=== PATIENT | female | born 1940 | race Caucasian/White ===

== ENCOUNTER 2016-06-03 15:54 | Inpatient (IN) ==
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
[2016-06-03 17:20] LABS: Basophils % 0.8 %; Hemoglobin 13.3 g/dL (11.5-15.4); Mean Corpuscular Hemoglobin 27.3 pg (28.0-33.3); Red Blood Count 4.87 M/mcL (3.82-4.97)
[2016-06-03 17:22] LABS: Basophils # 0.1 K/mcL (0.0-0.2); Eosinophils # 0.1 K/mcL (0.0-0.6); Eosinophils % 0.7 %; Hematocrit 41.4 % (35.3-44.9); Immature Granulocytes % 2.8 % (0-4); Immature Platelets 12.9 % (1.1-6.1); Lymphocytes # 2.8 K/mcL (0.6-4.6); Lymphocytes % 15.2 %; Mean Corpuscular HGB Conc 32.1 g/dL (31.6-35.5); Mean Platelet Volume 11.7 fL (9.4-12.4); Monocytes # 8.2 K/mcL (0.0-1.3); Monocytes % 45.3 %; Neutrophils # 6.4 K/mcL (1.6-8.9); Red Cell Distribution Width 14.6 % (11.5-14.5); Segmented Neutrophils % 35.2 %
[2016-06-03 17:24] LABS: Platelet Count 90 K/mcL (140-400)
[2016-06-03 17:25] LABS: INR 1.1
[2016-06-03 17:28] LABS: Activated Partial Thrombo Time 21.2 Seconds (26.0-36.0)
[2016-06-03 17:30] LABS: Bilirubin,Urine Negative (Negative); Blood,Urine Large (Negative); Clarity,Urine Clear (Clear); Color,Urine Yellow (Yellow); Glucose,Urine (UA) Normal (Normal); Ketones,Urine Negative (Negative); Leukocyte Esterase,Urine Large (Negative); Nitrite,Urine Negative (Negative); Protein,Urine Negative (Neg-Trace); Specific Gravity,Urine 1.009 (1.010-1.025); Urobilinogen,Urine Normal (Normal)
[2016-06-03 17:32] LABS: Bacteria,Urine None Seen per hpf (None-Few); Hyaline Casts,Urine None Seen per lpf (None-Few); RBC,Urine 15-30 per hpf (0-3); Squamous Epithelial Cell,Urine Many per lpf (None-Few)
[2016-06-03 17:34] LABS: Alanine Aminotransferase 17 Units/L (0-55); Albumin 4.5 g/dL (3.5-5.0); Albumin/Globulin Ratio 1.4 (1.1-2.2); Alkaline Phosphatase 69 Units/L (38-126); Aspartate Amino Transferase 24 Units/L (5-34); BUN/Creatinine Ratio 22 (6-26); Bilirubin,Total 0.9 mg/dL (0.2-1.2); Blood Urea Nitrogen 21 mg/dL (7-20); Calcium 9.5 mg/dL (8.6-10.8); Carbon Dioxide 26 mEq/L (19-29); Chloride 103 mEq/L (98-109); Globulin 3.3 g/dL (2.4-3.5); Glucose 98 mg/dL (70-99); Osmolality,Calculated 291 (280-300); Potassium 3.7 mEq/L (3.5-4.5); Sodium 139 mEq/L (136-145); Total Protein 7.8 g/dL (6.0-8.3); eGFR For African Americans > 60 (> 60); eGFR For Non-African Americans 57 (> 60)
[2016-06-03 18:10] LABS: Platelet Estimate Decreased (Normal)
[2016-06-03] MEDS ORDERED: Aspirin 81 MG TAB.CHEW PO STA (18:53)
[2016-06-03] MEDS ORDERED: *HR* Enoxaparin 60 MG/0.6 ML SYRINGE SQ ONE (20:16)
[2016-06-04] MEDS ORDERED: Acetaminophen 325 MG TABLET PO PRN (02:56)
[2016-06-04] MEDS ORDERED: *HR* Morphine 2 MG/ML SYRINGE IVP PRN (02:56)
[2016-06-04] MEDS ORDERED: Naloxone 0.4 MG/ML INJ IVP PRN (02:56)
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
[2016-06-04] MEDS: *HR* Heparin 5,000 UNIT/ML VIAL SQ SCH ×2 (06:15→16:20)
[2016-06-04] MEDS: 0.9 % Sodium Chloride w KCl 20 MEQ/1,000 ML MLS IVC SCH ×2 (06:15→19:38)
[2016-06-04 06:51] LABS: Hematocrit 39.3 % (35.3-44.9); Hemoglobin 12.6 g/dL (11.5-15.4); Mean Corpuscular HGB Conc 32.1 g/dL (31.6-35.5); Mean Corpuscular Hemoglobin 27.1 pg (28.0-33.3); Mean Corpuscular Volume 84.5 fL (83.0-100.0); Mean Platelet Volume 11.4 fL (9.4-12.4); Red Blood Count 4.65 M/mcL (3.82-4.97); Red Cell Distribution Width 14.7 % (11.5-14.5)
[2016-06-04 07:04] LABS: Alanine Aminotransferase 12 Units/L (0-55); Albumin 3.8 g/dL (3.5-5.0); Albumin/Globulin Ratio 1.2 (1.1-2.2); Alkaline Phosphatase 63 Units/L (38-126); Aspartate Amino Transferase 19 Units/L (5-34); BUN/Creatinine Ratio 18 (6-26); Bilirubin,Total 1.3 mg/dL (0.2-1.2); Blood Urea Nitrogen 16 mg/dL (7-20); Calcium 9.3 mg/dL (8.6-10.8); Carbon Dioxide 24 mEq/L (19-29); Chloride 106 mEq/L (98-109); Chol/HDL Ratio 4.4 (0-4.9); Cholesterol 133 mg/dL (< 200); Globulin 3.1 g/dL (2.4-3.5); Glucose 91 mg/dL (70-99); HDL Cholesterol 30 mg/dL (40-59); LDL Cholesterol,Calculated 79 mg/dL (0-99); Magnesium 1.9 mg/dL (1.6-2.6); Osmolality,Calculated 293 (280-300); Potassium 3.4 mEq/L (3.5-4.5); Sodium 141 mEq/L (136-145); Total Protein 6.9 g/dL (6.0-8.3); Triglycerides 121 mg/dL (< 150); eGFR For African Americans > 60 (> 60); eGFR For Non-African Americans > 60 (> 60)
[2016-06-04 07:33] LABS: Platelet Count 95 K/mcL (140-400)
[2016-06-04 08:04] LABS: Lymphocytes # 2.5 K/mcL (0.6-4.6); Monocytes # 6.4 K/mcL (0.0-1.3); Neutrophils # 6.4 K/mcL (1.6-8.9)
[2016-06-04 08:05] LABS: Platelet Estimate Slight Decrease (Normal)
[2016-06-04] MEDS: Aspirin 81 MG TAB.CHEW PO SCH (09:08)
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
[2016-06-04] MEDS ORDERED: Famotidine 20 MG TABLET PO PRN (14:51)
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
[2016-06-04] MEDS ORDERED: Aspirin Enteric Coated 81 MG Tablet PO ONE (17:47)
[2016-06-04] MEDS: Lactobacillus 1 EACH CAP.SPRINK PO SCH (20:17)
[2016-06-05 04:51] LABS: Basophils % 0.7 %; Eosinophils % 0.5 %; Hemoglobin 12.4 g/dL (11.5-15.4)
[2016-06-05 04:53] LABS: Eosinophils # 0.1 K/mcL (0.0-0.6); Hematocrit 38.5 % (35.3-44.9); Immature Platelets 8.7 % (1.1-6.1); Lymphocytes # 2.3 K/mcL (0.6-4.6); Lymphocytes % 10.7 %; Mean Corpuscular HGB Conc 32.2 g/dL (31.6-35.5); Mean Corpuscular Hemoglobin 27.7 pg (28.0-33.3); Mean Corpuscular Volume 86.1 fL (83.0-100.0); Mean Platelet Volume 11.6 fL (9.4-12.4); Monocytes % 51.9 %; Neutrophils # 7.2 K/mcL (1.6-8.9); Platelet Count 102 K/mcL (140-400); Red Blood Count 4.47 M/mcL (3.82-4.97); Red Cell Distribution Width 14.8 % (11.5-14.5); Segmented Neutrophils % 34.2 %
[2016-06-05 05:08] LABS: Alanine Aminotransferase 13 Units/L (0-55); Albumin 3.4 g/dL (3.5-5.0); Albumin/Globulin Ratio 1.1 (1.1-2.2); Alkaline Phosphatase 61 Units/L (38-126); Aspartate Amino Transferase 17 Units/L (5-34); BUN/Creatinine Ratio 23 (6-26); Blood Urea Nitrogen 19 mg/dL (7-20); Calcium 8.7 mg/dL (8.6-10.8); Carbon Dioxide 18 mEq/L (19-29); Chloride 111 mEq/L (98-109); Glucose 90 mg/dL (70-99); Osmolality,Calculated 290 (280-300); Sodium 139 mEq/L (136-145); Total Protein 6.4 g/dL (6.0-8.3); eGFR For African Americans > 60 (> 60); eGFR For Non-African Americans > 60 (> 60)
[2016-06-05 05:27] LABS: Basophils # 0.2 K/mcL (0.0-0.2)
[2016-06-05 05:29] LABS: Platelet Estimate Slight Decrease (Normal)
[2016-06-05] MEDS: *HR* Heparin 5,000 UNIT/ML VIAL SQ SCH ×2 (05:57→16:57)
--- NOTE | 2016-06-05 08:18 | ECHO - Doppler Report ---
Echocardiogram Name: Cecilia Christopher Date of Study: 06/04/2016 Date: 1940 Ht: 65.0 in Medical Record#: [id number] Age: 76 Wt: 107.0 lb Gender: Female BSA: 1.52 Order #: [id number] Location: [facility] Room #: 2NE27 Reading Physician: Michael Willard DO, FACAbhay, [place] Inner Layer Scrubber Tender: Nirmala Matthew RDCS Ordering Physician: Giovani Orozco MD Primary Physician: Duncan Tracy MD Indications: Syncope, Elevated Troponin Impressions: LVEF 60-65%. Normal LV chamber size, wall thickness and function. Mild left ventricular diastolic dysfunction. Normal right ventricular structure and function. No evidence of pulmonary hypertension. No significant valvular dysfunction. Left Ventricular Wall Motion: Rest Echo Findings All wall segments showed normal motion. Findings: Study Quality * Technically adequate exam. ECG Findings * Normal sinus rhythm. Left Ventricle * LVEF 60-65%. * Normal LV chamber size, wall thickness and function. * Mild left ventricular diastolic dysfunction. Right Ventricle * Normal right ventricular structure and function. Left Atrium * Normal left atrial size. Right Atrium * Normal right atrial size. Interatrial Septum * No evidence of PFO by color Doppler. Aortic Valve * Trileaflet aortic valve. * Mildly sclerotic aortic valve leaflets. * No aortic regurgitation. * No aortic stenosis. Mitral Valve * Normal mitral valve structure and function. * No mitral regurgitation. * No mitral stenosis. Tricuspid Valve * Normal tricuspid valve structure and function. * Trace tricuspid regurgitation. * No evidence of pulmonary hypertension. Pulmonic Valve * Normal pulmonic valve structure and function. * Trace pulmonic regurgitation. Aorta * Normally sized aortic root. Pericardium * The pericardium appears normal. IVC * Normal IVC dimensions and inspiratory collapse. Pulmonary Artery * Normal visualized portions of the main pulmonary artery. History Hypertension 07/12/2012 a Previous Echo was performed. Measurements: BP: 116/ 61 2D Normal Values RVIDd: 2.21 cm <2.7 cm IVSd: 1.12 cm 0.6 - 1.0 cm LVIDd: 3.47 cm 3.7 - 5.6 cm LVPWd: .95 cm 0.6 - 1.1 cm LVIDs: 2.22 cm 1.5 - 3.6 cm AO: 2.20 cm < 4.0 cm LA: 2.50 cm 2.0 - 4.0cm %FS: 36.00 cm >25 % LA volume: 34 Mitral Valve Peak E:.77 m/sec Peak A:.83 m/sec E/A Ratio:0.9 Peak E' Lat Surinder:8.05 cm/s Peak E' Med Surinder:6.2 cm/s E/E' Lat Ratio:9.6 E/E' Med Ratio:12.4 Tricuspid Valve TV Regurg Peak Grad: 9.00mmHg TV Regurg Peak Surinder: 1.48m/sec Updated by Michael Willard DO, TOVA, [place], CAROLYN on 06/05/2016 8:13:01 AM electronically signed on 06/05/2016 8:14:08 AM with status of Final Wall Motion [place]: 1=Normal, 2=Hypokinesis, 3=Akinesis, 4=Dyskinesis, 5=Aneurysmal, 6=Hyperkinetic, X=Not Visualized (Blank)=Missing
--- NOTE | 2016-06-05 09:15 | Electrocardiograph Report ---
[address] [place] [address] Test Date: 2016-06-03 Pat Name: Cecilia Christopher Department: 103 Room: 2NE27 Gender: F Social Worker Masters: : 1940 Requested By: Dedrick Song Order Number: [id number] Reading MD: Felix Short MD Measurements Intervals [place] Rate: 65 P: 69 GA: 167 QRS: 19 QRSD: 85 T: 37 QT: 434 QTc: 446 Interpretive Statements SINUS RHYTHM LEFT ATRIAL ENLARGEMENT LEFT VENTRICULAR HYPERTROPHY Electronically Signed On 06-05-2016 9:14:22 EDT by Felix Short MD
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
[2016-06-05] MEDS: 0.9 % Sodium Chloride w KCl 20 MEQ/1,000 ML MLS IVC SCH (09:35)
[2016-06-05] MEDS: Lactobacillus 1 EACH CAP.SPRINK PO SCH ×2 (09:36→23:04)
[2016-06-05] MEDS: Aspirin 81 MG TAB.CHEW PO SCH (09:36)
[2016-06-05] MEDS: hydroCHLOROthiazide 25 MG TABLET PO SCH (09:36)
[2016-06-05] MEDS: Valsartan 160 MG TABLET PO SCH (09:36)
[2016-06-05] MEDS: Cholecalciferol (D-3) 1,000 UNIT TABLET PO SCH (09:36)
[2016-06-05] MEDS: Psyllium 1 PACKET POWD.PACK PO SCH (09:37)
--- NOTE | 2016-06-05 12:43 | Carotid Imaging Report ---
Carotid Duplex Patient Name:Cecilia Christopher Order Number:[id number] Procedure Date:06/04/2016 Date:2Age:76 yrs Gender:Female Rt.BP:116 / 61 mmHgHeart Rate: Location:[facility] Room #: 2NE27 Hospice Care Consultant:Nirmala Matthew EDWIN Referring MD:Giovani Orozco MD electronic publications specialist:Duncan Tracy MD Reading MD:Maury Spann MD , [facility] Primary Indications:Syncope and collapse Risk Factors Yes/No Hypertension Yes Impressions: Findings: Bilateral carotid systems are essentially normal. Recommendations: Preliminary given to Dr Galan. Findings Carotid Duplex: Right: The right proximal common carotid artery has a PSV of 124 cm/s and a EDV of 15 cm/s. The right mid common carotid artery has a PSV of 109 cm/s and a EDV of 18 cm/s. The right distal common carotid artery has a PSV of 97 cm/s and a EDV of 18 cm/s. The right bifurcation has a PSV of 74 cm/s and a EDV of 18 cm/s. The right proximal internal carotid artery has a PSV of 81 cm/s and a EDV of 22 cm/s. The right mid internal carotid artery has a PSV of 99 cm/s and a EDV of 25 cm/s. The right distal internal carotid artery has a PSV of 109 cm/s and a EDV of 23 cm/s. The right eca has a PSV of 69 cm/s and a EDV of 2 cm/s. The right vertebral artery has a PSV of 72 cm/s and a EDV of 21 cm/s. There is antegrade spectral Doppler flow patterns. Left: The left proximal common carotid artery has a PSV of 95 cm/s and a EDV of 18 cm/s. The left mid common carotid artery has a PSV of 96 cm/s and a EDV of 18 cm/s. The left distal common carotid artery has a PSV of 85 cm/s and a EDV of 20 cm/s. The left bifurcation has a PSV of 50 cm/s and a EDV of 11 cm/s. The left proximal internal carotid artery has a PSV of 75 cm/s and a EDV of 17 cm/s. The left mid internal carotid artery has a PSV of 80 cm/s and a EDV of 19 cm/s. The left distal internal carotid artery has a PSV of 80 cm/s and a EDV of 21 cm/s. The left eca has a PSV of 81 cm/s and a EDV of 2 cm/s. The left vertebral artery has a PSV of 63 cm/s and a EDV of 10 cm/s. There is antegrade spectral Doppler flow patterns. Prior Study: No prior study available for comparison. Carotid Results Right PSV EDV Assessment Proximal CCA 124 15 Mid CCA 109 18 Distal CCA 97 18 Bifurcation 74 18 Proximal ICA 81 22 Mid ICA 99 25 Distal ICA 109 23 ECA 69 2 Vertebral Artery 72 21 Antegrade Flow Left PSV EDV Assessment Proximal CCA 95 18 Mid CCA 96 18 Distal CCA 85 20 Bifurcation 50 11 Proximal ICA 75 17 Mid ICA 80 19 Distal ICA 80 21 ECA 81 2 Vertebral Artery 63 10 Antegrade Flow Ratio's Right ICA/CCA Ratio: 1.00 ICA/CCA Values: 109/109 Left ICA/CCA Ratio: 0.83 ICA/CCA Values: 80/96 Updated by Maury Spann MD, FACS on 06/05/2016 12:37:33 PM Maury Spann MD electronically signed on 06/05/2016 12:38:02 PM with status of Final
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
--- NOTE | 2016-06-05 13:58 | EEG/EMG/Oth Biometrics Report ---
EEG Procedure Report Date of procedure: 06/05/16 EEG Procedure: Routine EEG Procedure Note: This is a report of a 21 channel bipolar and referential montage EEG. A posterior dominant rhythm of 8 Hz moderate voltage alpha frequencies identified symmetrically in the posterior head regions. This rhythm attenuates symmetrically with eye opening. Superimposed beta frequencies are identified in the anterior leads. Hyperventilation is not performed during recording. Periods of drowsiness are identified as referenced by dropout of the posterior dominant rhythm. The subject however does not approach stage II sleep. Photic stimulation is performed and does not produce a driving response. The EKG rhythm strip reveals normal sinus rhythm at 66 beats per minute. Impressions: This EEG recording is within normal limits. There is no evidence of epileptiform activity identified during the study. Comment: A normal EEG does not preclude a diagnosis of seizure or epilepsy. If the clinical suspicion for seizure activity is high, serial EEGs or perhaps a prolonged recording may increase the yield. Please correlate clinically. The documentation in the history of HPI and plan were at least partially created by [employer] voice recognition technology by Dr. Franz. Errors in grammar, wording or other phrases may exist. If errors are found after the documentation signed, they will be addressed individually in the addendum section of this document when appropriate.
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
[2016-06-05] MEDS: Piperacillin/Tazobactam 3.375 GM in D5% in Water (Mini-Bag+) 100 ML IVPB SCH ×2 (17:06→23:05)
--- NOTE | 2016-06-05 17:47 | Electrocardiograph Report ---
[place] [id number] Test Date: 2016-06-04 Pat Name: Cecilia Christopher Department: 111 Room: 2N7 Gender: F Ultrasound Supervisor: : 1940 Requested By: Michael Willard Order Number: [id number] Reading MD: Naseem Shen Measurements Intervals [place] Rate: 64 P: 69 TN: 148 QRS: 30 QRSD: 91 T: 41 QT: 423 QTc: 432 Interpretive Statements SINUS RHYTHM Electronically Signed On 06-05-2016 17:45:45 EDT by Naseem Shen
[2016-06-06] MEDS: 0.9 % Sodium Chloride w KCl 20 MEQ/1,000 ML MLS IVC SCH ×3 (05:48→05:50)
[2016-06-06] MEDS: *HR* Heparin 5,000 UNIT/ML VIAL SQ SCH (05:51)
[2016-06-06] MEDS: Valsartan 160 MG TABLET PO SCH (08:28)
[2016-06-06] MEDS: Cholecalciferol (D-3) 1,000 UNIT TABLET PO SCH (08:28)
[2016-06-06] MEDS: Aspirin 81 MG TAB.CHEW PO SCH (08:28)
[2016-06-06] MEDS: Lactobacillus 1 EACH CAP.SPRINK PO SCH (08:29)
[2016-06-06] MEDS: hydroCHLOROthiazide 25 MG TABLET PO SCH (08:29)
[2016-06-06] MEDS: Psyllium 1 PACKET POWD.PACK PO SCH (08:30)
[2016-06-06 09:44] LABS: Hematocrit 41.8 % (35.3-44.9); Hemoglobin 13.5 g/dL (11.5-15.4); Immature Platelets 9.8 % (1.1-6.1); Mean Corpuscular HGB Conc 32.3 g/dL (31.6-35.5); Mean Corpuscular Hemoglobin 27.4 pg (28.0-33.3); Mean Platelet Volume 10.6 fL (9.4-12.4); Red Blood Count 4.92 M/mcL (3.82-4.97); Red Cell Distribution Width 14.7 % (11.5-14.5)
[2016-06-06 09:53] LABS: BUN/Creatinine Ratio 18 (6-26); Blood Urea Nitrogen 15 mg/dL (7-20); Calcium 9.2 mg/dL (8.6-10.8); Carbon Dioxide 22 mEq/L (19-29); Chloride 107 mEq/L (98-109); Glucose 68 mg/dL (70-99); Osmolality,Calculated 289 (280-300); Potassium 3.6 mEq/L (3.5-4.5); Sodium 140 mEq/L (136-145); eGFR For African Americans > 60 (> 60); eGFR For Non-African Americans > 60 (> 60)
[2016-06-06 10:56] VITALS: BP 119/56
[2016-06-06] MEDS: Piperacillin/Tazobactam 3.375 GM in D5% in Water (Mini-Bag+) 100 ML IVPB SCH (12:47)
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
--- NOTE | 2016-06-06 15:13 | Neurology Progress Note ---
Date of Encounter: 06/06/16 Time of Encounter: 15:09 Assessment and Plan (1) Syncope Current Visit: Yes Status: Acute My impressions regarding this case remained the same. I am doubtful of a primary central nervous system etiology to explain her syncope. She did not have a prodrome, she did not have what appeared to be a seizure, she did not have a postictal state, she only has amnesia for the time that she was unconscious. There is no anterograde, or retrograde amnesia. EEG was normal. I agree with cardiology's plan for post discharge monitoring. He may discharge her at your discretion. I will reevaluate her at your request. I would recommend the patient abstain from driving until the commodity merchant's workup has been completed and they are comfortable releasing the patient back to normal daily activities. Qualifiers: Qualified Code(s): R55 - Syncope and collapse Subjective Principal diagnosis: syncope Interval history: I had the pleasure of following up with Ms. Christopher at the bedside today. She is awake and alert and oriented in no acute distress. The chart was reviewed, the MRI scan of the brain was also personally reviewed. And the patient was examined bedside. The MRI reveals a very small punctate abnormality in the region of the left hippocampus. I am not convinced that this is an infarct. I expect that this perhaps a dilated vein or perhaps a Virchow-Mae space. This lesion is in my opinion and too small to be of any pathologic consequence. Otherwise she is alert and oriented and totally appropriate. Objective - Constitutional Vitals: Temp Pulse Resp BP Pulse Ox 97.7 F 62 15 119/56 97 06/06/16 07:12 06/06/16 07:12 06/06/16 07:12 06/06/16 07:12 06/06/16 07:12 - Neurological Exam Motor Examination: Present: full strength in all major muscle groups Motor examination - right side: 5/5: deltoids, biceps, triceps, wrist flexion, wrist extension, biological technical officer, hip flexors, tibialis Anterior, quadriceps, toe extension (EHL), plantarflexion Motor examination - left side: 5/5: deltoids, biceps, triceps, wrist flexion, wrist extension, hip flexors, biological technical officer, quadriceps, tibialis Anterior, toe extension (EHL), plantarflexion Sensation intact: Present: intact Mental Status Examination: Present: awake, alert, oriented to person, oriented to place, oriented to time, follows commands appropriately, answers questions appropriately, no agnosia, no aphasia, no aproxia Cranial nerve examination: Present: PERRL, EOMI, visual pak intact, corneal reflexes brisk symmetrically, sensory to face intact, mastication intact, no facial asymmetry is present, no dysarthria, hearing is intact symmetrically, soft palate elevates bilaterally upon phonation, gag reflex intact, flexes SCM and trapezius muscles symmetrically with full power, tongue protrudes midline, no atrophy or facial fasiculations present Cerebellar examination: Present: no dysmetria, performs finger to nose and heel to moran symmetrically without ataxia, no gait ataxia, no truncal ataxia, no difficulty with rapid alternating movements Results - Laboratory Findings CBC and BMP: 06/06/16 09:33 06/06/16 09:33 Abnormal lab findings: Abnormal lab results WBC 24.4 K/mcL (4.3-11.1) H 06/06/16 09:33 MCH 27.4 pg (28.0-33.3) L 06/06/16 09:33 RDW 14.7 % (11.5-14.5) H 06/06/16 09:33 Plt Count 97 K/mcL (140-400) L 06/06/16 09:33 Band Neutrophils % 5.0 % (0-4) H 06/04/16 06:03 Metamyelocytes % 2.0 % (0) H 06/04/16 06:03 Monocytes # 11.0 K/mcL (0.0-1.3) H 06/05/16 04:03 Platelet Estimate Slight Decrease (Normal) L 06/05/16 04:03 Immature Plt Fraction 9.8 % (1.1-6.1) H 06/06/16 09:33 APTT 21.2 Seconds (26.0-36.0) L 06/03/16 17:10 Glucose 68 mg/dL (70-99) L 06/06/16 09:33 POC Glucose 98 (58-89) H 06/05/16 21:06 Troponin I 0.08 ng/mL (0-0.03) H* 06/04/16 19:13 Albumin 3.4 g/dL (3.5-5.0) L 06/05/16 04:03 HDL Cholesterol 30 mg/dL (40-59) L 06/04/16 06:03 Ur Specific [place] 1.009 (1.010-1.025) L 06/03/16 17:19 Urine Blood Large (Negative) H 06/03/16 17:19 Ur Leukocyte Esterase Large (Negative) H 06/03/16 17:19 Urine Microscopic RBC 15-30 per hpf (0-3) H 06/03/16 17:19 Urine Microscopic WBC 5-15 per hpf (0-3) H 06/03/16 17:19 Ur Squamous Epith Cells Many per lpf (None-Few) H 06/03/16 17:19 Consult Discharge Plan - Plan Referrals: Duncan Tracy MD [Primary Care Provider] - Naseem Shen MD [Partnered Physician] - 06/27/16 10:15 am
== END 2016-06-06 18:35 | disposition home or self-care (01) | DRG 312 ==
LOC: 2NENU 15:54 → EMEROO 15:54 → 2NENU 22:16 → SUATTDRO 06-05 17:03
PROVIDERS: ADMIT Internal Medicine; ATTEND Internal Medicine

== ENCOUNTER 2017-10-31 22:42 | Inpatient (IN) ==
[2017-10-31] MEDS ORDERED: Isovue-370 500 ML INFUS..BTL IV ONE (23:11)
[2017-10-31 23:45] LABS: Hematocrit 33.7 % (35.3-44.9); Hemoglobin 10.9 g/dL (11.5-15.4); Mean Corpuscular HGB Conc 32.3 g/dL (31.6-35.5); Mean Corpuscular Hemoglobin 27.8 pg (28.0-33.3); Mean Platelet Volume 11.8 fL (9.4-12.4); Platelet Count 131 K/mcL (140-400); Red Blood Count 3.92 M/mcL (3.82-4.97); Red Cell Distribution Width 17.2 % (11.5-14.5)
[2017-11-01 00:07] LABS: Lymphocytes # 0.8 K/mcL (0.6-4.6); Monocytes # 24.4 K/mcL (0.0-1.3); Platelet Estimate Normal (Normal)
[2017-11-01 00:09] LABS: BUN/Creatinine Ratio 28 (6-26); Blood Urea Nitrogen 18 mg/dL (8-23); Calcium 8.7 mg/dL (8.6-10.3); Carbon Dioxide 27 mEq/L (23-29); Chloride 99 mEq/L (98-107); Glucose 110 mg/dL (70-105); Osmolality,Calculated 281 (280-300); Potassium 4.1 mEq/L (3.5-5.1); Sodium 134 mEq/L (136-145); eGFR For Non-African Americans > 60 (> 60)
[2017-11-01 00:10] LABS: Troponin I < 0.03 ng/mL (< 0.04)
--- NOTE | 2017-11-01 02:31 | Emergency Department Note ---
Disposition Clinical Impression: Pleural effusion, Hypoxemia Dyspnea Qualifiers: Dyspnea type: unspecified Qualified Code(s): R06.00 - Dyspnea, unspecified Disposition: Admitted As Inpatient Condition: Fair Time of Disposition: 03:50 General Adult HPI - General Chief complaint: ED Upper Respiratory Infection Stated complaint: Abnormal chest xray Time Seen by Provider: 10/31/17 22:59 Source: EMS Limitations: no limitations Nursing Notes Reviewed: Yes Vital Signs Reviewed: Yes - History of Present Illness HPI Narrative: Patient is a 77-year-old female who presents to [facility] ED with a chief complaint of difficulty breathing. States over the last 2 days , she has been more short of breath and has had a cough. She has been residing at [facility]. States she had been doing better until this cough develop 2 days ago. Has not had any other cold symptoms. States they started her on oxygen via nasal cannula. She has never had a need for oxygen in the past. Has never been a smoker. Patient states she had a recent hospitalization back in August at [facility] in which she underwent an ablation for atrial fibrillation. States this was complicated by her cold urticaria and the hospitalization was complicated by needing multiple intubations. 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 Since then she has been recovering at the nursing facility and has been undergoing physical therapy. States she has been making good progress because she wants to get home as soon as she can. Past medical history significant for prior thrombocytopenia for which she previously followed with a public address technician. States her primary care physician Dr. Tracy handles this now. Onset (ago): day(s) (2) Pain Scale: 0 Consistency: Worsening Improves with: nothing Worsens with: nothing Associated symptoms: Reports: cough, shortness of breath. Denies: chest pain, fever/chills, nausea/vomiting, weakness Treatments Prior to Arrival: none - Related Data Home Medications Medication Instructions Recorded Confirmed Sotalol [Betapace] 40 mg PO QAM 10/01/14 06/04/16 Aspirin 81 mg PO DAILY 10/26/14 06/04/16 Diphenoxylate/Atropine [Lomotil] 1 each PO QID PRN 10/26/14 06/04/16 L. Acidophilus/Pectin, [place] 1 each PO BID 10/26/14 06/04/16 [Acidophilus Probiotic Capsule] Psyllium Husk [Psyllium Fiber] 1.56 gm PO DAILY 10/26/14 06/04/16 Cholecalciferol (D-3) [Vitamin D] 1,000 unit PO DAILY 06/04/16 06/04/16 Famotidine [Pepcid] 20 mg PO DAILY PRN 06/04/16 06/04/16 Sotalol [Betapace] 80 mg PO HS 06/04/16 06/04/16 Valsartan/Hydrochlorothiazide 1 each PO DAILY 06/04/16 06/04/16 [Diovan Hct 160-12.5 mg Tab] Allergies Allergy/AdvReac Type Severity Reaction Status Date / Time sulfamethoxazole Allergy Unknown Nausea Verified 06/03/16 16:15 [From Bactrim] levofloxacin [From Levaquin] Allergy See Verified 06/03/16 16:15 Comments nitrofurantoin Allergy See Verified 06/03/16 16:15 [From Macrobid] Comments trimethoprim [From Bactrim] Allergy Nausea Verified 06/03/16 16:15 All systems ED: reviewed and negative except as stated. Past Medical History - Past Medical History Attestation: Yes The following information was validated with the patient. Source: patient Medical history: Reports: atrial fibrillation, GERD, hypertension Surgical history: Reports: no surgical history Psychiatric history: Reports: no psych history - Social History Smoking Status: Never smoker Smokeless Tobacco Status: No Alcohol use: Reports: none Drug use: Reports: none Physical Exam - General Limitations: no limitations General appearance: alert, in no apparent distress - Head Head exam: atraumatic, normocephalic, normal inspection - Eye Eye exam: Present: EOMI - ENT ENT exam: normal exam, normal oropharynx, mucous membranes moist - Neck Neck exam: Present: normal inspection, full ROM, trachea midline - Chest Chest inspection: Present: normal inspection, symmetric chest wall rise - Respiratory Respiratory exam: Present: other (decreased breath sounds b/l) - Cardiovascular Cardiovascular exam: Present: regular rate, normal rhythm, normal heart sounds - Abdominal Exam Abdominal exam: Present: soft, Non-Tender. Absent: tenderness, distention, guarding, rebound, rigidity - Extremities Exam Extremities exam: Present: normal inspection, full ROM. Absent: tenderness, pedal edema - Neurological Exam Neurological exam: Present: alert, oriented X3 - Psychiatric Psychiatric exam: Present: normal affect, normal mood - Skin Skin exam: Present: warm, dry, intact, normal color Course Course Narrative: Patient seen and examined. New onset of a pleural effusion that was found by chest x-ray at the nursing facility. Due to the acuity of her symptoms and since she has been bedbound for the last several weeks, we will do a CTA of the chest to evaluate for pulmonary embolus. Dyspnea workup ordered. Patient currently saturating 93% with 2 L. - Reevaluation(s) Reevaluation #1: CTA showed signs of a large right-sided pleural effusion as well as moderate- sized pleural effusion on the left. Since these are new and since patient has new oxygen requirements, we will bring her in for further workup. Patient also has a leukocytosis which is over 40,000. Patient is unsure if she has had issues with her white blood cells in the past. Upon reviewing her history, she has had elevated white blood cell count every time she has been here though this is the highest it has ever been at our facility. I discussed with the hospitalist who accepted patient for admission. He would like blood cultures to be drawn as well as think and Zosyn to be given. Time: 03:11 Vital Signs Temperature 97.9 F 10/31/17 22:48 Pulse Rate 86 10/31/17 22:48 Respiratory Rate 18 10/31/17 22:48 Blood Pressure 101/58 10/31/17 22:48 O2 Sat by Pulse Oximetry 93 10/31/17 22:48 Temperature 98.2 F 11/01/17 03:36 Pulse Rate 86 11/01/17 03:36 Respiratory Rate 18 11/01/17 03:36 Blood Pressure 105/51 11/01/17 03:36 O2 Sat by Pulse Oximetry 92 11/01/17 05:40 Oxygen Delivery Oxygen Delivery Nasal Cannula Medical Decision Making - Medical Records Medical records reviewed: Yes I reviewed the patient's medical records. - Lab Data Lab results reviewed: Yes I reviewed the patient's lab results. Result diagrams: 11/01/17 04:23 11/01/17 04:23 Lab Results 10/31/17 10/31/17 10/31/17 Range/Units 23:11 23:11 23:11 WBC 42.1 H* (4.3-11.1) K/mcL RBC 3.92 (3.82-4.97) M/mcL Hgb 10.9 L (11.5-15.4) g/dL Hct 33.7 L (35.3-44.9) % MCV 86.0 (83.0-100.0) fL MCH 27.8 L (28.0-33.3) pg MCHC 32.3 (31.6-35.5) g/dL RDW 17.2 H (11.5-14.5) % Plt Count 131 L (140-400) K/mcL MPV 11.8 (9.4-12.4) fL Seg Neutrophils % 38.0 % Lymphocytes % 2.0 % Monocytes % 58.0 % Metamyelocytes % 2.0 H (0) % Neutrophils # 16.0 H (1.6-8.9) K/mcL Lymphocytes # 0.8 (0.6-4.6) K/mcL Monocytes # 24.4 H (0.0-1.3) K/mcL Platelet Estimate Normal (Normal) Sodium 134 L (136-145) mEq/L Potassium 4.1 (3.5-5.1) mEq/L Chloride 99 (98-107) mEq/L Carbon Dioxide 27 (23-29) mEq/L BUN 18 (8-23) mg/dL Creatinine 0.64 (0.60-1.20) mg/dL Est GFR ( Amer) > 60 (> 60) Est GFR (Non-Af Amer) > 60 (> 60) BUN/Creatinine Ratio 28 H (6-26) Glucose 110 H (70-105) mg/dL Calculated Osmolality 281 (280-300) Lactic Acid (0.5-2.2) mmol/L Calcium 8.7 (8.6-10.3) mg/dL Troponin I < 0.03 (< 0.04) ng/mL B-Natriuretic Peptide 73 (Less than 100) pg/mL 10/31/17 Range/Units 23:31 WBC (4.3-11.1) K/mcL RBC (3.82-4.97) M/mcL Hgb (11.5-15.4) g/dL Hct (35.3-44.9) % MCV (83.0-100.0) fL MCH (28.0-33.3) pg MCHC (31.6-35.5) g/dL RDW (11.5-14.5) % Plt Count (140-400) K/mcL MPV (9.4-12.4) fL Seg Neutrophils % % Lymphocytes % % Monocytes % % Metamyelocytes % (0) % Neutrophils # (1.6-8.9) K/mcL Lymphocytes # (0.6-4.6) K/mcL Monocytes # (0.0-1.3) K/mcL Platelet Estimate (Normal) Sodium (136-145) mEq/L Potassium (3.5-5.1) mEq/L Chloride (98-107) mEq/L Carbon Dioxide (23-29) mEq/L BUN (8-23) mg/dL Creatinine (0.60-1.20) mg/dL Est GFR ( Amer) (> 60) Est GFR (Non-Af Amer) (> 60) BUN/Creatinine Ratio (6-26) Glucose (70-105) mg/dL Calculated Osmolality (280-300) Lactic Acid 0.8 (0.5-2.2) mmol/L Calcium (8.6-10.3) mg/dL Troponin I (< 0.04) ng/mL B-Natriuretic Peptide (Less than 100) pg/mL - Radiology Data Radiology results reviewed: Yes I reviewed the patient's radiology results. Chest CTA 11/01/17 23:13 IMPRESSION: 1. No scan evidence for pulmonary embolus. 2. Bilateral pleural effusions and extensive bilateral atelectasis. Septal thickening and ground-glass opacities probably represent pulmonary edema. D/ / Augusto Acosta MD / Augusto Acosta MD Interpreting Provider: Augusto Acosta MD - EKG Data EKG #1 EKG attestation: Yes I reviewed and interpreted this EKG. EKG results narrative: EKG done at 2254 shows normal sinus rhythm with a rate of [address] elevation or depression. Normal axis. Attestation Statement - Attestation Attestation: Dr Sterling note: Patient has been seen in conjunction with resident Dr. Zina So; please see her charting for complete documentation. Assessment [id number] time with the patient and agree with the patient's treatment and disposition. No pain. No hypoxia but increased work of breathing for which she was placed on oxygen at the residential. Effusions noted on imaging.No pulmonaryembolism
[2017-11-01] MEDS ORDERED: Piperacillin/Tazobactam 3.375 GM in 0.9 % Sodium Chloride Mini Bag 100 ML IVPB ONE (02:41)
[2017-11-01] MEDS ORDERED: Naloxone 0.4 MG/ML INJ IVP PRN (04:14)
[2017-11-01] MEDS ORDERED: 0.9 % Sodium Chloride 1,000 ML IVC SCH (04:15)
[2017-11-01] MEDS ORDERED: Furosemide 20 MG/2 ML VIAL IVP ONE (04:19)
[2017-11-01 04:38] LABS: Mean Platelet Volume 11.9 fL (9.4-12.4)
[2017-11-01 04:40] LABS: Hematocrit 33.4 % (35.3-44.9); Hemoglobin 10.4 g/dL (11.5-15.4); Mean Corpuscular HGB Conc 31.1 g/dL (31.6-35.5); Mean Corpuscular Hemoglobin 26.5 pg (28.0-33.3); Mean Corpuscular Volume 85.2 fL (83.0-100.0); Platelet Count 114 K/mcL (140-400); Red Blood Count 3.92 M/mcL (3.82-4.97); Red Cell Distribution Width 17.3 % (11.5-14.5)
[2017-11-01 04:43] LABS: INR 1.5; Prothrombin Time 17.4 Seconds (9.4-12.1)
[2017-11-01 04:46] LABS: Activated Partial Thrombo Time 38.2 Seconds (26.0-36.0)
[2017-11-01 04:57] LABS: Alanine Aminotransferase 9 Units/L (7-52); Albumin 3.1 g/dL (3.5-5.7); Albumin/Globulin Ratio 1.1 (1.1-2.2); Alkaline Phosphatase 65 Units/L (34-104); Aspartate Amino Transferase 12 Units/L (13-39); BUN/Creatinine Ratio 31 (6-26); Bilirubin,Total 1.5 mg/dL (0.3-1.0); Blood Urea Nitrogen 17 mg/dL (8-23); Calcium 8.4 mg/dL (8.6-10.3); Carbon Dioxide 26 mEq/L (23-29); Chloride 101 mEq/L (98-107); Globulin 2.8 g/dL (2.4-3.5); Glucose 109 mg/dL (70-105); Magnesium 1.1 mg/dL (1.6-2.6); Osmolality,Calculated 280 (280-300); Potassium 4.1 mEq/L (3.5-5.1); Sodium 134 mEq/L (136-145); Total Protein 5.9 g/dL (6.4-8.9); eGFR For Non-African Americans > 60 (> 60)
[2017-11-01] MEDS: *HR* Heparin 5,000 UNIT/ML VIAL SQ SCH ×3 (05:16→21:35)
[2017-11-01 06:02] LABS: Lymphocytes # 8.3 K/mcL (0.6-4.6); Monocytes # 11.6 K/mcL (0.0-1.3); Neutrophils # 17.4 K/mcL (1.6-8.9)
[2017-11-01 06:03] LABS: Platelet Estimate Normal (Normal)
--- NOTE | 2017-11-01 08:51 | Pulmonology Consult Note ---
<Elian Kohler - Last Filed: 11/01/17 13:54> Date of Encounter: 11/01/17 Time of Encounter: 10:48 Assessment and Plan (1) Pleural effusion Current Visit: Yes Status: Acute Right sided pleural effusion with loculations Approximately 300mL removed with Thoracentesis Pleural fluid sent for lab analysis - await results F/U CXR showed continued bilateral pleural effusions Pt ventilating and oxygenating well at this time on 2lpm O2 via NC Obtain records from [place] in regards to chest drain Thank you for the consult. Will continue to monitor. (2) COPD (chronic obstructive pulmonary disease) Current Visit: Yes Status: Chronic Pt states she has been previously seen and diagnosed with COPD, but does not take any medications or inhalers at home Stable at this time Dyspnea related to pleural effusions as above Qualifiers: COPD type: unspecified COPD Qualified Code(s): J44.9 - Chronic obstructive pulmonary disease, unspecified History of Present Illness Consult date: 11/01/17 Requesting physician: Sydnee Wynn Reason for consult: dyspnea, pleural effusion Chief complaint: Shortness of breath History of present illness: Ms. Christopher is a 77F with PMH of CML, Thrombocytopenia, Afib s/p ablation 2 weeks ago, and COPD who presented to the ER complaining of increased cough and shortness of breath. Symptoms have been progressing since her discharge from 1-1/2 weeks ago. She was hospitalized there for ablation for atrial fibrillation, but developed some form of anaphylaxis was intubated and was in the ICU for a prolonged period of time. She was discharged to rehab. CT chest in ED revealed large right pleural effusion with septation likely representing loculation, and a small left pleural effusion. Of note, pt said she had a drain from her chest during , but was unaware what was being drained. During the encounter with this provider she reports continued increased cough and shortness of breath. Denies any change in sputum production or character from baseling. Denies fever, chills, chest pain, abdominal pain, nausea, vomiting, numbness, tinging, or headache, but denies fever or chills. Follow up post thoracentisis, with removal of 300mL fluid, pt reported no change in dyspnea or cough. No new complaints at that time. Past Med Surg Social Fam HX - Past Medical History Medical history: atrial fibrillation, GERD, hypertension Additional medical history: blood disease, stomach issues, Psychiatric history: no psych history - Past Surgical History Surgical History: no surgical history Additional surgical history: Ablation - Social History Smoking Status: Never smoker Smokeless Tobacco Status: No Alcohol use: none Drug use: none - Family History Father Living Status: Hx Family Cardiac Disorders: No Hx Family Respiratory Disorders: Yes (lung cancer) Hx Family Cancer: Yes (lung cancer) Hx Family GI Disorders: No Hx Family Endocrine Disorder: No Hx Family Neuromuscular Disorders: No Hx Family Neurologic Disorders: No Hx Family HEENT Disorders: No Hx Family Autoimmune Disorders: No Mother Living Status: Hx Family Cardiac Disorders: No Hx Family Respiratory Disorders: No Hx Family Cancer: No Hx Family GI Disorders: No Hx Family Endocrine Disorder: No Hx Family Neuromuscular Disorders: No Hx Family Neurologic Disorders: No Hx Family HEENT Disorders: No Hx Family Autoimmune Disorders: No Sister Living Status: Still Living Hx Family Cardiac Disorders: Yes (heart murmur) Hx Family Respiratory Disorders: No Hx Family Cancer: No Hx Family GI Disorders: No Hx Family Endocrine Disorder: No Hx Family Neuromuscular Disorders: No Hx Family Neurologic Disorders: No Hx Family HEENT Disorders: No Hx Family Autoimmune Disorders: No Son Living Status: Still Living Hx Family Cardiac Disorders: Yes (heart defect) Hx Family Respiratory Disorders: No Hx Family Cancer: No Hx Family GI Disorders: No Hx Family Endocrine Disorder: No Hx Family Neuromuscular Disorders: No Hx Family Neurologic Disorders: Yes Hx Family HEENT Disorders: No Hx Family Autoimmune Disorders: No Medications and Allergies Sotalol [Betapace] 40 mg PO QAM 10/01/14 [History] Aspirin 81 mg PO DAILY 10/26/14 [History] L. Acidophilus/Pectin, [place] [Acidophilus Probiotic Capsule] 1 each PO BID [History] Psyllium Husk [Psyllium Fiber] 1.56 gm PO DAILY 10/26/14 [History] Cholecalciferol (D-3) [Vitamin D] 1,000 unit PO DAILY 06/04/16 [History] Famotidine [Pepcid] 20 mg PO DAILY PRN 06/04/16 [History] Sotalol [Betapace] 80 mg PO HS 06/04/16 [History] Valsartan/Hydrochlorothiazide [Diovan Hct 160-12.5 mg Tab] 1 each PO DAILY 06/04 [History] Diphenoxylate/Atropine [Lomotil 2.5 mg/0.025 mg] 1 each PO QID PRN 11/01/17 [ History] 3 Allergy/AdvReac Type Severity Reaction Status Date / Time sulfamethoxazole AdvReac Unknown Nausea Verified 11/01/17 09:36 [From Bactrim] levofloxacin [From Levaquin] AdvReac See Verified 11/01/17 09:36 Comments nitrofurantoin AdvReac See Verified 11/01/17 09:36 [From Macrobid] Comments trimethoprim [From Bactrim] AdvReac Nausea Verified 11/01/17 09:36 All Systems: The remainder of the systems were reviewed and are negative - Constitutional Constitutional: no chills, no fever(s), no weakness - Cardiovascular Cardiovascular: dyspnea, no chest pain, no edema, no lightheadedness, no palpitations - Respiratory Respiratory: cough, dyspnea, no hemoptysis, no wheezing, no chest congestion, no excessive phlegm production, no change in phlegm color - Gastrointestinal Gastrointestinal: no abdominal pain, no nausea, no vomiting - Musculoskeletal Musculoskeletal: no weakness, no numbness, no tingling - Neurological Neurological: no confusion, no focal weakness, no headache(s) Physical Examination Vital Signs: Vital Signs, Last 4 Hours Temp Pulse Resp BP Pulse Ox 11/01/17 06:46 97.8 F 88 18 97/45 92 11/01/17 05:40 92 General appearance: no acute distress Eyes: nonicteric ENT: oropharynx moist Neck: supple, no lymphadenopathy, no JVD Effort: mildly labored Inspection: normal Auscultation: bilateral: rhonchi Percussion: bilateral: not dull Tactile fremitus: bilateral: normal Cardiovascular: regular rate and rhythm Gastrointestinal: soft, non-tender, non-distended Integumentary: normal Extremities: no cyanosis, no edema, no clubbing, pink and warm Musculoskeletal: no deformities Gait: normal posture normal mental status, non-focal exam mood appropriate, affect normal Results - Laboratory Findings CBC and BMP: 11/01/17 04:23 11/01/17 04:23 PT/INR, D-dimer PT 17.4 Seconds (9.4-12.1) H 11/01/17 04:26 Abnormal lab findings: Abnormal lab results WBC 41.4 K/mcL (4.3-11.1) H* 11/01/17 04:23 Hgb 10.4 g/dL (11.5-15.4) L 11/01/17 04:23 Hct 33.4 % (35.3-44.9) L 11/01/17 04:23 MCH 26.5 pg (28.0-33.3) L 11/01/17 04:23 MCHC 31.1 g/dL (31.6-35.5) L 11/01/17 04:23 RDW 17.3 % (11.5-14.5) H 11/01/17 04:23 Plt Count 114 K/mcL (140-400) L 11/01/17 04:23 Band Neutrophils % 6.0 % (0-4) H 11/01/17 04:23 Metamyelocytes % 10.0 % (0) H 11/01/17 04:23 Neutrophils # 17.4 K/mcL (1.6-8.9) H 11/01/17 04:23 Lymphocytes # 8.3 K/mcL (0.6-4.6) H 11/01/17 04:23 Monocytes # 11.6 K/mcL (0.0-1.3) H 11/01/17 04:23 PT 17.4 Seconds (9.4-12.1) H 11/01/17 04:26 APTT 38.2 Seconds (26.0-36.0) H 11/01/17 04:26 Sodium 134 mEq/L (136-145) L 11/01/17 04:23 Creatinine 0.55 mg/dL (0.60-1.20) L 11/01/17 04:23 BUN/Creatinine Ratio 31 (6-26) H 11/01/17 04:23 Glucose 109 mg/dL (70-105) H 11/01/17 04:23 Calcium 8.4 mg/dL (8.6-10.3) L 11/01/17 04:23 Magnesium 1.1 mg/dL (1.6-2.6) L 11/01/17 04:23 Total Bilirubin 1.5 mg/dL (0.3-1.0) H 11/01/17 04:23 AST 12 Units/L (13-39) L 11/01/17 04:23 Serum Total Protein 5.9 g/dL (6.4-8.9) L 11/01/17 04:23 Albumin 3.1 g/dL (3.5-5.7) L 11/01/17 04:23 - Microbiology Findings Microbiology Findings: Microbiology, Last 48 Hours 11/01/17 04:21 Blood Culture - Preliminary Peripheral Venipuncture Culture is incubating and being continuously monitored for growth. Final report to follow. - Diagnostic Findings Chest x-ray: report reviewed, image reviewed CT scan - chest: report reviewed, image reviewed - Clinical Findings Intake & Output: Intake & Output 10/31/17 11/01/17 11/01/17 23:59 07:59 15:59 Intake Total 100 / 100 Output Total 200 / 200 Balance -100 / -100 Weight 50.3 kg Consult Discharge Plan - Plan Referrals: Duncan Tracy MD [Primary Care Provider] - (patient is going to signature) <Godfrey Quach - Last Filed: 11/01/17 14:59> Date of Encounter: 11/01/17 All Systems: The remainder of the systems were reviewed and are negative Physical Examination Vital Signs: Vital Signs, Last 4 Hours Temp Pulse Resp BP Pulse Ox 11/01/17 11:35 97.7 F 99 17 113/60 92 Results - Laboratory Findings CBC and BMP: 11/01/17 04:23 11/01/17 04:23 PT/INR, D-dimer PT 17.4 Seconds (9.4-12.1) H 11/01/17 04:26 Abnormal lab findings: Abnormal lab results WBC 41.4 K/mcL (4.3-11.1) H* 11/01/17 04:23 Hgb 10.4 g/dL (11.5-15.4) L 11/01/17 04:23 Hct 33.4 % (35.3-44.9) L 11/01/17 04:23 MCH 26.5 pg (28.0-33.3) L 11/01/17 04:23 MCHC 31.1 g/dL (31.6-35.5) L 11/01/17 04:23 RDW 17.3 % (11.5-14.5) H 11/01/17 04:23 Plt Count 114 K/mcL (140-400) L 11/01/17 04:23 Band Neutrophils % 6.0 % (0-4) H 11/01/17 04:23 Metamyelocytes % 10.0 % (0) H 11/01/17 04:23 Neutrophils # 17.4 K/mcL (1.6-8.9) H 11/01/17 04:23 Lymphocytes # 8.3 K/mcL (0.6-4.6) H 11/01/17 04:23 Monocytes # 11.6 K/mcL (0.0-1.3) H 11/01/17 04:23 PT 17.4 Seconds (9.4-12.1) H 11/01/17 04:26 APTT 38.2 Seconds (26.0-36.0) H 11/01/17 04:26 Sodium 134 mEq/L (136-145) L 11/01/17 04:23 Creatinine 0.55 mg/dL (0.60-1.20) L 11/01/17 04:23 BUN/Creatinine Ratio 31 (6-26) H 11/01/17 04:23 Glucose 109 mg/dL (70-105) H 11/01/17 04:23 Calcium 8.4 mg/dL (8.6-10.3) L 11/01/17 04:23 Magnesium 1.1 mg/dL (1.6-2.6) L 11/01/17 04:23 Total Bilirubin 1.5 mg/dL (0.3-1.0) H 11/01/17 04:23 AST 12 Units/L (13-39) L 11/01/17 04:23 Serum Total Protein 5.9 g/dL (6.4-8.9) L 11/01/17 04:23 Albumin 3.1 g/dL (3.5-5.7) L 11/01/17 04:23 Pleural Appearance Hazy (Clear) A 11/01/17 10:35 - Microbiology Findings Microbiology Findings: Microbiology, Last 48 Hours 11/01/17 10:35 Body Fluid Culture - Preliminary Pleural Fluid - Clinical Findings Intake & Output: Intake & Output 09/05/18 09/06/18 09/06/18 23:59 07:59 15:59 Intake Total 540 / 540 Output Total 526 / 526 Balance - Attending Attestation I examined this patient and my medical decision-making was reviewed with the Resident Physician. I agree with the documented findings, disposition and treatment plan as described except to the extent set forth below. Patient seen and examined. Labs, radiology, chart personally reviewed. 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 On thoracentesis was done, only about 200 mL of fluid came out and they suspect she might need a chest tube which will reevaluate in next 24 hours. Keep SPO2 around 90%. Encourage incentive spirometry. Overall patient is very weak and there is a possibility this could be compressive atelectasis from bilateral pleural effusion is contributing causing her symptoms of cough and hypoxia. Thank you for the consultation.
--- NOTE | 2017-11-01 09:13 | Internal Med History&Physical ---
Date of Encounter: 11/01/17 Time of Encounter: 08:40 Internal Medicine - H&P: HPI Chief complaint: Cough Admitted From: Long-term Nursing Facility Plans for Post Hospital Care: Transfer Inp Rehab Fac History of present illness: Ms. Christopher is a 77 year old female Seen and evaluated at the bedside on the floor Patient is a 77-year-old female with PMH of CML, Thrombocytopenia, Afib s/p ablation, COPD who presented to the ER with complains fo cough and shortness of breath. She reports her symptoms have been ongoing since her discharge from [facility] 1-02/27 weeks ago. She was hospitalized there for ablation of her atrial fibrillation, however, after the ablation she developed some form of anaphylaxis was intubated and was in the ICU for a prolonged period of time. She was discharged to rehabilitation she reports however that she continues to have cough and associated shortness of breath. She reports phlegm production but denies fever or chills. She denies chest pain. She denies palpitation she also states that she was intubated twice during her stay at [place].. She denies any abdominal, urologic or genitourinary symptoms. She reports she has been following up with her primary care physician for her multiple hematologic disorders which include CML with chronic leukocytosis as well as chronic thrombocytopenia. On arrival to the emergency room, she was hypoxic and tachypneic, imaging showed likely pulmonary edema with bilateral pleural effusion right more than left as well as a suspicious for pneumonia. Her leukocytosis is worse than her baseline and her thrombocytopenia is stable. Her anemia is stable. Chem is unremarkable except for magnessium of 1.1. She will be admitted and is expected to stay more than 2 midnights for management of healthcare associated pneumonia, bilateral pleural effusion right more than left, and suspected pulmonary edema. At this time, she has no chest pain she still requiring 2 L of oxygen to maintain her saturation at greater than 92%, and she is currently hemodynamically stable. She is full code. Past Med Surg Social Fam HX - Past Medical History Medical history: atrial fibrillation, GERD, hypertension, other (CMML\) Additional medical history: blood disease, stomach issues, Psychiatric history: no psych history - Past Surgical History Surgical History: no surgical history Additional surgical history: Ablation - Social History Smoking Status: Never smoker Smokeless Tobacco Status: No Alcohol use: none Drug use: none - Family History Father Living Status: Hx Family Cardiac Disorders: No Hx Family Respiratory Disorders: Yes (lung cancer) Hx Family Cancer: Yes (lung cancer) Hx Family GI Disorders: No Hx Family Endocrine Disorder: No Hx Family Neuromuscular Disorders: No Hx Family Neurologic Disorders: No Hx Family HEENT Disorders: No Hx Family Autoimmune Disorders: No Mother Living Status: Hx Family Cardiac Disorders: No Hx Family Respiratory Disorders: No Hx Family Cancer: No Hx Family GI Disorders: No Hx Family Endocrine Disorder: No Hx Family Neuromuscular Disorders: No Hx Family Neurologic Disorders: No Hx Family HEENT Disorders: No Hx Family Autoimmune Disorders: No Sister Living Status: Still Living Hx Family Cardiac Disorders: Yes (heart murmur) Hx Family Respiratory Disorders: No Hx Family Cancer: No Hx Family GI Disorders: No Hx Family Endocrine Disorder: No Hx Family Neuromuscular Disorders: No Hx Family Neurologic Disorders: No Hx Family HEENT Disorders: No Hx Family Autoimmune Disorders: No Son Living Status: Still Living Hx Family Cardiac Disorders: Yes (heart defect) Hx Family Respiratory Disorders: No Hx Family Cancer: No Hx Family GI Disorders: No Hx Family Endocrine Disorder: No Hx Family Neuromuscular Disorders: No Hx Family Neurologic Disorders: Yes Hx Family HEENT Disorders: No Hx Family Autoimmune Disorders: No Internal Medicine - H&P: Meds Sotalol [Betapace] 40 mg PO QAM 10/01/14 [History] Aspirin 81 mg PO DAILY 10/26/14 [History] L. Acidophilus/Pectin, Lyman [Acidophilus Probiotic Capsule] 1 each PO BID [History] Psyllium Husk [Psyllium Fiber] 1.56 gm PO DAILY 10/26/14 [History] Cholecalciferol (D-3) [Vitamin D] 1,000 unit PO DAILY 06/04/16 [History] Famotidine [Pepcid] 20 mg PO DAILY PRN 06/04/16 [History] Sotalol [Betapace] 80 mg PO HS 06/04/16 [History] Valsartan/Hydrochlorothiazide [Diovan Hct 160-12.5 mg Tab] 1 each PO DAILY 06/04 [History] Diphenoxylate/Atropine [Lomotil 2.5 mg/0.025 mg] 1 each PO QID PRN 11/01/17 [ History] 3 Allergy/AdvReac Type Severity Reaction Status Date / Time sulfamethoxazole AdvReac Unknown Nausea Verified 11/01/17 09:36 [From Bactrim] levofloxacin [From Levaquin] AdvReac See Verified 11/01/17 09:36 Comments nitrofurantoin AdvReac See Verified 11/01/17 09:36 [From Macrobid] Comments trimethoprim [From Bactrim] AdvReac Nausea Verified 11/01/17 09:36 All Systems PM: A 10-system review of systems was performed and is negative for pertinent findings except as documented above in the HPI. - Constitutional Constitutional: as per HPI - EENT Eyes: as per HPI Ears: as per HPI Nose, mouth and throat: as per HPI - Cardiovascular Cardiovascular ROS IM: as per HPI - Respiratory Respiratory: as per HPI - Gastrointestinal Gastrointestinal: as per HPI - Genitourinary Genitourinary: as per HPI - Musculoskeletal Musculoskeletal ROS IM: as per HPI - Integumentary Integumentary IM: as per HPI - Neurological Neurological ROS: as per HPI - Hematologic/Lymphatic Hematologic/Lymphatic: as per HPI - Constitutional Vitals: Temp Pulse Resp BP Pulse Ox 97.8 F 88 18 97/45 92 11/01/17 06:46 11/01/17 06:46 11/01/17 06:46 11/01/17 06:46 11/01/17 06:46 General appearance: Present: A&O X 3, pleasant, no acute distress Exam: See below for detailed exam - Head Head exam: Present: atraumatic - Eye Eye exam: Present: PERRL, conjuntiva pink, sclera anicteric - ENT ENT exam: Present: mucous membranes moist - Neck Neck exam general surgery: Present: normal inspection - Respiratory Additional comments: Diminshed air entry RLL and RML zones Rhonchi LLL bases No wheezing - Cardiovascular Cardiovascular exam: Present: RRR, +S1, +S2 - GI/Abdominal GI/Abdominal exam: Present: normal bowel sounds, soft, no peritoneal signs. Absent: tenderness - Extremities Exam Extremities exam: Present: normal inspection. Absent: pedal edema - Neurological Exam Neurological exam: Present: alert, CN II-XII intact, oriented X3, no focal deficits. Absent: pronater drift, facial droop, speech deficit - Skin Skin exam: Present: intact, normal color. Absent: rash Internal Med - H&P Results - Labs CBC & Chem 7: 11/01/17 04:23 11/01/17 04:23 Labs: Short CBC 11/01/17 Range/Units 04:23 WBC 41.4 H* (4.3-11.1) K/mcL Hgb 10.4 L (11.5-15.4) g/dL Hct 33.4 L (35.3-44.9) % Plt Count 114 L (140-400) K/mcL Neutrophils # 17.4 H (1.6-8.9) K/mcL BMP 11/01/17 04:23 Sodium 134 L Potassium 4.1 Chloride 101 Carbon Dioxide 26 BUN 17 Creatinine 0.55 L Glucose 109 H Calcium 8.4 L Liver Function 11/01/17 Range/Units 04:23 Total Bilirubin 1.5 H (0.3-1.0) mg/dL AST 12 L (13-39) Units/L ALT 9 (7-52) Units/L Alkaline Phosphatase 65 (34-104) Units/L Albumin 3.1 L (3.5-5.7) g/dL - Impressions ITS Impressions Chest CTA 11/01/17 23:13 IMPRESSION: 1. No scan evidence for pulmonary embolus. 2. Bilateral pleural effusions and extensive bilateral atelectasis. Septal thickening and ground-glass opacities probably represent pulmonary edema. D/ / Augusto Acosta MD / Augusto Acosta MD Interpreting Provider: Augusto Acosta MD - Assessment and plan (1) Pneumonia Current Visit: Yes Status: Acute Assessment and plan: Patient with symptoms of cough, worse in the past 3 days, no fever, She also has sputum production, and leukocytosis worse than her baseline CT with large R pleural effusion and bronchial thickening,as well as suspicion for pulmonary edema BNP is normal and no hx of CHF Will treat for health care related PNA due to hx of multiple intubations 2 weeks ago while at a facility in [place] Patient also resides in a [facility], continue Send sputum culture Follow blood culture Obtain ECHO IR for R pleural fluid drainage -send fluid for culture and cytology Qualifiers: Qualified Code(s): J18.9 - Pneumonia, unspecified organism (2) COPD (chronic obstructive pulmonary disease) Current Visit: Yes Status: Chronic Assessment and plan: PFT from 11/2016 shows severe obstructive pattern No wheezing at this time, however, air entry diminished bilaterally in the setting of PNA and effusion Duonebs prn No indication for steroids at this time Qualifiers: Qualified Code(s): J44.9 - Chronic obstructive pulmonary disease, unspecified (3) Afib Current Visit: Yes Status: Chronic Assessment and plan: s/p ablation with complications including CVA/Anaphylaxis and REsp failure [facility] less than a month ago Resume sotalol Not on anticoagulation per chart Qualifiers: Qualified Code(s): I48.2 - Chronic atrial fibrillation (4) Hypoxemia Current Visit: Yes Status: Acute Assessment and plan: Due to Suspected PNA Continue O2 supplement (5) Pleural effusion Current Visit: Yes Status: Acute Assessment and plan: Likely due to PNA Unlikely due to CHF, BNP is WNL No leg edema, no JVD IR to drain and send for work up-call made Follow ECHO report (6) DVT prophylaxis Current Visit: Yes Status: Acute Assessment and plan: ICDs for now Heparin after procedure (7) 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 Assessment and plan: Known hx of CMML with leukocytosis, not following up with Oncology Leukocytosis baseline is 15-17k This presentation with WBC >40K, likley due to PNA Continue to monitor NO indication for Onc eval at this time Qualifiers: Qualified Code(s): C93.11 - Chronic myelomonocytic leukemia, in remission (8) Leukocytosis Current Visit: Yes Status: Chronic Assessment and plan: as above Qualifiers: Qualified Code(s): D72.829 - Elevated white blood cell count, unspecified (9) Thrombocytopenia Current Visit: Yes Status: Chronic Assessment and plan: Chronic thrombocytopenia, due to CMML PLT count is at baseline, continue to monitor (10) Hypomagnesemia Current Visit: Yes Status: Acute Assessment and plan: Mag 1.1 replace with 4g of Mag Repeat Mag a.m - Time Spent With Patient Total time spent is greater than 50% in coordination of care (as documented) at patient's floor/unit and/or counseling patient:
[2017-11-01 11:16] LABS: RBC,Pleural Fluid < 0.002 M/mcL
[2017-11-01 11:18] LABS: Appearance of Pleural Fl Hazy (Clear)
[2017-11-01] MEDS: Cholecalciferol (D-3) 1,000 UNIT TABLET PO SCH (11:25)
[2017-11-01] MEDS: Aspirin 81 MG TAB.CHEW PO SCH (11:25)
[2017-11-01] MEDS: Furosemide 40 MG/4 ML VIAL IVP SCH (11:26)
[2017-11-01] MEDS: Piperacillin/Tazobactam 3.375 GM in 0.9 % Sodium Chloride Mini Bag 100 ML IVPB SCH ×2 (11:26→18:29)
[2017-11-01 12:14] LABS: Total Protein,Pleural Fluid 4.7 g/dL (No Ref Range)
--- NOTE | 2017-11-01 15:04 | Procedure Note ---
Date of procedure: 11/01/17 Pre-op diagnosis: Bilateral pleural effusion Post-op diagnosis: same Procedure: Diagnostic and therapeutic thoracentesis Medications: Local lidocaine 1% 10 mL No immediate complications After obtaining informed consent, the patient was not able to be in be in a sitting position and it was done patient on her left side. Using ultrasound, the right hemithorax was examined revealing a moderately sized pleural effusion. The best entry site was marked. The area was prepped in the usual sterile fashion. Fluid was aspirated using a catheter 8 range over 18-gauge needle which was placed in the mid-scapular line. 200 mL of serosanguineous fluid was removed. Fluid was sent for routine pleural analysis. Patient's condition improved after the procedure. Chest x-ray was ordered for any evidence of pneumothorax or complications. Anesthesia: local Surgeon: Godfrey Quach Was there an railway yard assistant present: No Estimated blood loss (cc): 0 Specimen: yes Condition: stable Disposition: floor
[2017-11-01] MEDS: Benzonatate 100 MG CAPSULE PO PRN (21:35)
[2017-11-02] MEDS: Piperacillin/Tazobactam 3.375 GM in 0.9 % Sodium Chloride Mini Bag 100 ML IVPB SCH ×2 (03:01→12:06)
[2017-11-02 05:21] LABS: Mean Corpuscular HGB Conc 31.7 g/dL (31.6-35.5); Red Cell Distribution Width 17.2 % (11.5-14.5)
[2017-11-02 05:23] LABS: Hematocrit 31.2 % (35.3-44.9); Hemoglobin 9.9 g/dL (11.5-15.4); Mean Corpuscular Hemoglobin 27.2 pg (28.0-33.3); Mean Corpuscular Volume 85.7 fL (83.0-100.0); Mean Platelet Volume 12.1 fL (9.4-12.4); Platelet Count 110 K/mcL (140-400); Red Blood Count 3.64 M/mcL (3.82-4.97)
[2017-11-02 05:41] LABS: BUN/Creatinine Ratio 29 (6-26); Blood Urea Nitrogen 19 mg/dL (8-23); Calcium 8.4 mg/dL (8.6-10.3); Carbon Dioxide 23 mEq/L (23-29); Chloride 102 mEq/L (98-107); Glucose 95 mg/dL (70-105); Osmolality,Calculated 284 (280-300); Potassium 3.7 mEq/L (3.5-5.1); Sodium 136 mEq/L (136-145); eGFR For Non-African Americans > 60 (> 60)
[2017-11-02 05:42] LABS: Anisocytosis 1+ (Not Present); Lymphocytes # 5.3 K/mcL (0.6-4.6); Monocytes # 10.6 K/mcL (0.0-1.3); Neutrophils # 20.5 K/mcL (1.6-8.9); Platelet Estimate Decreased (Normal)
[2017-11-02] MEDS: *HR* Heparin 5,000 UNIT/ML VIAL SQ SCH ×3 (06:30→21:48)
[2017-11-02] MEDS: Aspirin 81 MG TAB.CHEW PO SCH (07:54)
[2017-11-02] MEDS: Cholecalciferol (D-3) 1,000 UNIT TABLET PO SCH (07:54)
[2017-11-02] MEDS: Furosemide 40 MG/4 ML VIAL IVP SCH (07:54)
--- NOTE | 2017-11-02 08:45 | Pulmonology Progress Note ---
<PhilomenaGodfrey M - Last Filed: 11/02/17 11:50> Date of Encounter: 11/02/17 Objective PUL Vital signs: Last Vital Signs Temp 98.0 F 11/02/17 11:28 Pulse 81 11/02/17 11:28 Resp 17 11/02/17 11:28 BP 106/54 11/02/17 11:28 Pulse Ox 96 11/02/17 11:28 Results - Laboratory Findings CBC and BMP: 11/02/17 04:34 11/02/17 04:34 PT/INR, D-dimer PT 17.4 Seconds (9.4-12.1) H 11/01/17 04:26 Abnormal lab findings: Abnormal lab results WBC 37.9 K/mcL (4.3-11.1) H* 11/02/17 04:34 RBC 3.64 M/mcL (3.82-4.97) L 11/02/17 04:34 Hgb 9.9 g/dL (11.5-15.4) L 11/02/17 04:34 Hct 31.2 % (35.3-44.9) L 11/02/17 04:34 MCH 27.2 pg (28.0-33.3) L 11/02/17 04:34 RDW 17.2 % (11.5-14.5) H 11/02/17 04:34 Plt Count 110 K/mcL (140-400) L 11/02/17 04:34 Band Neutrophils % 6.0 % (0-4) H 11/01/17 04:23 Metamyelocytes % 4.0 % (0) H 11/02/17 04:34 Neutrophils # 20.5 K/mcL (1.6-8.9) H 11/02/17 04:34 Lymphocytes # 5.3 K/mcL (0.6-4.6) H 11/02/17 04:34 Monocytes # 10.6 K/mcL (0.0-1.3) H 11/02/17 04:34 Platelet Estimate Decreased (Normal) L 11/02/17 04:34 Anisocytosis 1+ (Not Present) A 11/02/17 04:34 PT 17.4 Seconds (9.4-12.1) H 11/01/17 04:26 APTT 38.2 Seconds (26.0-36.0) H 11/01/17 04:26 BUN/Creatinine Ratio 29 (6-26) H 11/02/17 04:34 Calcium 8.4 mg/dL (8.6-10.3) L 11/02/17 04:34 Magnesium 1.1 mg/dL (1.6-2.6) L 11/01/17 04:23 Total Bilirubin 1.5 mg/dL (0.3-1.0) H 11/01/17 04:23 AST 12 Units/L (13-39) L 11/01/17 04:23 Serum Total Protein 5.9 g/dL (6.4-8.9) L 11/01/17 04:23 Albumin 3.1 g/dL (3.5-5.7) L 11/01/17 04:23 Pleural Appearance Hazy (Clear) A 11/01/17 10:35 - Microbiology Findings Microbiology Findings: Microbiology, Last 48 Hours 11/01/17 10:35 Body Fluid Culture - Preliminary Pleural Fluid - Clinical Findings Intake & Output: Intake & Output 11/01/17 11/02/17 11/02/17 23:59 07:59 15:59 Intake Total 500 / 500 220 / 220 Output Total 725 / 725 250 / 250 Balance -225 / -225 -30 / -30 Weight 51.3 kg Consult Discharge Plan - Plan Referrals: Duncan Tracy MD [Primary Care Provider] - (patient is going to signature) - Attending Attestation I examined this patient and my medical decision-making was reviewed with the Resident Physician. I agree with the documented findings, disposition and treatment plan as described except to the extent set forth below. Patient seen and examined. Labs, radiology, chart personally reviewed. Agree with resident's history and physical, assessment, plan with following comments: FLOW SPECIALIST: Patient follows commands, Pulmonary: Patient status post thoracentesis and it is exudative in nature with differential diagnosis of infectious versus malignancies and cytology is pending. Ultrasound was done again with evidence of septation and has loculation. Discussed with patient option of chest tube placement and possible TPA and she agreed to have the procedure done which was subsequently done without medications. Follow-up on the cytology. <Elian Kohler - Last Filed: 11/02/17 14:00> Date of Encounter: 11/02/17 Time of Encounter: 08:10 Assessment and Plan (1) Pleural effusion Current Visit: Yes Status: Acute Thoracentesis on 11/01 with pleural fluid analysis showing exudative nature, infectious vs malignancy Ultrasound at bedside revealed persistent fluid with septation and loculation. Discussed chest tube placement with pt, with possible TPA flush. Pt agreed to procedure. Continue to monitor (2) COPD (chronic obstructive pulmonary disease) Current Visit: Yes Status: Chronic Pt states she has been previously seen and diagnosed with COPD, but does not take any medications or inhalers at home Stable at this time Dyspnea related to pleural effusions as above Qualifiers: COPD type: unspecified COPD Qualified Code(s): J44.9 - Chronic obstructive pulmonary disease, unspecified Subjective Principal diagnosis: Right Pleural Effusion Interval history: No acute events overnight. Pt states her dyspnea is "about the same", and states she has some chest discomfort rather than pain. Denies any fever, chills , abdominal pain, nausea, vomiting, headache, numbness, or tingling. Objective PUL Vital signs: Last Vital Signs Temp 97.4 F L 11/02/17 08:05 Pulse 84 11/02/17 08:05 Resp 28 11/02/17 08:05 BP 112/61 11/02/17 08:05 Pulse Ox 94 11/02/17 05:25 General appearance: no acute distress Eyes: nonicteric ENT: oropharynx moist Neck: supple, no lymphadenopathy, no JVD Effort: normal Auscultation: right: diminished breath sounds, rhonchi Percussion: bilateral: not dull Tactile fremitus: bilateral: normal Cardiovascular: regular rate and rhythm Gastrointestinal: soft, non-tender, non-distended Integumentary: normal Extremities: no cyanosis, no edema, no clubbing, pink and warm Musculoskeletal: no deformities Gait: normal posture normal mental status, non-focal exam mood appropriate, affect normal Results - Laboratory Findings CBC and BMP: 11/02/17 04:34 11/02/17 04:34 PT/INR, D-dimer PT 17.4 Seconds (9.4-12.1) H 11/01/17 04:26 Abnormal lab findings: Abnormal lab results WBC 37.9 K/mcL (4.3-11.1) H* 11/02/17 04:34 RBC 3.64 M/mcL (3.82-4.97) L 11/02/17 04:34 Hgb 9.9 g/dL (11.5-15.4) L 11/02/17 04:34 Hct 31.2 % (35.3-44.9) L 11/02/17 04:34 MCH 27.2 pg (28.0-33.3) L 11/02/17 04:34 RDW 17.2 % (11.5-14.5) H 11/02/17 04:34 Plt Count 110 K/mcL (140-400) L 11/02/17 04:34 Band Neutrophils % 6.0 % (0-4) H 11/01/17 04:23 Metamyelocytes % 4.0 % (0) H 11/02/17 04:34 Neutrophils # 20.5 K/mcL (1.6-8.9) H 11/02/17 04:34 Lymphocytes # 5.3 K/mcL (0.6-4.6) H 11/02/17 04:34 Monocytes # 10.6 K/mcL (0.0-1.3) H 11/02/17 04:34 Platelet Estimate Decreased (Normal) L 11/02/17 04:34 Anisocytosis 1+ (Not Present) A 11/02/17 04:34 PT 17.4 Seconds (9.4-12.1) H 11/01/17 04:26 APTT 38.2 Seconds (26.0-36.0) H 11/01/17 04:26 BUN/Creatinine Ratio 29 (6-26) H 11/02/17 04:34 Calcium 8.4 mg/dL (8.6-10.3) L 11/02/17 04:34 Magnesium 1.1 mg/dL (1.6-2.6) L 11/01/17 04:23 Total Bilirubin 1.5 mg/dL (0.3-1.0) H 11/01/17 04:23 AST 12 Units/L (13-39) L 11/01/17 04:23 Serum Total Protein 5.9 g/dL (6.4-8.9) L 11/01/17 04:23 Albumin 3.1 g/dL (3.5-5.7) L 11/01/17 04:23 Pleural Appearance Hazy (Clear) A 11/01/17 10:35 - Microbiology Findings Microbiology Findings: Microbiology, Last 48 Hours 11/01/17 10:35 Body Fluid Culture - Preliminary Pleural Fluid - Diagnostic Findings Chest x-ray: report reviewed, image reviewed - Clinical Findings Intake & Output: Intake & Output 11/01/17 11/02/17 11/02/17 23:59 07:59 15:59 Intake Total 500 / 500 100 / 100 Output Total 725 / 725 Balance -225 / -225 100 / 100 Weight 51.3 kg
--- NOTE | 2017-11-02 09:28 | Internal Med Progress Note ---
Hospitalist Progress Note - Encounter Date of Encounter: 11/02/17 Time of Encounter: 09:12 - Subjective Interval History: Patient seen and examined this morning. Admitted for Shortness of breath and cough. s/p thorocentesis on Rt. Breathing slightly better. No fevers. Being prepped for chest tube. - Exam Vitals: Temp Pulse Resp BP Pulse Ox 97.4 F L 84 28 112/61 94 11/02/17 08:05 11/02/17 08:05 11/02/17 08:05 11/02/17 08:05 11/02/17 05:25 Exam: Const: Vital signs listed above. mild respiratory distress. Alert and oriented x 3. No mood disorders noted, calm affect. Eyes: Sclera white, conjunctiva clear, lids are without lag. PERRLA. Pupils and irises are equal and round without defect. ENT: TMs intact and clear, normal canals, grossly normal hearing. Oropharanx clear and moist without erythema. Gums pink, good dentition. Lymph/Neck: No masses, thyromegaly, or abnormal cervical notes. No bruit. Tracheal midline. Cardio: RRR, Normal S1, S2 w/o murmurs, rubs or gallops. Skin warm and dry. No peripheral edema. Respiratory: Diminshed air entry RLL and RML zones, some rhonchi LLL bases, non- tender to palpitation. Musculo: No deformity or scoliosis noted. No jatinder gait disturbance noted. No cyanosis or edema. Pulses normal in all 4 extremities. No atrophy or abnormal movements. Appropriate muscle strength bilaterally. Neurologic: No focal deficits, cranial nerves II-XII grossly intact with normal sensation, reflexes, coordination, muscle strength and tone. GI/Abdomen: Soft, non tender, non distended, no hepatosplemomegaly, normal bowel sounds, no masses noted. Skin: intact, normal color. 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 (2) Thrombocytopenia Current Visit: Yes Status: Chronic (3) Leukocytosis Current Visit: Yes Status: Chronic (4) DVT prophylaxis Current Visit: Yes Status: Acute (5) Pleural effusion Current Visit: Yes Status: Acute (6) Hypoxemia Current Visit: Yes Status: Acute (7) COPD (chronic obstructive pulmonary disease) Current Visit: Yes Status: Chronic (8) Pneumonia Current Visit: Yes Status: Acute (9) Afib Current Visit: Yes Status: Chronic (10) Hypomagnesemia Current Visit: Yes Status: Acute - Summary of Assessment and Plan Summary of Assessment and Plan: Hospital acquired Pneumonia - CT with large Rt pleural effusion and bronchial thickening,as well as suspicion for pulmonary edema. - BNP is normal and no hx of CHF - c/w Vancomycin and zosyn for HAP given recent hospitalization with intubation 2wks ago SNF placement. f/u Blood and sputum culture. - f/u ECHO given finding of pulmonary edema. - s/p thorocentesis with ~200 cc. appears exudative. - Pulmonary recommendation appreciated. Plan for chest tube. f/u plueral fluid studies and cytology. Pleural effusion - Likely due to PNA - Less likely to be from CHF given BNP of 80s, no leg swelling - Pleural fluid consistent with exudative - f/u ECHO COPD - PFT from 11/2016 shows severe obstructive pattern - air entry diminished bilaterally in the setting of PNA and effusion - Duonebs prn - stable. No indication of steroids for now Afib - s/p ablation with complications including CVA/Anaphylaxis and Resp failure requiring intubations - Resume sotalol at home dose of 40 in am and 80 HS. - Not on anticoagulation per chart CMML - Known hx of CMML with leukocytosis, not following up with Oncology - Leukocytosis baseline is 15-17k. Currenlty in 40K. Some bandemia. likley due to PNA. Trending down. - c/w Antibiotics. - Will consider Onc eval if no improvement Thrombocytopenia - Chronic thrombocytopenia most likely fromo CMML - PLT count at baseline - continue to monitor Hypomagnesemia - Mag 1.1 - repleted. f/u Morning level DVT prophylaxis - ICDs for now - Heparin after procedure - Time Spent with Patient Total time spent is greater than 50% in coordination of care (as documented) at patient's floor/unit and/or counseling patient: Internal Medicine: Result - Labs CBC & Chem 7: 11/02/17 04:34 11/02/17 04:34 Labs: Short CBC 11/02/17 Range/Units 04:34 WBC 37.9 H* (4.3-11.1) K/mcL Hgb 9.9 L (11.5-15.4) g/dL Hct 31.2 L (35.3-44.9) % Plt Count 110 L (140-400) K/mcL Neutrophils # 20.5 H (1.6-8.9) K/mcL BMP 11/02/17 04:34 Sodium 136 Potassium 3.7 Chloride 102 Carbon Dioxide 23 BUN 19 Creatinine 0.66 Glucose 95 Calcium 8.4 L - ABG Interpretation ABG results: PT/INR, D-dimer PT 17.4 Seconds (9.4-12.1) H 11/01/17 04:26 - Impressions Impressions Chest X-Ray 11/01/17 10:38 IMPRESSION: Bilateral pleural effusions, partially loculated on the right. No evidence of a pneumothorax. D/ / Farhat Boudreaux MD / Farhat Boudreaux MD Interpreting Provider: Farhat Boudreaux MD Consult Discharge Plan - Plan Referrals: Duncan Tracy MD [Primary Care Provider] - (patient is going to signature) (1) CMML (chronic myelomonocytic leukemia) Qualifiers: Leukemia Active/Remission status: in remission Qualified Code(s): C93.11 - Chronic myelomonocytic leukemia, in remission (3) Leukocytosis Qualifiers: Leukocytosis type: unspecified Qualified Code(s): D72.829 - Elevated white blood cell count, unspecified (7) COPD (chronic obstructive pulmonary disease) Qualifiers: COPD type: unspecified COPD Qualified Code(s): J44.9 - Chronic obstructive pulmonary disease, unspecified (8) Pneumonia Qualifiers: Pneumonia type: due to unspecified organism Laterality: bilateral Lung location: unspecified part of lung Qualified Code(s): J18.9 - Pneumonia, unspecified organism (9) Afib Qualifiers: Atrial fibrillation type: chronic Qualified Code(s): I48.2 - Chronic atrial fibrillation
[2017-11-02] MEDS ORDERED: Aminoglycoside Consult 1 EACH MC ONE (10:24)
[2017-11-02] MEDS ORDERED: Lidocaine -MPF 2% 5 ML VIAL ONE (10:50)
--- NOTE | 2017-11-02 12:02 | Procedure Note ---
Date of procedure: 11/02/17 Pre-op diagnosis: Loculated pleural effusion Post-op diagnosis: same Procedure: Right side chest tube placement Medications: Local lidocaine 1% 10 mL No immediate complications After obtaining informed consent, the patient was placed in a supine position. Using ultrasound, the right hemithorax was examined revealing a moderately sized pleural effusion with septation or loculation. The best entry site was marked. The area was prepped in the usual sterile fashion. Fluid was aspirated using a 18-gauge needle which was placed in the mid-axillary line in 6 intercostal space then guidewire was passed and need available then subsequently incision was dilated toward the guidewire and eventually 12 Fr. chest tube was placed with draining serosanguineous fluid about 50 mL. Chest tube was sutured in place and connected to suction. Patient tolerated procedure without immediate complications. Chest x-ray was ordered for any evidence of pneumothorax or complications. Anesthesia: local Surgeon: Godfrey Quach Was there an medical clerical assistant present: No Estimated blood loss (cc): 0.5 Specimen: 0 Pathology: none sent Condition: stable Disposition: floor
[2017-11-02 15:17] LABS: Fluid Source for Albumin PLEURAL FLUID
[2017-11-02] MEDS: Benzonatate 100 MG CAPSULE PO PRN (21:52)
[2017-11-02 22:06] LABS: Magnesium 1.7 mg/dL (1.6-2.6)
[2017-11-03] MEDS: *HR* Heparin 5,000 UNIT/ML VIAL SQ SCH ×3 (06:14→23:38)
--- NOTE | 2017-11-03 07:20 | Pulmonology Progress Note ---
Date of Encounter: 11/03/17 Time of Encounter: 07:20 Assessment and Plan (1) Pleural effusion Current Visit: Yes Status: Acute Patient has a small bore thoracostomy tube in place. Ultrasonography demonstrated to significant septations in consistent with a complicated process which I suspect is related to a complicated parapneumonic effusion but malignancy is not excluded. Minimal output overnight and I suspect patient will need installation of tPA. Would repeat CT scan now to reevaluate anatomy and if persistent sizable effusion would give tPA. Plan to follow up cytology once path review early part of this upcoming week (2) Pneumonia Current Visit: Yes Status: Acute Patient is on broad-spectrum antimicrobials at present including vancomycin and Zosyn. I suspect that could be de-escalated from MRSA coverage at this time is a do not see any culture positive result to suggest this and MRSA complicated parapneumonic effusions are less frequently seen in hospitalized patients Qualifiers: Pneumonia type: due to unspecified organism Laterality: bilateral Lung location: unspecified part of lung Qualified Code(s): J18.9 - Pneumonia, unspecified organism (3) COPD (chronic obstructive pulmonary disease) Current Visit: Yes Status: Chronic Bronchodilators on an as-needed basis Qualifiers: COPD type: unspecified COPD Qualified Code(s): J44.9 - Chronic obstructive pulmonary disease, unspecified Subjective Principal diagnosis: Right Pleural Effusion Interval history: Ms Christopher is sitting up eating breakfast when I entered the room. She states that she is trying to consume more food because she has felt weak and she is trying to generally improve her strength. She denies any fevers or chills. She remains dyspneic but that is at baseline. Minimal output in the chest tube over the evening nursing shift initially around 150 mL of exudative fluid was removed. Objective PUL Vital signs: Last Vital Signs Temp 97.8 F 11/03/17 06:55 Pulse 94 11/03/17 06:55 Resp 18 11/03/17 06:55 BP 102/53 11/03/17 06:55 Pulse Ox 94 11/03/17 06:55 General appearance: no acute distress Eyes: nonicteric ENT: oropharynx moist Neck: supple Auscultation: bilateral: diminished breath sounds (No wheezing) Cardiovascular: regular rate and rhythm Gastrointestinal: soft, non-tender Extremities: no edema normal mental status, non-focal exam mood appropriate Results - Laboratory Findings CBC and BMP: 11/02/17 04:34 11/02/17 04:34 PT/INR, D-dimer PT 17.4 Seconds (9.4-12.1) H 11/01/17 04:26 Abnormal lab findings: Abnormal lab results WBC 37.9 K/mcL (4.3-11.1) H* 11/02/17 04:34 RBC 3.64 M/mcL (3.82-4.97) L 11/02/17 04:34 Hgb 9.9 g/dL (11.5-15.4) L 11/02/17 04:34 Hct 31.2 % (35.3-44.9) L 11/02/17 04:34 MCH 27.2 pg (28.0-33.3) L 11/02/17 04:34 RDW 17.2 % (11.5-14.5) H 11/02/17 04:34 Plt Count 110 K/mcL (140-400) L 11/02/17 04:34 Band Neutrophils % 6.0 % (0-4) H 11/01/17 04:23 Metamyelocytes % 4.0 % (0) H 11/02/17 04:34 Neutrophils # 20.5 K/mcL (1.6-8.9) H 11/02/17 04:34 Lymphocytes # 5.3 K/mcL (0.6-4.6) H 11/02/17 04:34 Monocytes # 10.6 K/mcL (0.0-1.3) H 11/02/17 04:34 Platelet Estimate Decreased (Normal) L 11/02/17 04:34 Anisocytosis 1+ (Not Present) A 11/02/17 04:34 PT 17.4 Seconds (9.4-12.1) H 11/01/17 04:26 APTT 38.2 Seconds (26.0-36.0) H 11/01/17 04:26 BUN/Creatinine Ratio 29 (6-26) H 11/02/17 04:34 Calcium 8.4 mg/dL (8.6-10.3) L 11/02/17 04:34 Total Bilirubin 1.5 mg/dL (0.3-1.0) H 11/01/17 04:23 AST 12 Units/L (13-39) L 11/01/17 04:23 Serum Total Protein 5.9 g/dL (6.4-8.9) L 11/01/17 04:23 Albumin 3.1 g/dL (3.5-5.7) L 11/01/17 04:23 Pleural Appearance Hazy (Clear) A 11/01/17 10:35 - Microbiology Findings Microbiology Findings: Microbiology, Last 48 Hours 11/01/17 10:35 Body Fluid Culture - Preliminary Pleural Fluid - Diagnostic Findings Chest x-ray: report reviewed, image reviewed CT scan - chest: report reviewed, image reviewed - Clinical Findings Intake & Output: Intake & Output 11/02/17 11/02/17 11/03/17 15:59 23:59 07:59 Intake Total 460 / 460 340 / 340 Output Total 360 / 360 562 / 562 0 / 0 Balance 100 / 100 -222 / -222 0 / 0 Weight 49.4 kg - VTE Documentation of Mechanical Device: Intermittent pneumatic compression device Consult Discharge Plan - Plan Referrals: Duncan Tracy MD [Primary Care Provider] - (patient is going to signature)
[2017-11-03] MEDS: Furosemide 40 MG/4 ML VIAL IVP SCH (08:13)
[2017-11-03] MEDS: Aspirin 81 MG TAB.CHEW PO SCH (08:13)
[2017-11-03] MEDS: Cholecalciferol (D-3) 1,000 UNIT TABLET PO SCH (08:13)
[2017-11-03] MEDS: Piperacillin/Tazobactam 3.375 GM in 0.9 % Sodium Chloride Mini Bag 100 ML IVPB SCH ×3 (08:14→14:27)
--- NOTE | 2017-11-03 09:24 | Internal Med Progress Note ---
Hospitalist Progress Note - Encounter Date of Encounter: 11/03/17 Time of Encounter: 09:20 - Subjective Interval History: Patient seen and examined this morning. s/p chest tube. Breathing slightly better. No fevers. - Exam Vitals: Temp Pulse Resp BP Pulse Ox 97.8 F 94 18 102/53 94 11/03/17 06:55 11/03/17 06:55 11/03/17 06:55 11/03/17 06:55 11/03/17 06:55 Exam: Const: Vital signs listed above. mild respiratory distress. Alert and oriented x 3. No mood disorders noted, calm affect. Eyes: Sclera white, conjunctiva clear, lids are without lag. PERRLA. Pupils and irises are equal and round without defect. ENT: TMs intact and clear, normal canals, grossly normal hearing. Oropharanx clear and moist without erythema. Gums pink, good dentition. Lymph/Neck: No masses, thyromegaly, or abnormal cervical notes. No bruit. Tracheal midline. Cardio: RRR, Normal S1, S2 w/o murmurs, rubs or gallops. Skin warm and dry. No peripheral edema. Respiratory: Diminshed air entry RLL and RML zones, some rhonchi LLL bases, non- tender to palpitation. Musculo: No deformity or scoliosis noted. No jatinder gait disturbance noted. No cyanosis or edema. Pulses normal in all 4 extremities. No atrophy or abnormal movements. Appropriate muscle strength bilaterally. Neurologic: No focal deficits, cranial nerves II-XII grossly intact with normal sensation, reflexes, coordination, muscle strength and tone. GI/Abdomen: Soft, non tender, non distended, no hepatosplemomegaly, normal bowel sounds, no masses noted. Skin: intact, normal color. 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 (2) Thrombocytopenia Current Visit: Yes Status: Chronic (3) Leukocytosis Current Visit: Yes Status: Chronic (4) DVT prophylaxis Current Visit: Yes Status: Acute (5) Pleural effusion Current Visit: Yes Status: Acute (6) Hypoxemia Current Visit: Yes Status: Acute (7) COPD (chronic obstructive pulmonary disease) Current Visit: Yes Status: Chronic (8) Pneumonia Current Visit: Yes Status: Acute (9) Afib Current Visit: Yes Status: Chronic (10) Hypomagnesemia Current Visit: Yes Status: Acute - Summary of Assessment and Plan Summary of Assessment and Plan: Hospital acquired Pneumonia - CT with large Rt pleural effusion and bronchial thickening,as well as suspicion for pulmonary edema. - Vancomycin stopped given less likelihood of MRSA parapneumonic effusion. c/w zosyn for HAP with complicated parapneumonic effusion. f/u Blood and sputum culture. - s/p thorocentesis with ~200 cc. appears exudative. s/p Chest tube. plueral fluid appears exudative. - US this morning by pulm with signifiant septation likely from Complicated parapneumonic effusion. Malignancy still in differential. Plan for repeat CT and tPA if still significant collection. f/u cytology and path - Pulmonary recommendation appreciated. Pleural effusion - Likely due to PNA - Less likely to be from CHF given BNP of 80s, no leg swelling - Pleural fluid consistent with exudative - ECHO with EF of 65, Mild PHTN, mild pericardial effusion - Discontinue lasix. COPD - PFT from 11/2016 shows severe obstructive pattern - air entry diminished bilaterally in the setting of PNA and effusion - Duonebs prn - stable. No indication of steroids for now Afib - s/p ablation with complications including CVA/Anaphylaxis and Resp failure requiring intubations - Resume sotalol at home dose of 40 in am and 80 HS. - Not on anticoagulation per chart CMML - Known hx of CMML with leukocytosis, not following up with Oncology - Leukocytosis baseline is 15-17k. improving. likley due to PNA. - c/w Zosyn. - Will consider Onc eval if no improvement Thrombocytopenia - Chronic thrombocytopenia most likely fromo CMML - PLT count at baseline - continue to monitor Hypomagnesemia - resolved DVT prophylaxis - ICDs for now - Heparin after procedure - Time Spent with Patient Total time spent is greater than 50% in coordination of care (as documented) at patient's floor/unit and/or counseling patient: Internal Medicine: Result - Labs CBC & Chem 7: 11/02/17 04:34 11/02/17 04:34 Labs: BMP 11/02/17 04:34 Sodium 136 Potassium 3.7 Chloride 102 Carbon Dioxide 23 BUN 19 Creatinine 0.66 Glucose 95 Calcium 8.4 L - ABG Interpretation ABG results: PT/INR, D-dimer PT 17.4 Seconds (9.4-12.1) H 11/01/17 04:26 - Impressions Impressions Chest X-Ray 11/02/17 13:15 IMPRESSION: Stable examination with bilateral pleural effusions. No change since recent prior. D/ / Nikolai Woo MD / Nikolai Woo MD Interpreting Provider: Nikolai Woo MD - VTE Documentation of Mechanical Device: Intermittent pneumatic compression device Consult Discharge Plan - Plan Referrals: Duncan Tracy MD [Primary Care Provider] - (patient is going to signature) (1) CMML (chronic myelomonocytic leukemia) Qualifiers: Leukemia Active/Remission status: in remission Qualified Code(s): C93.11 - Chronic myelomonocytic leukemia, in remission (3) Leukocytosis Qualifiers: Leukocytosis type: unspecified Qualified Code(s): D72.829 - Elevated white blood cell count, unspecified (7) COPD (chronic obstructive pulmonary disease) Qualifiers: COPD type: unspecified COPD Qualified Code(s): J44.9 - Chronic obstructive pulmonary disease, unspecified (8) Pneumonia Qualifiers: Pneumonia type: due to unspecified organism Laterality: bilateral Lung location: unspecified part of lung Qualified Code(s): J18.9 - Pneumonia, unspecified organism (9) Afib Qualifiers: Atrial fibrillation type: chronic Qualified Code(s): I48.2 - Chronic atrial fibrillation
[2017-11-03] MEDS ORDERED: Alteplase (Cathflo) 10 MG in 0.9 % Sodium Chloride 30 ML IX ONE (11:24)
[2017-11-03] MEDS: *HR* Promethazine 25 MG/ML VIAL IVP PRN ×2 (11:35→19:21)
--- NOTE | 2017-11-03 11:35 | Electrocardiograph Report ---
[address] [place] [address] Test Date: 2017-10-31 Pat Name: Cecilia Christopher Department: EXAM3 Room: 2N14 Gender: F Marketing Specialist: : [id number] Requested By: Zina So Order Number: [id number] Reading MD: Edison Shrestha Measurements Intervals [place] Rate: 84 P: 71 TN: 131 QRS: 30 QRSD: 74 T: 69 QT: 362 QTc: 428 Interpretive Statements Sinus rhythm Probable left atrial enlargement Electronically Signed On 11-03-2017 11:33:31 EDT by Edison Shrestha
--- NOTE | 2017-11-03 12:42 | Event Note ---
Date of Encounter: 11/03/17 Time of Encounter: 12:40 Intrapleural tPA instilled at bedside per protocol. 2 hour instillation then resume thoracostomy tube to suction.
[2017-11-04] MEDS: Piperacillin/Tazobactam 3.375 GM in 0.9 % Sodium Chloride Mini Bag 100 ML IVPB SCH ×3 (01:00→14:49)
[2017-11-04] MEDS: *HR* Heparin 5,000 UNIT/ML VIAL SQ SCH ×3 (03:44→20:02)
[2017-11-04 06:17] LABS: Basophils # 0.3 K/mcL (0.0-0.2); Basophils % 0.6 %; Eosinophils # 0.3 K/mcL (0.0-0.6); Eosinophils % 0.7 %; Hematocrit 30.5 % (35.3-44.9); Hemoglobin 9.7 g/dL (11.5-15.4); Immature Granulocytes % 6.1 % (0-4); Lymphocytes # 2.1 K/mcL (0.6-4.6); Lymphocytes % 4.5 %; Mean Corpuscular HGB Conc 31.8 g/dL (31.6-35.5); Mean Corpuscular Hemoglobin 26.8 pg (28.0-33.3); Mean Corpuscular Volume 84.3 fL (83.0-100.0); Mean Platelet Volume 11.9 fL (9.4-12.4); Monocytes % 50.1 %; Neutrophils # 17.3 K/mcL (1.6-8.9); Platelet Count 110 K/mcL (140-400); Red Blood Count 3.62 M/mcL (3.82-4.97)
[2017-11-04 06:35] LABS: Monocytes # 22.9 K/mcL (0.0-1.3)
[2017-11-04 06:37] LABS: BUN/Creatinine Ratio 22 (6-26); Blood Urea Nitrogen 17 mg/dL (8-23); Calcium 8.2 mg/dL (8.6-10.3); Carbon Dioxide 26 mEq/L (23-29); Chloride 99 mEq/L (98-107); Glucose 100 mg/dL (70-105); Osmolality,Calculated 282 (280-300); Potassium 3.4 mEq/L (3.5-5.1); Sodium 135 mEq/L (136-145); eGFR For Non-African Americans > 60 (> 60)
[2017-11-04 06:39] LABS: Platelet Estimate Normal (Normal); Reactive Lymphocytes Present (Not Present)
[2017-11-04] MEDS: Aspirin 81 MG TAB.CHEW PO SCH (07:53)
[2017-11-04] MEDS: Cholecalciferol (D-3) 1,000 UNIT TABLET PO SCH (07:54)
--- NOTE | 2017-11-04 08:20 | Pulmonology Progress Note ---
Date of Encounter: 11/04/17 Time of Encounter: 08:20 Assessment and Plan (1) Pleural effusion Current Visit: Yes Status: Acute Patient has a small bore thoracostomy tube in place recommend keeping the chest tube to suction today and repeat chest x-ray in the morning. I anticipate removal in the next 24-48 hours (2) Pneumonia Current Visit: Yes Status: Acute Culture this far negative she is on Zosyn at present likely need at least a 8 days and possibly longer based upon clinical course. She has persistent leukocytosis which in part is related to her underlying malignancy Qualifiers: Pneumonia type: due to unspecified organism Laterality: bilateral Lung location: unspecified part of lung Qualified Code(s): J18.9 - Pneumonia, unspecified organism (3) COPD (chronic obstructive pulmonary disease) Current Visit: Yes Status: Chronic Bronchodilators on an as-needed basis Qualifiers: COPD type: unspecified COPD Qualified Code(s): J44.9 - Chronic obstructive pulmonary disease, unspecified Subjective Principal diagnosis: Right Pleural Effusion Interval history: Ms Christopher is sitting up up in bed and states that she remained nauseated for most of the day yesterday and into this morning although she thinks it is getting a little bit better now. After instillation of TPA she had about 650 mL of output from the right chest tube. She says that her breathing is better today Objective PUL Vital signs: Last Vital Signs Temp 97.7 F 11/04/17 07:57 Pulse 85 11/04/17 07:57 Resp 18 11/04/17 07:57 BP 106/52 11/04/17 07:57 Pulse Ox 94 11/04/17 07:57 General appearance: no acute distress Eyes: nonicteric Auscultation: bilateral: diminished breath sounds Cardiovascular: regular rate and rhythm Gastrointestinal: normoactive bowel sounds, soft Extremities: edema Musculoskeletal: no deformities normal mental status, non-focal exam mood appropriate Results - Laboratory Findings CBC and BMP: 11/04/17 05:54 11/04/17 05:54 PT/INR, D-dimer PT 17.4 Seconds (9.4-12.1) H 11/01/17 04:26 Abnormal lab findings: Abnormal lab results WBC 45.6 K/mcL (4.3-11.1) H* 11/04/17 05:54 RBC 3.62 M/mcL (3.82-4.97) L 11/04/17 05:54 Hgb 9.7 g/dL (11.5-15.4) L 11/04/17 05:54 Hct 30.5 % (35.3-44.9) L 11/04/17 05:54 MCH 26.8 pg (28.0-33.3) L 11/04/17 05:54 RDW 17.0 % (11.5-14.5) H 11/04/17 05:54 Plt Count 110 K/mcL (140-400) L 11/04/17 05:54 Immature Gran % 6.1 % (0-4) H 11/04/17 05:54 Band Neutrophils % 6.0 % (0-4) H 11/01/17 04:23 Metamyelocytes % 4.0 % (0) H 11/02/17 04:34 Neutrophils # 17.3 K/mcL (1.6-8.9) H 11/04/17 05:54 Monocytes # 22.9 K/mcL (0.0-1.3) H 11/04/17 05:54 Basophils # 0.3 K/mcL (0.0-0.2) H 11/04/17 05:54 Reactive Lymphocytes Present (Not Present) A 11/04/17 05:54 Anisocytosis 1+ (Not Present) A 11/02/17 04:34 PT 17.4 Seconds (9.4-12.1) H 11/01/17 04:26 APTT 38.2 Seconds (26.0-36.0) H 11/01/17 04:26 Sodium 135 mEq/L (136-145) L 11/04/17 05:54 Potassium 3.4 mEq/L (3.5-5.1) L 11/04/17 05:54 Calcium 8.2 mg/dL (8.6-10.3) L 11/04/17 05:54 Total Bilirubin 1.5 mg/dL (0.3-1.0) H 11/01/17 04:23 AST 12 Units/L (13-39) L 11/01/17 04:23 Serum Total Protein 5.9 g/dL (6.4-8.9) L 11/01/17 04:23 Albumin 3.1 g/dL (3.5-5.7) L 11/01/17 04:23 Pleural Appearance Hazy (Clear) A 11/01/17 10:35 - Microbiology Findings Microbiology Findings: Microbiology, Last 48 Hours 11/01/17 10:35 Body Fluid Culture - Final Pleural Fluid - Diagnostic Findings Chest x-ray: report reviewed, image reviewed - Clinical Findings Intake & Output: Intake & Output 11/03/17 11/04/17 11/04/17 23:59 07:59 15:59 Intake Total 100 / 100 100 / 100 120 / 120 Output Total 890 / 890 5 / 5 Balance -790 / -790 95 / 95 120 / 120 Weight 48.3 kg - VTE Documentation of Mechanical Device: Intermittent pneumatic compression device Consult Discharge Plan - Plan Referrals: Duncan Tracy MD [Primary Care Provider] - (patient is going to signature)
--- NOTE | 2017-11-04 11:09 | Internal Med Progress Note ---
Hospitalist Progress Note - Encounter Date of Encounter: 11/04/17 Time of Encounter: 11:02 - Subjective Interval History: Patient seen and examined this morning. Breathing slight better than yesterday. Nausea slightly better. No fevers. - Exam Vitals: Temp Pulse Resp BP Pulse Ox 97.7 F 85 18 106/52 94 11/04/17 07:57 11/04/17 07:57 11/04/17 07:57 11/04/17 07:57 11/04/17 07:57 Exam: Const: Vital signs listed above. mild respiratory distress. Alert and oriented x 3. No mood disorders noted, calm affect. Eyes: Sclera white, conjunctiva clear, lids are without lag. PERRLA. Pupils and irises are equal and round without defect. ENT: TMs intact and clear, normal canals, grossly normal hearing. Oropharanx clear and moist without erythema. Gums pink, good dentition. Lymph/Neck: No masses, thyromegaly, or abnormal cervical notes. No bruit. Tracheal midline. Cardio: RRR, Normal S1, S2 w/o murmurs, rubs or gallops. Skin warm and dry. No peripheral edema. Respiratory: Diminshed air entry RLL and RML zones, some rhonchi LLL bases, non- tender to palpitation. Musculo: No deformity or scoliosis noted. No jatinder gait disturbance noted. No cyanosis or edema. Pulses normal in all 4 extremities. No atrophy or abnormal movements. Appropriate muscle strength bilaterally. Neurologic: No focal deficits, cranial nerves II-XII grossly intact with normal sensation, reflexes, coordination, muscle strength and tone. GI/Abdomen: Soft, non tender, non distended, no hepatosplemomegaly, normal bowel sounds, no masses noted. 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 (2) Thrombocytopenia Current Visit: Yes Status: Chronic (3) Leukocytosis Current Visit: Yes Status: Chronic (4) DVT prophylaxis Current Visit: Yes Status: Acute (5) Pleural effusion Current Visit: Yes Status: Acute (6) Hypoxemia Current Visit: Yes Status: Acute (7) COPD (chronic obstructive pulmonary disease) Current Visit: Yes Status: Chronic (8) Pneumonia Current Visit: Yes Status: Acute (9) Afib Current Visit: Yes Status: Chronic (10) Hypomagnesemia Current Visit: Yes Status: Acute - Summary of Assessment and Plan Summary of Assessment and Plan: Hospital acquired Pneumonia - CT with large Rt pleural effusion and bronchial thickening, as well as suspicion for pulmonary edema. - Vancomycin stopped given less likelihood of MRSA parapneumonic effusion. c/w zosyn for HAP with complicated parapneumonic effusion. f/u Blood and sputum culture. - s/p thorocentesis with ~200 cc. appears exudative. s/p Chest tube. plueral fluid appears exudative. - s/p tPA ~700 cc. f/u cytology and path. pleural fluid culture no growth. Blood culture no growth. - Pulmonary recommendation appreciated. Hypokalemia - 40 meq q2hr 2 dose repleted Pleural effusion - Likely due to PNA - Less likely to be from CHF given BNP of 80s, no leg swelling - Pleural fluid consistent with exudative - ECHO with EF of 65, Mild PHTN, mild pericardial effusion - Discontinue lasix. COPD - PFT from 11/2016 shows severe obstructive pattern - air entry diminished bilaterally in the setting of PNA and effusion - Duonebs prn - stable. No indication of steroids for now Afib - s/p ablation with complications including CVA/Anaphylaxis and Resp failure requiring intubations - Resumed sotalol at home dose of 40 in am and 80 HS. - Not on anticoagulation per chart. CMML - Known hx of CMML with leukocytosis, not following up with Oncology - Leukocytosis baseline is 15-17k. likley due to PNA. - c/w Zosyn. - Will consider Onc eval if no improvement Thrombocytopenia - Chronic thrombocytopenia most likely fromo CMML - PLT count at baseline - continue to monitor Hypomagnesemia - resolved DVT prophylaxis - ICDs for now - Heparin after procedure - Time Spent with Patient Total time spent is greater than 50% in coordination of care (as documented) at patient's floor/unit and/or counseling patient: Internal Medicine: Result - Labs CBC & Chem 7: 11/04/17 05:54 11/04/17 05:54 Labs: Short CBC 11/04/17 Range/Units 05:54 WBC 45.6 H* (4.3-11.1) K/mcL Hgb 9.7 L (11.5-15.4) g/dL Hct 30.5 L (35.3-44.9) % Plt Count 110 L (140-400) K/mcL Neutrophils # 17.3 H (1.6-8.9) K/mcL BMP 11/04/17 05:54 Sodium 135 L Potassium 3.4 L Chloride 99 Carbon Dioxide 26 BUN 17 Creatinine 0.78 Glucose 100 Calcium 8.2 L - ABG Interpretation ABG results: PT/INR, D-dimer PT 17.4 Seconds (9.4-12.1) H 11/01/17 04:26 - Impressions Impressions Chest CT 11/03/17 09:47 IMPRESSION: Chest tube in place with moderate residual right-sided pneumothorax. Small focus of hyperdensity adjacent to the chest tube entrance site within the chest likely represents a clot. Small left-sided effusion. Bibasilar airspace disease may represent atelectasis, though superimposed pneumonia remains a possibility. D/ / Brendan Marshall MD / Brendan Marshall MD Interpreting Provider: Brendan Marshall MD Chest X-Ray 11/04/17 05:30 IMPRESSION: Stable chest. D/ / 11/04/2017 07:11:42 Spencer Mendez MD / Coco Valdez Interpreting Provider: Spencer Mendez MD - VTE Documentation of Mechanical Device: Intermittent pneumatic compression device Consult Discharge Plan - Plan Referrals: Duncan Tracy MD [Primary Care Provider] - (patient is going to signature) (1) CMML (chronic myelomonocytic leukemia) Qualifiers: Leukemia Active/Remission status: in remission Qualified Code(s): C93.11 - Chronic myelomonocytic leukemia, in remission (3) Leukocytosis Qualifiers: Leukocytosis type: unspecified Qualified Code(s): D72.829 - Elevated white blood cell count, unspecified (7) COPD (chronic obstructive pulmonary disease) Qualifiers: COPD type: unspecified COPD Qualified Code(s): J44.9 - Chronic obstructive pulmonary disease, unspecified (8) Pneumonia Qualifiers: Pneumonia type: due to unspecified organism Laterality: bilateral Lung location: unspecified part of lung Qualified Code(s): J18.9 - Pneumonia, unspecified organism (9) Afib Qualifiers: Atrial fibrillation type: chronic Qualified Code(s): I48.2 - Chronic atrial fibrillation
[2017-11-04] MEDS ORDERED: 0.9 % Sodium Chloride 500 ML IVC ONE (12:56)
[2017-11-04] MEDS: *HR* Promethazine 25 MG/ML VIAL IVP PRN (20:01)
[2017-11-05] MEDS: Piperacillin/Tazobactam 3.375 GM in 0.9 % Sodium Chloride Mini Bag 100 ML IVPB SCH ×3 (01:00→16:05)
[2017-11-05 05:09] LABS: Hematocrit 28.8 % (35.3-44.9); Hemoglobin 9.2 g/dL (11.5-15.4); Mean Corpuscular HGB Conc 31.9 g/dL (31.6-35.5); Mean Corpuscular Hemoglobin 26.9 pg (28.0-33.3); Mean Corpuscular Volume 84.2 fL (83.0-100.0); Mean Platelet Volume 11.3 fL (9.4-12.4); Red Blood Count 3.42 M/mcL (3.82-4.97); Red Cell Distribution Width 16.9 % (11.5-14.5)
[2017-11-05 05:23] LABS: BUN/Creatinine Ratio 23 (6-26); Blood Urea Nitrogen 16 mg/dL (8-23); Carbon Dioxide 22 mEq/L (23-29); Chloride 105 mEq/L (98-107); Glucose 79 mg/dL (70-105); Osmolality,Calculated 280 (280-300); Potassium 4.2 mEq/L (3.5-5.1); Sodium 135 mEq/L (136-145); eGFR For Non-African Americans > 60 (> 60)
[2017-11-05 05:46] LABS: Platelet Count 98 K/mcL (140-400)
[2017-11-05 05:50] LABS: Monocytes # 17.3 K/mcL (0.0-1.3); Neutrophils # 16.6 K/mcL (1.6-8.9)
[2017-11-05 05:51] LABS: Platelet Estimate Decreased (Normal)
[2017-11-05] MEDS: *HR* Heparin 5,000 UNIT/ML VIAL SQ SCH ×3 (06:01→20:59)
--- NOTE | 2017-11-05 07:06 | Pulmonology Progress Note ---
Date of Encounter: 11/05/17 Time of Encounter: 07:06 Assessment and Plan (1) Pleural effusion Current Visit: Yes Status: Acute I reviewed the pleural fusion today which is still small to moderate on the right side with complex features including intrapleural septations. I instilled another 10 mg of alteplase to the chest tube will evaluate Cytology pending (2) Pneumonia Current Visit: Yes Status: Acute Culture this far negative she is on Zosyn at present likely need at least a 8 days and possibly longer based upon clinical course. She has persistent leukocytosis which in part is related to her underlying malignancy Qualifiers: Pneumonia type: due to unspecified organism Laterality: bilateral Lung location: unspecified part of lung Qualified Code(s): J18.9 - Pneumonia, unspecified organism (3) COPD (chronic obstructive pulmonary disease) Current Visit: Yes Status: Chronic Bronchodilators on an as-needed basis Qualifiers: COPD type: unspecified COPD Qualified Code(s): J44.9 - Chronic obstructive pulmonary disease, unspecified Subjective Principal diagnosis: Right Pleural Effusion Interval history: Ms Christopher is sitting up up in bed and states that she remained nauseated for most of the day yesterday and into this morning although she thinks it is getting a little bit better now. After instillation of TPA she had about 650 mL of output from the right chest tube. She says that her breathing is better today Objective PUL Vital signs: Last Vital Signs Temp 97.9 F 11/05/17 04:00 Pulse 83 11/05/17 04:00 Resp 18 11/05/17 04:00 BP 149/91 11/05/17 04:00 Pulse Ox 96 11/05/17 04:00 General appearance: no acute distress Eyes: nonicteric Neck: no lymphadenopathy Auscultation: bilateral: diminished breath sounds Cardiovascular: regular rate and rhythm Gastrointestinal: normoactive bowel sounds Extremities: no cyanosis, no edema, no clubbing Musculoskeletal: no deformities, other normal mental status mood appropriate Results - Laboratory Findings CBC and BMP: 11/05/17 04:12 11/05/17 04:12 PT/INR, D-dimer PT 17.4 Seconds (9.4-12.1) H 11/01/17 04:26 Abnormal lab findings: Abnormal lab results WBC 37.7 K/mcL (4.3-11.1) H* 11/05/17 04:12 RBC 3.42 M/mcL (3.82-4.97) L 11/05/17 04:12 Hgb 9.2 g/dL (11.5-15.4) L 11/05/17 04:12 Hct 28.8 % (35.3-44.9) L 11/05/17 04:12 MCH 26.9 pg (28.0-33.3) L 11/05/17 04:12 RDW 16.9 % (11.5-14.5) H 11/05/17 04:12 Plt Count 98 K/mcL (140-400) L 11/05/17 04:12 Immature Gran % 6.1 % (0-4) H 11/04/17 05:54 Metamyelocytes % 4.0 % (0) H 11/02/17 04:34 Myelocytes % 2.0 % (0) H 11/05/17 04:12 Neutrophils # 16.6 K/mcL (1.6-8.9) H 11/05/17 04:12 Monocytes # 17.3 K/mcL (0.0-1.3) H 11/05/17 04:12 Basophils # 0.3 K/mcL (0.0-0.2) H 11/04/17 05:54 Reactive Lymphocytes Present (Not Present) A 11/04/17 05:54 Platelet Estimate Decreased (Normal) L 11/05/17 04:12 Anisocytosis 1+ (Not Present) A 11/02/17 04:34 PT 17.4 Seconds (9.4-12.1) H 11/01/17 04:26 APTT 38.2 Seconds (26.0-36.0) H 11/01/17 04:26 Sodium 135 mEq/L (136-145) L 11/05/17 04:12 Carbon Dioxide 22 mEq/L (23-29) L 11/05/17 04:12 Calcium 8.0 mg/dL (8.6-10.3) L 11/05/17 04:12 Total Bilirubin 1.5 mg/dL (0.3-1.0) H 11/01/17 04:23 AST 12 Units/L (13-39) L 11/01/17 04:23 Serum Total Protein 5.9 g/dL (6.4-8.9) L 11/01/17 04:23 Albumin 3.1 g/dL (3.5-5.7) L 11/01/17 04:23 Pleural Appearance Hazy (Clear) A 11/01/17 10:35 - Microbiology Findings Microbiology Findings: Microbiology, Last 48 Hours 11/01/17 10:35 Body Fluid Culture - Final Pleural Fluid - Clinical Findings Intake & Output: Intake & Output 11/04/17 11/04/17 11/05/17 15:59 23:59 07:59 Intake Total 440 / 440 220 / 220 Output Total 205 / 205 335 / 335 Balance 420 / 420 -335 / -335 - VTE Documentation of Mechanical Device: Intermittent pneumatic compression device Consult Discharge Plan - Plan Referrals: Duncan Tracy MD [Primary Care Provider] - (patient is going to signature)
[2017-11-05] MEDS: Aspirin 81 MG TAB.CHEW PO SCH (07:51)
[2017-11-05] MEDS: Cholecalciferol (D-3) 1,000 UNIT TABLET PO SCH (07:51)
[2017-11-05] MEDS ORDERED: Alteplase (Cathflo) 10 MG in 0.9 % Sodium Chloride 30 ML IX ONE (08:33)
[2017-11-05] MEDS: *HR* Promethazine 25 MG/ML VIAL IVP PRN ×2 (12:51→21:00)
--- NOTE | 2017-11-05 15:39 | Internal Med Progress Note ---
Hospitalist Progress Note - Encounter Date of Encounter: 11/05/17 Time of Encounter: 11:40 - Subjective Interval History: Patient seen and examined this morning. Breathing slight better than yesterday. No fevers, chills or diarrhea - Exam Vitals: Temp Pulse Resp BP Pulse Ox 98.4 F 85 16 106/53 98 11/05/17 11:46 11/05/17 11:46 11/05/17 11:46 11/05/17 11:46 11/05/17 11:46 Exam: Const: Vital signs listed above. mild respiratory distress. Alert and oriented x 3. No mood disorders noted, calm affect. Lymph/Neck: No masses, thyromegaly, or abnormal cervical notes. No bruit. Tracheal midline. Cardio: RRR, Normal S1, S2 w/o murmurs, rubs or gallops. Skin warm and dry. No peripheral edema. Respiratory: improved air entry RLL and RML zones, some rhonchi LLL bases, non- tender to palpitation. Musculo: No deformity or scoliosis noted. No jatinder gait disturbance noted. No cyanosis or edema. Pulses normal in all 4 extremities. Neurologic: No focal deficits, cranial nerves II-XII grossly intact with normal sensation, reflexes, coordination, muscle strength and tone. GI/Abdomen: Soft, non tender, non distended, no hepatosplemomegaly, normal bowel sounds, no masses noted. 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 (2) Thrombocytopenia Current Visit: Yes Status: Chronic (3) Leukocytosis Current Visit: Yes Status: Chronic (4) DVT prophylaxis Current Visit: Yes Status: Acute (5) Pleural effusion Current Visit: Yes Status: Acute (6) Hypoxemia Current Visit: Yes Status: Acute (7) COPD (chronic obstructive pulmonary disease) Current Visit: Yes Status: Chronic (8) Pneumonia Current Visit: Yes Status: Acute (9) Afib Current Visit: Yes Status: Chronic (10) Hypomagnesemia Current Visit: Yes Status: Acute - Summary of Assessment and Plan Summary of Assessment and Plan: Hospital acquired Pneumonia - CT with large Rt pleural effusion and bronchial thickening, as well as suspicion for pulmonary edema. - Vancomycin stopped given less likelihood of MRSA parapneumonic effusion. c/w zosyn for HAP with complicated parapneumonic effusion(day 5 today) for total 8 days. She has powerglide access placed. - s/p thorocentesis with ~200 cc. appears exudative. s/p Chest tube. plueral fluid appears exudative. - s/p tPA ~700 cc. f/u cytology. pleural fluid culture no growth. Blood culture and sputum culture no growth. s/p another tPA today. - Pulmonary recommendation appreciated. Pleural effusion - Likely due to PNA - Less likely to be from CHF given BNP of 80s, no leg swelling - Pleural fluid consistent with exudative - ECHO with EF of 65, Mild PHTN, mild pericardial effusion - Discontinue lasix. COPD - PFT from 11/2016 shows severe obstructive pattern - air entry diminished bilaterally in the setting of PNA and effusion - Duonebs prn - stable. No indication of steroids for now Afib - s/p ablation with complications including CVA/Anaphylaxis and Resp failure requiring intubations - Resumed sotalol at home dose of 40 in am and 80 HS. - Not on anticoagulation per chart. CMML - Known hx of CMML with leukocytosis, not following up with Oncology - Leukocytosis baseline is 15-17k. Possibly related to her malignancy. 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 Will go to SNF on discharge. - Time Spent with Patient Total time spent is greater than 50% in coordination of care (as documented) at patient's floor/unit and/or counseling patient: Internal Medicine: Result - Labs CBC & Chem 7: 11/05/17 04:12 11/05/17 04:12 Labs: Short CBC 11/05/17 Range/Units 04:12 WBC 37.7 H* (4.3-11.1) K/mcL Hgb 9.2 L (11.5-15.4) g/dL Hct 28.8 L (35.3-44.9) % Plt Count 98 L (140-400) K/mcL Neutrophils # 16.6 H (1.6-8.9) K/mcL BMP 11/05/17 04:12 Sodium 135 L Potassium 4.2 Chloride 105 Carbon Dioxide 22 L BUN 16 Creatinine 0.71 Glucose 79 Calcium 8.0 L - ABG Interpretation ABG results: PT/INR, D-dimer PT 17.4 Seconds (9.4-12.1) H 11/01/17 04:26 - VTE Documentation of Mechanical Device: Intermittent pneumatic compression device Consult Discharge Plan - Plan Referrals: Duncan Tracy MD [Primary Care Provider] - (patient is going to signature) (1) CMML (chronic myelomonocytic leukemia) Qualifiers: Leukemia Active/Remission status: in remission Qualified Code(s): C93.11 - Chronic myelomonocytic leukemia, in remission (3) Leukocytosis Qualifiers: Leukocytosis type: unspecified Qualified Code(s): D72.829 - Elevated white blood cell count, unspecified (7) COPD (chronic obstructive pulmonary disease) Qualifiers: COPD type: unspecified COPD Qualified Code(s): J44.9 - Chronic obstructive pulmonary disease, unspecified (8) Pneumonia Qualifiers: Pneumonia type: due to unspecified organism Laterality: bilateral Lung location: unspecified part of lung Qualified Code(s): J18.9 - Pneumonia, unspecified organism (9) Afib Qualifiers: Atrial fibrillation type: chronic Qualified Code(s): I48.2 - Chronic atrial fibrillation
[2017-11-06] MEDS: Piperacillin/Tazobactam 3.375 GM in 0.9 % Sodium Chloride Mini Bag 100 ML IVPB SCH ×4 (00:30→23:35)
[2017-11-06] MEDS ORDERED: Melatonin 3 MG TABLET PO ONE (03:59)
[2017-11-06] MEDS: *HR* Heparin 5,000 UNIT/ML VIAL SQ SCH ×3 (05:40→21:28)
[2017-11-06] MEDS: *HR* Promethazine 25 MG/ML VIAL IVP PRN ×2 (05:40→13:51)
[2017-11-06 06:24] LABS: Hematocrit 21.9 % (35.3-44.9); Mean Corpuscular Volume 84.6 fL (83.0-100.0); Mean Platelet Volume 11.5 fL (9.4-12.4); Platelet Count 103 K/mcL (140-400); Red Blood Count 2.59 M/mcL (3.82-4.97)
[2017-11-06 06:44] LABS: Basophils # 0.9 K/mcL (0.0-0.2); Lymphocytes # 3.5 K/mcL (0.6-4.6); Monocytes # 13.2 K/mcL (0.0-1.3); Neutrophils # 26.4 K/mcL (1.6-8.9); Platelet Estimate Decreased (Normal)
[2017-11-06 06:47] LABS: BUN/Creatinine Ratio 18 (6-26); Blood Urea Nitrogen 13 mg/dL (8-23); Calcium 7.7 mg/dL (8.6-10.3); Carbon Dioxide 19 mEq/L (23-29); Chloride 105 mEq/L (98-107); Glucose 98 mg/dL (70-105); Osmolality,Calculated 282 (280-300); Potassium 3.8 mEq/L (3.5-5.1); Sodium 136 mEq/L (136-145); eGFR For Non-African Americans > 60 (> 60)
[2017-11-06 07:31] LABS: Bilirubin,Urine Negative (Negative); Blood,Urine Moderate (Negative); Clarity,Urine Turbid (Clear); Color,Urine Yellow (Yellow); Glucose,Urine (UA) Normal (Normal); Ketones,Urine Negative (Negative); Leukocyte Esterase,Urine Large (Negative); Nitrite,Urine Negative (Negative); PH,Urine 6.5 pH Units (5.0-8.0); Protein,Urine 100 mg/dL (Neg-Trace); Specific Gravity,Urine 1.008 (1.010-1.025); Urobilinogen,Urine Normal (Normal)
[2017-11-06 07:32] LABS: Bacteria,Urine None Seen per hpf (None-Few); Squamous Epithelial Cell,Urine Many per lpf (None-Few); WBC,Urine TNTC per hpf (0-3)
[2017-11-06 08:14] LABS: Yeast,Urine Few per hpf (None Seen)
[2017-11-06] MEDS: Cholecalciferol (D-3) 1,000 UNIT TABLET PO SCH (09:37)
[2017-11-06] MEDS: Aspirin 81 MG TAB.CHEW PO SCH (09:37)
[2017-11-06] MEDS ORDERED: Ketorolac 30 MG/ML VIAL IVP ONE (10:12)
[2017-11-06 10:26] LABS: Bilirubin,Urine Negative (Negative); Blood,Urine Large (Negative); Clarity,Urine Turbid (Clear); Color,Urine Yellow (Yellow); Glucose,Urine (UA) Normal (Normal); Ketones,Urine Negative (Negative); Leukocyte Esterase,Urine Large (Negative); Nitrite,Urine Negative (Negative); Protein,Urine 100 mg/dL (Neg-Trace); Specific Gravity,Urine 1.014 (1.010-1.025); Urobilinogen,Urine Normal (Normal)
[2017-11-06 10:28] LABS: Bacteria,Urine None Seen per hpf (None-Few); Squamous Epithelial Cell,Urine Many per lpf (None-Few); WBC,Urine TNTC per hpf (0-3)
--- NOTE | 2017-11-06 13:17 | Pulmonology Progress Note ---
Date of Encounter: 11/06/17 Time of Encounter: 13:14 Assessment and Plan (1) Pleural effusion Current Visit: Yes Status: Acute This is a complex likely parapneumonic effusion cytology negative for malignancy chest tube was removed earlier today because of low output and normal poor positioning. It is possible there may be some amount of hemorrhage into this area after instillation of TPA I doubt this accounts for the patient' s strict drop in H&H but it is possible this should be repeated this afternoon to demonstrate stability in the H&H I would not recommend further placement of chest tube at this time she is not a very good surgical candidate and otherwise which is monitor clinically with the continuation of antimicrobial therapy and radiographic follow-up in 4-6 weeks in outpatient pulmonary clinic Chest tube removed at bedside. Prior to procedure there is no air leak present. The patient was monitored on telemetry for the entire time. Chlorhexidine was applied over the suture area prior to removal of the sutures. Pigtail catheter was cut after clamping proximal to cut area releasing the internal catheter thread then chest tube was removed while patient was performing Valsalva maneuver and a dressing which consisted of petroleum gauze covered by regular drain sponge and Tegaderm was placed over the area patient tolerated the procedure well with some mild pain at the chest tube removal site there is no significant drainage or subcutaneous crepitus post procedure. (2) Pneumonia Current Visit: Yes Status: Acute Culture this far negative she is on Zosyn at present likely need at least a 8 days and possibly longer based upon clinical course. She has persistent leukocytosis which in part is related to her underlying malignancy Qualifiers: Pneumonia type: due to unspecified organism Laterality: bilateral Lung location: unspecified part of lung Qualified Code(s): J18.9 - Pneumonia, unspecified organism (3) COPD (chronic obstructive pulmonary disease) Current Visit: Yes Status: Chronic Bronchodilators on an as-needed basis Qualifiers: COPD type: unspecified COPD Qualified Code(s): J44.9 - Chronic obstructive pulmonary disease, unspecified Subjective Principal diagnosis: Right Pleural Effusion Interval history: She is complaining of feeling more nauseous today with upset stomach. She thinks is related to antibiotics although she denies diarrhea no fevers or chills overnight poor appetite blood pressure is a little bit on the lower side compared to yesterday she did have a drop in her H&H overnight from 9 down to 7. The TPA was instilled yesterday and that was associated with approximately 300 mL of bloody output. CT scan today was notable that is persistent complex pleural effusion. Objective PUL Vital signs: Last Vital Signs Temp 97.4 F L 11/06/17 11:18 Pulse 91 11/06/17 11:18 Resp 18 11/06/17 11:18 BP 94/64 11/06/17 11:18 Pulse Ox 97 11/06/17 11:18 General appearance: appears uncomfortable Effort: normal Auscultation: left: rales, right: diminished breath sounds Cardiovascular: regular rate and rhythm Gastrointestinal: normoactive bowel sounds, soft Extremities: no edema Musculoskeletal: no deformities normal mental status, non-focal exam Results - Laboratory Findings CBC and BMP: 11/06/17 06:09 11/06/17 06:08 PT/INR, D-dimer PT 17.4 Seconds (9.4-12.1) H 11/01/17 04:26 Abnormal lab findings: Abnormal lab results WBC 44.0 K/mcL (4.3-11.1) H* 11/06/17 06:09 RBC 2.59 M/mcL (3.82-4.97) L 11/06/17 06:09 Hgb 7.0 g/dL (11.5-15.4) L D 11/06/17 06:09 Hct 21.9 % (35.3-44.9) L 11/06/17 06:09 MCH 27.0 pg (28.0-33.3) L 11/06/17 06:09 RDW 17.0 % (11.5-14.5) H 11/06/17 06:09 Plt Count 103 K/mcL (140-400) L 11/06/17 06:09 Immature Gran % 6.1 % (0-4) H 11/04/17 05:54 Metamyelocytes % 4.0 % (0) H 11/02/17 04:34 Myelocytes % 2.0 % (0) H 11/05/17 04:12 Neutrophils # 26.4 K/mcL (1.6-8.9) H 11/06/17 06:09 Monocytes # 13.2 K/mcL (0.0-1.3) H 11/06/17 06:09 Basophils # 0.9 K/mcL (0.0-0.2) H 11/06/17 06:09 Reactive Lymphocytes Present (Not Present) A 11/04/17 05:54 Platelet Estimate Decreased (Normal) L 11/06/17 06:09 Anisocytosis 1+ (Not Present) A 11/02/17 04:34 PT 17.4 Seconds (9.4-12.1) H 11/01/17 04:26 APTT 38.2 Seconds (26.0-36.0) H 11/01/17 04:26 Carbon Dioxide 19 mEq/L (23-29) L 11/06/17 06:08 Calcium 7.7 mg/dL (8.6-10.3) L 11/06/17 06:08 Total Bilirubin 1.5 mg/dL (0.3-1.0) H 11/01/17 04:23 AST 12 Units/L (13-39) L 11/01/17 04:23 Serum Total Protein 5.9 g/dL (6.4-8.9) L 11/01/17 04:23 Albumin 3.1 g/dL (3.5-5.7) L 11/01/17 04:23 Urine Clarity Turbid (Clear) A 11/06/17 10:10 Urine Protein 100 mg/dL (Neg-Trace) H 11/06/17 10:10 Urine Blood Large (Negative) H 11/06/17 10:10 Ur Leukocyte Esterase Large (Negative) H 11/06/17 10:10 Urine Microscopic RBC 3-5 per hpf (0-3) H 11/06/17 10:10 Urine Microscopic WBC TNTC per hpf (0-3) H 11/06/17 10:10 Ur Squamous Epith Cells Many per lpf (None-Few) H 11/06/17 10:10 Ur Culture Indicated? NO. (NO) A 11/06/17 10:10 Pleural Appearance Hazy (Clear) A 11/01/17 10:35 - Microbiology Findings Microbiology Findings: Microbiology, Last 48 Hours 11/05/17 04:40 Sputum Culture - Final Sputum - Diagnostic Findings CT scan - chest: report reviewed, image reviewed - Clinical Findings Intake & Output: Intake & Output 11/05/17 11/06/17 11/06/17 23:59 07:59 15:59 Intake Total 470 / 470 300 / 300 120 / 120 Output Total 440 / 440 2044 / 2044 20 / 20 Balance 30 / 30 -1745 / -1745 100 / 100 Weight 48.3 kg - VTE Documentation of Mechanical Device: Intermittent pneumatic compression device Consult Discharge Plan - Plan Referrals: Duncan Tracy MD [Primary Care Provider] - (patient is going to signature)
[2017-11-06] MEDS ORDERED: 0.9 % Sodium Chloride 500 ML IVC ONE (15:44)
--- NOTE | 2017-11-06 19:09 | Internal Med Progress Note ---
Hospitalist Progress Note - Encounter Date of Encounter: 11/06/17 Time of Encounter: 11:00 - Subjective Interval History: Patient reports of feeling somewhat better this morning and states that shortness of breath has improved. Chest tube was removed per pulmonology recommendations. 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 Assessment and Plan: Known hx of CMML with leukocytosis, not following up with Oncology Leukocytosis baseline is 15-17k This presentation with WBC >40K, likley due to PNA Continue to monitor Will consult hematology oncology due to worsening leukocytosis (2) Thrombocytopenia Current Visit: Yes Status: Chronic Assessment and Plan: Chronic thrombocytopenia, due to CMML PLT count is at baseline, continue to monitor (3) Leukocytosis Current Visit: Yes Status: Chronic Assessment and Plan: as above (4) Pleural effusion Current Visit: Yes Status: Acute Assessment and Plan: Pulmonology consulted with recommendations to remove chest tube today and to monitor. (5) Hypoxemia Current Visit: Yes Status: Acute Assessment and Plan: Due to Suspected PNA Continue O2 supplement (6) COPD (chronic obstructive pulmonary disease) Current Visit: Yes Status: Chronic Assessment and Plan: PFT from 11/2016 shows severe obstructive pattern No wheezing at this time, however, air entry diminished bilaterally in the setting of PNA and effusion Duonebs prn No indication for steroids at this time (7) Pneumonia Current Visit: Yes Status: Acute Assessment and Plan: Will continue IV Zosyn (8) Afib Current Visit: Yes Status: Chronic Assessment and Plan: s/p ablation with complications including CVA/Anaphylaxis and REsp failure requiring intubations at an [facility] facility less than a month ago Resume sotalol Not on anticoagulation per chart (9) DVT prophylaxis Current Visit: Yes Status: Acute Assessment and Plan: Heparin subcutaneous - Time Spent with Patient Total time spent is greater than 50% in coordination of care (as documented) at patient's floor/unit and/or counseling patient: Internal Medicine: Result - Labs CBC & Chem 7: 11/06/17 06:09 11/06/17 06:08 Labs: Short CBC 11/06/17 Range/Units 06:09 WBC 44.0 H* (4.3-11.1) K/mcL Hgb 7.0 L D (11.5-15.4) g/dL Hct 21.9 L (35.3-44.9) % Plt Count 103 L (140-400) K/mcL Neutrophils # 26.4 H (1.6-8.9) K/mcL BMP 11/06/17 06:08 Sodium 136 Potassium 3.8 Chloride 105 Carbon Dioxide 19 L BUN 13 Creatinine 0.73 Glucose 98 Calcium 7.7 L Urine 11/06/17 11/06/17 Range/Units 07:10 10:10 Urine Color Yellow Yellow (Yellow) Urine Clarity Turbid A Turbid A (Clear) Urine pH 6.5 6.0 (5.0-8.0) pH Units Ur Specific Brick 1.008 L 1.014 (1.010-1.025) Urine Protein 100 H 100 H (Neg-Trace) mg/dL Urine Glucose (UA) Normal Normal (Normal) mg/dL - ABG Interpretation ABG results: PT/INR, D-dimer PT 17.4 Seconds (9.4-12.1) H 11/01/17 04:26 - Impressions Impressions Chest CT 11/06/17 07:23 IMPRESSION: 1. The right-sided chest tube tip is within the chest wall at the pleural surface, not well positioned within the pleural space. 2. Heterogeneous, loculated right pleural effusion, likely with a mixture of hemorrhage/blood clot. 3. Small left pleural effusion has improved compared to the prior exam. D/ / Kurtis Whitehead MD / Kurtis Whitehead MD Interpreting Provider: Kurtis Whitehead MD Chest X-Ray 11/06/17 10:16 IMPRESSION: Interval worsening in the right mid lung pulmonary opacity. Unchanged bilateral pleural effusions. No convincing evidence of pneumothorax. D/ / 11/06/2017 11:23:12 Lázaro Mcgregor MD / margarita Interpreting Provider: Lázaro Mcgregor MD - VTE Documentation of Mechanical Device: Intermittent pneumatic compression device Consult Discharge Plan - Plan Referrals: Duncan Tracy MD [Primary Care Provider] - (patient is going to signature) (1) CMML (chronic myelomonocytic leukemia) Qualifiers: Leukemia Active/Remission status: in remission Qualified Code(s): C93.11 - Chronic myelomonocytic leukemia, in remission (3) Leukocytosis Qualifiers: Leukocytosis type: unspecified Qualified Code(s): D72.829 - Elevated white blood cell count, unspecified (6) COPD (chronic obstructive pulmonary disease) Qualifiers: COPD type: unspecified COPD Qualified Code(s): J44.9 - Chronic obstructive pulmonary disease, unspecified (7) Pneumonia Qualifiers: Pneumonia type: due to unspecified organism Laterality: bilateral Lung location: unspecified part of lung Qualified Code(s): J18.9 - Pneumonia, unspecified organism (8) Afib Qualifiers: Atrial fibrillation type: chronic Qualified Code(s): I48.2 - Chronic atrial fibrillation
[2017-11-06] MEDS ORDERED: Ondansetron 4 MG/2 ML VIAL ONE (21:20)
[2017-11-06] MEDS: Ondansetron 4 MG/2 ML VIAL IVP PRN (21:25)
[2017-11-07] MEDS: Ondansetron 4 MG/2 ML VIAL IVP PRN ×2 (04:03→21:06)
[2017-11-07] MEDS: *HR* Heparin 5,000 UNIT/ML VIAL SQ SCH ×3 (05:36→21:00)
[2017-11-07] MEDS: Aspirin 81 MG TAB.CHEW PO SCH (08:42)
[2017-11-07] MEDS: Cholecalciferol (D-3) 1,000 UNIT TABLET PO SCH (08:42)
[2017-11-07] MEDS: Piperacillin/Tazobactam 3.375 GM in 0.9 % Sodium Chloride Mini Bag 100 ML IVPB SCH ×2 (08:43→17:31)
[2017-11-07] MEDS: *HR* Promethazine 25 MG/ML VIAL IVP PRN ×2 (08:43→16:24)
[2017-11-07 11:13] LABS: Hematocrit 20.9 % (35.3-44.9); Hemoglobin 6.8 g/dL (11.5-15.4); Mean Corpuscular HGB Conc 32.5 g/dL (31.6-35.5); Mean Platelet Volume 11.6 fL (9.4-12.4); Platelet Count 117 K/mcL (140-400); Red Blood Count 2.43 M/mcL (3.82-4.97); Red Cell Distribution Width 16.9 % (11.5-14.5)
[2017-11-07 11:23] LABS: BUN/Creatinine Ratio 14 (6-26); Blood Urea Nitrogen 10 mg/dL (8-23); Calcium 7.6 mg/dL (8.6-10.3); Carbon Dioxide 24 mEq/L (23-29); Chloride 105 mEq/L (98-107); Glucose 95 mg/dL (70-105); Osmolality,Calculated 283 (280-300); Potassium 3.8 mEq/L (3.5-5.1); Sodium 137 mEq/L (136-145); eGFR For Non-African Americans > 60 (> 60)
[2017-11-07 11:49] LABS: Monocytes # 11.9 K/mcL (0.0-1.3); Neutrophils # 33.6 K/mcL (1.6-8.9)
[2017-11-07 11:50] LABS: Platelet Estimate Decreased (Normal)
[2017-11-07] MEDS ORDERED: 0.9 % Sodium Chloride 250 ML ONE (14:13)
[2017-11-07] MEDS ORDERED: Furosemide 20 MG/2 ML VIAL IVP ONE (16:00)
--- NOTE | 2017-11-07 19:28 | Internal Med Progress Note ---
Hospitalist Progress Note - Encounter Date of Encounter: 11/07/17 Time of Encounter: 11:00 - Subjective Interval History: Patient this morning with acute anemia with a hemoglobin of 6.8 She will be transfused 2 units of packed red blood cells - Exam Vitals: Temp Pulse Resp BP Pulse Ox 98.8 F 104 16 119/52 95 11/07/17 17:00 11/07/17 17:00 11/07/17 17:00 11/07/17 17:00 11/07/17 15:59 Exam: Gen.: Nonacute distress, alert and oriented 3 ENT: Mucosal membranes moist Respiratory: Lungs are clear to auscultation bilaterally without any wheezing rhonchi or rales Cardiovascular: Normal S1 and S2 regular rate rhythm no murmurs rubs or gallops Abdomen: Soft, nontender and nondistended with positive bowel sounds Extremities: No lower extremity edema Skin: Normal color - Assessment and Plan (1) Acute blood loss anemia Current Visit: Yes Status: Acute Assessment and Plan: Patient with a hemoglobin of 6.8 this morning and was 10.9 on admission Patient was will receive 2 units of packed red blood cells and monitor H&H (2) 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 (3) Thrombocytopenia Current Visit: Yes Status: Chronic Assessment and Plan: Chronic thrombocytopenia, due to CMML PLT count is at baseline, continue to monitor (4) Leukocytosis Current Visit: Yes Status: Chronic Assessment and Plan: as above (5) Pleural effusion Current Visit: Yes Status: Acute Assessment and Plan: Pulmonology consulted with recommendations to remove chest tube today and to monitor. (6) Hypoxemia Current Visit: Yes Status: Acute Assessment and Plan: Due to Suspected PNA Continue O2 supplement (7) COPD (chronic obstructive pulmonary disease) Current Visit: Yes Status: Chronic Assessment and Plan: PFT from 11/2016 shows severe obstructive pattern No wheezing at this time, however, air entry diminished bilaterally in the setting of PNA and effusion Duonebs prn No indication for steroids at this time (8) Pneumonia Current Visit: Yes Status: Acute Assessment and Plan: Will continue day 7 of IV Zosyn (9) Afib Current Visit: Yes Status: Chronic Assessment and Plan: s/p ablation with complications including CVA/Anaphylaxis and REsp failure requiring [facility] less than a month ago Resume sotalol Not on anticoagulation per chart (10) DVT prophylaxis Current Visit: Yes Status: Acute Assessment and Plan: Heparin subcutaneous - Time Spent with Patient Total time spent is greater than 50% in coordination of care (as documented) at patient's floor/unit and/or counseling patient: Internal Medicine: Result - Labs CBC & Chem 7: 11/07/17 10:44 11/07/17 10:44 Labs: Short CBC 11/07/17 Range/Units 10:44 WBC 49.4 H* (4.3-11.1) K/mcL Hgb 6.8 L (11.5-15.4) g/dL Hct 20.9 L (35.3-44.9) % Plt Count 117 L (140-400) K/mcL Neutrophils # 33.6 H (1.6-8.9) K/mcL BMP 11/07/17 10:44 Sodium 137 Potassium 3.8 Chloride 105 Carbon Dioxide 24 BUN 10 Creatinine 0.70 Glucose 95 Calcium 7.6 L - ABG Interpretation ABG results: PT/INR, D-dimer PT 17.4 Seconds (9.4-12.1) H 11/01/17 04:26 - VTE Documentation of Mechanical Device: Intermittent pneumatic compression device Consult Discharge Plan - Plan Referrals: Duncan Tracy MD [Primary Care Provider] - ([facility] is [facility]) (2) CMML (chronic myelomonocytic leukemia) Qualifiers: Leukemia Active/Remission status: in remission Qualified Code(s): C93.11 - Chronic myelomonocytic leukemia, in remission (4) Leukocytosis Qualifiers: Leukocytosis type: unspecified Qualified Code(s): D72.829 - Elevated white blood cell count, unspecified (7) COPD (chronic obstructive pulmonary disease) Qualifiers: COPD type: unspecified COPD Qualified Code(s): J44.9 - Chronic obstructive pulmonary disease, unspecified (8) Pneumonia Qualifiers: Pneumonia type: due to unspecified organism Laterality: bilateral Lung location: unspecified part of lung Qualified Code(s): J18.9 - Pneumonia, unspecified organism (9) Afib Qualifiers: Atrial fibrillation type: chronic Qualified Code(s): I48.2 - Chronic atrial fibrillation
[2017-11-08] MEDS: Piperacillin/Tazobactam 3.375 GM in 0.9 % Sodium Chloride Mini Bag 100 ML IVPB SCH ×3 (00:04→17:28)
[2017-11-08] MEDS ORDERED: 0.9 % Sodium Chloride 250 ML ONE (03:04)
[2017-11-08] MEDS: *HR* Heparin 5,000 UNIT/ML VIAL SQ SCH ×3 (06:18→21:25)
[2017-11-08] MEDS: Cholecalciferol (D-3) 1,000 UNIT TABLET PO SCH (08:13)
[2017-11-08] MEDS: Aspirin 81 MG TAB.CHEW PO SCH (08:13)
[2017-11-08 09:34] LABS: Red Cell Distribution Width 15.9 % (11.5-14.5)
[2017-11-08 09:35] LABS: Hematocrit 27.1 % (35.3-44.9); Hemoglobin 8.9 g/dL (11.5-15.4); Mean Corpuscular HGB Conc 32.8 g/dL (31.6-35.5); Mean Corpuscular Hemoglobin 27.7 pg (28.0-33.3); Mean Corpuscular Volume 84.4 fL (83.0-100.0); Mean Platelet Volume 11.5 fL (9.4-12.4); Platelet Count 106 K/mcL (140-400); Red Blood Count 3.21 M/mcL (3.82-4.97)
[2017-11-08 09:50] LABS: BUN/Creatinine Ratio 11 (6-26); Blood Urea Nitrogen 7 mg/dL (8-23); Calcium 7.1 mg/dL (8.6-10.3); Carbon Dioxide 25 mEq/L (23-29); Chloride 104 mEq/L (98-107); Glucose 155 mg/dL (70-105); Osmolality,Calculated 283 (280-300); Potassium 3.2 mEq/L (3.5-5.1); Sodium 136 mEq/L (136-145); eGFR For Non-African Americans > 60 (> 60)
[2017-11-08 10:36] LABS: Lymphocytes # 4.3 K/mcL (0.6-4.6); Monocytes # 13.9 K/mcL (0.0-1.3); Neutrophils # 35.4 K/mcL (1.6-8.9); Platelet Estimate Slight Decrease (Normal)
[2017-11-08] MEDS: *HR* Promethazine 25 MG/ML VIAL IVP PRN (17:38)
[2017-11-08 18:31] LABS: Hematocrit 27.5 % (35.3-44.9); Hemoglobin 9.2 g/dL (11.5-15.4)
--- NOTE | 2017-11-08 18:40 | Internal Med Progress Note ---
Hospitalist Progress Note - Encounter Date of Encounter: 11/08/17 Time of Encounter: 11:00 - Subjective Interval History: Patient's hemoglobin this morning stable at 9.2 status post 2 units of packed red blood cells Patient reports of feeling better this morning but still with generalized weakness - Exam Vitals: Temp Pulse Resp BP Pulse Ox 98.7 F 92 18 101/47 96 11/08/17 16:03 11/08/17 16:03 11/08/17 16:03 11/08/17 16:03 11/08/17 16:03 Exam: Gen.: Nonacute distress, alert and oriented 3 ENT: Mucosal membranes moist Respiratory: Lungs are clear to auscultation bilaterally without any wheezing rhonchi or rales Cardiovascular: Normal S1 and S2 regular rate rhythm no murmurs rubs or gallops Abdomen: Soft, nontender and nondistended with positive bowel sounds Extremities: No lower extremity edema Skin: pale - Assessment and Plan (1) Acute blood loss anemia Current Visit: Yes Status: Acute Assessment and Plan: Patient's hemoglobin this morning 9.2 from 6.8 status post 2 units of packed red blood cells Continue to monitor (2) 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 (3) Leukocytosis Current Visit: Yes Status: Chronic Assessment and Plan: as above (4) Thrombocytopenia Current Visit: Yes Status: Chronic Assessment and Plan: Chronic thrombocytopenia, due to CMML PLT count is at baseline, continue to monitor (5) Pleural effusion Current Visit: Yes Status: Acute Assessment and Plan: Pulmonology consulted with recommendations to remove chest tube today and to monitor. (6) COPD (chronic obstructive pulmonary disease) Current Visit: Yes Status: Chronic Assessment and Plan: PFT from 11/2016 shows severe obstructive pattern No wheezing at this time, however, air entry diminished bilaterally in the setting of PNA and effusion Duonebs prn No indication for steroids at this time (7) Hypoxemia Current Visit: Yes Status: Acute Assessment and Plan: Due to Suspected PNA Continue O2 supplement (8) Pneumonia Current Visit: Yes Status: Acute Assessment and Plan: Will continue day 8 of IV Zosyn (9) Afib Current Visit: Yes Status: Chronic Assessment and Plan: s/p ablation with complications including CVA/Anaphylaxis and REsp failure requiring intubations at an [facility] facility less than a month ago Resume sotalol Not on anticoagulation per chart DVT Prophylaxis: Heparin subcutaneous - Time Spent with Patient Total time spent is greater than 50% in coordination of care (as documented) at patient's floor/unit and/or counseling patient: Internal Medicine: Result - Labs CBC & Chem 7: 11/08/17 18:21 11/08/17 09:20 Labs: Short CBC 11/08/17 11/08/17 Range/Units 09:20 18:21 WBC 53.6 H* (4.3-11.1) K/mcL Hgb 8.9 L D 9.2 L (11.5-15.4) g/dL Hct 27.1 L 27.5 L (35.3-44.9) % Plt Count 106 L (140-400) K/mcL Neutrophils # 35.4 H (1.6-8.9) K/mcL BMP 11/08/17 09:20 Sodium 136 Potassium 3.2 L Chloride 104 Carbon Dioxide 25 BUN 7 L Creatinine 0.63 Glucose 155 H Calcium 7.1 L - ABG Interpretation ABG results: PT/INR, D-dimer PT 17.4 Seconds (9.4-12.1) H 11/01/17 04:26 - VTE Documentation of Mechanical Device: Intermittent pneumatic compression device Consult Discharge Plan - Plan Referrals: Duncan Tracy MD [Primary Care Provider] - ([facility] is [facility]) (2) CMML (chronic myelomonocytic leukemia) Qualifiers: Leukemia Active/Remission status: in remission Qualified Code(s): C93.11 - Chronic myelomonocytic leukemia, in remission (3) Leukocytosis Qualifiers: Leukocytosis type: unspecified Qualified Code(s): D72.829 - Elevated white blood cell count, unspecified (6) COPD (chronic obstructive pulmonary disease) Qualifiers: COPD type: unspecified COPD Qualified Code(s): J44.9 - Chronic obstructive pulmonary disease, unspecified (8) Pneumonia Qualifiers: Pneumonia type: due to unspecified organism Laterality: bilateral Lung location: unspecified part of lung Qualified Code(s): J18.9 - Pneumonia, unspecified organism (9) Afib Qualifiers: Atrial fibrillation type: chronic Qualified Code(s): I48.2 - Chronic atrial fibrillation
[2017-11-08 19:33] LABS: Basophils % 0.6 %
[2017-11-08 19:35] LABS: Basophils # 0.3 K/mcL (0.0-0.2); Hematocrit 27.8 % (35.3-44.9); Hemoglobin 9.2 g/dL (11.5-15.4); Immature Granulocytes % 6.4 % (0-4); Lymphocytes # 2.1 K/mcL (0.6-4.6); Lymphocytes % 3.7 %; Mean Corpuscular HGB Conc 33.1 g/dL (31.6-35.5); Mean Corpuscular Hemoglobin 28.2 pg (28.0-33.3); Mean Corpuscular Volume 85.3 fL (83.0-100.0); Mean Platelet Volume 11.3 fL (9.4-12.4); Monocytes # 25.1 K/mcL (0.0-1.3); Monocytes % 45.1 %; Neutrophils # 24.1 K/mcL (1.6-8.9); Platelet Count 111 K/mcL (140-400); Red Blood Count 3.26 M/mcL (3.82-4.97); Red Cell Distribution Width 16.1 % (11.5-14.5); Segmented Neutrophils % 43.2 %
[2017-11-08 19:43] LABS: Eosinophils # 0.6 K/mcL (0.0-0.6)
[2017-11-08 19:49] LABS: BUN/Creatinine Ratio 12 (6-26); Blood Urea Nitrogen 7 mg/dL (8-23); Calcium 7.3 mg/dL (8.6-10.3); Carbon Dioxide 24 mEq/L (23-29); Chloride 104 mEq/L (98-107); Glucose 142 mg/dL (70-105); Osmolality,Calculated 282 (280-300); Potassium 3.1 mEq/L (3.5-5.1); Sodium 136 mEq/L (136-145); eGFR For Non-African Americans > 60 (> 60)
[2017-11-08] MEDS ORDERED: Potassium Chloride Elixir 20 MEQ/15 ML UDC PO ONE (20:00)
[2017-11-08 20:05] LABS: Reactive Lymphocytes Present (Not Present)
[2017-11-08] MEDS: Ondansetron 4 MG/2 ML VIAL IVP PRN (20:33)
[2017-11-08 22:02] LABS: INR 1.6; Prothrombin Time 17.7 Seconds (9.4-12.1)
[2017-11-09] MEDS: Piperacillin/Tazobactam 3.375 GM in 0.9 % Sodium Chloride Mini Bag 100 ML IVPB SCH ×2 (00:54→07:50)
[2017-11-09 04:43] LABS: Hematocrit 25.8 % (35.3-44.9); Hemoglobin 8.5 g/dL (11.5-15.4); Mean Corpuscular HGB Conc 32.9 g/dL (31.6-35.5); Mean Corpuscular Hemoglobin 28.4 pg (28.0-33.3); Mean Corpuscular Volume 86.3 fL (83.0-100.0); Mean Platelet Volume 11.6 fL (9.4-12.4); Platelet Count 109 K/mcL (140-400); Red Blood Count 2.99 M/mcL (3.82-4.97); Red Cell Distribution Width 16.4 % (11.5-14.5)
[2017-11-09 05:02] LABS: BUN/Creatinine Ratio 10 (6-26); Blood Urea Nitrogen 5 mg/dL (8-23); Calcium 7.1 mg/dL (8.6-10.3); Carbon Dioxide 24 mEq/L (23-29); Chloride 105 mEq/L (98-107); Glucose 104 mg/dL (70-105); Osmolality,Calculated 284 (280-300); Potassium 3.5 mEq/L (3.5-5.1); Sodium 138 mEq/L (136-145); eGFR For Non-African Americans > 60 (> 60)
[2017-11-09 05:40] LABS: Lymphocytes # 3.2 K/mcL (0.6-4.6); Neutrophils # 28.6 K/mcL (1.6-8.9); Platelet Estimate Slight Decrease (Normal)
[2017-11-09 05:41] LABS: Hypochromasia Present (Not Present)
[2017-11-09] MEDS: *HR* Heparin 5,000 UNIT/ML VIAL SQ SCH (06:29)
[2017-11-09] MEDS: Aspirin 81 MG TAB.CHEW PO SCH (07:52)
[2017-11-09] MEDS: Cholecalciferol (D-3) 1,000 UNIT TABLET PO SCH (07:52)
--- NOTE | 2017-11-09 12:16 | Discharge Summary ---
- NOTES TO OUTPATIENT PROVIDER Notes to Outpatient Provider: Patient to follow-up with storage garage attendant oncologist for CMML in addition to urology for urinary retention. Patient also to have hemoglobin monitored for history of acute blood loss anemia Orders not resulted at time of discharge: Pending orders 11/08/17 21:42 Culture,Blood [BC] Routine Date of Encounter: 11/09/17 Time of Encounter: 11:00 - Discharge Diagnosis (1) Acute blood loss anemia Priority: Secondary Status: Acute (2) CMML (chronic myelomonocytic leukemia) Priority: Secondary Status: Chronic Qualifiers: Leukemia Active/Remission status: in remission Qualified Code(s): C93.11 - Chronic myelomonocytic leukemia, in remission (3) Leukocytosis Priority: Secondary Status: Chronic Qualifiers: Leukocytosis type: unspecified Qualified Code(s): D72.829 - Elevated white blood cell count, unspecified (4) Thrombocytopenia Priority: Secondary Status: Chronic (5) Pleural effusion Priority: Primary Status: Acute (6) COPD (chronic obstructive pulmonary disease) Priority: Secondary Status: Chronic Qualifiers: COPD type: unspecified COPD Qualified Code(s): J44.9 - Chronic obstructive pulmonary disease, unspecified (7) Hypoxemia Priority: Primary Status: Acute (8) Pneumonia Priority: Primary Status: Acute Qualifiers: Pneumonia type: due to unspecified organism Laterality: bilateral Lung location: unspecified part of lung Qualified Code(s): J18.9 - Pneumonia, unspecified organism (9) Afib Priority: Secondary Status: Chronic Qualifiers: Atrial fibrillation type: chronic Qualified Code(s): I48.2 - Chronic atrial fibrillation Hospital course: Patient is a 77-year-old female with past medical history significant for chronic myelomonocytic leukemia, Thrombocytopenia, Afib s/p ablation, COPD who presented to the ER due to shortness of breath. She reported her symptoms had been present since her discharge from on [place] 1- 2 weeks ago. She was hospitalized there for ablation of her atrial fibrillation, however, after the ablation she developed some form of anaphylaxis and was intubated and was in the ICU for a prolonged period of time. She was discharged to rehabilitation she reports that her cough continued and was associated shortness of breath. Of note, patient reports of following up with her primary care physician for her multiple hematologic disorders which include CML with chronic leukocytosis as well as chronic thrombocytopenia. On arrival to the emergency room, she was hypoxic and tachypneic, imaging showed likely pulmonary edema with bilateral pleural effusion right more than left as well as a suspicious for pneumonia. During patients hospital stay, pulmonology was consulted and chest tube was placed for pleural effusion. Chest tube was eventually removed and patient was continued on IV antibiotics for pneumonia; she received a 9 day course of IV Zosyn. Patient was also given 2 units of packed red blood cells for acute blood loss anemia. Patient is medically stable to be discharged back to senior living facility for continued monitoring of anemia and she is to follow-up with storage garage attendant oncologist for management of CMML. Patient was also discharged with [place] catheter to follow-up with urology for management of urinary retention. - Time Spent with Patient Total time spent providing and/or coordinating discharge services: Less than 30 minutes - Discharge Medications Home Medications: Sotalol [Betapace] 40 mg PO QAM 10/01/14 [History] Aspirin 81 mg PO DAILY 10/26/14 [History] L. Acidophilus/Pectin, [place] [Acidophilus Probiotic Capsule] 1 each PO BID [History] Psyllium Husk [Psyllium Fiber] 1.56 gm PO DAILY 10/26/14 [History] Cholecalciferol (D-3) [Vitamin D] 1,000 unit PO DAILY 06/04/16 [History] Famotidine [Pepcid] 20 mg PO DAILY PRN 06/04/16 [History] Sotalol [Betapace] 80 mg PO HS 06/04/16 [History] Valsartan/Hydrochlorothiazide [Diovan Hct 160-12.5 mg Tab] 1 each PO DAILY 06/04 [History] Diphenoxylate/Atropine [Lomotil 2.5 mg/0.025 mg] 1 each PO QID PRN 11/01/17 [ History] Allergies/Adverse Reactions: 3 Allergy/AdvReac Type Severity Reaction Status Date / Time sulfamethoxazole AdvReac Unknown Nausea Verified 11/01/17 09:36 [From Bactrim] levofloxacin [From Levaquin] AdvReac See Verified 11/01/17 09:36 Comments nitrofurantoin AdvReac See Verified 11/01/17 09:36 [From Macrobid] Comments trimethoprim [From Bactrim] AdvReac Nausea Verified 11/01/17 09:36 Date of admission: 11/01/17 09:56 Primary care physician: Duncan Tracy MD Consults: 11/01/17 15:45 Consult to Occupational Therapy [CONS] Routine Comment: Evaluate, develop and implement POC Reason for Consult: Increased weakness Patient from [facility], states she hasn't been out of bed since she has been there. Does patient have active BEDREST order?: No Is patient medically & hemodynamically stable?: Yes Consult to Physical Therapy [CONS] Routine Comment: Evaluate, develop and implement POC Reason for Consult: Increased weakness Patient from [facility], states she hasn't been out of bed since she has been there. Does patient have active BEDREST order?: No Is patient medically & hemodynamically stable?: Yes 11/05/17 11:59 Consult to PICC team [Consult to Invasive Line Access Team] [CONS] Routine Reason for Consult: Limited access Line Type: EPIV Time Notified: 12:00 - Constitutional Vitals: Temp Pulse Resp BP Pulse Ox 97.7 F 89 20 100/47 97 11/09/17 10:55 11/09/17 11:40 11/09/17 11:40 11/09/17 10:55 11/09/17 11:40 General appearance: Present: A&O X 3, pleasant, no acute distress Exam: Gen.: Nonacute distress, alert and oriented 3 ENT: Mucosal membranes moist Respiratory: Lungs are clear to auscultation bilaterally without any wheezing rhonchi or rales Cardiovascular: Normal S1 and S2 regular rate rhythm no murmurs rubs or gallops Abdomen: Soft, nontender and nondistended with positive bowel sounds Extremities: No lower extremity edema Skin: pale - Patient Status Disposition: Transfer SNF Condition: Fair - Discharge Instructions Follow Up With: Duncan Tracy MD [Primary Care Provider] - (patient is going to [facility]) Joshua Bach [Non-Partnered Physician] - 11/20/17 9:40 am () Maury Jones MD [Partnered Physician] - 11/19/17 5:15 pm ([address] of the [facility]) - VTE Documentation of Mechanical Device: Intermittent pneumatic compression device
--- NOTE | 2017-11-09 12:18 | Physician Discharge Referral ---
ExtendedCare Referral Info Institutional Level of Care: Skilled - Diagnosis (1) Acute blood loss anemia Priority: Primary Status: Acute (2) CMML (chronic myelomonocytic leukemia) Priority: Secondary Status: Chronic (3) Leukocytosis Priority: Secondary Status: Chronic (4) Thrombocytopenia Priority: Secondary Status: Chronic (5) Pleural effusion Priority: Primary Status: Acute (6) COPD (chronic obstructive pulmonary disease) Priority: Secondary Status: Chronic (7) Hypoxemia Priority: Primary Status: Acute (8) Pneumonia Priority: Primary Status: Acute (9) Afib Priority: Secondary Status: Chronic - Transfer Medications Home Medications: Sotalol [Betapace] 40 mg PO QAM 10/01/14 [History] Aspirin 81 mg PO DAILY 10/26/14 [History] L. Acidophilus/Pectin, [place] [Acidophilus Probiotic Capsule] 1 each PO BID [History] Psyllium Husk [Psyllium Fiber] 1.56 gm PO DAILY 10/26/14 [History] Cholecalciferol (D-3) [Vitamin D] 1,000 unit PO DAILY 06/04/16 [History] Famotidine [Pepcid] 20 mg PO DAILY PRN 06/04/16 [History] Sotalol [Betapace] 80 mg PO HS 06/04/16 [History] Valsartan/Hydrochlorothiazide [Diovan Hct 160-12.5 mg Tab] 1 each PO DAILY 06/04 [History] Diphenoxylate/Atropine [Lomotil 2.5 mg/0.025 mg] 1 each PO QID PRN 11/01/17 [ History] Allergies/Adverse Reactions: 3 Allergy/AdvReac Type Severity Reaction Status Date / Time sulfamethoxazole AdvReac Unknown Nausea Verified 11/01/17 09:36 [From Bactrim] levofloxacin [From Levaquin] AdvReac See Verified 11/01/17 09:36 Comments nitrofurantoin AdvReac See Verified 11/01/17 09:36 [From Macrobid] Comments trimethoprim [From Bactrim] AdvReac Nausea Verified 11/01/17 09:36 - Respiratory Orders Smoking Cessation: Smoking cessation has been advised. For more information, call the [place] Tobacco Quit Line at 4-181-WDVV-NOW. CERTIFICATION: I certify that the transfer of the above named patient to an Extended Care Facility is necessary for the continuing treatment of the diagnosis listed. The above information is true and accurate reflection of patient's current condition. Confidential - Redisclosure prohibited without a patient's written consent.
[2017-11-09 15:14] VITALS: BP 109/49
== END 2017-11-09 16:12 | DRG 193 ==
LOC: 2NNU 22:42 → EMEROOARM 22:42 → 2NNU 11-01 03:22 → SUATTDRO 11-01 09:56
PROVIDERS: ADMIT Internal Medicine; ATTEND Hospitalist

== ENCOUNTER 2018-03-26 09:31 | Inpatient (IN) ==
[~2018-03-26 09:31] MED LIST: Aminoglycoside Consult 1 EACH MC ONE
[2018-03-26] MEDS ORDERED: Ipratropium/Albuterol Neb 3 ML IH ONE ×2 (09:42→21:46)
[2018-03-26] MEDS ORDERED: methylPREDNISolone 125 MG/2 ML VIAL IVP ONE ×2 (09:42→11:29)
--- NOTE | 2018-03-26 09:51 | Emergency Department Note ---
Disposition Clinical Impression: Hypoxia Leukocytosis Qualifiers: Leukocytosis type: unspecified Qualified Code(s): D72.829 - Elevated white blood cell count, unspecified Dyspnea Qualifiers: Dyspnea type: unspecified Qualified Code(s): R06.00 - Dyspnea, unspecified COPD (chronic obstructive pulmonary disease) Qualifiers: COPD type: unspecified COPD Qualified Code(s): J44.9 - Chronic obstructive pulmonary disease, unspecified Disposition: Admitted As Inpatient Condition: Fair SOB HPI - General Chief Complaint: ED Shortness of Breath/Dyspnea Stated Complaint: General weakness Time Seen by Provider: 03/26/18 09:32 Source: patient Limitations: no limitations Nursing Notes Reviewed: Yes Vital Signs Reviewed: Yes - History of Present Illness 78-year-old female presents emergency Department with concerns of shortness of breath and weakness. Patient was brought to emergency department from the assisted living facility. Patient is unable to give a full account of her case and presentation, she was hypoxic to 68% on the initial evaluation with a good waveform on the monitor. Patient states she has a history of difficulty in breathing in the past. She states that she was started on steroids yesterday but did not take them today. She denies fever, chills, vomiting, diarrhea, chest pain. Patient O2 sats improved significantly with minimal O2 via facemask. Patient has a history of leukemia. Denies recent trauma. - Related Data Home Medications Medication Instructions Recorded Confirmed Sotalol [Betapace] 40 mg PO QAM 10/01/14 02/28/18 Sotalol [Betapace] 80 mg PO HS 06/04/16 02/28/18 Diphenoxylate/Atropine [Lomotil 1 each PO QID PRN 11/01/17 02/28/18 2.5 mg/0.025 mg] Acetaminophen [Tylenol] 650 mg PO Q4H PRN 02/28/18 02/28/18 Apixaban [Eliquis] 5 mg PO BID 02/28/18 02/28/18 Ascorbic Acid [Vitamin C] 250 mg PO DAILY 02/28/18 02/28/18 Atorvastatin [Lipitor] 20 mg PO HS 02/28/18 02/28/18 Calcium Carbonate/Vitamin D3 1 each PO BID 02/28/18 02/28/18 [Calcium 500-Vit D3 200 Tablet] Cholecalciferol (D-3) [Vitamin D] 1,000 unit PO DAILY 02/28/18 02/28/18 Ferrous Sulfate [Iron] 325 mg PO DAILY 02/28/18 02/28/18 GuaiFENesin/Pseudophedrine 1 each PO BID 02/28/18 02/28/18 [Mucinex D] Ipratropium/Albuterol Neb [Duoneb] 3 ml IH Q6HR PRN 02/28/18 02/28/18 Loperamide HCl [Imodium A-D] 2 mg PO AD PRN 02/28/18 02/28/18 Losartan Potassium 25 mg PO DAILY 02/28/18 02/28/18 Mag Hydrox/Aluminum Hyd/Simeth 30 ml PO QID PRN 02/28/18 02/28/18 [Cvs Antacid Plus Anti-Gas Liq] Magnesium Oxide [Mag-Ox] 400 mg PO DAILY 02/28/18 02/28/18 Mirtazapine 7.5 mg PO HS 02/28/18 02/28/18 Mv-Mn/FA/Coq10/Lycopene/Lutein 1 each PO DAILY 02/28/18 02/28/18 [Theragran-M Premier 50+ Caplet] Ondansetron HCl [Zofran] 4 mg PO DAILY PRN 02/28/18 02/28/18 Pantoprazole Sodium [Protonix] 40 mg PO DAILY 02/28/18 02/28/18 Sennosides/Docusate Sodium 1 each PO BID 02/28/18 02/28/18 [Senna-S Tablet] Allergies Allergy/AdvReac Type Severity Reaction Status Date / Time sulfamethoxazole AdvReac Unknown Nausea Verified 02/28/18 14:49 [From Bactrim] levofloxacin [From Levaquin] AdvReac See Verified 02/28/18 14:49 Comments nitrofurantoin AdvReac See Verified 02/28/18 14:49 [From Macrobid] Comments trimethoprim [From Bactrim] AdvReac Nausea Verified 02/28/18 14:49 All systems ED: reviewed and negative except as stated. Review of Systems: As Per HPI Past Medical History - Past Medical History Attestation: Yes The following information was validated with the patient. Source: patient Medical history: Reports: atrial fibrillation, GERD, hypertension Surgical history: Reports: no surgical history Psychiatric history: Reports: anxiety ELECTRIC SWITCH TESTER history: Reports: no ELECTRIC SWITCH TESTER history - Social History Smoking Status: Never smoker Smokeless Tobacco Status: No Alcohol use: Reports: none Drug use: Reports: none Physical Exam General: Alert and in no acute distress Skin: Warm, dry, intact. Pale Head: Normocephalic and atraumatic Neck: Supple, trachea midline and no tenderness Cardiovascular: RRR, no murmur, normal perfusion Respiratory: Poor air movement in the bilateral posterior lung pak. Wheezing is present bilaterally. Musculoskeletal: Normal strength, no tenderness, swelling or deformity GI: Soft, nontender, nondistended. Bowel sounds present Neuro: A&O to person, place, time and situation. No focal deficits noted on exam Psychiatric: cooperative and appropriate mood and affect. - General Limitations: no limitations General appearance: alert, in no apparent distress Course Vital Signs Temperature 94.5 F L 03/26/18 09:33 Pulse Rate 110 03/26/18 09:33 Respiratory Rate 28 03/26/18 09:33 Blood Pressure 143/69 03/26/18 09:33 O2 Sat by Pulse Oximetry 77 03/26/18 09:33 Temperature 94.5 F L 03/26/18 09:33 Pulse Rate 110 03/26/18 09:33 Respiratory Rate 28 03/26/18 09:33 Blood Pressure 143/69 03/26/18 09:33 O2 Sat by Pulse Oximetry 98 03/26/18 09:39 Oxygen Delivery Oxygen Delivery Room Air Shortness of Breath/Dyspnea - MDM Narrative Medical decision making narrative: Patient O2 sats improved with O2 via facemask. ABG showed patient was acidotic. Chest x-ray showed possible loculated effusion versus an ovoid mass. Patient had a significant leukocytosis however she has had similar elevated white blood cells in the past which is likely secondary to her leukemia. She will be started on antibiotics emergency department for possible infected effusion versus pneumonia. Patient given steroids and breathing treatments in the emergency department with improvement of breathing. Patient comfortable with plan for admission to the hospital for further care and evaluation. - Medical Records Medical records reviewed: Yes I reviewed the patient's medical records. - Lab Data Lab results reviewed: Yes I reviewed the patient's lab results. - Radiology Data Radiology results reviewed: Yes I reviewed the patient's radiology results. - EKG Data EKG attestation: Yes I reviewed and interpreted this EKG. EKG results narrative: Sinus tachycardia with a rate of 103 with no evidence of STEMI. QTC 392, QRS 93.
[2018-03-26 10:16] LABS: ABG Base Excess 2 mEq/L (-2 to 3); ABG HCO3 30 mEq/L (21-27); ABG Oxygen Saturation 100 % (95-98); ABG PCO2 66 mmHg (35-45); ABG PH 7.27 pH Units (7.32-7.45); ABG PO2 211 mmHg (85-104); ABG TCO2 32 mEq/L (20-26)
[2018-03-26 10:58] LABS: Hematocrit 46.6 % (35.3-44.9); Hemoglobin 14.2 g/dL (11.5-15.4); Mean Corpuscular HGB Conc 30.5 g/dL (31.6-35.5); Mean Corpuscular Hemoglobin 25.3 pg (28.0-33.3); Mean Corpuscular Volume 83.1 fL (83.0-100.0); Mean Platelet Volume 12.3 fL (9.4-12.4); Platelet Count 104 K/mcL (140-400); Red Blood Count 5.61 M/mcL (3.82-4.97); Red Cell Distribution Width 17.8 % (11.5-14.5)
[2018-03-26 11:05] LABS: INR 1.5; Prothrombin Time 16.7 Seconds (9.4-12.1)
[2018-03-26 11:14] LABS: Troponin I < 0.03 ng/mL (< 0.04)
[2018-03-26 11:19] LABS: BUN/Creatinine Ratio 25 (6-26); Blood Urea Nitrogen 19 mg/dL (8-23); Calcium 9.9 mg/dL (8.6-10.3); Carbon Dioxide 26 mEq/L (23-29); Chloride 103 mEq/L (98-107); Glucose 116 mg/dL (70-105); Osmolality,Calculated 297 (280-300); Sodium 142 mEq/L (136-145); eGFR For Non-African Americans > 60 (> 60)
[2018-03-26] MEDS ORDERED: Vancomycin 1,000 MG in D5% in Water 250 ML IVPB ONE (11:28)
[2018-03-26] MEDS ORDERED: Piperacillin/Tazobactam 3.375 GM in 0.9 % Sodium Chloride Mini Bag 100 ML IVPB ONE (11:28)
[2018-03-26] MEDS ORDERED: Azithromycin 500 MG in D5% in Water 250 ML IVPB ONE (11:29)
[2018-03-26 11:31] LABS: Basophils # 0.8 K/mcL (0.0-0.2); Lymphocytes # 1.7 K/mcL (0.6-4.6); Monocytes # 13.3 K/mcL (0.0-1.3); Neutrophils # 25.7 K/mcL (1.6-8.9)
[2018-03-26 11:32] LABS: Platelet Estimate Decreased (Normal)
[2018-03-26] MEDS ORDERED: Naloxone 0.4 MG/ML INJ IVP PRN (11:56)
[2018-03-26] MEDS ORDERED: traMADol 50 MG TABLET PO PRN (11:56)
--- NOTE | 2018-03-26 12:41 | Internal Med History&Physical ---
Date of Encounter: 03/26/18 Time of Encounter: 12:39 Internal Medicine - H&P: HPI Chief complaint: Shortness of breath History of present illness: Ms. Christopher is a 78 year old female PMH of CML, Thrombocytopenia, Afib s/p ablation, COPD who presented to the ER with complains for non productive cough and shortness of breath. Patient reports feeling short of breath for the past 3- 4 days, the shortness of breath is associated with a non-productive cough. Denies fever, chills. denies urologic or genitourinary symptoms. In the ED patient O2Sat dropped to 77% on room air. Patient was admitted on 11/01/17 for copd exacerbation, found to have a pleural effusion. Pulm consulted and performed throracentesis. Today chest x-ray has findings subjective of possible loculated pleural effusion. Patient denies chest pain, nausea or vomiting. Past Med Surg Social Fam HX - Past Medical History Medical history: atrial fibrillation, GERD, hypertension Additional medical history: chronic myeloid leukemia, anemia, cerebral infarction Psychiatric history: anxiety - Past Surgical History Surgical History: no surgical history Additional surgical history: cardiac surgery - Social History Smoking Status: Never smoker Smokeless Tobacco Status: No Alcohol use: none Drug use: none - Family History Father Living Status: Hx Family Cardiac Disorders: No Hx Family Respiratory Disorders: Yes (lung cancer) Hx Family Cancer: Yes (lung cancer) Hx Family GI Disorders: No Hx Family Endocrine Disorder: No Hx Family Neuromuscular Disorders: No Hx Family Neurologic Disorders: No Hx Family HEENT Disorders: No Hx Family Autoimmune Disorders: No Mother Living Status: Hx Family Cardiac Disorders: No Hx Family Respiratory Disorders: No Hx Family Cancer: No Hx Family GI Disorders: No Hx Family Endocrine Disorder: No Hx Family Neuromuscular Disorders: No Hx Family Neurologic Disorders: No Hx Family HEENT Disorders: No Hx Family Autoimmune Disorders: No Sister Living Status: Still Living Hx Family Cardiac Disorders: Yes (heart murmur) Hx Family Respiratory Disorders: No Hx Family Cancer: No Hx Family GI Disorders: No Hx Family Endocrine Disorder: No Hx Family Neuromuscular Disorders: No Hx Family Neurologic Disorders: No Hx Family HEENT Disorders: No Hx Family Autoimmune Disorders: No Son Living Status: Still Living Hx Family Cardiac Disorders: Yes (heart defect) Hx Family Respiratory Disorders: No Hx Family Cancer: No Hx Family GI Disorders: No Hx Family Endocrine Disorder: No Hx Family Neuromuscular Disorders: No Hx Family Neurologic Disorders: Yes Hx Family HEENT Disorders: No Hx Family Autoimmune Disorders: No Internal Medicine - H&P: Meds Sotalol [Betapace] 40 mg PO QAM 10/01/14 [History] Sotalol [Betapace] 80 mg PO HS 06/04/16 [History] Diphenoxylate/Atropine [Lomotil 2.5 mg/0.025 mg] 1 each PO QID PRN 11/01/17 [History] Acetaminophen [Tylenol] 650 mg PO Q4H PRN 02/28/18 [History] Apixaban [Eliquis] 5 mg PO BID 02/28/18 [History] Ascorbic Acid [Vitamin C] 250 mg PO DAILY 02/28/18 [History] Atorvastatin [Lipitor] 20 mg PO HS 02/28/18 [History] Calcium Carbonate/Vitamin D3 [Calcium 500-Vit D3 200 Tablet] 1 each PO BID 02/28/18 [History] Cholecalciferol (D-3) [Vitamin D] 1,000 unit PO DAILY 02/28/18 [History] Ferrous Sulfate [Iron] 325 mg PO DAILY 02/28/18 [History] GuaiFENesin/Pseudophedrine [Mucinex D] 1 each PO BID 02/28/18 [History] Ipratropium/Albuterol Neb [Duoneb] 3 ml IH Q6HR PRN 02/28/18 [History] Loperamide HCl [Imodium A-D] 2 mg PO AD PRN 02/28/18 [History] Losartan Potassium 25 mg PO DAILY 02/28/18 [History] Mag Hydrox/Aluminum Hyd/Simeth [Cvs Antacid Plus Anti-Gas Liq] 30 ml PO QID PRN 02/28/18 [History] Magnesium Oxide [Mag-Ox] 400 mg PO DAILY 02/28/18 [History] Mirtazapine 7.5 mg PO HS 02/28/18 [History] Mv-Mn/FA/Coq10/Lycopene/Lutein [Theragran-M Premier 50+ Caplet] 1 each PO DAILY 02/28/18 [History] Ondansetron HCl [Zofran] 4 mg PO DAILY PRN 02/28/18 [History] Pantoprazole Sodium [Protonix] 40 mg PO DAILY 02/28/18 [History] Sennosides/Docusate Sodium [Senna-S Tablet] 1 each PO BID 02/28/18 [History] Allergy/AdvReac Type Severity Reaction Status Date / Time sulfamethoxazole AdvReac Unknown Nausea Verified 02/28/18 14:49 [From Bactrim] levofloxacin [From Levaquin] AdvReac See Verified 02/28/18 14:49 Comments nitrofurantoin AdvReac See Verified 02/28/18 14:49 [From Macrobid] Comments trimethoprim [From Bactrim] AdvReac Nausea Verified 02/28/18 14:49 All Systems PM: A 10-system review of systems was performed and is negative for pertinent findings except as documented above in the HPI. - Constitutional Constitutional: no chills, no fever(s), no weakness - EENT Eyes: no change in vision Nose, mouth and throat: no dry mouth - Cardiovascular Cardiovascular ROS IM: dyspnea, no chest pain, no lightheadedness, no orthopnea, no palpitations, no paroxysmal nocturnal dyspnea - Respiratory Respiratory: cough, dyspnea, chest congestion, no pain with cough - Gastrointestinal Gastrointestinal: no abdominal pain - Genitourinary Genitourinary: no dysuria, no urinary frequency, no urinary hesitancy, no urinary incontinence, no urinary urgency - Musculoskeletal Musculoskeletal ROS IM: no atrophy, no back pain - Integumentary Integumentary IM: no sores - Neurological Neurological ROS: no headache(s) - Psychiatric Psychiatric: no anxiety, no irritability - Endocrine Endocrine IM: no polydipsia, no polyphagia, no polyuria - Hematologic/Lymphatic Hematologic/Lymphatic: no lymphadenopathy - Allergic/Immunologic Allergic/Immunologic: no GI upset with certain foods Additional comments: Rest of 10 review of system negative. - Constitutional Vitals: Temp Pulse Resp BP Pulse Ox 94.5 F L 95 20 123/62 100 03/26/18 09:33 03/26/18 11:54 03/26/18 11:54 03/26/18 11:54 03/26/18 11:54 Exam: Vitals: Reviewed. General: Alert and oriented x4. Mild distress due to shortness of breath. Skin: Normal color, no rash, no lesions. HEENT: EOM, pupils equal, round and reactive. Cardiovascular: Irregularly, irregular, normal S1 & S2, no rubs, murmurs or gallops. Lungs: b/l scattered expiratory wheezing, no rales or crackles. Abdomen: Soft, non-tender, no rigidity. Extremities: No deformity, no edema or tenderness, no joint swelling or clubbing. Neurological: CN II-XII intact. Rest of the physical exam is non contributory Internal Med - H&P Results - Labs CBC & Chem 7: 03/26/18 10:32 03/26/18 10:32 Labs: Short CBC 03/26/18 Range/Units 10:32 WBC 41.4 H* (4.3-11.1) K/mcL Hgb 14.2 (11.5-15.4) g/dL Hct 46.6 H (35.3-44.9) % Plt Count 104 L (140-400) K/mcL Neutrophils # 25.7 H (1.6-8.9) K/mcL BMP 03/26/18 10:32 Sodium 142 Potassium 4.0 Chloride 103 Carbon Dioxide 26 BUN 19 Creatinine 0.77 Glucose 116 H Calcium 9.9 Cardiac Enzymes 03/26/18 Range/Units 10:32 Troponin I < 0.03 (< 0.04) ng/mL - ABG Interpretation ABG results: 03/26/18 10:11 ABG pH 7.27 L ABG pCO2 66 H ABG pO2 211 H ABG HCO3 30 H ABG Total CO2 32 H ABG O2 Saturation 100 H ABG Base Excess 2 - Impressions ITS Impressions Chest X-Ray 03/26/18 09:42 IMPRESSION: Ovoid soft tissue density mid to lateral lower right lung probably reflects loculated pleural effusion (pseudotumor appearance); no interval change compared with prior study. Calcific atherosclerotic disease aorta. D/ / Armaan Holley / Armaan Holley Interpreting Provider: Armaan Holley - Diagnostic Studies Chest x-ray Status: image reviewed by me (Possible loculated effusion on right lower lobe.) - Assessment and plan (1) COPD (chronic obstructive pulmonary disease) Current Visit: No Status: Acute Assessment and plan: acute exacerbation. broncospasm. B/L expiratory wheezing on auscultation. Plan Started on bronchodilators Q4RT scheduled solu-medrol 125mg/IV x1 Solu-Medrol 40mg/IV Q12hr started on empiric antibiotics coverage for possible Hcap. Respiratory panel O2 by nasal cannula, titrate for O2Sat >92% stand by Bipap Qualifiers: COPD type: unspecified COPD Qualified Code(s): J44.9 - Chronic obstructive pulmonary disease, unspecified (2) Pneumonia Current Visit: No Status: Acute Assessment and plan: Possible loculated effusion on the right lung. Plan will start patient on HCAP treatment, patient residential resident, had a hospitalization in less 90 days. started on Piperacillin/tazobactam 3.375mg/IV Q8HRs Vancomycin per pharmacy protocol Patient had a Chest CT on 11/14/17, which showed loculated pleural effusion will repeat chest ct w/o to evaluate progression of the effusion, consider Pulm or IR consult for drainage following ct chest report. Qualifiers: Pneumonia type: due to unspecified organism Laterality: bilateral Lung location: unspecified part of lung Qualified Code(s): J18.9 - Pneumonia, unspecified organism (3) Afib Current Visit: No Status: Chronic Assessment and plan: rate controlled on soltalol. will continue home medication. On apixaban 5mg/PO BID for secondary stroke prevention due to high chadsvasc score. Qualifiers: Atrial fibrillation type: chronic Qualified Code(s): I48.2 - Chronic atrial fibrillation (4) CMML (chronic myelomonocytic leukemia) Current Visit: No Status: Chronic Assessment and plan: Outpatient follow up. Qualifiers: Leukemia Active/Remission status: in remission Qualified Code(s): C93.11 - Chronic myelomonocytic leukemia, in remission (5) Thrombocytopenia Current Visit: No Status: Chronic (6) DVT prophylaxis Current Visit: No Status: Acute Assessment and plan: patient on Apixaban 5mg/PO BID, for A.fib - Time Spent With Patient Total time spent is greater than 50% in coordination of care (as documented) at patient's floor/unit and/or counseling patient: Greater than 35 minutes (45)
[2018-03-26] MEDS: Apixaban 5 MG TABLET PO SCH ×2 (13:01→21:33)
[2018-03-26 15:33] LABS: Adenovirus Not Detected (Not Detect); Bordetella Pertussis Not Detected (Not Detect); Chlamydophila pneumoniae Not Detected (Not Detect); Coronavirus 229E Not Detected (Not Detect); Coronavirus HKU1 Not Detected (Not Detect); Coronavirus NL63 Not Detected (Not Detect); Coronavirus OC43 Not Detected (Not Detect); Human Metapneumovirus Not Detected (Not Detect); Human Rhinovirus/Enterovirus Not Detected (Not Detect); Influenza A Subtype 2009 H1 Not Detected (Not Detect); Influenza A Untypeable Not Detected (Not Detect); Influenza B Not Detected (Not Detect); Mycoplasma pneumoniae Not Detected (Not Detect); Parainfluenza Virus 1 Not Detected (Not Detect); Parainfluenza Virus 2 Not Detected (Not Detect); Parainfluenza Virus 3 Not Detected (Not Detect); Parainfluenza Virus 4 Not Detected (Not Detect); Respiratory Syncytial Virus Not Detected (Not Detect)
[2018-03-26] MEDS: Ipratropium/Albuterol Neb 3 ML IH SCH ×3 (15:42→20:01)
[2018-03-26] MEDS: MethylPREDNISolone 40 MG/ML VIAL IVP SCH (19:01)
[2018-03-26] MEDS ORDERED: Mirtazapine 15 MG TABLET PO SCH (21:00)
[2018-03-26] MEDS ORDERED: Ipratropium/Albuterol Neb 3 ML IH STA (21:26)
[2018-03-26] MEDS: Piperacillin/Tazobactam 3.375 GM in 0.9 % Sodium Chloride Mini Bag 100 ML IVPB SCH (21:34)
[2018-03-26] MEDS ORDERED: Ipratropium/Albuterol Neb 3 ML ONE (21:49)
[2018-03-27] MEDS: Ipratropium/Albuterol Neb 3 ML IH SCH ×7 (00:29→23:14)
[2018-03-27] MEDS: MethylPREDNISolone 40 MG/ML VIAL IVP SCH ×2 (05:02→19:16)
[2018-03-27] MEDS: Piperacillin/Tazobactam 3.375 GM in 0.9 % Sodium Chloride Mini Bag 100 ML IVPB SCH (05:03)
[2018-03-27 09:02] LABS: Hematocrit 41.8 % (35.3-44.9); Hemoglobin 12.9 g/dL (11.5-15.4); Immature Platelets 13.5 % (1.1-6.1); Mean Corpuscular HGB Conc 30.9 g/dL (31.6-35.5); Mean Corpuscular Hemoglobin 25.4 pg (28.0-33.3); Mean Corpuscular Volume 82.4 fL (83.0-100.0); Red Blood Count 5.07 M/mcL (3.82-4.97); Red Cell Distribution Width 17.3 % (11.5-14.5)
[2018-03-27 09:03] LABS: Calcium 8.9 mg/dL (8.6-10.3); Magnesium 1.9 mg/dL (1.6-2.6); Phosphorous 6.2 mg/dL (2.7-4.5); Potassium 4.1 mEq/L (3.5-5.1)
[2018-03-27] MEDS: Apixaban 5 MG TABLET PO SCH (10:22)
--- NOTE | 2018-03-27 12:24 | Internal Med Progress Note ---
Hospitalist Progress Note - Encounter Date of Encounter: 03/27/18 Time of Encounter: 10:45 - Subjective Interval History: H&P reviewed. Patient with history of CML, A. fib status post ablation with prolonged ICU stay, ?COPD, is admitted for presumed COPD exacerbation. Continues to have some dyspnea with accessory muscle usage. She states that she was seen by pulmonary as outpatient and was told that she does not have COPD. Previous admission in 10/2017 noted when she had R pleural effusion that was thought to be parapneumonic. No fever/chills. - Exam Vitals: Temp Pulse Resp BP Pulse Ox 97.8 F 87 16 114/50 98 03/27/18 11:00 03/27/18 11:00 03/27/18 11:05 03/27/18 11:00 03/27/18 11:05 Exam: Vitals: Reviewed. General: Alert and oriented x4. Mild distress with accessory muscle usage Cardiovascular: normal S1 & S2. Normal rate and rhythm. no rubs, murmurs or gallops. Lungs: b/l scattered wheezing but more prominent on inspiration. Distant breath sound Abdomen: Soft, non-tender, no rigidity. Neurological: No focal deficits - Assessment and Plan (1) Hypercapnic respiratory failure Current Visit: Yes Status: Acute Assessment and Plan: likely secondary to COPD Exacerbation, mx as below (2) COPD (chronic obstructive pulmonary disease) Current Visit: Yes Status: Acute Assessment and Plan: PFT 2017 shows severe obstructive pattern RIP -ve CT chest showed R LL mass that was not present in prior CT scans. ?rounded atelectasis continue solumedrol, bronchodilators Q4 scheduled will switch abx to macrolide as it is not clear whether the rounded mass on CT scan represent PNA. unsure about the significance of the mass, will consult pulm (3) OLAF (acute kidney injury) Current Visit: Yes Status: Acute Assessment and Plan: Cr increased from 0.77 to 1.59 today, associated with borderline BP IVF, monitor Cr hold losartan avoid nephrotoxins (4) Afib Current Visit: No Status: Chronic Assessment and Plan: s/p ablation, now on sotalol. AC with Eliquis (5) CMML (chronic myelomonocytic leukemia) Current Visit: No Status: Chronic Assessment and Plan: WBC 41.4 -> 58.7, partly attributed to ongoing steroid use continue to monitor Follow up with oncology as outpatient (6) Severe protein-calorie malnutrition Current Visit: Yes Status: Chronic Assessment and Plan: follows with nutrition (7) DVT prophylaxis Current Visit: No Status: Acute Assessment and Plan: On Eliquis - Time Spent with Patient Total time spent is greater than 50% in coordination of care (as documented) at patient's floor/unit and/or counseling patient: Plan of Care Discussed with: patient Internal Medicine: Result - Labs CBC & Chem 7: 03/27/18 08:08 03/27/18 08:08 Labs: Short CBC 03/27/18 Range/Units 08:08 WBC 58.7 H* (4.3-11.1) K/mcL Hgb 12.9 (11.5-15.4) g/dL Hct 41.8 (35.3-44.9) % Plt Count 98 L (140-400) K/mcL BMP 03/27/18 08:08 Sodium 139 Potassium 4.1 Chloride 102 Carbon Dioxide 27 BUN 36 H Creatinine 1.59 H Glucose 104 Calcium 8.9 - ABG Interpretation ABG results: ABG ABG pH 7.27 pH Units (7.32-7.45) L 03/26/18 10:11 ABG pCO2 66 mmHg (35-45) H 03/26/18 10:11 ABG pO2 211 mmHg (85-104) H 03/26/18 10:11 ABG O2 Saturation 100 % (95-98) H 03/26/18 10:11 PT/INR, D-dimer PT 16.7 Seconds (9.4-12.1) H 03/26/18 10:32 D-Dimer 229 ng/mLFEU (0-500) 03/26/18 10:32 - Impressions Impressions Chest CT 03/26/18 13:30 IMPRESSION: 1. 3.5 cm x 2.6 cm mass in the right lower lobe with no correlate on prior studies. Rounded atelectasis is suggested given previously seen but now resolved loculated right pleural effusion. However, pneumonia and malignancy could appear similar. Recommend follow-up as below. 2. Minimal to mild interstitial edema potentially due to congestive heart failure given mild cardiomegaly and trace left pleural effusion. 3. Additional incidental findings as above for which no follow-up is recommended. RECOMMENDATIONS: Fleischner Society guidelines for follow-up and management of incidentally detected pulmonary nodules: Single Solid Nodule: Nodule size greater than 8 mm In a low-risk patient, consider CT at 3 months, PET/CT, or tissue sampling. In a high-risk patient, consider CT at 3 months, PET/CT, or tissue sampling. - Low risk patients include individuals with minimal or absent history of smoking and other known risk factors. - High risk patients include individuals with a history or smoking or known risk factors. Radiology 2017 http://pubs.rsna.org/doi/full/10.1148/radiol.2038937814 1.2 cm incidental thyroid nodule No follow-up imaging is recommended. Reference: J Am Sebastián Radiol. 2015 Mar;12(2): 143-50 D/ / Dav Scott MD / Dav Scott MD Interpreting Provider: Dav Scott MD Consult Discharge Plan - Plan Referrals: Duncan Tracy MD [Primary Care Provider] - (1) Hypercapnic respiratory failure Qualifiers: Chronicity: unspecified Qualified Code(s): J96.92 - Respiratory failure, unspecified with hypercapnia (2) COPD (chronic obstructive pulmonary disease) Qualifiers: COPD type: COPD with acute exacerbation Qualified Code(s): J44.1 - Chronic obstructive pulmonary disease with (acute) exacerbation (4) Afib Qualifiers: Atrial fibrillation type: chronic Qualified Code(s): I48.2 - Chronic atrial fibrillation (5) CMML (chronic myelomonocytic leukemia) Qualifiers: Leukemia Active/Remission status: in remission Qualified Code(s): C93.11 - Chronic myelomonocytic leukemia, in remission
[2018-03-27] MEDS ORDERED: Azithromycin 500 MG in D5% in Water 250 ML IVPB SCH (12:30)
[2018-03-27] MEDS: Ringers Solution, Lactated 1,000 ML IVC SCH (14:31)
[2018-03-27] MEDS: GuaiFENesin/Pseudophedrine TABLET PO SCH (20:18)
[2018-03-27] MEDS: Mirtazapine 15 MG TABLET PO SCH (20:18)
[2018-03-27] MEDS ORDERED: NON-FORMULARY MEDICATION 1 EACH EACH (Calcium Carbonate/Vitamin D3 [Calcium 500-Vit D3 200 PO SCH (21:00)
[2018-03-27] MEDS ORDERED: *HR* Promethazine 25 MG/ML VIAL IVP PRN (23:34)
[2018-03-28] MEDS: Ringers Solution, Lactated 1,000 ML IVC SCH (03:29)
[2018-03-28] MEDS: Ipratropium/Albuterol Neb 3 ML IH SCH ×6 (04:33→23:15)
[2018-03-28] MEDS: MethylPREDNISolone 40 MG/ML VIAL IVP SCH ×2 (05:38→18:04)
[2018-03-28 06:55] LABS: Hematocrit 37.6 % (35.3-44.9); Hemoglobin 11.4 g/dL (11.5-15.4); Mean Corpuscular HGB Conc 30.3 g/dL (31.6-35.5); Mean Corpuscular Hemoglobin 25.2 pg (28.0-33.3); Mean Platelet Volume 12.6 fL (9.4-12.4); Red Blood Count 4.53 M/mcL (3.82-4.97); Red Cell Distribution Width 16.9 % (11.5-14.5)
[2018-03-28 06:56] LABS: VBG HCO3 32 mEq/L (21-27); VBG PCO2 67 mmHg (41-51); VBG PH 7.29 pH Units (7.32-7.42); VBG PO2 78 mmHg (25-50)
[2018-03-28 07:15] LABS: BUN/Creatinine Ratio 39 (6-26); Blood Urea Nitrogen 29 mg/dL (8-23); Calcium 8.8 mg/dL (8.6-10.3); Carbon Dioxide 32 mEq/L (23-29); Chloride 104 mEq/L (98-107); Glucose 92 mg/dL (70-105); Osmolality,Calculated 295 (280-300); Phosphorous 2.3 mg/dL (2.7-4.5); Sodium 140 mEq/L (136-145); eGFR For Non-African Americans > 60 (> 60)
[2018-03-28 07:17] LABS: Platelet Count 99 K/mcL (140-400)
[2018-03-28 07:24] LABS: Lymphocytes # 2.5 K/mcL (0.6-4.6); Monocytes # 15.2 K/mcL (0.0-1.3); Neutrophils # 24.5 K/mcL (1.6-8.9); Platelet Estimate Slight Decrease (Normal)
[2018-03-28 07:25] LABS: Ovalocytes 1+ (Not Present)
--- NOTE | 2018-03-28 08:48 | Event Note ---
<Spencer Page - Last Filed: 03/28/18 08:51> Date of Encounter: 03/28/18 Time of Encounter: 08:23 Rosalinda Albrecht was called overhead due to cardiopulmonary arrest. Upon immediately arriving to the room, patient was receiving chest compressions. First dose of Epinephrine was administered at 8:25 and patient was bagged by RT. Patient did not have a pulse on first pulse check after 2 minutes and chest compressions were resumed. Patient was successfully intubated during chest compressions by RT with positive color change on CO2 colorimeter and equal breath sounds bilaterally. Second dose of Epinephrine was given at 8:28 and achieved ROSC at 8:28. Patient was transferred to ICU. Attending Dr. Plummer was present for the entire code. Family was contacted by RN. <Silvio Plummer - Last Filed: 03/28/18 11:06> Date of Encounter: 03/28/18 I have seen and examined the patient with Dr. Page and agree with his/her assessment and plan. Patient was admitted on 03/26 for hypoxic respiratory failure secondary to COPD exacerbation. Was clinically improving on steroid, bronchodilators, and abx until yesterday. Patient was served a breakfast tray a few mins prior to my exam. When I entered the room, patient was having R facial and UE twitching and was unresponsive. She gradually became hypoxic and bradycardic despite immediate increase in O2 delivery through NC and rosalinda albrecht was called right away. Required 2 cycles of CPR and 2 doses of EP before ROSC. Unresponsive following ROSC and O2 sat improved with intubation. Updated both pt's emergency contact as well as [id number] (Pt's son, Spencer, was not available on his cellphone) regarding pt's clinical status. Suspect seizure leading to aspiration and hypoxia which could have resulted in bradycardic/PEA arrest. Transferred to ICU with critical care consult. Silvio Plummer MD
[2018-03-28] MEDS ORDERED: *HR* Midazolam HCl 2 MG/2 ML VIAL IVP ONE ×4 (09:06→17:10)
[2018-03-28] MEDS ORDERED: *HR* Midazolam HCl 2 MG/2 ML VIAL ONE (09:06)
--- NOTE | 2018-03-28 09:11 | Pulmonology Consult Note ---
<Pete Blair - Last Filed: 03/28/18 15:56> Date of Encounter: 03/28/18 Time of Encounter: 09:09 Assessment and Plan (1) Acute respiratory failure with hypoxia Current Visit: Yes Status: Acute Patient was admitted on 03/26 for hypoxic respiratory failure secondary to COPD exacerbation which was improving with steroids, bronchodilators and antibiotics. Etiology of acute respiratory failure is likely multifactorial; may be secondary to aspiration, cardiac etiology such as acute heart failure, COPD exacerbation leading to worsened pulmonary edema demonstrated on chest CT. Sav Albrecht called on floor for patient after she developed possible seizure like activities (R fascial and UE twitching), hypoxia, bradycardia, leading to PEA arrest. Patient underwent 2 rounds of CPR with epinephrine x2 before ROSC. Patient remained unresponsive as she was transferred to ICU. Physical exam positive for diffuse crackles in all lung pak with diminished breath sounds on right lower lobe CXR from 03/28 @0915 revealed new patchy/hazy airspace opacities diffusely to the lungs bilaterally with mid to upper lung zone predominance, concerning for pulmonary edema and multifocal infiltrates; mass like opacity in right lower lobe, demonstrated on CT chest 03/26 EKG @0924- sinus tachycardia, nonspecific ST and T wave abnormality, biatrial enlargement. CT chest, abdomen/pelvis, 03/28 @ 1204-interval development of multifocal ground glass and consolidative opacities within the lungs with interlobular septal thickening and small bilateral pleural effusions, near complete left lower lobe atelectasis; acuity supports pulmonary edema in setting of heart failure or ARDS vs multifocal pneumonia. CT head 03/28 @1047 with no acute intracranial abnormalities. ABG @ 0945 03/28- pH 7.40, pCO2 49, pO2 96, HCO3 30, O2 saturation 97. 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 Troponin 0.12; elevated likely due to multiple rounds of CPR. PLAN: Continue patient's sedation with precedex and fentanyl and mechanical ventilation Echocardiogram pending to rule out cardiac causes Bronchoscopy today pending consent from son Continue methylprednisolone 40 mg Q12H, Duonebs Antibiotic coverage with zosyn (day 3) Stop zithromax Daily ABG and CXR (2) Pneumonia Current Visit: No Status: Suspected History positive for COPD stage III; currently admitted for acute COPD exacerbation and pneumonia with possible loculated effusion on right lung. CXR 03/28- new patchy/hazy airspace opacities diffusely bilaterally with mid to upper lung zone predominance, concerning for pulmonary edema or multifocal infiltrates since prior CXR on 03/26. CXR on 03/26 with ovoid soft tissue density mid to lateral lower right lung probably reflecting loculated pleural effusion ABG 03/28- pH 7.40, pCO2 49, pO2 96, HCO3 30, O2 saturation 97. CT chest, 03/28-interval development of multifocal ground glass and consolidative opacities within the lungs with interlobular septal thickening and small bilate ral pleural effusions, near complete left lower lobe atelectasis; acuity supports pulmonary edema in setting of heart failure or ARDS vs multifocal pneumonia. PLAN: Continue zosyn, day 3 Stop zithromax Continue methylprednisolone, Duonebs Continue mechanical ventilation Qualifiers: Pneumonia type: aspiration pneumonia Aspiration pneumonia type: unspecified Laterality: unspecified laterality Lung location: unspecified part of lung Qualified Code(s): J69.0 - Pneumonitis due to inhalation of food and vomit (3) Pulmonary edema Current Visit: Yes Status: Acute New diffuse pulmonary edema demonstrated by imaging. Etiology unclear however, considering cardiac cause vs. pulmonary, such as acute respiratory failure, pneumonia CXR 03/28- new patchy/hazy airspace opacities diffusely to the lungs bilaterally with mid to upper lung zone predominance, concerning for pulmonary edema or multifocal infiltrates vs pulmonary hemorrhage given CPR CT chest, abdomen/pelvis, 03/28-interval development of multifocal ground glass and consolidative opacities within the luncs with interlobular septal thickening and small bilateral pleural effusions, near complete left lower lobe atelectasis; acuity supports pulmonary edema in setting of heart failure or ARDS vs multifocal pneumonia. Physical exam positive for crackles diffusely in all lung pak bilaterally PLAN: Strict I & O Lasix 40 mg x1 Echocardiogram pending. Will be cautious with fluids and diuresis as able depending on BP. Qualifiers: Chronicity: acute Qualified Code(s): J81.0 - Acute pulmonary edema (4) Elevated troponin Current Visit: No Status: Acute Troponin elevated at 0.12 Likely secondary to trauma from CPR. Other potential etiologies are cardiac in origin, such as new CHF and demand ischemia. Unlikely ACS. EKG 03/28- sinus tachycardia, nonspecific ST and T wave abnormality, biatrial enlargement. PLAN: Echocardiogram pending (5) Sepsis Current Visit: Yes Status: Acute 3 of 4 SIRS Criteria met-parameters that meet criteria are heart rate 143 bpm, respiratory rate 22, WBC 86. -Patient is afebrile with temperature of 97.5 -Concern for possible sepsis likely secondary to pneumonia. However, cardiac etiology for hypotension cannot be excluded. -Potentially severe sepsis given most recent systolic blood pressure of 67 mmHg with prior 114 mmHg (two criteria met are systolic BP<90 or decrease in systolic BP >40). Likely potential cause of hypotension is cardiogenic etiology -CXR from 03/28 revealed new patchy/hazy airspace opacities diffusely to the lungs bilaterally with mid to upper lung zone predominance, concerning for pulmonary edema and multifocal infiltrates; mass like opacity in right lower lobe, demonstrated on CT chest 03/26 -CT chest, abdomen/pelvis, 03/28-interval development of multifocal ground glass and consolidative opacities within the lungs with interlobular septal thickening and small bilateral pleural effusions, near complete left lower lobe atelectasis; acuity supports pulmonary edema in setting of heart failure or ARDS vs multifocal pneumonia. -Right femoral line in place PLAN: -Antibiotic coverage with zosyn (day 3) -Blood cultures ordered, results pending -Continue levophed to maintain blood pressure -Echocardiogram to rule our cardiogenic cause Qualifiers: Sepsis type: sepsis due to unspecified organism Qualified Code(s): A41.9 - Sepsis, unspecified organism (6) COPD (chronic obstructive pulmonary disease) Current Visit: Yes Status: Acute Patient's history positive for severe COPD, GOLD stage III according to 2017 PFT Patient presented to ER on 03/26 for productive cough and shortness of breath x3- 4 days; admitted for COPD exacerbation Patient was admitted on 11/21/17 for COPD exacerbation and found to have pleural effusion ABG @ 0945 03/28- pH 7.40, pCO2 49, pO2 96, HCO3 30, O2 saturation 97. CXR from 03/28 @0915 revealed new patchy/hazy airspace opacities diffusely to the lungs bilaterally with mid to upper lung zone predominance, concerning for pulmonary edema and multifocal infiltrates; mass like opacity in right lower lobe, demonstrated on CT chest 03/26 CT chest, abdomen/pelvis, 03/28 @ 1204-interval development of multifocal ground glass and consolidative opacities within the luncs with interlobular septal thickening and small bilateral pleural effusions, near complete left lower lobe atelectasis; acuity supports pulmonary edema in setting of heart failure or ARDS vs multifocal pneumonia. PLAN: Continue methylprednisolone Q12H, Duoneb Antibiotic coverage with Zosyn, day 3 Mechanical ventilation Qualifiers: COPD type: COPD with acute exacerbation Qualified Code(s): J44.1 - Chronic obstructive pulmonary disease with (acute) exacerbation (7) Afib Current Visit: No Status: Chronic History positive for atrial fibrillation s/p ablation Heart rate controlled. 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 PLAN: Continue to monitor Follow up with oncology outpatient Qualifiers: Leukemia Active/Remission status: in remission Qualified Code(s): C93.11 - Chronic myelomonocytic leukemia, in remission (9) Thrombocytopenia Current Visit: No Status: Chronic History positive for chronic thrombocytopenia Platelets on admission 104, most recent 115 (03/28) Likely related to CML PLAN: Continue to monitor (10) OLAF (acute kidney injury) Current Visit: Yes Status: Acute Resolved Creatinine increased to 0.95 (03/28) from 0.77 on admission (03/26); decreased from 03/27, 1.59 No urine output documented PLAN: Strict I & O Continue to monitor serum creatinine Renally dose medications Hold losartan Avoid nephrotoxins (11) DVT prophylaxis Current Visit: No Status: Acute SCDs Hold Eliquis due to suspected pulmonary hemorrhage secondary to CPR History of Present Illness Consult date: 03/27/18 Requesting physician: Silvio Plummer Reason for consult: other (Acute respiratory failure with hypoxia) Chief complaint: dyspnea History of present illness: 78 year old female with past medical history of CML, thrombocytopenia, atrial fibrillation s/p ablation, COPD, GERD, hypertension presented to ED on 03/26 for productive cough and shortness of breath x3-4 weeks and admitted for hypoxic respiratory failure secondary to COPD exacerbation. This is patient's hospital day 3. Patient was treated with steroids, duonebs and antibiotics and showed clinical signs of improvement. Pulmonology/ critical care consulted due to hype rcarbic respiratory failure and possible R lung mass Patient was served breakfast tray and within a few minutes rapid response followed by sav albrecht was called around 0822 due to cardiopulmonary arrest, patient did not have pulse. Patient was found to be unresponsiveness, hypoxic and bradycardic following possible seizure like activity in the form of right facial and UE twitching. Patient required 2 cycles of CPR and 2 doses of epinephrine prior to ROSC. Patient was intubated during chest compressions. Patient remained unresponsive. Upon my examination patient was without family so history was obtained from medical records. Past Med Surg Social Fam HX - Past Medical History Source: old records reviewed Medical history: atrial fibrillation, COPD, CVA, GERD, hypertension Additional medical history: chronic myeloid leukemia, anemia, cerebral infarction Psychiatric history: anxiety - Past Surgical History Surgical History: other Additional surgical history: cardiac surgery, ablation - Social History Smoking Status: Never smoker Smokeless Tobacco Status: No Alcohol use: none Drug use: none - Family History Father Living Status: Hx Family Cardiac Disorders: No Hx Family Respiratory Disorders: Yes (lung cancer) Hx Family Cancer: Yes (lung cancer) Hx Family GI Disorders: No Hx Family Endocrine Disorder: No Hx Family Neuromuscular Disorders: No Hx Family Neurologic Disorders: No Hx Family HEENT Disorders: No Hx Family Autoimmune Disorders: No Mother Living Status: Hx Family Cardiac Disorders: No Hx Family Respiratory Disorders: No Hx Family Cancer: No Hx Family GI Disorders: No Hx Family Endocrine Disorder: No Hx Family Neuromuscular Disorders: No Hx Family Neurologic Disorders: No Hx Family HEENT Disorders: No Hx Family Autoimmune Disorders: No Sister Living Status: Still Living Hx Family Cardiac Disorders: Yes (heart murmur) Hx Family Respiratory Disorders: No Hx Family Cancer: No Hx Family GI Disorders: No Hx Family Endocrine Disorder: No Hx Family Neuromuscular Disorders: No Hx Family Neurologic Disorders: No Hx Family HEENT Disorders: No Hx Family Autoimmune Disorders: No Son Living Status: Still Living Hx Family Cardiac Disorders: Yes (heart defect) Hx Family Respiratory Disorders: No Hx Family Cancer: No Hx Family GI Disorders: No Hx Family Endocrine Disorder: No Hx Family Neuromuscular Disorders: No Hx Family Neurologic Disorders: Yes Hx Family HEENT Disorders: No Hx Family Autoimmune Disorders: No Medications and Allergies RX: Sotalol [Betapace] 40 mg PO QAM 10/01/14 [History] RX: Sotalol [Betapace] 80 mg PO HS 06/04/16 [History] Acetaminophen [Tylenol] 650 mg PO Q4H PRN 02/28/18 [History] Apixaban [Eliquis] 5 mg PO 0800,1900 02/28/18 [History] Ascorbic Acid [Vitamin C] 250 mg PO DAILY 02/28/18 [History] Atorvastatin [Lipitor] 20 mg PO HS 02/28/18 [History] Calcium Carbonate/Vitamin D3 [Calcium 500-Vit D3 200 Tablet] 1 each PO BID 02/28/18 [History] Ferrous Sulfate [Iron] 325 mg PO DAILY 02/28/18 [History] GuaiFENesin/Pseudophedrine [Mucinex D] 1 each PO BID 02/28/18 [History] Ipratropium/Albuterol Neb [Duoneb] 3 ml IH 0800,1200,1600,199902/28/18 [History] Loperamide HCl [Imodium A-D] 2 mg PO AD PRN 02/28/18 [History] Mag Hydrox/Aluminum Hyd/Simeth [Cvs Antacid Plus Anti-Gas Liq] 30 ml PO QID PRN 02/28/18 [History] Ondansetron HCl [Zofran] 4 mg PO DAILY PRN 02/28/18 [History] Pantoprazole Sodium [Protonix] 40 mg PO DAILY 02/28/18 [History] RX: Magnesium Oxide [Mag-Ox] 400 mg PO DAILY 02/28/18 [History] RX: Mirtazapine 7.5 mg PO HS 02/28/18 [History] Sennosides/Docusate Sodium [Senna-S Tablet] 1 each PO BID PRN 02/28/18 [History] RX: Doxycycline Hyclate 100 mg PO 0800,199903/26/18 [History] RX: Losartan Potassium 25 mg PO DAILY 03/26/18 [History] predniSONE [PredniSONE] 40 mg PO DAILY 03/26/18 [History] Allergy/AdvReac Type Severity Reaction Status Date / Time sulfamethoxazole AdvReac Unknown Nausea Verified 02/28/18 14:49 [From Bactrim] levofloxacin [From Levaquin] AdvReac See Verified 02/28/18 14:49 Comments nitrofurantoin AdvReac See Verified 02/28/18 14:49 [From Macrobid] Comments trimethoprim [From Bactrim] AdvReac Nausea Verified 02/28/18 14:49 ROS unobtainable: due to endotracheal tube All Systems: The remainder of the systems were reviewed and are negative Physical Examination Vital Signs: Vital Signs, Last 4 Hours Temp Pulse Resp BP Pulse Ox 03/28/18 07:40 18 98 03/28/18 06:54 97.6 F 78 16 114/52 97 General appearance: appears uncomfortable Eyes: nonicteric ENT: oropharynx moist Neck: supple Effort: mildly labored Inspection: normal Auscultation: bilateral: rales (diffuse), other (coarse breath sounds) Cardiovascular: other (tachycardic) Gastrointestinal: normoactive bowel sounds, soft Integumentary: normal, other (right UE ecchymosis ) Extremities: no cyanosis, no edema, pulses normal Musculoskeletal: no deformities unable to assess due to mental status Results - Laboratory Findings CBC and BMP: 03/28/18 11:00 03/28/18 09:24 ABG ABG pH 7.27 pH Units (7.32-7.45) L 03/26/18 10:11 ABG pCO2 66 mmHg (35-45) H 03/26/18 10:11 ABG pO2 211 mmHg (85-104) H 03/26/18 10:11 ABG O2 Saturation 100 % (95-98) H 03/26/18 10:11 PT/INR, D-dimer PT 16.7 Seconds (9.4-12.1) H 03/26/18 10:32 D-Dimer 229 ng/mLFEU (0-500) 03/26/18 10:32 Abnormal lab findings: Abnormal lab results WBC 42.2 K/mcL (4.3-11.1) H* 03/28/18 06:42 Hgb 11.4 g/dL (11.5-15.4) L D 03/28/18 06:42 MCH 25.2 pg (28.0-33.3) L 03/28/18 06:42 MCHC 30.3 g/dL (31.6-35.5) L 03/28/18 06:42 RDW 16.9 % (11.5-14.5) H 03/28/18 06:42 Plt Count 99 K/mcL (140-400) L 03/28/18 06:42 MPV 12.6 fL (9.4-12.4) H 03/28/18 06:42 Band Neutrophils % 20.0 % (0-4) H 03/28/18 06:42 Neutrophils # 24.5 K/mcL (1.6-8.9) H 03/28/18 06:42 Monocytes # 15.2 K/mcL (0.0-1.3) H 03/28/18 06:42 Basophils # 0.8 K/mcL (0.0-0.2) H 03/26/18 10:32 Platelet Estimate Slight Decrease (Normal) L 03/28/18 06:42 Immature Plt Fraction 13.5 % (1.1-6.1) H 03/27/18 08:08 Ovalocytes 1+ (Not Present) A 03/28/18 06:42 PT 16.7 Seconds (9.4-12.1) H 03/26/18 10:32 APTT 41.0 Seconds (26.0-36.0) H 03/26/18 10:32 ABG pH 7.27 pH Units (7.32-7.45) L 03/26/18 10:11 ABG pCO2 66 mmHg (35-45) H 03/26/18 10:11 ABG pO2 211 mmHg (85-104) H 03/26/18 10:11 ABG HCO3 30 mEq/L (21-27) H 03/26/18 10:11 ABG Total CO2 32 mEq/L (20-26) H 03/26/18 10:11 ABG O2 Saturation 100 % (95-98) H 03/26/18 10:11 VBG pH 7.29 pH Units (7.32-7.42) L 03/28/18 06:54 VBG pCO2 67 mmHg (41-51) H 03/28/18 06:54 VBG pO2 78 mmHg (25-50) H 03/28/18 06:54 VBG HCO3 32 mEq/L (21-27) H 03/28/18 06:54 Carbon Dioxide 32 mEq/L (23-29) H 03/28/18 06:42 BUN 29 mg/dL (8-23) H 03/28/18 06:42 BUN/Creatinine Ratio 39 (6-26) H 03/28/18 06:42 POC Glucose 142 mg/dL (70-99) H 03/26/18 21:14 Phosphorus 2.3 mg/dL (2.7-4.5) L 03/28/18 06:42 B-Natriuretic Peptide 312 pg/mL (Less than 100) H 03/26/18 10:32 - Clinical Findings Intake & Output: Intake & Output 03/27/18 03/28/18 03/28/18 23:59 07:59 15:59 Intake Total 480 / 480 1250 / 1250 Balance 480 / 480 1250 / 1250 Weight 68.4 kg Consult Discharge Plan - Plan Referrals: Duncan Tracy MD [Primary Care Provider] - <Godfrey Quach - Last Filed: 03/29/18 13:07> Date of Encounter: 03/29/18 All Systems: The remainder of the systems were reviewed and are negative Physical Examination Vital Signs: Vital Signs, Last 4 Hours Temp Pulse Resp BP Pulse Ox 03/28/18 09:00 26 141/67 99 03/28/18 07:40 18 98 03/28/18 06:54 97.6 F 78 16 114/52 97 Ventilator Settings Ventilator Settings: Ventilator Settings, Last 8 Hours Ventilator Tidal Volume 450 Setting Ventilator Tidal Volume 450 Setting Ventilator Respiratory Rate 12 Setting Ventilator Respiratory Rate 12 Setting Actual Respiratory Rate 18 Positive End Expiratory 5 Pressure Positive End Expiratory 5 Pressure Peak Inspiratory Airway 37 Pressure Results - Laboratory Findings CBC and BMP: 03/29/18 05:10 03/29/18 05:10 ABG ABG pH 7.40 pH Units (7.32-7.45) 03/28/18 09:45 ABG pCO2 49 mmHg (35-45) H 03/28/18 09:45 ABG pO2 96 mmHg (85-104) 03/28/18 09:45 ABG O2 Saturation 97 % (95-98) 03/28/18 09:45 PT/INR, D-dimer PT 16.7 Seconds (9.4-12.1) H 03/26/18 10:32 D-Dimer 229 ng/mLFEU (0-500) 03/26/18 10:32 Abnormal lab findings: Abnormal lab results WBC 42.2 K/mcL (4.3-11.1) H* 03/28/18 06:42 Hgb 11.4 g/dL (11.5-15.4) L D 03/28/18 06:42 MCH 25.2 pg (28.0-33.3) L 03/28/18 06:42 MCHC 30.3 g/dL (31.6-35.5) L 03/28/18 06:42 RDW 16.9 % (11.5-14.5) H 03/28/18 06:42 Plt Count 99 K/mcL (140-400) L 03/28/18 06:42 MPV 12.6 fL (9.4-12.4) H 03/28/18 06:42 Band Neutrophils % 20.0 % (0-4) H 03/28/18 06:42 Neutrophils # 24.5 K/mcL (1.6-8.9) H 03/28/18 06:42 Monocytes # 15.2 K/mcL (0.0-1.3) H 03/28/18 06:42 Basophils # 0.8 K/mcL (0.0-0.2) H 03/26/18 10:32 Platelet Estimate Slight Decrease (Normal) L 03/28/18 06:42 Immature Plt Fraction 13.5 % (1.1-6.1) H 03/27/18 08:08 Ovalocytes 1+ (Not Present) A 03/28/18 06:42 PT 16.7 Seconds (9.4-12.1) H 03/26/18 10:32 APTT 41.0 Seconds (26.0-36.0) H 03/26/18 10:32 ABG pCO2 49 mmHg (35-45) H 03/28/18 09:45 ABG HCO3 30 mEq/L (21-27) H 03/28/18 09:45 ABG Total CO2 31 mEq/L (20-26) H 03/28/18 09:45 ABG Base Excess 4 mEq/L (-2 to 3) H 03/28/18 09:45 VBG pH 7.29 pH Units (7.32-7.42) L 03/28/18 06:54 VBG pCO2 67 mmHg (41-51) H 03/28/18 06:54 VBG pO2 78 mmHg (25-50) H 03/28/18 06:54 VBG HCO3 32 mEq/L (21-27) H 03/28/18 06:54 Carbon Dioxide 32 mEq/L (23-29) H 03/28/18 06:42 BUN 29 mg/dL (8-23) H 03/28/18 06:42 BUN/Creatinine Ratio 39 (6-26) H 03/28/18 06:42 POC Glucose 142 mg/dL (70-99) H 03/26/18 21:14 Phosphorus 2.3 mg/dL (2.7-4.5) L 03/28/18 06:42 B-Natriuretic Peptide 312 pg/mL (Less than 100) H 03/26/18 10:32 - Clinical Findings Intake & Output: Intake & Output 03/27/18 03/28/18 03/28/18 23:59 07:59 15:59 Intake Total 480 / 480 1250 / 1250 Balance 480 / 480 1250 / 1250 Weight 68.4 kg - Attending Attestation I examined this patient and my medical decision-making was reviewed with the medical student/Resident Physician. I agree with the documented findings, disposition and treatment plan as described except to the extent set forth below. Patient seen and examined when she was transferred from the floor and she is s/p code blue. Labs, radiology, chart personally reviewed. Agree with resident's history and physical, assessment, plan with following comments: [employer]IVER: Patient follows commands, Patient s/p cardiac arrest and concern first was hypoxic brain injury, CT head was done and didn't find any significant abnormality. Fortunately she woke up after that and start to follow commands. Pulmonary: Patient was reported to be a difficult intubation and ET tube was adjusted few times, eventually it was best adjusted during bronchoscopy. Patient had CT chest and it appears to me pulmonary hemmorhage, since patient was on anticoagulation and chest compression. Adjusted vent setting because of significant PEEPi and patient with severe COPD based on last PFT that she had. Lung lesion is possible round atelectasis. Possible aspiration pneumonia and bronchoscopy was done with evidence of pulmonary hemorrhage. Continue systemic steroid and bronchodilators. I called the family and explained to them about the procedure and all risks, benefits and alternatives and consent was obtained. Cardiovascular: s/p code blue and need ECG and echocardiogram. Patient is in shock. It is not clear the cause, it could be vasodilatory post cardiac arrest. Less likely septic, and with her CT findings, have to be careful with aggressive fluid resuscitation. Pt was started on Levophed after placement of central lines. GI: Nutrition per dietary and GI prophylaxis per routine Heme: DVT prophylaxis per routine. Patient leukocytosis from her underlying disease and hematology consult. ID: Continue antibiotics and plan to de-escalation Renal; urine out put and renal funtion reviewed Endorcine: blood glucose is monitored Lines: all lines checked and no evidence of infections Skin: skin care to prevent pressure ulcers per nursing routine care Patient remain critical and continue ICU care. I spent 80 min of Critical Care time with this patient. It involved decision making of high complexity to assess, manipulate, and support vital organ system failure and/or to prevent further life threatening deterioration of the patient's condition. The time involved in the performance of separately reportable procedures was not counted toward critical care time
[2018-03-28] MEDS: Magnesium Oxide 400 MG TABLET PO SCH (09:42)
[2018-03-28] MEDS: GuaiFENesin/Pseudophedrine TABLET PO SCH ×2 (09:42→21:28)
[2018-03-28] MEDS: Cholecalciferol (D-3) 1,000 UNIT TABLET PO SCH (09:42)
[2018-03-28] MEDS ORDERED: Furosemide 40 MG/4 ML VIAL IVP ONE (09:43)
[2018-03-28 09:48] LABS: ABG Base Excess 4 mEq/L (-2 to 3); ABG HCO3 30 mEq/L (21-27); ABG Oxygen Saturation 97 % (95-98); ABG PCO2 49 mmHg (35-45); ABG PO2 96 mmHg (85-104); ABG TCO2 31 mEq/L (20-26); Blood Gas Modality VC; Blood Gas PEEP 5 cm H2O; Blood Gas Respiration Rate 14; Blood Gas VT 450 cc
[2018-03-28 10:32] LABS: BUN/Creatinine Ratio 31 (6-26); Blood Urea Nitrogen 29 mg/dL (8-23); Calcium 8.2 mg/dL (8.6-10.3); Carbon Dioxide 27 mEq/L (23-29); Chloride 104 mEq/L (98-107); Glucose 227 mg/dL (70-105); Magnesium 1.8 mg/dL (1.6-2.6); Osmolality,Calculated 305 (280-300); Potassium 4.3 mEq/L (3.5-5.1); Sodium 141 mEq/L (136-145); eGFR For Non-African Americans 57 (> 60)
[2018-03-28 10:35] LABS: Troponin I 0.12 ng/mL (< 0.04)
[2018-03-28] MEDS ORDERED: Isovue-370 500 ML BOTTLE IVP ONE (10:41)
--- NOTE | 2018-03-28 10:48 | Electrocardiograph Report ---
[facility] Test Date: 2018-03-26 Pat Name: Cecilia Christopher Department: EXAM6 Room: 11 Gender: F Spray Pilot: : 1940 Requested By: Naseem Lo Order Number: [id number] Reading MD: Lucy Gaines Measurements Intervals [place] Rate: 103 P: 70 ND: 181 QRS: 39 QRSD: 93 T: 43 QT: 299 QTc: 392 Interpretive Statements Sinus tachycardia Biatrial enlargement Electronically Signed On 03-28-2018 10:46:24 EST by uLcy Gaines
--- NOTE | 2018-03-28 11:09 | Internal Med Progress Note ---
Hospitalist Progress Note - Encounter Date of Encounter: 03/28/18 Time of Encounter: 08:20 - Subjective Interval History: Please refer to the event note for interim events. Patient developed seizure like activities, hypoxia, bradycardia, leading to PEA arrest. Required 2 rounds of CPR and EP x 2 before ROSC. Remains unresponsive post resuscitation and t ransferred to ICU. - Exam Vitals: Temp Pulse Resp BP Pulse Ox 97.6 F 78 22 67/34 100 03/28/18 06:54 03/28/18 06:54 03/28/18 11:01 03/28/18 11:01 03/28/18 11:01 Exam: Vitals: Reviewed. General: Unresponsive, R facial and UE twitching noted Cardiovascular: bradycardic Lungs: Distant breath sounds, poor air entry Abdomen: Soft, non-tender Neurological: unable to examine due to mental status - Assessment and Plan (1) Hypercapnic respiratory failure Current Visit: Yes Status: Acute (2) COPD (chronic obstructive pulmonary disease) Current Visit: Yes Status: Acute (3) OLAF (acute kidney injury) Current Visit: Yes Status: Acute (4) Afib Current Visit: No Status: Chronic (5) CMML (chronic myelomonocytic leukemia) Current Visit: No Status: Chronic (6) Severe protein-calorie malnutrition Current Visit: Yes Status: Chronic (7) DVT prophylaxis Current Visit: No Status: Acute - Summary of Assessment and Plan Summary of Assessment and Plan: Patient was admitted on 03/26 for hypoxic respiratory failure secondary to COPD exacerbation. No evidence of jatinder parenchymal consolidation on CT but did have rounded mass in R LL that was not seen on 10/2017. Was clinically improving on steroid, bronchodilators, and abx until yesterday. Patient was served a breakfast tray a few mins prior to my exam. When I entered the room, patient was having R facial and UE twitching and was unresponsive. She gradually became hypoxic and bradycardic despite immediate increase in O2 delivery through NC and code blue was called right away. Required 2 cycles of CPR and 2 doses of EP before ROSC. Unresponsive following ROSC and O2 sat improved with intubation. Updated both pt's emergency contact as well as [id number] (Pt's son, Spencer, was not available on his cellphone) regarding pt's clinical status. Suspect seizure leading to aspiration and hypoxia which could have resulted in bradycardic/PEA arrest. Transferred to ICU with critical care consult. - Time Spent with Patient Total time spent is greater than 50% in coordination of care (as documented) at patient's floor/unit and/or counseling patient: 45 mins Plan of Care Discussed with: family (discussed with ICU team) Internal Medicine: Result - Labs CBC & Chem 7: 03/28/18 06:42 03/28/18 09:24 Labs: Short CBC 03/28/18 Range/Units 06:42 WBC 42.2 H* (4.3-11.1) K/mcL Hgb 11.4 L D (11.5-15.4) g/dL Hct 37.6 (35.3-44.9) % Plt Count 99 L (140-400) K/mcL Neutrophils # 24.5 H (1.6-8.9) K/mcL BMP 03/28/18 03/28/18 06:42 09:24 Sodium 140 141 Potassium 4.0 4.3 Chloride 104 104 Carbon Dioxide 32 H 27 BUN 29 H 29 H Creatinine 0.75 0.95 Glucose 92 227 H Calcium 8.8 8.2 L Cardiac Enzymes 03/28/18 Range/Units 09:24 Troponin I 0.12 H* (< 0.04) ng/mL - ABG Interpretation ABG results: ABG ABG pH 7.40 pH Units (7.32-7.45) 03/28/18 09:45 ABG pCO2 49 mmHg (35-45) H 03/28/18 09:45 ABG pO2 96 mmHg (85-104) 03/28/18 09:45 ABG O2 Saturation 97 % (95-98) 03/28/18 09:45 PT/INR, D-dimer PT 16.7 Seconds (9.4-12.1) H 03/26/18 10:32 D-Dimer 229 ng/mLFEU (0-500) 03/26/18 10:32 - Impressions Impressions Chest X-Ray 03/28/18 08:50 IMPRESSION: New patchy/hazy airspace opacities diffusely to the lungs bilaterally with mid to upper lung zone predominance, concerning for pulmonary edema or multifocal infiltrates since prior exams 03/26/2018. Placement of endotracheal tube with tip 4.2 cm from the karmen. Redemonstration of mass-like opacity to the right lower lobe, better demonstrated on recent CT chest. Reference to that study can be made for additional information. D/ / 03/28/2018 09:21:18 Ruperto Ivy MD / earnold Interpreting Provider: Ruperto Ivy MD Consult Discharge Plan - Plan Referrals: Duncan Tracy MD [Primary Care Provider] - (1) Hypercapnic respiratory failure Qualifiers: Chronicity: unspecified Qualified Code(s): J96.92 - Respiratory failure, unspecified with hypercapnia (2) COPD (chronic obstructive pulmonary disease) Qualifiers: COPD type: COPD with acute exacerbation Qualified Code(s): J44.1 - Chronic obstructive pulmonary disease with (acute) exacerbation (4) Afib Qualifiers: Atrial fibrillation type: chronic Qualified Code(s): I48.2 - Chronic atrial fibrillation (5) CMML (chronic myelomonocytic leukemia) Qualifiers: Leukemia Active/Remission status: in remission Qualified Code(s): C93.11 - Chronic myelomonocytic leukemia, in remission
[2018-03-28 11:13] LABS: Mean Corpuscular Hemoglobin 25.4 pg (28.0-33.3); Red Cell Distribution Width 16.9 % (11.5-14.5)
[2018-03-28 11:15] LABS: Hematocrit 37.9 % (35.3-44.9); Hemoglobin 11.4 g/dL (11.5-15.4); Mean Corpuscular HGB Conc 30.1 g/dL (31.6-35.5); Mean Corpuscular Volume 84.6 fL (83.0-100.0); Mean Platelet Volume 11.8 fL (9.4-12.4); Platelet Count 115 K/mcL (140-400); Red Blood Count 4.48 M/mcL (3.82-4.97)
[2018-03-28] MEDS: FentaNYL (PF) 1,000 MCG in 0.9 % Sodium Chloride 80 ML IVC SCH (11:15)
[2018-03-28] MEDS: Dexmedetomidine HCl 400 MCG/100 ML MLS IVC SCH ×2 (11:16→21:34)
[2018-03-28] MEDS ORDERED: 0.9 % Sodium Chloride 1,000 ML ONE (11:32)
[2018-03-28] MEDS: Norepinephrine 4 MG in D5% in Water 250 ML IVC SCH ×3 (11:38→18:25)
[2018-03-28 11:44] LABS: Lymphocytes # 3.4 K/mcL (0.6-4.6); Monocytes # 19.8 K/mcL (0.0-1.3); Neutrophils # 60.2 K/mcL (1.6-8.9); Platelet Estimate Slight Decrease (Normal)
--- NOTE | 2018-03-28 12:02 | Electrocardiograph Report ---
[place] [id number] Test Date: 2018-03-28 Pat Name: Cecilia Christopher Department: 109 Room: 11 Gender: F Casualty Claim Adjuster: : 1940 Requested By: Diane Domingo Order Number: [id number] Reading MD: Frank Rao Measurements Intervals Friona Rate: 110 P: 74 MS: 124 QRS: 52 QRSD: 77 T: 69 QT: 318 QTc: 383 Interpretive Statements SINUS TACHYCARDIA NONSPECIFIC ST & T-WAVE ABNORMALITY Biatrial enlargement Electronically Signed On 03-28-2018 12:00:33 EST by Frank Rao
--- NOTE | 2018-03-28 12:12 | Procedure Note ---
<Diane Domingo - Last Filed: 03/28/18 12:10> Date of procedure: 03/28/18 Pre-op diagnosis: Hemodynamic instability/ monitoring Post-op diagnosis: same Procedure: Date: 03/28/2018 Time: 11:50 Indication: Hemodynamic monitoring/Intravenous access Resident: Diane Domingo Attending: Dr. Quach A time-out was completed verifying correct patient, procedure, site, positioning, and special equipment if applicable. The patient was placed in a dependent position appropriate for central line placement based on the vein to be cannulated. The patients right groin was prepped and draped in sterile fashion. 1% Lidocaine was used to anesthetize the surrounding skin area. A triple lumen 9-Swiss Cordis catheter was introduced into the the common femoral vein using the Seldinger technique and under ultrasound guidance. The catheter was threaded smoothly over the guide wire and appropriate blood return was obtained. Each lumen of the catheter was evacuated of air and flushed with sterile saline. The catheter was then sutured in place to the skin and a sterile dressing applied. Perfusion to the extremity distal to the point of catheter insertion was checked and found to be adequate. Dr. Quach was present for the entire procedure. Estimated Blood Loss: 5cc The patient tolerated the procedure well and there were no complications. Anesthesia: local Surgeon: Diane Domingo Was there an assistant finance director present: No Estimated blood loss (cc): 5 Specimen: None Pathology: none sent Condition: critical Disposition: ICU <Godfrey Quach - Last Filed: 03/28/18 14:37> Procedure: I examined this patient and my medical decision-making was reviewed with the Resident Physician. I agree with the documented findings, disposition and treatment plan as described except to the extent set forth below. I have personally supervised resident placing central line without immediate complications.
--- NOTE | 2018-03-28 14:12 | Palliative - Consult Note ---
Date of Encounter: 03/28/18 Time of Encounter: 13:00 - Assessment and Plan (1) Dyspnea Current Visit: Yes Status: Acute Assessment and plan: Patient intubated and mechanically ventilated. Patient s/p code blue from this AM. - Duonebs - Steroids - Suction PRN - Cont. Ventilation Qualifiers: Dyspnea type: shortness of breath Qualified Code(s): R06.02 - Shortness of breath; R06.00 - Dyspnea, unspecified; R06.01 - Orthopnea (2) Goals of care, counseling/discussion Current Visit: Yes Status: Acute Assessment and plan: Patient is s/p code blue. Hx. CML. Patient suffered code blue this AM. Now in ICU receiving mechanical ventilation. Son Spencer lives in [place] and nursing reports that he desires all medical interventions and FULL CODE. Palliative care team will follow case from a distance and provide support as needed. Patient remains Full code. Receiving sedation and vasopressors for hemodynamic support. (3) Pulmonary edema Current Visit: Yes Status: Acute Qualifiers: Chronicity: acute Qualified Code(s): J81.0 - Acute pulmonary edema Palliative-CN HPI - Data of Consult Patient: new to practice Consult date: 03/28/18 Requesting Physician: Diane Domingo Primary Care Provider: Duncan Tracy MD - Consult Narrative Palliative Care/Comfort Measures: Palliative care Reason for consult: Goals of Care History of present illness: Ms. Christopher is a 78 year old female admitted on 03/26/18 for COPD excerbation. Patient was responding to treatment on the inpatient unit and developed seizure like activities, hypoxia, bradycardia, leading to PEA arrest. Required 2 rounds of CPR and EP x 2 before ROSC this morning. Patient was transferred to ICU. Patient is intubated and on mechanical intubation. Chart reviewed, labs and diagnostics reviewed. This palliative care consult is for [facility] discussion. No f amily at bedside during the consult. Nursing reports that one son Sekou and friend Kate were in [facility] and that son Sekou was notified in [place]. CC: Silvio Plummer MD - Time Spent with Patient Time: Total time spent is greater than 50% in coordination of care (as documented) at patient's floor/unit and/or counseling patient: Time with patient: 45 minutes Past Med Surg Social Fam HX - Past Medical History Source: old records reviewed, nursing notes reviewed Medical history: atrial fibrillation, COPD, CVA, GERD, hypertension Additional medical history: chronic myeloid leukemia, anemia, cerebral infarcti on Psychiatric history: anxiety - Past Surgical History Surgical History: no surgical history Additional surgical history: cardiac surgery - Social History Smoking Status: Never smoker Smokeless Tobacco Status: No Alcohol use: none Drug use: none - Family History Father Living Status: Hx Family Cardiac Disorders: No Hx Family Respiratory Disorders: Yes (lung cancer) Hx Family Cancer: Yes (lung cancer) Hx Family GI Disorders: No Hx Family Endocrine Disorder: No Hx Family Neuromuscular Disorders: No Hx Family Neurologic Disorders: No Hx Family HEENT Disorders: No Hx Family Autoimmune Disorders: No Mother Living Status: Hx Family Cardiac Disorders: No Hx Family Respiratory Disorders: No Hx Family Cancer: No Hx Family GI Disorders: No Hx Family Endocrine Disorder: No Hx Family Neuromuscular Disorders: No Hx Family Neurologic Disorders: No Hx Family HEENT Disorders: No Hx Family Autoimmune Disorders: No Sister Living Status: Still Living Hx Family Cardiac Disorders: Yes (heart murmur) Hx Family Respiratory Disorders: No Hx Family Cancer: No Hx Family GI Disorders: No Hx Family Endocrine Disorder: No Hx Family Neuromuscular Disorders: No Hx Family Neurologic Disorders: No Hx Family HEENT Disorders: No Hx Family Autoimmune Disorders: No Son Living Status: Still Living Hx Family Cardiac Disorders: Yes (heart defect) Hx Family Respiratory Disorders: No Hx Family Cancer: No Hx Family GI Disorders: No Hx Family Endocrine Disorder: No Hx Family Neuromuscular Disorders: No Hx Family Neurologic Disorders: Yes Hx Family HEENT Disorders: No Hx Family Autoimmune Disorders: No Medications and Allergies RX: Sotalol [Betapace] 40 mg PO [facility] 10/01/14 [History] RX: Sotalol [Betapace] 80 mg PO 06/04/16 [History] Acetaminophen [Tylenol] 650 mg PO Q4H PRN 02/28/18 [History] Apixaban [Eliquis] 5 mg PO 0800,1900 02/28/18 [History] Ascorbic Acid [Vitamin C] 250 mg PO DAILY 02/28/18 [History] Atorvastatin [Lipitor] 20 mg PO HS 02/28/18 [History] Calcium Carbonate/Vitamin D3 [Calcium 500-Vit D3 200 Tablet] 1 each PO BID 02/28/18 [History] Ferrous Sulfate [Iron] 325 mg PO DAILY 02/28/18 [History] GuaiFENesin/Pseudophedrine [Mucinex D] 1 each PO BID 02/28/18 [History] Ipratropium/Albuterol Neb [Duoneb] 3 ml IH 0800,1200,1600,199902/28/18 [History] Loperamide HCl [Imodium A-D] 2 mg PO AD PRN 02/28/18 [History] Mag Hydrox/Aluminum Hyd/Simeth [Cvs Antacid Plus Anti-Gas Liq] 30 ml PO QID PRN 02/28/18 [History] Ondansetron HCl [Zofran] 4 mg PO DAILY PRN 02/28/18 [History] Pantoprazole Sodium [Protonix] 40 mg PO DAILY 02/28/18 [History] RX: Magnesium Oxide [Mag-Ox] 400 mg PO DAILY 02/28/18 [History] RX: Mirtazapine 7.5 mg PO HS 02/28/18 [History] Sennosides/Docusate Sodium [Senna-S Tablet] 1 each PO BID PRN 02/28/18 [History] RX: Doxycycline Hyclate 100 mg PO 0800,199903/26/18 [History] RX: Losartan Potassium 25 mg PO DAILY 03/26/18 [History] predniSONE [PredniSONE] 40 mg PO DAILY 03/26/18 [History] Allergy/AdvReac Type Severity Reaction Status Date / Time sulfamethoxazole AdvReac Unknown Nausea Verified 02/28/18 14:49 [From Bactrim] levofloxacin [From Levaquin] AdvReac See Verified 02/28/18 14:49 Comments nitrofurantoin AdvReac See Verified 02/28/18 14:49 [From Macrobid] Comments trimethoprim [From Bactrim] AdvReac Nausea Verified 02/28/18 14:49 ROS unobtainable: due to mental status - Constitutional Constitutional ROS PAL: lethargy - EENT Eyes: requires corrective lenses - Cardiovascular Cardiovascular ROS: irregular heart rhythm - Respiratory Respiratory: dyspnea - Musculoskeletal Musculoskeletal ROS IM: muscle weakness - Neurological Neurological ROS: weakness - Psychiatric Psychiatric general PM: anxiety Palliative Care-Exam - Constitutional Vitals: Temp Pulse Resp BP Pulse Ox 97.5 F L 87 23 96/36 100 03/28/18 08:37 03/28/18 12:00 03/28/18 13:57 03/28/18 13:57 03/28/18 13:57 General appearance: Present: no acute distress - Head Head Exam: Present: atraumatic, normal inspection - Eye Eye exam: Present: normal appearance - ENT ENT exam: Present: mucous membranes moist - Expanded Respiratory Exam Location: decreased breath sounds: Left, Lower, rales: Lower, Right (scattered) - Cardiovascular Cardiovascular exam: Present: RRR, +S1, +S2 - Expanded Cardiovascular Exam Peripheral pulses: 1+: Femoral (L) PM, Femoral (R) PM, Posterior Tibialis (L), Posterior Tibialis (R), 2+: Carotid (L) PM, Carotid (R) PM, Radial (L), Radial (R), Dorsalis Pedis (L) PM, Dorsalis Pedis (R) PM - GI/Abdominal Exam GI/Abdominal exam: Present: diminished bowel sounds, soft - Catheter Type: Urethral (Downing) (trace yellow urine in the tube) - Neurological Exam Additional comments: Sedation infusing but opens eyes and moves head yes or no. - Expanded Neurological Exam Coma Scale Eye Opening: Spontaneous Coma Scale Motor Response: Obeys Commands Coma Scale Verbal Response: Inappropriate Coma Scale Total: 13 - Psychiatric Psychiatric exam: Present: flat affect - Skin Skin exam: Present: pallor, warm Internal Medicine - CN: Reslt - Labs CBC & Chem 7: 03/28/18 11:00 03/28/18 09:24 Labs: Short CBC 03/28/18 03/28/18 Range/Units 06:42 11:00 WBC 42.2 H* 86.0 H* D (4.3-11.1) K/mcL Hgb 11.4 L D 11.4 L (11.5-15.4) g/dL Hct 37.6 37.9 (35.3-44.9) % Plt Count 99 L 115 L (140-400) K/mcL Neutrophils # 24.5 H 60.2 H (1.6-8.9) K/mcL BMP 03/28/18 03/28/18 06:42 09:24 Sodium 140 141 Potassium 4.0 4.3 Chloride 104 104 Carbon Dioxide 32 H 27 BUN 29 H 29 H Creatinine 0.75 0.95 Glucose 92 227 H Calcium 8.8 8.2 L Cardiac Enzymes 03/28/18 Range/Units 09:24 Troponin I 0.12 H* (< 0.04) ng/mL - ABG Interpretation ABG results: ABG ABG pH 7.40 pH Units (7.32-7.45) 03/28/18 09:45 ABG pCO2 49 mmHg (35-45) H 03/28/18 09:45 ABG pO2 96 mmHg (85-104) 03/28/18 09:45 ABG O2 Saturation 97 % (95-98) 03/28/18 09:45 PT/INR, D-dimer PT 16.7 Seconds (9.4-12.1) H 03/26/18 10:32 D-Dimer 229 ng/mLFEU (0-500) 03/26/18 10:32 - Impressions Impressions Chest X-Ray 03/28/18 08:50 IMPRESSION: New patchy/hazy airspace opacities diffusely to the lungs bilaterally with mid to upper lung zone predominance, concerning for pulmonary edema or multifocal infiltrates since prior exams 03/26/2018. Placement of endotracheal tube with tip 4.2 cm from the karmen. Redemonstration of mass-like opacity to the right lower lobe, better demonstrated on recent CT chest. Reference to that study can be made for additional information. D/ / 03/28/2018 09:21:18 Ruperto Ivy MD / earnold Interpreting Provider: Ruperto Ivy MD Head CT 03/28/18 10:41 IMPRESSION: 1. No acute intracranial abnormality. D/ / Brendan Valle MD / Brendan Valle MD Interpreting Provider: Brendan Valle MD Abdomen/Pelvis CT 03/28/18 12:04 IMPRESSION: 1. Interval development of multifocal ground-glass and consolidative opacities bilaterally within the lungs with interlobular septal thickening and small bilateral pleural effusions. There is near complete left lower lobe atelectasis. Given acuity, findings favor pulmonary edema and may be in the setting of heart failure or ARDS. Multifocal pneumonia is also in the differential. Previously noted 3.5 cm right lower lobe mass is less conspicuous and obscured on today's study. 2. Mild mediastinal adenopathy, likely reactive. 3. Questionable trace ascites otherwise no acute findings in the abdomen or pelvis on this unenhanced study. D/ / 03/28/2018 13:34:10 Jeana Mcgergor MD / Coco Valdez Interpreting Provider: Jeana Mcgregor MD Chest CT 03/28/18 12:04 IMPRESSION: 1. Interval development of multifocal ground-glass and consolidative opacities bilaterally within the lungs with interlobular septal thickening and small bilateral pleural effusions. There is near complete left lower lobe atelectasis. Given acuity, findings favor pulmonary edema and may be in the setting of heart failure or ARDS. Multifocal pneumonia is also in the differential. Previously noted 3.5 cm right lower lobe mass is less conspicuous and obscured on today's study. 2. Mild mediastinal adenopathy, likely reactive. 3. Questionable trace ascites otherwise no acute findings in the abdomen or pelvis on this unenhanced study. D/ / 03/28/2018 13:34:10 Jeana Mcgregor MD / Coco Valdez Interpreting Provider: Jeana Mcgregor MD Consult Discharge Plan - Plan Referrals: Duncan Tracy MD [Primary Care Provider] - Palliative Quality Palliative Quality: Screen for Code Status: Yes, Screen for Goals of Care: Yes, Screen for Pain: Yes, Screen for Nausea/Vomitting: Yes Code Status: 03/26/18 11:56 Resuscitation Status: Active [RES] Routine Comment: Resuscitation Status: Full Code
[2018-03-28] MEDS: Piperacillin/Tazobactam 3.375 GM in 0.9 % Sodium Chloride Mini Bag 100 ML IVPB SCH (15:21)
[2018-03-28] MEDS ORDERED: Perflutren Lipid Microsphere 1.3 ML in 0.9 % Sodium Chloride 8.7 ML IVP ONE (16:28)
[2018-03-28] MEDS ORDERED: *HR* Midazolam HCl 5 MG/5 ML VIAL IVP ONE (16:55)
[2018-03-28] MEDS ORDERED: Artificial Tears SOLN 15 ML BOTTLE BOTH EYES PRN (17:57)
[2018-03-28] MEDS: Chlorhexidine Rinse 15 ML MOUTHWASH MM SCH (21:25)
[2018-03-28] MEDS: Mirtazapine 15 MG TABLET PO SCH (21:26)
[2018-03-28] MEDS: Artificial Tears SOLN 15 ML BOTTLE BOTH EYES SCH (21:26)
[2018-03-28 21:35] LABS: Appearance of Body Fluid Cloudy (Clear); Volume of Body Fluid 25 mL
[2018-03-29] MEDS: Piperacillin/Tazobactam 3.375 GM in 0.9 % Sodium Chloride Mini Bag 100 ML IVPB SCH ×4 (00:37→23:22)
[2018-03-29] MEDS: Artificial Tears SOLN 15 ML BOTTLE BOTH EYES SCH ×7 (00:37→23:23)
[2018-03-29] MEDS: Ipratropium/Albuterol Neb 3 ML IH SCH ×5 (03:14→19:35)
[2018-03-29 05:06] LABS: ABG Base Excess 2 mEq/L (-2 to 3); ABG HCO3 27 mEq/L (21-27); ABG Oxygen Saturation 97 % (95-98); ABG PCO2 39 mmHg (35-45); ABG PH 7.44 pH Units (7.32-7.45); ABG PO2 85 mmHg (85-104); ABG TCO2 28 mEq/L (20-26); Blood Gas Modality ASSIST CONTROL; Blood Gas PEEP 5 cm H2O; Blood Gas Respiration Rate 15; Blood Gas VT 450 cc
[2018-03-29 05:29] LABS: Hematocrit 35.5 % (35.3-44.9); Hemoglobin 11.1 g/dL (11.5-15.4); Mean Corpuscular HGB Conc 31.3 g/dL (31.6-35.5); Mean Corpuscular Hemoglobin 25.1 pg (28.0-33.3); Mean Corpuscular Volume 80.3 fL (83.0-100.0); Mean Platelet Volume 12.4 fL (9.4-12.4); Platelet Count 116 K/mcL (140-400); Red Blood Count 4.42 M/mcL (3.82-4.97); Red Cell Distribution Width 17.1 % (11.5-14.5)
[2018-03-29 05:46] LABS: BUN/Creatinine Ratio 34 (6-26); Blood Urea Nitrogen 32 mg/dL (8-23); Calcium 8.5 mg/dL (8.6-10.3); Carbon Dioxide 27 mEq/L (23-29); Chloride 104 mEq/L (98-107); Glucose 175 mg/dL (70-105); Magnesium 1.6 mg/dL (1.6-2.6); Osmolality,Calculated 299 (280-300); Potassium 3.9 mEq/L (3.5-5.1); Sodium 139 mEq/L (136-145); eGFR For Non-African Americans 58 (> 60)
[2018-03-29 06:23] LABS: Monocytes # 48.2 K/mcL (0.0-1.3); Neutrophils # 44.5 K/mcL (1.6-8.9)
[2018-03-29 06:24] LABS: Platelet Estimate Decreased (Normal)
[2018-03-29] MEDS: MethylPREDNISolone 40 MG/ML VIAL IVP SCH ×2 (06:28→17:20)
[2018-03-29] MEDS: FentaNYL (PF) 1,000 MCG in 0.9 % Sodium Chloride 80 ML IVC SCH (06:28)
--- NOTE | 2018-03-29 07:23 | Pulmonology Progress Note ---
<AguilarBeckys W - Last Filed: 03/29/18 08:56> Date of Encounter: 03/29/18 Objective PUL Vital signs: Last Vital Signs Temp 96.8 F L 03/29/18 08:00 Pulse 78 03/29/18 07:00 Resp 12 03/29/18 07:34 BP 132/62 03/29/18 07:34 Pulse Ox 100 03/29/18 07:34 Ventilator Settings Ventilator Settings: Ventilator Settings, Last 8 Hours Ventilator Tidal Volume 450 Setting Ventilator Tidal Volume 450 Setting Ventilator Tidal Volume 450 Setting Ventilator Tidal Volume 450 Setting Ventilator Tidal Volume 450 Setting Ventilator Tidal Volume 450 Setting Ventilator Tidal Volume 450 Setting Ventilator Tidal Volume 450 Setting Ventilator Tidal Volume 450 Setting Ventilator Tidal Volume 450 Setting Ventilator Tidal Volume 450 Setting Ventilator Respiratory Rate 12 Setting Ventilator Respiratory Rate 12 Setting Ventilator Respiratory Rate 12 Setting Ventilator Respiratory Rate 12 Setting Ventilator Respiratory Rate 12 Setting Ventilator Respiratory Rate 12 Setting Ventilator Respiratory Rate 12 Setting Ventilator Respiratory Rate 12 Setting Ventilator Respiratory Rate 12 Setting Ventilator Respiratory Rate 12 Setting Ventilator Respiratory Rate 12 Setting Actual Respiratory Rate 13 Actual Respiratory Rate 12 Actual Respiratory Rate 19 Actual Respiratory Rate 12 Actual Respiratory Rate 12 Actual Respiratory Rate 14 Actual Respiratory Rate 12 Actual Respiratory Rate 12 Actual Respiratory Rate 12 Actual Respiratory Rate 12 Actual Respiratory Rate 12 Positive End Expiratory 5 Pressure Positive End Expiratory 5 Pressure Positive End Expiratory 5 Pressure Positive End Expiratory 5 Pressure Positive End Expiratory 5 Pressure Positive End Expiratory 5 Pressure Positive End Expiratory 5 Pressure Positive End Expiratory 5 Pressure Positive End Expiratory 5 Pressure Positive End Expiratory 5 Pressure Positive End Expiratory 5 Pressure Positive End Expiratory 5 Pressure Peak Inspiratory Airway 18 Pressure Peak Inspiratory Airway 22 Pressure Peak Inspiratory Airway 18 Pressure Peak Inspiratory Airway 22 Pressure Peak Inspiratory Airway 19 Pressure Peak Inspiratory Airway 22 Pressure Peak Inspiratory Airway 20 Pressure Peak Inspiratory Airway 22 Pressure Peak Inspiratory Airway 22 Pressure Peak Inspiratory Airway 22 Pressure Results - Laboratory Findings CBC and BMP: 03/29/18 05:10 03/29/18 05:10 ABG ABG pH 7.44 pH Units (7.32-7.45) 03/29/18 05:03 ABG pCO2 39 mmHg (35-45) 03/29/18 05:03 ABG pO2 85 mmHg (85-104) 03/29/18 05:03 ABG O2 Saturation 97 % (95-98) 03/29/18 05:03 PT/INR, D-dimer PT 16.7 Seconds (9.4-12.1) H 03/26/18 10:32 D-Dimer 229 ng/mLFEU (0-500) 03/26/18 10:32 Abnormal lab findings: Abnormal lab results WBC 92.6 K/mcL (4.3-11.1) H* 03/29/18 05:10 Hgb 11.1 g/dL (11.5-15.4) L 03/29/18 05:10 MCV 80.3 fL (83.0-100.0) L 03/29/18 05:10 MCH 25.1 pg (28.0-33.3) L 03/29/18 05:10 MCHC 31.3 g/dL (31.6-35.5) L 03/29/18 05:10 RDW 17.1 % (11.5-14.5) H 03/29/18 05:10 Plt Count 116 K/mcL (140-400) L 03/29/18 05:10 Band Neutrophils % 6.0 % (0-4) H 03/29/18 05:10 Metamyelocytes % 2.0 % (0) H 03/28/18 11:00 Promyelocytes % 1.0 % (0) H 03/28/18 11:00 Neutrophils # 44.5 K/mcL (1.6-8.9) H 03/29/18 05:10 Monocytes # 48.2 K/mcL (0.0-1.3) H 03/29/18 05:10 Basophils # 0.8 K/mcL (0.0-0.2) H 03/26/18 10:32 Platelet Estimate Decreased (Normal) L 03/29/18 05:10 Immature Plt Fraction 13.5 % (1.1-6.1) H 03/27/18 08:08 Ovalocytes 1+ (Not Present) A 03/28/18 06:42 PT 16.7 Seconds (9.4-12.1) H 03/26/18 10:32 APTT 41.0 Seconds (26.0-36.0) H 03/26/18 10:32 ABG Total CO2 28 mEq/L (20-26) H 03/29/18 05:03 VBG pH 7.29 pH Units (7.32-7.42) L 03/28/18 06:54 VBG pCO2 67 mmHg (41-51) H 03/28/18 06:54 VBG pO2 78 mmHg (25-50) H 03/28/18 06:54 VBG HCO3 32 mEq/L (21-27) H 03/28/18 06:54 BUN 32 mg/dL (8-23) H 03/29/18 05:10 Est GFR (Non-Af Amer) 58 (> 60) L 03/29/18 05:10 BUN/Creatinine Ratio 34 (6-26) H 03/29/18 05:10 Glucose 175 mg/dL (70-105) H 03/29/18 05:10 POC Glucose 136 mg/dL (70-99) H 03/28/18 23:05 Calcium 8.5 mg/dL (8.6-10.3) L 03/29/18 05:10 Troponin I 0.12 ng/mL (< 0.04) H* 03/28/18 09:24 B-Natriuretic Peptide 312 pg/mL (Less than 100) H 03/26/18 10:32 Fluid Appearance Cloudy (Clear) A 03/28/18 17:25 - Microbiology Findings Microbiology Findings: Microbiology, Last 48 Hours 03/28/18 17:25 Respiratory Culture - Preliminary Left Lower Lobe Lung 03/28/18 15:15 Blood Culture - Preliminary Central Venous Catheter Culture is incubating and being continuously monitored for growth. Final report to follow. 03/28/18 15:15 Blood Culture - Preliminary Central Venous Catheter Culture is incubating and being continuously monitored for growth. Final report to follow. - Clinical Findings Intake & Output: Intake & Output 03/28/18 03/29/18 03/29/18 23:59 07:59 15:59 Intake Total 554 / 554 250 / 250 254 / 254 Output Total 475 / 475 250 / 250 275 / 275 Balance 79 / 79 0 / 0 -21 / -21 Weight 49.65 kg Consult Discharge Plan - Plan Referrals: Duncan Tracy MD [Primary Care Provider] - - Attending Attestation I examined this patient and my medical decision-making was reviewed with the Medical Student/Resident Physician. I agree with the documented findings, disposition and treatment plan as described except to the extent set forth below. We independently had [id number] contact with the patient I spent 32min of Critical Care time with this patient. It involved decision making of high complexity to assess, manipulate, and support vital organ system failure and/or to prevent further life threatening deterioration of the patient's condition. The time involved in the performance of separately reportable procedures was not counted toward critical care time. Patient seen and examined at bedside Labs, radiology, chart personally reviewed. Management was reviewed during multidisciplinary critical care rounds. 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 This was complicated by pulmonary hemorrhage post-CPR while on anticoagulation this appears to have resolved she is status post bronchoscopy with final results pending. Plan for CPAP trial today and we will consider extubation based upon clinical course Cards: The patient is in cardiogenic shock secondary to cardiac arrest vasopressor requirements are encouragingly being able to be titrated down but she remains on approximately 10 g of norepinephrine. Echocardiogram pending. GI: Nothing by mouth for now; GI prophylaxis given Renal: No evidence of acute kidney injury UOP Monitored, Cont to Trend sCr and monitor Electrolytes. 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 I suspect leukemoid reaction on top of CML one possibility in the differential is pulmonary leukostasis although I feel that this is unlikely I will discuss the case with the hematology oncology to get their opinion Endo: Glucose Monitored Integ/MSK: Skin Care per routine ICU Nursing Protocol to prevent ulcers. Lines: All lines examined without evidence of infection : Dispo: Remain in ICU for critical illness CODE: Patient remains full code we have contacted her next of kin her adult son who is in [place]. <Pete Blair - Last Filed: 03/29/18 14:49> Date of Encounter: 03/29/18 Time of Encounter: 09:30 Assessment and Plan (1) Acute respiratory failure with hypoxia Current Visit: Yes Status: Acute Patient was admitted on 03/26 for hypoxic respiratory failure secondary to COPD exacerbation which was improving with steroids, bronchodilators and antibiotics. -Etiology of acute respiratory failure is likely multifactorial; may be secondary to aspiration, cardiac etiology such as acute heart failure, ischemia, COPD exacerbation leading to worsened pulmonary edema demonstrated on chest CT. -According to cardiology consult note, etiology is likely not cardiac in origin; possibly secondary to aspiration. -Another potential etiology is oncological/hematological in origin with differential of pulmonary leukostasis -Physical exam positive for coarse breath sounds in all lung pak, decreased crackles with diminished breath sounds on right lower lobe -Bronchoscopy revealed bilateral infiltrate, atelectasis of left lower lobe, blood throughout tracheobronchial tree -Today's CXR shows slight improvement in aeration of lungs suggesting diminishing pulmonary edema. -ABG- pH 7.44, pCO2 39, pO2 85, HCO3 27, O2 saturation 97. -CBC- WBC 92.6, hemoglobin 11.1, hematocrit; elevated WBC likely due to patients history of CML -Troponin 0.12; elevated likely due to multiple rounds of CPR. -Echo reports mid anteroseptum, distal anterior wall and apex are hypokinetic with mildly reduced LV systolic function; wall motion abnormality new compared to prior echo on 11/01/17. PLAN: Consulted cardiology and hem/onc; both on board and appreciate recommendations. Trend troponin Repeat TTE Titrating off levophed; also titrating off precedex and fentanyl sedation CPAP trial today with potential extubation on CPAP Continue methylprednisolone 40 mg Q12H (day 4), Duonebs Antibiotic coverage with zosyn (day 4) Lasix 20 mg x1 for pulmonary edema Daily ABG and CXR. Respiratory culture and cytology pending. (2) Pneumonia Current Visit: No Status: Suspected History positive for COPD stage III; currently admitted for acute COPD ex acerbation and pneumonia with possible loculated effusion on right lung. -CXR from today shows slight improvement in aeration of the lungs suggesting diminishing pulmonary edema. -CXR 03/28- new patchy/hazy airspace opacities diffusely bilaterally with mid to upper lung zone predominance, concerning for pulmonary edema or multifocal infiltrates since prior CXR on 03/26. -CT chest, 03/28-interval development of multifocal ground glass and consolidative opacities within the lungs with interlobular septal thickening and small bilateral pleural effusions, near complete left lower lobe atelectasis; acuity supports pulmonary edema in setting of heart failure or ARDS vs multifocal pneumonia. -ABG today- pH 7.44, pCO2 39, pO2 97, HCO3 27, O2 saturation 97. PLAN: Continue zosyn, day 4 Continue methylprednisolone (day 4), Duonechula Continue mechanical ventilation; CPAP trial today and potential extubation. Qualifiers: Pneumonia type: aspiration pneumonia Aspiration pneumonia type: unspecified Laterality: unspecified laterality Lung location: unspecified part of lung Qualified Code(s): J69.0 - Pneumonitis due to inhalation of food and vomit (3) Pulmonary edema Current Visit: Yes Status: Acute New diffuse pulmonary edema demonstrated by imaging. -Etiology unclear however, considering cardiac cause vs. pulmonary, such as acute respiratory failure, pneumonia -CXR today reveals slight improvement in aeration of lungs suggesting diminishing pulmonary edema -Echo reports mid anteroseptum, distal anterior wall and apex are hypokinetic with mildly reduced LV systolic function; wall motion abnormality new compared to prior echo on 11/01/17. -CT chest, abdomen/pelvis, 03/28-interval development of multifocal ground glass and consolidative opacities within the luncs with interlobular septal thickening and small bilateral pleural effusions, near complete left lower lobe atelectasis; acuity supports pulmonary edema in setting of heart failure or ARDS vs multifocal pneumonia. -Physical exam today with coarse breath sounds throughout; crackles heard yesterday resolved. -In prior 24 hours, input 1908 mL, output 475 mL; balance 1433 mL. PLAN: Consulted cardiology and on board regarding abnormal echo and elevated troponin in setting of cardiopulmonary arrest. Strict I & O. Hold levophed pending blood pressure control, if patient tolerates give lasix 20 mg x1. Will be cautious with fluids and diuresis as able depending on BP. Qualifiers: Chronicity: acute Qualified Code(s): J81.0 - Acute pulmonary edema (4) Elevated troponin Current Visit: No Status: Acute Troponin elevated at 0.12 -Likely secondary to trauma from CPR. -Other potential etiologies are cardiac in origin, such as new CHF and demand ischemia. Unlikely ACS. -EKG 03/28- sinus tachycardia, nonspecific ST and T wave abnormality, biatrial enlargement. -Echo reports mid anteroseptum, distal anterior wall and apex are hypokinetic with mildly reduced LV systolic function; wall motion abnormality new compared to prior echo on 11/01/17. PLAN: -Cardiology consulted and on board regarding cardiopulmonary arrest and subsequent abnormal echo with elevated troponin; appreciate recommendations. -Repeat troponin today -Repeat ARIANNA tomorrow (5) Sepsis Current Visit: Yes Status: Resolved 3 of 4 SIRS Criteria met following transfer to ICU- have since resolved -Parameters that met criteria were heart rate 143 bpm, respiratory rate 22, WBC 86. -Patient is remains afebrile with temperature of 96.8 F -Concern for possible sepsis likely secondary to pneumonia. However, cardiac etiology for hypotension cannot be excluded. -CXR today with slight improvement in aeration of the lungs suggesting diminishing pulmonary edema. -CXR from 03/28 revealed new patchy/hazy airspace opacities diffusely to the lungs bilaterally with mid to upper lung zone predominance, concerning for pulmonary edema and multifocal infiltrates; mass like opacity in right lower lobe, demonstrated on CT chest 03/26 -CT chest, abdomen/pelvis, 03/28-interval development of multifocal ground glass and consolidative opacities within the lungs with interlobular septal thickening and small bilateral pleural effusions, near complete left lower lobe atelectasis; acuity supports pulmonary edema in setting of heart failure or ARDS vs multifocal pneumonia. -Right femoral line in place PLAN: -Continue antibiotic coverage with zosyn (day 3) -Blood cultures and respiratory cultures pending -Titrate levophed off to maintain blood pressure. Qualifiers: Sepsis type: sepsis due to unspecified organism Qualified Code(s): A41.9 - Sepsis, unspecified organism (6) COPD (chronic obstructive pulmonary disease) Current Visit: Yes Status: Acute Patient's history positive for severe COPD, GOLD stage III according to 2017 PFT -Patient presented to ER on 03/26 for productive cough and shortness of breath x3-4 days; admitted for COPD exacerbation -Patient was previously admitted on 11/21/17 for COPD exacerbation and found to have pleural effusion -CXR today with slight improvement in aeration of lungs suggesting diminishing pulmonary edema -CT chest, abdomen/pelvis, 03/28 interval development of multifocal ground glass and consolidative opacities within the luncs with interlobular septal thickening and small bilateral pleural effusions, near complete left lower lobe atelectasis; acuity supports pulmonary edema in setting of heart failure or ARDS vs multifocal pneumonia. -ABG today- pH 7.44, pCO2 39, pO2 85, HCO3 27, O2 saturation 97. PLAN: Continue methylprednisolone Q12H, Duoneb Antibiotic coverage with Zosyn, day 4 Mechanical ventilation Qualifiers: COPD type: COPD with acute exacerbation Qualified Code(s): J44.1 - Chronic obstructive pulmonary disease with (acute) exacerbation (7) Afib Current Visit: Yes Status: Chronic History positive for atrial fibrillation s/p ablation Heart rate controlled. Anticoagulation with Eliquis at home; was continue during admission PLAN: Hold Eliquis due to suspected pulmonary hemorrhage following CPR; may restart tomorrow. Previously on sotalol, now discontinued Qualifiers: Atrial fibrillation type: paroxysmal Qualified Code(s): I48.0 - Paroxysmal atrial fibrillation (8) 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 History positive for CML -Pulmonary leukostasis secondary to CML is considered as potential cause of acute respiratory failure PLAN: Oncology/Hematology consulted and on board; appreciate recommendations Continue to monitor Follow up with oncology outpatient Qualifiers: Leukemia Active/Remission status: in remission Qualified Code(s): C93.11 - Chronic myelomonocytic leukemia, in remission (9) Thrombocytopenia Current Visit: No Status: Chronic History positive for chronic thrombocytopenia -Platelets on admission 104, most recent 116 -Likely related to CML PLAN: Continue to monitor (10) OLAF (acute kidney injury) Current Visit: Yes Status: Acute Resolved -Creatinine today 0.94 -Decreased from max of 1.59 on 03/27. -475 mL urine output in previous 24 hours PLAN: Strict I & O Continue to monitor serum creatinine Renally dose medications Hold losartan Avoid nephrotoxins (11) DVT prophylaxis Current Visit: No Status: Acute SCDs Hold Eliquis due to suspected pulmonary hemorrhage secondary to CPR; potential restart tomorrow. Subjective Interval history: 78 year old female with past medical history of CML, thrombocytopenia, atrial fibrillation s/p ablation, COPD, GERD, hypertension presented to ED on 03/26 for productive cough and shortness of breath x3-4 weeks and admitted for hypoxic respiratory failure secondary to COPD exacerbation. This is patient's hospital day 4. Patient was treated with steroids, duonebs and antibiotics and showed clinical signs of improvement. Pulmonology/ critical care consulted due to hypercarbic respiratory failure and possible R lung mass. Patient transferred to ICU for acute respiratory failure yesterday following Code Blue for cardiopulmonary arrest. This morning, patient is stable, resting c omfortably in bed. She is awake, alert, responsive, and follows commands. She denies chest pain, abdominal pain, headache, fever chills. Objective PUL Vital signs: Last Vital Signs Temp 97.1 F L 03/29/18 04:02 Pulse 79 03/29/18 06:00 Resp 19 03/29/18 06:00 BP 136/70 03/29/18 06:00 Pulse Ox 100 03/29/18 06:00 General appearance: no acute distress, alert Eyes: nonicteric ENT: oropharynx dry Neck: supple Effort: normal Auscultation: right: diminished breath sounds (diminished in right inferior lobes), bilateral: other (coarse diffusely ) Cardiovascular: regular rate and rhythm Gastrointestinal: hypoactive bowel sounds, soft, non-tender, non-distended Integumentary: normal Extremities: no cyanosis, no edema, no clubbing, pink and warm, pulses normal Musculoskeletal: no deformities normal mental status mood appropriate, affect normal Ventilator Settings Ventilator Settings: Ventilator Settings, Last 8 Hours Ventilator Tidal Volume 450 Setting Ventilator Tidal Volume 450 Setting Ventilator Tidal Volume 450 Setting Ventilator Tidal Volume 450 Setting Ventilator Tidal Volume 450 Setting Ventilator Tidal Volume 450 Setting Ventilator Tidal Volume 450 Setting Ventilator Tidal Volume 450 Setting Ventilator Tidal Volume 450 Setting Ventilator Tidal Volume 450 Setting Ventilator Respiratory Rate 12 Setting Ventilator Respiratory Rate 12 Setting Ventilator Respiratory Rate 12 Setting Ventilator Respiratory Rate 12 Setting Ventilator Respiratory Rate 12 Setting Ventilator Respiratory Rate 12 Setting Ventilator Respiratory Rate 12 Setting Ventilator Respiratory Rate 12 Setting Ventilator Respiratory Rate 12 Setting Ventilator Respiratory Rate 12 Setting Actual Respiratory Rate 19 Actual Respiratory Rate 12 Actual Respiratory Rate 12 Actual Respiratory Rate 14 Actual Respiratory Rate 12 Actual Respiratory Rate 12 Actual Respiratory Rate 12 Actual Respiratory Rate 12 Actual Respiratory Rate 12 Actual Respiratory Rate 12 Positive End Expiratory 5 Pressure Positive End Expiratory 5 Pressure Positive End Expiratory 5 Pressure Positive End Expiratory 5 Pressure Positive End Expiratory 5 Pressure Positive End Expiratory 5 Pressure Positive End Expiratory 5 Pressure Positive End Expiratory 5 Pressure Positive End Expiratory 5 Pressure Positive End Expiratory 5 Pressure Positive End Expiratory 5 Pressure Peak Inspiratory Airway 18 Pressure Peak Inspiratory Airway 22 Pressure Peak Inspiratory Airway 19 Pressure Peak Inspiratory Airway 22 Pressure Peak Inspiratory Airway 20 Pressure Peak Inspiratory Airway 22 Pressure Peak Inspiratory Airway 22 Pressure Peak Inspiratory Airway 22 Pressure Peak Inspiratory Airway 21 Pressure Results - Laboratory Findings CBC and BMP: 03/29/18 05:10 03/29/18 05:10 ABG ABG pH 7.44 pH Units (7.32-7.45) 03/29/18 05:03 ABG pCO2 39 mmHg (35-45) 03/29/18 05:03 ABG pO2 85 mmHg (85-104) 03/29/18 05:03 ABG O2 Saturation 97 % (95-98) 03/29/18 05:03 PT/INR, D-dimer PT 16.7 Seconds (9.4-12.1) H 03/26/18 10:32 D-Dimer 229 ng/mLFEU (0-500) 03/26/18 10:32 Abnormal lab findings: Abnormal lab results WBC 92.6 K/mcL (4.3-11.1) H* 03/29/18 05:10 Hgb 11.1 g/dL (11.5-15.4) L 03/29/18 05:10 MCV 80.3 fL (83.0-100.0) L 03/29/18 05:10 MCH 25.1 pg (28.0-33.3) L 03/29/18 05:10 MCHC 31.3 g/dL (31.6-35.5) L 03/29/18 05:10 RDW 17.1 % (11.5-14.5) H 03/29/18 05:10 Plt Count 116 K/mcL (140-400) L 03/29/18 05:10 Band Neutrophils % 6.0 % (0-4) H 03/29/18 05:10 Metamyelocytes % 2.0 % (0) H 03/28/18 11:00 Promyelocytes % 1.0 % (0) H 03/28/18 11:00 Neutrophils # 44.5 K/mcL (1.6-8.9) H 03/29/18 05:10 Monocytes # 48.2 K/mcL (0.0-1.3) H 03/29/18 05:10 Basophils # 0.8 K/mcL (0.0-0.2) H 03/26/18 10:32 Platelet Estimate Decreased (Normal) L 03/29/18 05:10 Immature Plt Fraction 13.5 % (1.1-6.1) H 03/27/18 08:08 Ovalocytes 1+ (Not Present) A 03/28/18 06:42 PT 16.7 Seconds (9.4-12.1) H 03/26/18 10:32 APTT 41.0 Seconds (26.0-36.0) H 03/26/18 10:32 ABG Total CO2 28 mEq/L (20-26) H 03/29/18 05:03 VBG pH 7.29 pH Units (7.32-7.42) L 03/28/18 06:54 VBG pCO2 67 mmHg (41-51) H 03/28/18 06:54 VBG pO2 78 mmHg (25-50) H 03/28/18 06:54 VBG HCO3 32 mEq/L (21-27) H 03/28/18 06:54 BUN 32 mg/dL (8-23) H 03/29/18 05:10 Est GFR (Non-Af Amer) 58 (> 60) L 03/29/18 05:10 BUN/Creatinine Ratio 34 (6-26) H 03/29/18 05:10 Glucose 175 mg/dL (70-105) H 03/29/18 05:10 POC Glucose 136 mg/dL (70-99) H 03/28/18 23:05 Calcium 8.5 mg/dL (8.6-10.3) L 03/29/18 05:10 Troponin I 0.12 ng/mL (< 0.04) H* 03/28/18 09:24 B-Natriuretic Peptide 312 pg/mL (Less than 100) H 03/26/18 10:32 Fluid Appearance Cloudy (Clear) A 03/28/18 17:25 - Microbiology Findings Microbiology Findings: Microbiology, Last 48 Hours 03/28/18 17:25 Respiratory Culture - Preliminary Left Lower Lobe Lung 03/28/18 15:15 Blood Culture - Preliminary Central Venous Catheter Culture is incubating and being continuously monitored for growth. Final report to follow. 03/28/18 15:15 Blood Culture - Preliminary Central Venous Catheter Culture is incubating and being continuously monitored for growth. Final report to follow. - Clinical Findings Intake & Output: Intake & Output 03/28/18 03/28/18 03/29/18 15:59 23:59 07:59 Intake Total 104 / 104 554 / 554 250 / 250 Output Total 0 / 0 475 / 475 250 / 250 Balance 79 / 79 0 / 0 Weight 49.65 kg
[2018-03-29] MEDS: GuaiFENesin/Pseudophedrine TABLET PO SCH ×2 (07:56→20:06)
[2018-03-29] MEDS: Cholecalciferol (D-3) 1,000 UNIT TABLET PO SCH (07:56)
[2018-03-29] MEDS: Chlorhexidine Rinse 15 ML MOUTHWASH MM SCH ×2 (07:58→20:07)
[2018-03-29] MEDS: Pantoprazole 40 MG VIAL IVP SCH (07:58)
[2018-03-29] MEDS: Norepinephrine 4 MG in D5% in Water 250 ML IVC SCH ×3 (08:29→23:24)
[2018-03-29] MEDS: Dexmedetomidine HCl 400 MCG/100 ML MLS IVC SCH (09:20)
[2018-03-29] MEDS ORDERED: Furosemide 20 MG/2 ML VIAL IVP ONE (10:21)
[2018-03-29] MEDS: Magnesium Oxide 400 MG TABLET PO SCH (10:58)
--- NOTE | 2018-03-29 11:18 | Palliative Progress Note ---
Date of Encounter: 03/29/18 Time of Encounter: 10:30 - Assessment and plan (1) Hypoxia Current Visit: Yes Status: Acute Assessment and plan: Patient remains intubated and mechanically ventilated at this time. Plan to trial CPAP and extubate when able. Duobebs, Steroids, Suction PRN, and Ventilation per ICU team. (2) Pulmonary edema Current Visit: Yes Status: Acute Assessment and plan: Patient remains on Levophed at this time. Attempting to give Lasix today if BP can tolerate. Qualifiers: Chronicity: acute Qualified Code(s): J81.0 - Acute pulmonary edema (3) Goals of care, counseling/discussion Current Visit: Yes Status: Acute Assessment and plan: Met with patient. No family present at bedside. Patient is S/P Code Blue. Currently mechanically intubated. Patient concerned she may be dying as the tube in her throat scared her. Discussed potential of repeat CPR/intubation, patient agreeable. Patient has been to rehab 3 times ([facility], [facility], and [facility]). Patient's half-way goal is to improve enough to go to rehab and get back home (Choice 1. [facility], 2. [facility], and 3. [facility]). Patient will require PT/OT once medically stable. Palliative will continue to follow. Primary team working to extubate patient and remove pressor support. 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 Qualifiers: Leukemia Active/Remission status: in remission Qualified Code(s): C93.11 - Chronic myelomonocytic leukemia, in remission - Time Spent With Patient Total time spent is greater than 50% in coordination of care (as documented) at patient's floor/unit and/or counseling patient: - Subjective Interval history: Patient awake, alert and oriented upon arrival for assessment. Patient remains intubated at this time. Patient able to communicate via white board. Patient denies pain, dyspnea, nausea and vomiting. Patient reports anxiety, worried "I am going to ." Explained current clinical situation, regarding airway protection/maintenance with intubation, medication for control of anxiety/p ain/BP support, and client resource specialist plans. No family present at bedside. - Constitutional Vitals: Abnormal lab results WBC 92.6 K/mcL (4.3-11.1) H* 03/29/18 05:10 Hgb 11.1 g/dL (11.5-15.4) L 03/29/18 05:10 MCV 80.3 fL (83.0-100.0) L 03/29/18 05:10 MCH 25.1 pg (28.0-33.3) L 03/29/18 05:10 MCHC 31.3 g/dL (31.6-35.5) L 03/29/18 05:10 RDW 17.1 % (11.5-14.5) H 03/29/18 05:10 Plt Count 116 K/mcL (140-400) L 03/29/18 05:10 Band Neutrophils % 6.0 % (0-4) H 03/29/18 05:10 Metamyelocytes % 2.0 % (0) H 03/28/18 11:00 Promyelocytes % 1.0 % (0) H 03/28/18 11:00 Neutrophils # 44.5 K/mcL (1.6-8.9) H 03/29/18 05:10 Monocytes # 48.2 K/mcL (0.0-1.3) H 03/29/18 05:10 Basophils # 0.8 K/mcL (0.0-0.2) H 03/26/18 10:32 Platelet Estimate Decreased (Normal) L 03/29/18 05:10 Immature Plt Fraction 13.5 % (1.1-6.1) H 03/27/18 08:08 Ovalocytes 1+ (Not Present) A 03/28/18 06:42 PT 16.7 Seconds (9.4-12.1) H 03/26/18 10:32 APTT 41.0 Seconds (26.0-36.0) H 03/26/18 10:32 ABG Total CO2 28 mEq/L (20-26) H 03/29/18 05:03 VBG pH 7.29 pH Units (7.32-7.42) L 03/28/18 06:54 VBG pCO2 67 mmHg (41-51) H 03/28/18 06:54 VBG pO2 78 mmHg (25-50) H 03/28/18 06:54 VBG HCO3 32 mEq/L (21-27) H 03/28/18 06:54 BUN 32 mg/dL (8-23) H 03/29/18 05:10 Est GFR (Non-Af Amer) 58 (> 60) L 03/29/18 05:10 BUN/Creatinine Ratio 34 (6-26) H 03/29/18 05:10 Glucose 175 mg/dL (70-105) H 03/29/18 05:10 POC Glucose 136 mg/dL (70-99) H 03/28/18 23:05 Calcium 8.5 mg/dL (8.6-10.3) L 03/29/18 05:10 Troponin I 0.12 ng/mL (< 0.04) H* 03/28/18 09:24 B-Natriuretic Peptide 312 pg/mL (Less than 100) H 03/26/18 10:32 Fluid Appearance Cloudy (Clear) A 03/28/18 17:25 General appearance: Present: cooperative, mild distress - Head Head exam: Present: atraumatic, normal inspection - Eye Eye exam: Present: EOMI, PERRL. Absent: periorbital swelling, periorbital tenderness Pupils: Present: normal accommodation, PERRL - ENT ENT exam: Present: mucous membranes dry, normal external ear exam - Neck Neck exam: Present: full ROM, normal inspection - Respiratory Respiratory exam: Present: CTAB. Absent: accessory muscle use, respiratory distress - Cardiovascular Cardiovascular exam: Present: +S1, +S2 - GI/Abdominal GI/Abdominal exam: Present: hypoactive bowel sounds, soft. Absent: tenderness - Rectal Rectal exam: Present: deferred - Extremities Exam Extremities exam: Present: full ROM, normal inspection. Absent: calf tenderness, pedal edema - Back Exam Back exam: Present: normal inspection - Neurological Exam Neurological exam: Present: alert, oriented X3, strengths equal and symetr throughout. Absent: altered - Psychiatric Psychiatric exam: Present: anxious - Skin Skin exam: Present: dry, intact, pallor, warm Palliative Quality Palliative Quality: Screen for Code Status: Yes, Screen for Goals of Care: Yes, Screen for Pain: Yes, If Pain Regimen Started, Initiate Bowel Regimen: NA, Screen for Nausea/Vomitting: Yes Code Status: 03/26/18 11:56 Resuscitation Status: Active [RES] Routine Comment: Resuscitation Status: Full Code - Labs CBC & Chem 7: 02/01/19 05:10 03/29/18 05:10 Labs: Laboratory Results - last 24 hr 03/28/18 03/28/18 03/28/18 08:31 10:12 11:00 WBC 86.0 H* D RBC 4.48 Hgb 11.4 L Hct 37.9 MCV 84.6 MCH 25.4 L MCHC 30.1 L RDW 16.9 H Plt Count 115 L MPV 11.8 Seg Neutrophils % 66.0 Band Neutrophils % 4.0 Lymphocytes % 4.0 Monocytes % 23.0 Metamyelocytes % 2.0 H Promyelocytes % 1.0 H Neutrophils # 60.2 H Lymphocytes # 3.4 Monocytes # 19.8 H Platelet Estimate Slight Decrease L Smear Path Review Sample Site ABG pH ABG pCO2 ABG pO2 ABG HCO3 ABG Total CO2 ABG O2 Saturation ABG Base Excess [place]rick Test Respiration Rate O2 Delivery Device Blood Gas Modality Inspired O2 Tidal Volume PEEP Sodium Potassium Chloride Carbon Dioxide BUN Creatinine Est GFR ( Amer) Est GFR (Non-Af Amer) BUN/Creatinine Ratio Glucose POC Glucose 83 295 H Calculated Osmolality Calcium Phosphorus Magnesium Fluid Source Fluid Volume Fluid Appearance Fluid RBC Fld Tot Nucleated Cell Fluid Seg Neutrophil % Fld Band Neutrophil % Fluid Lymphocytes % Fluid Monocytes % Fluid Eosinophils % Fluid Basophils % Fluid Other Cells % 03/28/18 03/28/18 03/28/18 12:52 17:25 23:05 WBC RBC Hgb Hct MCV MCH MCHC RDW Plt Count MPV Seg Neutrophils % Band Neutrophils % Lymphocytes % Monocytes % Metamyelocytes % Promyelocytes % Neutrophils # Lymphocytes # Monocytes # Platelet Estimate Smear Path Review Sample Site ABG pH ABG pCO2 ABG pO2 ABG HCO3 ABG Total CO2 ABG O2 Saturation ABG Base Excess [place]rick Test Respiration Rate O2 Delivery Device Blood Gas Modality Inspired O2 Tidal Volume PEEP Sodium Potassium Chloride Carbon Dioxide BUN Creatinine Est GFR ( Amer) Est GFR (Non-Af Amer) BUN/Creatinine Ratio Glucose POC Glucose 141 H 136 H Calculated Osmolality Calcium Phosphorus Magnesium Fluid Source left lower lobe lung Fluid Volume 25 Fluid Appearance Cloudy A Fluid RBC TNP Fld Tot Nucleated Cell TNP Fluid Seg Neutrophil % 65.0 Fld Band Neutrophil % Test Not Performed Fluid Lymphocytes % 25.0 Fluid Monocytes % 3.0 Fluid Eosinophils % Test Not Performed Fluid Basophils % Test Not Performed Fluid Other Cells % 7.0 03/29/18 03/29/18 03/29/18 05:03 05:10 05:10 WBC 92.6 H* RBC 4.42 Hgb 11.1 L Hct 35.5 MCV 80.3 L MCH 25.1 L MCHC 31.3 L RDW 17.1 H Plt Count 116 L MPV 12.4 Seg Neutrophils % 42.0 Band Neutrophils % 6.0 H Lymphocytes % Test Not Performed Monocytes % 52.0 Metamyelocytes % Promyelocytes % Neutrophils # 44.5 H Lymphocytes # [employer] Monocytes # 48.2 H Platelet Estimate Decreased L Smear Path Review See Below Sample Site R Radial ABG pH 7.44 ABG pCO2 39 ABG pO2 85 ABG HCO3 27 ABG Total CO2 28 H ABG O2 Saturation 97 ABG Base Excess 2 Cedrick Test N/A Respiration Rate 15 O2 Delivery Device Adult Vent Blood Gas Modality ASSIST CONTROL Inspired O2 40.0 Tidal Volume 450 PEEP 5 Sodium 139 Potassium 3.9 Chloride 104 Carbon Dioxide 27 BUN 32 H Creatinine 0.94 Est GFR ( Amer) > 60 Est GFR (Non-Af Amer) 58 L BUN/Creatinine Ratio 34 H Glucose 175 H POC Glucose Calculated Osmolality 299 Calcium 8.5 L Phosphorus 3.0 Magnesium 1.6 Fluid Source Fluid Volume Fluid Appearance Fluid RBC Fld Tot Nucleated Cell Fluid Seg Neutrophil % Fld Band Neutrophil % Fluid Lymphocytes % Fluid Monocytes % Fluid Eosinophils % Fluid Basophils % Fluid Other Cells % - Impressions Impressions Head CT 03/28/18 10:41 IMPRESSION: 1. No acute intracranial abnormality. D/ / Brendan aVlle MD / Brendan Valle MD Interpreting Provider: Brendan Valle MD Echocardiogram 03/28/18 11:02 Impressions: Technically sub-optimal due to poor echocardiographic windows. LVEF challenging to quantify even with use of Definity. Most windows are not optimally visualized. However, in the apical 3-CH view, the mid anteroseptum, distal anterior wall and apex are hypokinetic with mildly reduced LV systolic function. LV thrombus is not identified. RV is not well visualized. No obvious valvular abnormality by Doppler Unable to estimate RVSP. When compared to prior echo 11/01/17, the above wall motion abnormality appears new. Recommend clinical correlation. Abnormal findings communicated to ordering provider. Left Ventricular Wall Motion: Rest Echo Findings The mid anterior septal wall was hypokinetic. The apex, apical inferior, mid inferior, basal inferior, apical anterior, mid anterior, basal anterior, mid anterior lateral and basal anterior lateral bullock were not visualized. All other wall segments showed normal motion. Findings: Study Quality * Technically sub-optimal due to poor echocardiographic windows. ECG Findings * Normal sinus rhythm. Left Ventricle * Indeterminate diastolic function. * Definity echo contrast was used. Right Ventricle * RV not well visualized. Left Atrium * Left atrium is not well visualized. Right Atrium * Right atrium is not well visualized. Aortic Valve * No aortic regurgitation. * Aortic valve not well visualized. * Doppler not optimally obtained. Mitral Valve * No mitral regurgitation. * Mitral valve not well visualized. * No mitral stenosis. Tricuspid Valve * Tricuspid valve not well visualized. * Trace tricuspid regurgitation. Pulmonic Valve * Pulmonic valve not well visualized. Pulmonary Artery * Pulmonary artery not well visualized. Aorta * Normally sized aortic root. Interatrial Septum * No evidence of PFO by color Doppler. IVC * The IVC is not dilated. * Sniff not obtained. Abdomen/Pelvis CT 03/28/18 12:04 IMPRESSION: 1. Interval development of multifocal ground-glass and consolidative opacities bilaterally within the lungs with interlobular septal thickening and small bilateral pleural effusions. There is near complete left lower lobe atelectasis. Given acuity, findings favor pulmonary edema and may be in the setting of heart failure or ARDS. Multifocal pneumonia is also in the differential. Previously noted 3.5 cm right lower lobe mass is less conspicuous and obscured on today's study. 2. Mild mediastinal adenopathy, likely reactive. 3. Questionable trace ascites otherwise no acute findings in the abdomen or pelvis on this unenhanced study. 4. The endotracheal tube tip is within the right mainstem bronchus. Recommend retraction. D/ / 03/28/2018 15:40:33 Jeana Mcgregor MD / Coco Valdez Interpreting Provider: Jeana Mcgregor MD Chest CT 03/28/18 12:04 IMPRESSION: 1. Interval development of multifocal ground-glass and consolidative opacities bilaterally within the lungs with interlobular septal thickening and small bilateral pleural effusions. There is near complete left lower lobe atelectasis. Given acuity, findings favor pulmonary edema and may be in the setting of heart failure or ARDS. Multifocal pneumonia is also in the differential. Previously noted 3.5 cm right lower lobe mass is less conspicuous and obscured on today's study. 2. Mild mediastinal adenopathy, likely reactive. 3. Questionable trace ascites otherwise no acute findings in the abdomen or pelvis on this unenhanced study. 4. The endotracheal tube tip is within the right mainstem bronchus. Recommend retraction. D/ / 03/28/2018 15:40:33 Jeana Mcgregor MD / Coco Valdez Interpreting Provider: Jeana Mcgregor MD KUB X-Ray 03/28/18 17:57 IMPRESSION: 1. Enteric tube tip and side port are within the stomach. The tip is within the gastric antrum. 2. Mildly dilated cecum measuring up to 8 cm. D/ / Jeana Mcgregor MD / Jeana Mcgregor MD Interpreting Provider: Jeana Mcgregor MD Chest X-Ray 03/29/18 06:00 IMPRESSION: Slight improvement in aeration of the lungs suggesting diminishing pulmonary edema. D/ / 03/29/2018 07:40:06 Onur Miguel MD / [email or web address] Interpreting Provider: Onur Miguel MD - ABG Interpretation ABG results: ABG ABG pH 7.44 pH Units (7.32-7.45) 03/29/18 05:03 ABG pCO2 39 mmHg (35-45) 03/29/18 05:03 ABG pO2 85 mmHg (85-104) 03/29/18 05:03 ABG O2 Saturation 97 % (95-98) 03/29/18 05:03 PT/INR, D-dimer PT 16.7 Seconds (9.4-12.1) H 03/26/18 10:32 D-Dimer 229 ng/mLFEU (0-500) 03/26/18 10:32 Palliative Scale - Palliative Performance Scale How ambulatory is this patient?: Totally bed bound What is patient's level of activity and evidence of disease?: Unable to do any work, Extensive disease How much self-care assistance does patient require?: Considerable assistance required How much oral intake does the patient have?: Mouth care only What is this patient's level of consciousness?: Full or drowsy with or without confusion Palliative Performance Score: 60 % (Only Bedbound at this time, as mechanically intubated. Will change PPS upon extubation.) Consult Discharge Plan - Plan Referrals: Duncan Tracy MD [Primary Care Provider] -
--- NOTE | 2018-03-29 12:11 | Oncology Inp Consult Note ---
<Celsa Ramon L - Last Filed: 03/29/18 16:11> Date of Encounter: 03/29/18 Time of Encounter: 11:00 Assessment and Plan (1) CMML (chronic myelomonocytic leukemia) Status: Chronic Assessment and plan: Recent workup including peripheral blood flow cytometry, bone marrow biopsy and aspiration consistent with CMML, 2% blasts noted on bone marrow biopsy, normal cytogenetics She has not previously required treatment Hematology consulted to evaluate if pulonary leukostatis could have contributed to patients PEA/cardiopulmonary arrest on 03/28/2018 Patients WBC count was around 41K on presentation, and around 42K on the day of arrest, today her WBC count has increased to around 92K, monocytosis accompanied with neutrophilia. No blasts noted on peripheral CBC, 2% metamyelocytes and 1% promyelocytes noted on 03/28/2017 Hemoglobin 11.1, platelet count 116k Patient has been afebrile since admission No electrolyte abnormality concerning for tumor lysis syndrome Laboratory review and clinical correlation does not appear consistent with pulm onary leukostasis. Elevated WBC count is likely leukemoid reaction (2/2 infectious/inflammatory process, steroids) superimposed on already high WBC count secondary to underlying CMML, I expect her WBC count to improve with time Will further evaluate with stat smear with pathology review, fibrinogen, LDH and uric acid Currently no indications for rapid cryoreduction Pending further evaluation by Dr. Ewing Qualifiers: Leukemia Active/Remission status: in remission Qualified Code(s): C93.11 - Chronic myelomonocytic leukemia, in remission (2) Abnormal CT of the chest Status: Acute Assessment and plan: CT imaging of the chest without contrast revealed a 3.5 cm x 2.6 cm mass in the right lower lobe on admission Repeat CT of the chest 03/28/18 revealed Previously noted 3.5 cm right lower lobe mass is less conspicuous and obscured on today's study Patient is a never smoker according to record Plan: Recommend repeat chest imaging as outpatient in about 6-8 weeks time - Data of Consult Requesting Physician: Silvio Plummer MD Primary Care Provider: Duncan Tracy MD - Consult Narrative Reason for consult: CMML, evaluate for pulmonary leukostasis History of present illness: Patient is a 74 year old female with oncologic history significant for CMML. She has had intermittent follow-up since 2008 and recently reestablished with Dr. Davidson earlier this month. At this visit complete workup was recommended including BMB, PBS, flow cytometry, SPEP/LALITHA/QIGs/Serum FLCs/UPEP, BCR-ABL, B12, Folate, iron studies, HIV, and hepatitis profile. Peripheral blood flow shows findings consistent with chronic myelomonocytic leukemia with rare blasts less than 1%, mild thrombocytopenia. Bone marrow biopsy and aspirate reveal chronic myelomonocytic leukemia, cellular marrow with trilineage hematopoiesis, stainable iron present, no ring sideroblasts identified, there is no increase in blast or pro-monocytes, overall 2% cellularity by manual differential. Blast 2%. Normal cytogenetics. Flow Cytometry reveals expanded population of monocytes 26.5% of total events, no increase in myeloblasts and no abnormal B cell or T cell population identified. Patient presented to ER 03/26/2017 with report of weakness and increased shortness of breath. She was noted to drop to 2 saturation of around 70% in the ER on room air. CT imaging of the chest without contrast revealed a 3.5 cm x 2.6 cm mass in the right lower lobe, rounded atelectasis is suggested given previously seen but now resolved loculated right pleural effusion. Minimal to m ild interstitial edema potentially due to CHF given mild cardiomegaly and trace left pleural effusion. She was admitted with COPD exacerbation and suspected pneumonia with loculated effusion. White blood cell count on presentation around 41K, neutrophil predominance with monocytosis. On 03/28/2017, blue was called for full cardiopulmonary arrest and she was found unresponsive with seizure like activity, hypoxic and bradycardic. Required 2 cycles of CPR and 2 doses of EP before ROSC. She was intubated and transferred to the ICU. Repeat CT of the chest/abdomen/pelvis without contrast obtained on 03/26/2017 which revealed interval development of multifocal groundglass and consolidative opacities bilaterally within the lungs with septal thickening and small bilateral pleural effusions, near complete left lower lobe atelectasis, given acuity findings favor pulmonary edema the setting of CHF or ARDS, multifocal pneumonia is also on differential, previously noted 3.5 cm right lower lobe mass is less conspicuous unobscured. Mild mediastinal adenopathy likely reactive. CT of the head contrast negative for acute abnormality. According to pulmonology, etiology of acute respiratory failure is likely multifactorial; may be secondary to aspiration, cardiac etiology such as acute heart failure, COPD exacerbation leading to worsened pulmonary edema demonstrated on chest CT. This was complicated by pulmonary hemorrhage post-CPR while on anticoagulation, status post bronchoscopy with blood present throughout each tracheobronchial tree consistent with pulmonary hemorrhage, await BAL results. Past Med Surg Social Fam HX - Past Medical History Medical history: atrial fibrillation, COPD, CVA, GERD, hypertension Additional medical history: chronic myeloid leukemia, anemia, cerebral infarction Psychiatric history: anxiety - Past Surgical History Surgical History: no surgical history Additional surgical history: cardiac surgery - Social History Smoking Status: Never smoker Smokeless Tobacco Status: No Alcohol use: none Drug use: none - Family History Father Living Status: Hx Family Cardiac Disorders: No Hx Family Respiratory Disorders: Yes (lung cancer) Hx Family Cancer: Yes (lung cancer) Hx Family GI Disorders: No Hx Family Endocrine Disorder: No Hx Family Neuromuscular Disorders: No Hx Family Neurologic Disorders: No Hx Family HEENT Disorders: No Hx Family Autoimmune Disorders: No Mother Living Status: Hx Family Cardiac Disorders: No Hx Family Respiratory Disorders: No Hx Family Cancer: No Hx Family GI Disorders: No Hx Family Endocrine Disorder: No Hx Family Neuromuscular Disorders: No Hx Family Neurologic Disorders: No Hx Family HEENT Disorders: No Hx Family Autoimmune Disorders: No Sister Living Status: Still Living Hx Family Cardiac Disorders: Yes (heart murmur) Hx Family Respiratory Disorders: No Hx Family Cancer: No Hx Family GI Disorders: No Hx Family Endocrine Disorder: No Hx Family Neuromuscular Disorders: No Hx Family Neurologic Disorders: No Hx Family HEENT Disorders: No Hx Family Autoimmune Disorders: No Son Living Status: Still Living Hx Family Cardiac Disorders: Yes (heart defect) Hx Family Respiratory Disorders: No Hx Family Cancer: No Hx Family GI Disorders: No Hx Family Endocrine Disorder: No Hx Family Neuromuscular Disorders: No Hx Family Neurologic Disorders: Yes Hx Family HEENT Disorders: No Hx Family Autoimmune Disorders: No Medications and Allergies Sotalol [Betapace] 40 mg PO QAM 10/01/14 [History] Sotalol [Betapace] 80 mg PO HS 06/04/16 [History] Acetaminophen [Tylenol] 650 mg PO Q4H PRN 02/28/18 [History] Apixaban [Eliquis] 5 mg PO 0800,1900 02/28/18 [History] Ascorbic Acid [Vitamin C] 250 mg PO DAILY 02/28/18 [History] Atorvastatin [Lipitor] 20 mg PO HS 02/28/18 [History] Calcium Carbonate/Vitamin D3 [Calcium 500-Vit D3 200 Tablet] 1 each PO BID 02/28/18 [History] Ferrous Sulfate [Iron] 325 mg PO DAILY 02/28/18 [History] GuaiFENesin/Pseudophedrine [Mucinex D] 1 each PO BID 02/28/18 [History] Ipratropium/Albuterol Neb [Duoneb] 3 ml IH 0800,1200,1600,199902/28/18 [History] Loperamide HCl [Imodium A-D] 2 mg PO AD PRN 02/28/18 [History] Mag Hydrox/Aluminum Hyd/Simeth [Cvs Antacid Plus Anti-Gas Liq] 30 ml PO QID PRN 02/28/18 [History] Magnesium Oxide [Mag-Ox] 400 mg PO DAILY 02/28/18 [History] Mirtazapine 7.5 mg PO HS 02/28/18 [History] Ondansetron HCl [Zofran] 4 mg PO DAILY PRN 02/28/18 [History] Pantoprazole Sodium [Protonix] 40 mg PO DAILY 02/28/18 [History] Sennosides/Docusate Sodium [Senna-S Tablet] 1 each PO BID PRN 02/28/18 [History] Doxycycline Hyclate 100 mg PO 0800,199903/26/18 [History] Losartan Potassium 25 mg PO DAILY 03/26/18 [History] predniSONE [PredniSONE] 40 mg PO DAILY 03/26/18 [History] Allergy/AdvReac Type Severity Reaction Status Date / Time sulfamethoxazole AdvReac Unknown Nausea Verified 02/28/18 14:49 [From Bactrim] levofloxacin [From Levaquin] AdvReac See Verified 02/28/18 14:49 Comments nitrofurantoin AdvReac See Verified 02/28/18 14:49 [From Macrobid] Comments trimethoprim [From Bactrim] AdvReac Nausea Verified 02/28/18 14:49 ROS unobtainable: due to endotracheal tube Oncology - Exam - Constitutional General appearance: cooperative, no acute distress, no febrile Exam: Intubated, minimally sedated, utilizes white board for communication - Head Head exam: Present: atraumatic - ENT Additional comments: ET tube, dark red blood noted to OG tube - Respiratory Respiratory exam: Present: rhonchi. Absent: respiratory distress - Cardiovascular Cardiovascular exam: Present: RRR, +S1, +S2 - GI/Abdominal GI/Abdominal exam: Present: hypoactive bowel sounds, soft. Absent: tenderness - Extremities Exam Extremities exam: Present: normal inspection. Absent: calf tenderness - Neurological Exam Neurological exam: Present: alert, no focal deficits - Skin Skin exam: Present: dry, intact, normal color, warm Consult Discharge Plan - Plan Referrals: Duncan Tracy MD [Primary Care Provider] - Inpatient Charges Provider: Dr. Souleymane Ewing <Cosme Ewing - Last Filed: 03/29/18 22:52> Date of Encounter: 03/29/18 - Data of Consult Requesting Physician: Silvio Plummer MD Primary Care Provider: Duncan Tracy MD - Attending Attestation I have seen and examined Ms. Christopher and agree with Ms. Ramon's assessment. Ms Christopher has CMML. Recent bone marrow biopsy and aspirate without evidence of transformation. She has been admitted with acute hypoxic respiratory failure with CT imaging showing diffuse bilateral infiltrates concerning for ARDS vs aspiration pneumonia. She is clinically improving and plan for extubation today. She is alert and communicative. On ventilation. Coarse breath sounds bilaterally. CBC with significant progressive leukocytosis with marked increase in neutrophils and monocytes. This is reactive leukocytosis related to underlying infection and steroid use. As these are mature cells, this is would not cause leukostasis. Hemoglobin and platelets adequate and near normal. We will watch her CBC but no intervention required at this juncture. Inpatient Charges Provider: Dr. Souleymane Ewing Consult - Inpatient Medicare Only: [id number]
--- NOTE | 2018-03-29 13:03 | Cardiology Consult Note ---
Addendum entered and electronically signed by Felix Short MD 03/29/18 14:13: I examined this patient and my medical decision-making was reviewed with the ENVIRONMENTAL JOURNALIST. I agree with the documented findings, disposition and treatment plan as described except to the extent set forth below. A/P: PEA arrest Possible aspiration COPD PAF on sotalol and Eliquis Acute pulmonary hemorrhage Minimally elevated troponin, recheck troponin today. TTE mildly reduced EF mayb e 2/2 postarrest, recommend repeating in 24-48 hours preferably after extubated so better echo windows can be obtained. No urgent indication of invasive evaluation. Thank you for the consult and allowing me to help care for your patient, Felix Short MD [facility] Original Note: Date of Encounter: 03/29/18 Time of Encounter: 12:30 Assessment and Plan (1) COPD (chronic obstructive pulmonary disease) Current Visit: Yes Status: Acute Initial admission for COPD exacerbation secondary to hypoxia, SPO2 68%. Now intubated s/p PEA arrest of unclear etiology. Mgmt per ICU team. Qualifiers: COPD type: COPD with acute exacerbation Qualified Code(s): J44.1 - Chronic obstructive pulmonary disease with (acute) exacerbation (2) Afib Current Visit: Yes Status: Chronic Hx of PAF, managed on sotalol and Eliquis in the outpatient setting. Follows with Dr. Naseem Shen. ECG 03/28/18: ST 110 BPM, QT,QTc 318,383 ms. Eliquis on hold in the setting of pulmonary hemorrhage, continues to have dark red output evident in OG tube upon exam. Recommend resuming if able prior to discharge given elevated CHA2Ds Vasc (6). Qualifiers: Atrial fibrillation type: paroxysmal Qualified Code(s): I48.0 - Paroxysmal atrial fibrillation (3) Sepsis Current Visit: Yes Status: Resolved Tachycardia, leukocytosis upon admission. Unclear etiology. Noted to have chronic leukocytosis; however severely elevated today and continues to uptrend -->92.6. Oncology consulted and following given hx of CMML. Qualifiers: Sepsis type: sepsis due to unspecified organism Qualified Code(s): A41.9 - Sepsis, unspecified organism Discussion w patient/family: [facility] would not allow for additional A&P: 1.) PEA Arrest: Unclear etiology; after review of event notes, possibly secondary to aspiration. WBC continues to elevate, unclear etiology. WBC 92.6. ROSC after multiple rounds of CPR; troponin 0.12 after event--nondiagnostic for ACS. TTE shows mildly reduced LVEF, very poor echo windows described. ECG after event shows non-specific ST/T wave abnormalities. Do not suspect primarily cardiac in etiology. Given acute pulmonary hemorrhage, continue medical therapy for now. Trend tropo alyx, recheck limited TTE in AM. The assessment and plan as outlined above was discussed with the patient and/or family members who expressed understanding and agreement. All questions were answered. Thank you for involving us in the care of your patient. Please call with any questions. The patient will be discussed and reviewed with Dr. Short; changes to be made accordingly. History of Present Illness Consult date: 03/29/18 Requesting physician: Diane Domingo Consult reason: Cardiac arrest Chief complaint: Shortness of breath History of present illness: Ms. Christopher is a 78 year old female with PMHx significant of PAF on Eliquis, COPD, HTN, CVA, and CML who presented to the ED on 03/26/18 from [facility] with hypoxia, initial SPO2 68% on RA. Of note, HPI and yesterdays events reviewed from notes/consults/past medical records as patient is currently intubated in the ICU. Of note, upon review of the outpatient record, multiple recent hospitalizations requiring intubation due to COPD exacerbation. Rapid response with CODE BLUE early yesterday AM, concern for possible aspiration as patient was alert and oriented prior to breakfast tray delivery. Reportedly, upon return to room patient was unresponsive, PEA arrest. Underwent multiple rounds of CPR/Epi with successful ROSC. Underwent bronchoscopy yesterday afternoon which demonstrated pulmonary hemorrhage. Prior CV testing: Exercise nuclear 09/01/14: exercise ECG negative for ischemia (10 METS); perfusion imagining negative for ischemia or infarct TTE 06/04/16: EF 60-65%, normal wall motion TTE 11/01/17: LVEF 65%, normal RV structure and function, no significant valvular dysfunction, mild PH Past Med Surg Social Fam HX - Past Medical History Attestation: Yes The following information was validated with the patient. Source: patient Medical history: atrial fibrillation, COPD, CVA, GERD, hypertension Additional medical history: chronic myeloid leukemia, anemia, cerebral infarction Psychiatric history: anxiety - Past Surgical History Surgical History: no surgical history - Social History Smoking Status: Never smoker Smokeless Tobacco Status: No Alcohol use: none Drug use: none Current living situation: ECF - Family History Father Living Status: Hx Family Cardiac Disorders: No Hx Family Respiratory Disorders: Yes (lung cancer) Hx Family Cancer: Yes (lung cancer) Hx Family GI Disorders: No Hx Family Endocrine Disorder: No Hx Family Neuromuscular Disorders: No Hx Family Neurologic Disorders: No Hx Family HEENT Disorders: No Hx Family Autoimmune Disorders: No Mother Living Status: Cause of : [place] disease Hx Family Cardiac Disorders: No (HTN) Hx Family Respiratory Disorders: No Hx Family Cancer: No Hx Family GI Disorders: No Hx Family Endocrine Disorder: No Hx Family Neuromuscular Disorders: No Hx Family Neurologic Disorders: No Hx Family HEENT Disorders: No Hx Family Autoimmune Disorders: No Sister Living Status: Still Living Hx Family Cardiac Disorders: Yes (heart murmur) Hx Family Respiratory Disorders: No Hx Family Cancer: No Hx Family GI Disorders: No Hx Family Endocrine Disorder: No Hx Family Neuromuscular Disorders: No Hx Family Neurologic Disorders: No Hx Family HEENT Disorders: No Hx Family Autoimmune Disorders: No Son Living Status: Still Living Hx Family Cardiac Disorders: Yes (Marfan syndrome) Hx Family Respiratory Disorders: No Hx Family Cancer: No Hx Family GI Disorders: No Hx Family Endocrine Disorder: No Hx Family Neuromuscular Disorders: No Hx Family Neurologic Disorders: Yes Hx Family HEENT Disorders: No Hx Family Autoimmune Disorders: No Medications and Allergies Sotalol [Betapace] 40 mg PO QAM 10/01/14 [History] Sotalol [Betapace] 80 mg PO HS 06/04/16 [History] Acetaminophen [Tylenol] 650 mg PO Q4H PRN 02/28/18 [History] Apixaban [Eliquis] 5 mg PO 0800,1900 02/28/18 [History] Ascorbic Acid [Vitamin C] 250 mg PO DAILY 02/28/18 [History] Atorvastatin [Lipitor] 20 mg PO HS 02/28/18 [History] Calcium Carbonate/Vitamin D3 [Calcium 500-Vit D3 200 Tablet] 1 each PO BID 02/28/18 [History] Ferrous Sulfate [Iron] 325 mg PO DAILY 02/28/18 [History] GuaiFENesin/Pseudophedrine [Mucinex D] 1 each PO BID 02/28/18 [History] Ipratropium/Albuterol Neb [Duoneb] 3 ml IH 0800,1200,1600,199902/28/18 [History] Loperamide HCl [Imodium A-D] 2 mg PO AD PRN 02/28/18 [History] Mag Hydrox/Aluminum Hyd/Simeth [Cvs Antacid Plus Anti-Gas Liq] 30 ml PO QID PRN 02/28/18 [History] Magnesium Oxide [Mag-Ox] 400 mg PO DAILY 02/28/18 [History] Mirtazapine 7.5 mg PO HS 02/28/18 [History] Ondansetron HCl [Zofran] 4 mg PO DAILY PRN 02/28/18 [History] Pantoprazole Sodium [Protonix] 40 mg PO DAILY 02/28/18 [History] Sennosides/Docusate Sodium [Senna-S Tablet] 1 each PO BID PRN 02/28/18 [History] Doxycycline Hyclate 100 mg PO 0800,199903/26/18 [History] Losartan Potassium 25 mg PO DAILY 03/26/18 [History] predniSONE [PredniSONE] 40 mg PO DAILY 03/26/18 [History] Allergy/AdvReac Type Severity Reaction Status Date / Time sulfamethoxazole AdvReac Unknown Nausea Verified 02/28/18 14:49 [From Bactrim] levofloxacin [From Levaquin] AdvReac See Verified 02/28/18 14:49 Comments nitrofurantoin AdvReac See Verified 02/28/18 14:49 [From Macrobid] Comments trimethoprim [From Bactrim] AdvReac Nausea Verified 02/28/18 14:49 All Systems Review: The remainder of the systems were reviewed and are negative - Cardiovascular Cardiovascular: as per HPI Physical Examination Vital Signs, Last 4 Hours Temp Pulse Resp BP Pulse Ox 03/29/18 12:00 96.8 F L 63 12 111/51 100 03/29/18 11:52 97.7 F 03/29/18 11:28 12 104/34 100 03/29/18 11:00 70 13 139/66 100 03/29/18 10:00 96.8 F L 78 12 146/68 100 General: Other (intubated/sedated; able to respond to questions with yes/no) HEENT: Atraumatic Cardiac: Reg Rate and Rhythm, Normal S1 and S2 Lungs: Other (coarse, anterior only) Neuro: Alert and responsive (to person) Abdomen: Soft Extremities: No Edema, Normal Pulses Other: OG tube--dark red output Results 03/29/18 05:10 03/29/18 05:10 Lab Results 03/29/18 03/29/18 05:10 05:10 WBC 92.6 H* Hgb 11.1 L Hct 35.5 Plt Count 116 L Sodium 139 Potassium 3.9 Chloride 104 Carbon Dioxide 27 BUN 32 H Creatinine 0.94 Glucose 175 H Calcium 8.5 L Magnesium 1.6 Active Medications Albuterol/Ipratropium (Duoneb) 3 ml IH [id number] STEPHEN Stop: 09/25/18 12:01 Last Admin: 03/29/18 11:28 Dose: 3 ml Artificial Tears (Akwa Tears) 1 drop BOTH EYES Q2HR PRN; Protocol PRN Reason: Dry Eyes Stop: 09/27/18 17:58 Artificial Tears (Akwa Tears) 1 drop BOTH EYES Q4HR STEPHEN; Protocol Stop: 09/27/18 20:01 Last Admin: 03/29/18 12:21 Dose: Not Given Atorvastatin Calcium (Lipitor) 20 mg PO HS STEPHEN Stop: 09/26/18 21:01 Last Admin: 03/28/18 21:25 Dose: 20 mg Calcium Carbonate (Tums) 500 mg PO BIDAC STEPHEN Stop: 09/26/18 16:31 Last Admin: 03/29/18 07:56 Dose: 500 mg Chlorhexidine Gluconate (Chlorhexidine Rinse) 15 ml MM BID STEPHEN Stop: 09/27/18 21:01 Last Admin: 03/29/18 07:58 Dose: 15 ml Ferrous Sulfate (Ferrous Sulfate) 325 mg PO DAILY STEPHEN Stop: 09/27/18 09:01 Last Admin: 03/29/18 07:56 Dose: 325 mg Guaifenesin (Mucinex D) 1 each PO BID STEPHEN; Protocol Stop: 09/26/18 21:01 Last Admin: 03/29/18 07:56 Dose: 1 each Dexmedetomidine HCl (Precedex Premix) 400 mcg in 100 mls @ 3.42 mls/hr IVC .Q24H STEPHEN; Protocol Stop: 09/27/18 08:46 Last Titration: 03/29/18 12:14 Dose: 0.4 mcg/kg/hr, 6.84 mls/hr Piperacillin Sod/Tazobactam (Sod 3.375 gm/ Sodium Chloride) 100 mls @ 25 mls/hr IVPB Q8HR [facility] Stop: 09/27/18 16:01 Last Infusion: 03/29/18 12:00 Dose: Infused Fentanyl Citrate 1,000 mcg/ (Sodium Chloride) 100 mls @ 5 mls/hr IVC CONT [facility]; Protocol Stop: 09/27/18 10:46 Last Admin: 03/29/18 06:28 Dose: 50 mcg/hr, 5 mls/hr Norepinephrine Bitartrate 4 mg (/ Dextrose) 254 mls @ 38.1 mls/hr IVC CONT [facility]; Protocol Stop: 09/27/18 11:46 Last Titration: 03/29/18 12:15 Dose: 6 mcg/min, 22.86 mls/hr Loperamide HCl (Imodium) 2 mg PO AD PRN PRN Reason: Diarrhea Stop: 09/26/18 10:15 Magnesium Oxide (Mag-Ox) 400 mg PO DAILY [facility]; Protocol Stop: 09/27/18 09:01 Last Admin: 03/29/18 10:58 Dose: 400 mg Methylprednisolone (Solu-Medrol) 40 mg IVP Q12HR [facility] Stop: 09/25/18 18:01 Last Admin: 03/29/18 06:28 Dose: 40 mg Mirtazapine (Remeron) 7.5 mg PO [facility] Stop: 09/26/18 21:01 Last Admin: 03/28/18 21:26 Dose: 7.5 mg Naloxone HCl (Narcan) 0.4 mg IVP Q2MIN PRN PRN Reason: SEE COMMENTS Stop: 09/25/18 11:57 Pantoprazole Sodium (Protonix) 40 mg IVP DAILY [facility] Stop: 09/28/18 09:01 Last Admin: 03/29/18 07:58 Dose: 40 mg Promethazine HCl (Phenergan) 12.5 mg IVP Q6H PRN PRN Reason: Nausea And Vomiting Stop: 09/26/18 23:35 Last Admin: 03/27/18 23:49 Dose: 12.5 mg Sotalol HCl (Betapace) 40 mg PO QAM [facility] Stop: 09/27/18 09:01 Last Admin: 03/29/18 07:58 Dose: 40 mg Sotalol HCl (Betapace) 80 mg PO HS [facility] Stop: 09/26/18 21:01 Last Admin: 03/28/18 21:26 Dose: 80 mg Tramadol HCl (Ultram) 50 mg PO Q6HR PRN PRN Reason: Moderate Pain Stop: 09/25/18 11:57 Vitamin D (Vitamin D) 1,000 unit PO DAILY [facility]PHEN Stop: 09/27/18 09:01 Last Admin: 03/29/18 07:56 Dose: 1,000 unit - Imaging and Cardiology Echo: report reviewed Other Results: 12 hour: avg HR=64 SR. - EKG Interpretation EKG results cardiology: personally reviewed Consult Discharge Plan - Plan Referrals: Duncan Tracy MD [Primary Care Provider] -
[2018-03-29 17:43] LABS: Lactate Dehydrogenase 210 Units/L (140-271); Uric Acid 4.9 mg/dL (2.3-7.6)
[2018-03-29] MEDS ORDERED: 0.9 % Sodium Chloride 1,000 ML ONE (18:18)
[2018-03-29] MEDS: Mirtazapine 15 MG TABLET PO SCH (20:07)
[2018-03-30] MEDS: Ipratropium/Albuterol Neb 3 ML IH SCH ×7 (00:01→20:02)
[2018-03-30] MEDS: Artificial Tears SOLN 15 ML BOTTLE BOTH EYES SCH ×6 (03:50→23:33)
[2018-03-30 04:19] LABS: BUN/Creatinine Ratio 35 (6-26); Blood Urea Nitrogen 26 mg/dL (8-23); Calcium 8.5 mg/dL (8.6-10.3); Carbon Dioxide 30 mEq/L (23-29); Chloride 103 mEq/L (98-107); Glucose 132 mg/dL (70-105); Osmolality,Calculated 295 (280-300); Potassium 3.6 mEq/L (3.5-5.1); Sodium 139 mEq/L (136-145); eGFR For Non-African Americans > 60 (> 60)
[2018-03-30 04:23] LABS: Segmented Neutrophils % 49.7 %
[2018-03-30 04:24] LABS: Basophils # 0.2 K/mcL (0.0-0.2); Basophils % 0.4 %; Hematocrit 29.1 % (35.3-44.9); Hemoglobin 9.2 g/dL (11.5-15.4); Immature Granulocytes % 5.9 % (0-4); Lymphocytes # 1.6 K/mcL (0.6-4.6); Lymphocytes % 3.6 %; Mean Corpuscular HGB Conc 31.6 g/dL (31.6-35.5); Mean Corpuscular Hemoglobin 25.6 pg (28.0-33.3); Mean Corpuscular Volume 80.8 fL (83.0-100.0); Mean Platelet Volume 12.6 fL (9.4-12.4); Monocytes % 40.4 %
[2018-03-30 04:33] LABS: Monocytes # 17.9 K/mcL (0.0-1.3); Platelet Count 82 K/mcL (140-400)
[2018-03-30 04:36] LABS: ABG Base Excess 6 mEq/L (-2 to 3); ABG HCO3 30 mEq/L (21-27); ABG Oxygen Saturation 97 % (95-98); ABG PCO2 39 mmHg (35-45); ABG PH 7.49 pH Units (7.32-7.45); ABG PO2 86 mmHg (85-104); ABG TCO2 31 mEq/L (20-26); Blood Gas Modality ASSIST CONTROL; Blood Gas PEEP 5 cm H2O; Blood Gas Respiration Rate 12; Blood Gas VT 450 cc
[2018-03-30 05:07] LABS: Anisocytosis 1+ (Not Present); Platelet Estimate Decreased (Normal)
[2018-03-30] MEDS: MethylPREDNISolone 40 MG/ML VIAL IVP SCH (05:22)
--- NOTE | 2018-03-30 07:27 | Pulmonology Progress Note ---
<AguilarLance W - Last Filed: 03/30/18 08:04> Date of Encounter: 03/30/18 Objective PUL Vital signs: Last Vital Signs Temp 97.5 F L 03/30/18 07:55 Pulse 63 03/30/18 06:00 Resp 12 03/30/18 06:20 BP 96/52 03/30/18 06:00 Pulse Ox 100 03/30/18 06:20 Ventilator Settings Ventilator Settings: Ventilator Settings, Last 8 Hours Ventilator Tidal Volume 450 Setting Ventilator Tidal Volume 450 Setting Ventilator Tidal Volume 450 Setting Ventilator Tidal Volume 450 Setting Ventilator Tidal Volume 450 Setting Ventilator Tidal Volume 450 Setting Ventilator Tidal Volume 450 Setting Ventilator Tidal Volume 450 Setting Ventilator Tidal Volume 450 Setting Ventilator Tidal Volume 450 Setting Ventilator Respiratory Rate 12 Setting Ventilator Respiratory Rate 12 Setting Ventilator Respiratory Rate 12 Setting Ventilator Respiratory Rate 12 Setting Ventilator Respiratory Rate 12 Setting Ventilator Respiratory Rate 12 Setting Ventilator Respiratory Rate 12 Setting Ventilator Respiratory Rate 12 Setting Ventilator Respiratory Rate 12 Setting Ventilator Respiratory Rate 12 Setting Actual Respiratory Rate 12 Actual Respiratory Rate 12 Actual Respiratory Rate 12 Actual Respiratory Rate 12 Actual Respiratory Rate 12 Actual Respiratory Rate 12 Actual Respiratory Rate 12 Actual Respiratory Rate 12 Actual Respiratory Rate 12 Positive End Expiratory 5 Pressure Positive End Expiratory 5 Pressure Positive End Expiratory 5 Pressure Positive End Expiratory 5 Pressure Positive End Expiratory 5 Pressure Positive End Expiratory 5 Pressure Positive End Expiratory 5 Pressure Positive End Expiratory 5 Pressure Positive End Expiratory 5 Pressure Positive End Expiratory 5 Pressure Peak Inspiratory Airway 19 Pressure Peak Inspiratory Airway 19 Pressure Peak Inspiratory Airway 19 Pressure Peak Inspiratory Airway 19 Pressure Peak Inspiratory Airway 19 Pressure Peak Inspiratory Airway 19 Pressure Peak Inspiratory Airway 19 Pressure Peak Inspiratory Airway 19 Pressure Peak Inspiratory Airway 19 Pressure Results - Laboratory Findings CBC and BMP: 03/30/18 03:09 03/30/18 03:09 ABG ABG pH 7.49 pH Units (7.32-7.45) H 03/30/18 04:33 ABG pCO2 39 mmHg (35-45) 03/30/18 04:33 ABG pO2 86 mmHg (85-104) 03/30/18 04:33 ABG O2 Saturation 97 % (95-98) 03/30/18 04:33 PT/INR, D-dimer PT 16.7 Seconds (9.4-12.1) H 03/26/18 10:32 D-Dimer 229 ng/mLFEU (0-500) 03/26/18 10:32 Abnormal lab findings: Abnormal lab results WBC 44.2 K/mcL (4.3-11.1) H* D 03/30/18 03:09 RBC 3.60 M/mcL (3.82-4.97) L 03/30/18 03:09 Hgb 9.2 g/dL (11.5-15.4) L D 03/30/18 03:09 Hct 29.1 % (35.3-44.9) L 03/30/18 03:09 MCV 80.8 fL (83.0-100.0) L 03/30/18 03:09 MCH 25.6 pg (28.0-33.3) L 03/30/18 03:09 RDW 17.0 % (11.5-14.5) H 03/30/18 03:09 Plt Count 82 K/mcL (140-400) L 03/30/18 03:09 MPV 12.6 fL (9.4-12.4) H 03/30/18 03:09 Immature Gran % 5.9 % (0-4) H 03/30/18 03:09 Band Neutrophils % 6.0 % (0-4) H 03/29/18 05:10 Metamyelocytes % 2.0 % (0) H 03/28/18 11:00 Promyelocytes % 1.0 % (0) H 03/28/18 11:00 Neutrophils # 22.0 K/mcL (1.6-8.9) H 03/30/18 03:09 Monocytes # 17.9 K/mcL (0.0-1.3) H 03/30/18 03:09 Platelet Estimate Decreased (Normal) L 03/30/18 03:09 Immature Plt Fraction 13.5 % (1.1-6.1) H 03/27/18 08:08 Anisocytosis 1+ (Not Present) A 03/30/18 03:09 Ovalocytes 1+ (Not Present) A 03/28/18 06:42 PT 16.7 Seconds (9.4-12.1) H 03/26/18 10:32 APTT 41.0 Seconds (26.0-36.0) H 03/26/18 10:32 ABG pH 7.49 pH Units (7.32-7.45) H 03/30/18 04:33 ABG HCO3 30 mEq/L (21-27) H 03/30/18 04:33 ABG Total CO2 31 mEq/L (20-26) H 03/30/18 04:33 ABG Base Excess 6 mEq/L (-2 to 3) H 03/30/18 04:33 VBG pH 7.29 pH Units (7.32-7.42) L 03/28/18 06:54 VBG pCO2 67 mmHg (41-51) H 03/28/18 06:54 VBG pO2 78 mmHg (25-50) H 03/28/18 06:54 VBG HCO3 32 mEq/L (21-27) H 03/28/18 06:54 Carbon Dioxide 30 mEq/L (23-29) H 03/30/18 03:09 BUN 26 mg/dL (8-23) H 03/30/18 03:09 BUN/Creatinine Ratio 35 (6-26) H 03/30/18 03:09 Glucose 132 mg/dL (70-105) H 03/30/18 03:09 POC Glucose 133 mg/dL (70-99) H 03/30/18 00:00 Calcium 8.5 mg/dL (8.6-10.3) L 03/30/18 03:09 Troponin I 0.07 ng/mL (< 0.04) H* 03/29/18 14:01 B-Natriuretic Peptide 312 pg/mL (Less than 100) H 03/26/18 10:32 Fluid Appearance Cloudy (Clear) A 03/28/18 17:25 - Microbiology Findings Microbiology Findings: Microbiology, Last 48 Hours 03/28/18 17:25 Respiratory Culture - Preliminary Left Lower Lobe Lung 03/28/18 15:15 Blood Culture - Preliminary Central Venous Catheter Culture is incubating and being continuously monitored for growth. Final report to follow. 03/28/18 15:15 Blood Culture - Preliminary Central Venous Catheter Culture is incubating and being continuously monitored for growth. Final report to follow. - Clinical Findings Intake & Output: Intake & Output 03/29/18 03/30/18 03/30/18 23:59 07:59 15:59 Intake Total 334 / 334 235 / 235 Output Total 800 / 800 525 / 525 Balance -466 / -466 -290 / -290 Weight 52.8 kg Consult Discharge Plan - Plan Referrals: Duncan Tracy MD [Primary Care Provider] - - Attending Attestation I examined this patient and my medical decision-making was reviewed with the Resident Physician. I agree with the documented findings, disposition and treatment plan as described except to the extent set forth below. We independently had [id number] contact with the patient Patient seen and examined at bedside Labs, radiology, chart personally reviewed. Management was reviewed during multidisciplinary critical care rounds. 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 Cardiogenic shock has resolved patient's been weaned off vasopressor and has no evidence of end organ hypoperfusion at this time. Anticoagulation for A. fib is being held because of pulmonary hemorrhage we will continue to monitor this repeat echocardiogram in 24-48 hours GI: GI prophylaxis given Nutrition: Nothing by mouth for now Renal: UOP Monitored, Cont to Trend sCr and monitor Electrolytes. 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 Lines: All lines examined without evidence of infection : Dispo: Remain in ICU for vent management CODE: Full <Jose LDiane - Last Filed: 03/30/18 09:48> Date of Encounter: 03/30/18 Time of Encounter: 07:27 Assessment and Plan (1) Acute respiratory failure with hypoxia Current Visit: Yes Status: Acute Patient was admitted on 03/26 for hypoxic respiratory failure secondary to COPD exacerbation which was improving with steroids, bronchodilators and antibiotics. -Etiology of acute respiratory failure is likely multifactorial; may be secondary to aspiration, cardiac etiology such as acute heart failure, ischemia, COPD exacerbation leading to worsened pulmonary edema demonstrated on chest CT. -According to cardiology consult note, etiology is likely not cardiac in origin; possibly secondary to aspiration. -Another potential etiology is oncological/hematological in origin with differential of pulmonary leukostasis -Bronchoscopy revealed bilateral infiltrate, atelectasis of left lower lobe, blood throughout tracheobronchial tree -03/30/2018 chest x-ray demonstrating improved pulmonary edema, tiny bilateral pleural effusions with associated bibasilar atelectasis. -03/29/2018 CXR today with slight improvement in aeration of the lungs suggesting diminishing pulmonary edema. -03/28/2018 CXR: revealed new patchy/hazy airspace opacities diffusely to the lungs bilaterally with mid to upper lung zone predominance, concerning for pulmonary edema and multifocal infiltrates; mass like opacity in right lower lobe, demonstrated on CT chest 03/26 -03/28/2018 CT chest, abdomen/pelvis: interval development of multifocal ground glass and consolidative opacities within the lungs with interlobular septal thickening and small bilateral pleural effusions, near complete left lower lobe atelectasis; acuity supports pulmonary edema in setting of heart failure or ARDS vs multifocal pneumonia. -ABG- pH 7.49, pCO2 39, pO2 86, HCO3 20 -Troponin trending down -Echo reports mid anteroseptum, distal anterior wall and apex are hypokinetic with mildly reduced LV systolic function; wall motion abnormality new compared to prior echo on 11/01/17. PLAN: -patient successfully extubated today and is on BiPAP -Repeat limited TTE -titrating off precedex and fentanyl -continue Zosyn day 5 -Continue Solu-Medrol day 5 -continue duoneb PRN -Respiratory culture and cytology pending (2) Pneumonia Current Visit: No Status: Suspected Admitted and treated for pneumonia with possible loculated effusion on right lung in correlation with COPD exacerbation -03/30/2018 chest x-ray demonstrating improved pulmonary edema, tiny bilateral pleural effusions with associated bibasilar atelectasis. -03/29/2018 CXR today with slight improvement in aeration of the lungs suggesting diminishing pulmonary edema. -03/28/2018 CXR: revealed new patchy/hazy airspace opacities diffusely to the lungs bilaterally with mid to upper lung zone predominance, concerning for pulmonary edema and multifocal infiltrates; mass like opacity in right lower lobe, demonstrated on CT chest 03/26 -03/28/2018 CT chest, abdomen/pelvis: interval development of multifocal ground glass and consolidative opacities within the lungs with interlobular septal thickening and small bilateral pleural effusions, near complete left lower lobe atelectasis; acuity supports pulmonary edema in setting of heart failure or ARDS vs multifocal pneumonia. Plan: -continue Zosyn day 5 -continue Solu-Medrol day 5 -patient successfully extubated and is on BiPAP -continue duoneb Qualifiers: Pneumonia type: aspiration pneumonia Aspiration pneumonia type: unspecified Laterality: unspecified laterality Lung location: unspecified part of lung Qualified Code(s): J69.0 - Pneumonitis due to inhalation of food and vomit (3) Pulmonary edema Current Visit: Yes Status: Acute Diffuse pulmonary edema demonstrated by imaging -etiologies unclear however may be secondary to the acute respiratory failure, cardiac, pneumonia -03/30/2018 chest x-ray demonstrating improved pulmonary edema, tiny bilateral pleural effusions with associated bibasilar atelectasis. -Auscultation of lung exam is clear bilaterally Plan: -patient has been diuresed yesterday. Pulmonary edema continues to improve -will continue to monitor and diuresed as needed Qualifiers: Chronicity: acute Qualified Code(s): J81.0 - Acute pulmonary edema (4) OLAF (acute kidney injury) Current Visit: Yes Status: Acute Resolved. Acute kidney injury, at admission 0.77 likely prerenal secondary to decreased volume status creatinine 0.75 I&O: 1452/1550 -98 Plan: -acute kidney injury is improving with improved creatinine and urine output -will continue to monitor serum creatinine -strict I&O -continue renal protective strategy including avoid nephrotoxic agents and renal dose medications (5) Sepsis Current Visit: Yes Status: Resolved Resolved. 3 of 4 SIRS Criteria: heart rate 143 bpm, respiratory rate 22, WBC 86. -afebrile, WBC 44.2 continuing to improve -Concern for possible sepsis likely secondary to pneumonia. However, cardiac etiology for hypotension cannot be excluded. -03/30/2018 chest x-ray demonstrating improved pulmonary edema, tiny bilateral pleural effusions with associated bibasilar atelectasis. -03/29/2018 CXR today with slight improvement in aeration of the lungs suggesting diminishing pulmonary edema. -03/28/2018 CXR: revealed new patchy/hazy airspace opacities diffusely to the lungs bilaterally with mid to upper lung zone predominance, concerning for pulmonary edema and multifocal infiltrates; mass like opacity in right lower lobe, demonstrated on CT chest 03/26 -03/28/2018 CT chest, abdomen/pelvis: interval development of multifocal ground glass and consolidative opacities within the lungs with interlobular septal thickening and small bilateral pleural effusions, near complete left lower lobe atelectasis; acuity supports pulmonary edema in setting of heart failure or ARDS vs multifocal pneumonia. -Right femoral central line in place -blood cultures preliminary negative today PLAN: -antibiotics as above -Blood cultures final and respiratory cultures pending -Levophed has been stopped Qualifiers: Sepsis type: sepsis due to unspecified organism Qualified Code(s): A41.9 - Sepsis, unspecified organism (6) Elevated troponin Current Visit: No Status: Acute Elevated troponin, this is most likely secondary to demand ischemia and cardiac arrest with CPR troponin <0.03, > 0.12, > 0.07 troponin trending down EKG demonstrating sinus tachycardia, nonspecific ST changes patient denied chest pain plan: continue monitor, cardiology following (7) Thrombocytopenia Current Visit: No Status: Chronic Thrombocytopenia, platelets 104 at admission -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, and recent pulmonary hemorrhage -today platelets 82, continuing to decrease -no obvious active bleeding Plan: -will continue to monitor platelets and for bleeding (8) COPD (chronic obstructive pulmonary disease) Current Visit: Yes Status: Acute History of severe COPD, gold stage III according to PFT 2016 -severe COPD is likely contributing to the acute respiratory failure, maybe exacerbation -home medication of duoneb Plan: -continue duoneb PRN -continue mechanical ventilation with weaning from ventilator in transition to nasal supplemental oxygen when able -continue steroids Qualifiers: COPD type: COPD with acute exacerbation Qualified Code(s): J44.1 - Chronic obstructive pulmonary disease with (acute) exacerbation (9) Afib Current Visit: Yes Status: Chronic History of atrial fibrillation s/p ablation on anticoagulation with eliquis. Patient had previously been on sotalol. Currently rate controlled plan: -holding eliquis for now due to decreased hemoglobin and pulmonary hemorrhage. Will restart when able. 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 -Oncology is following and is not believe that the patient has pulmonary leukostasis contributing to acute respiratory failure -patient will follow up with oncology outpatient Qualifiers: Leukemia Active/Remission status: in remission Qualified Code(s): C93.11 - Chronic myelomonocytic leukemia, in remission (11) DVT prophylaxis Current Visit: No Status: Acute Heparin sub Q. Holding eliquis due to decreasing hemoglobin and pulmonary hemorrhage Subjective Principal diagnosis: Acute respiratory failure with hypoxia Interval history: 78 year old female with past medical history of CML, thrombocytopenia, atrial fibrillation s/p ablation, COPD, GERD, hypertension presented to ED on 03/26 for productive cough and shortness of breath x3-4 weeks and admitted for hypoxic respiratory failure secondary to COPD exacerbation. Pulmonology/ critical care consulted due to hypercarbic respiratory failure and possible R lung mass. Patient transferred to ICU for acute respiratory failure following Code Blue for cardiopulmonary arrest. Today, the patient is alert and oriented resting comfortably in bed. She is in no acute distress. She answers questions appropriately and follows commands. She is currently on CPAP trial, with most likely next extubating today. She denies fever, chills, chest pain, headache, change in vision, nausea, vomiting, abdominal pain. She has no complaints. Objective PUL Vital signs: Last Vital Signs Temp 98.7 F 03/30/18 03:54 Pulse 63 03/30/18 06:00 Resp 12 03/30/18 06:20 BP 96/52 03/30/18 06:00 Pulse Ox 100 03/30/18 06:20 General appearance: no acute distress, alert Eyes: nonicteric ENT: oropharynx moist Neck: supple Effort: normal Auscultation: bilateral: clear Cardiovascular: regular rate and rhythm Gastrointestinal: normoactive bowel sounds, soft, non-tender Integumentary: normal Extremities: no cyanosis, no edema Musculoskeletal: no deformities normal mental status mood appropriate, affect normal Ventilator Settings Ventilator Settings: Ventilator Settings, Last 8 Hours Ventilator Tidal Volume 450 Setting Ventilator Tidal Volume 450 Setting Ventilator Tidal Volume 450 Setting Ventilator Tidal Volume 450 Setting Ventilator Tidal Volume 450 Setting Ventilator Tidal Volume 450 Setting Ventilator Tidal Volume 450 Setting Ventilator Tidal Volume 450 Setting Ventilator Tidal Volume 450 Setting Ventilator Tidal Volume 450 Setting Ventilator Tidal Volume 450 Setting Ventilator Tidal Volume 450 Setting Ventilator Respiratory Rate 12 Setting Ventilator Respiratory Rate 12 Setting Ventilator Respiratory Rate 12 Setting Ventilator Respiratory Rate 12 Setting Ventilator Respiratory Rate 12 Setting Ventilator Respiratory Rate 12 Setting Ventilator Respiratory Rate 12 Setting Ventilator Respiratory Rate 12 Setting Ventilator Respiratory Rate 12 Setting Ventilator Respiratory Rate 12 Setting Ventilator Respiratory Rate 12 Setting Ventilator Respiratory Rate 12 Setting Actual Respiratory Rate 12 Actual Respiratory Rate 12 Actual Respiratory Rate 12 Actual Respiratory Rate 12 Actual Respiratory Rate 12 Actual Respiratory Rate 12 Actual Respiratory Rate 12 Actual Respiratory Rate 12 Actual Respiratory Rate 12 Actual Respiratory Rate 13 Actual Respiratory Rate 12 Positive End Expiratory 5 Pressure Positive End Expiratory 5 Pressure Positive End Expiratory 5 Pressure Positive End Expiratory 5 Pressure Positive End Expiratory 5 Pressure Positive End Expiratory 5 Pressure Positive End Expiratory 5 Pressure Positive End Expiratory 5 Pressure Positive End Expiratory 5 Pressure Positive End Expiratory 5 Pressure Positive End Expiratory 5 Pressure Positive End Expiratory 5 Pressure Peak Inspiratory Airway 19 Pressure Peak Inspiratory Airway 19 Pressure Peak Inspiratory Airway 19 Pressure Peak Inspiratory Airway 19 Pressure Peak Inspiratory Airway 19 Pressure Peak Inspiratory Airway 19 Pressure Peak Inspiratory Airway 19 Pressure Peak Inspiratory Airway 19 Pressure Peak Inspiratory Airway 19 Pressure Peak Inspiratory Airway 19 Pressure Peak Inspiratory Airway 19 Pressure Results - Laboratory Findings CBC and BMP: 03/30/18 03:09 03/30/18 03:09 ABG ABG pH 7.49 pH Units (7.32-7.45) H 03/30/18 04:33 ABG pCO2 39 mmHg (35-45) 03/30/18 04:33 ABG pO2 86 mmHg (85-104) 03/30/18 04:33 ABG O2 Saturation 97 % (95-98) 03/30/18 04:33 PT/INR, D-dimer PT 16.7 Seconds (9.4-12.1) H 03/26/18 10:32 D-Dimer 229 ng/mLFEU (0-500) 03/26/18 10:32 Abnormal lab findings: Abnormal lab results WBC 44.2 K/mcL (4.3-11.1) H* D 03/30/18 03:09 RBC 3.60 M/mcL (3.82-4.97) L 03/30/18 03:09 Hgb 9.2 g/dL (11.5-15.4) L D 03/30/18 03:09 Hct 29.1 % (35.3-44.9) L 03/30/18 03:09 MCV 80.8 fL (83.0-100.0) L 03/30/18 03:09 MCH 25.6 pg (28.0-33.3) L 03/30/18 03:09 RDW 17.0 % (11.5-14.5) H 03/30/18 03:09 Plt Count 82 K/mcL (140-400) L 03/30/18 03:09 MPV 12.6 fL (9.4-12.4) H 03/30/18 03:09 Immature Gran % 5.9 % (0-4) H 03/30/18 03:09 Band Neutrophils % 6.0 % (0-4) H 03/29/18 05:10 Metamyelocytes % 2.0 % (0) H 03/28/18 11:00 Promyelocytes % 1.0 % (0) H 03/28/18 11:00 Neutrophils # 22.0 K/mcL (1.6-8.9) H 03/30/18 03:09 Monocytes # 17.9 K/mcL (0.0-1.3) H 03/30/18 03:09 Platelet Estimate Decreased (Normal) L 03/30/18 03:09 Immature Plt Fraction 13.5 % (1.1-6.1) H 03/27/18 08:08 Anisocytosis 1+ (Not Present) A 03/30/18 03:09 Ovalocytes 1+ (Not Present) A 03/28/18 06:42 PT 16.7 Seconds (9.4-12.1) H 03/26/18 10:32 APTT 41.0 Seconds (26.0-36.0) H 03/26/18 10:32 ABG pH 7.49 pH Units (7.32-7.45) H 03/30/18 04:33 ABG HCO3 30 mEq/L (21-27) H 03/30/18 04:33 ABG Total CO2 31 mEq/L (20-26) H 03/30/18 04:33 ABG Base Excess 6 mEq/L (-2 to 3) H 03/30/18 04:33 VBG pH 7.29 pH Units (7.32-7.42) L 03/28/18 06:54 VBG pCO2 67 mmHg (41-51) H 03/28/18 06:54 VBG pO2 78 mmHg (25-50) H 03/28/18 06:54 VBG HCO3 32 mEq/L (21-27) H 03/28/18 06:54 Carbon Dioxide 30 mEq/L (23-29) H 03/30/18 03:09 BUN 26 mg/dL (8-23) H 03/30/18 03:09 BUN/Creatinine Ratio 35 (6-26) H 03/30/18 03:09 Glucose 132 mg/dL (70-105) H 03/30/18 03:09 POC Glucose 133 mg/dL (70-99) H 03/30/18 00:00 Calcium 8.5 mg/dL (8.6-10.3) L 03/30/18 03:09 Troponin I 0.07 ng/mL (< 0.04) H* 03/29/18 14:01 B-Natriuretic Peptide 312 pg/mL (Less than 100) H 03/26/18 10:32 Fluid Appearance Cloudy (Clear) A 03/28/18 17:25 - Microbiology Findings Microbiology Findings: Microbiology, Last 48 Hours 03/28/18 17:25 Respiratory Culture - Preliminary Left Lower Lobe Lung 03/28/18 15:15 Blood Culture - Preliminary Central Venous Catheter Culture is incubating and being continuously m onitored for growth. Final report to follow. 03/28/18 15:15 Blood Culture - Preliminary Central Venous Catheter Culture is incubating and being continuously monitored for growth. Final report to follow. - Clinical Findings Intake & Output: Intake & Output 03/29/18 03/29/18 03/30/18 15:59 23:59 07:59 Intake Total 768 / 768 334 / 334 235 / 235 Output Total 500 / 500 800 / 800 425 / 425 Balance 268 / 268 -466 / -466 -190 / -190 Weight 52.8 kg
[2018-03-30] MEDS: GuaiFENesin/Pseudophedrine TABLET PO SCH ×2 (07:43→19:43)
[2018-03-30] MEDS: Chlorhexidine Rinse 15 ML MOUTHWASH MM SCH ×2 (07:48→19:43)
[2018-03-30] MEDS: Cholecalciferol (D-3) 1,000 UNIT TABLET PO SCH (07:48)
[2018-03-30] MEDS: Piperacillin/Tazobactam 3.375 GM in 0.9 % Sodium Chloride Mini Bag 100 ML IVPB SCH ×2 (07:48→17:11)
[2018-03-30] MEDS: Magnesium Oxide 400 MG TABLET PO SCH (07:48)
[2018-03-30] MEDS: Pantoprazole 40 MG VIAL IVP SCH (07:48)
--- NOTE | 2018-03-30 09:56 | Electrocardiograph Report ---
[address] [place] [address] Test Date: 2018-03-29 Pat Name: Cecilia Christopher Department: 109 Room: 11 Gender: F Ep Technologist: : 1940 Requested By: Fay Philip Order Number: [id number] Reading MD: Breonna More Measurements Intervals [facility] Rate: 68 P: 51 [place]: 132 QRS: 53 QRSD: 81 T: -85 QT: 544 QTc: 561 Interpretive Statements SINUS RHYTHM MODERATE T-WAVE ABNORMALITY, CONSIDER ANTEROLATERAL ISCHEMIA MODERATE T-WAVE ABNORMALITY, CONSIDER INFERIOR ISCHEMIA Electronically Signed On 03-30-2018 9:55:13 EST by Breonna More
[2018-03-30] MEDS ORDERED: Perflutren Lipid Microsphere 1.3 ML in 0.9 % Sodium Chloride 8.7 ML IVP ONE (12:48)
--- NOTE | 2018-03-30 15:18 | Palliative Progress Note ---
Date of Encounter: 03/30/18 Time of Encounter: 14:00 - Assessment and plan (1) Hypoxia Current Visit: Yes Status: Acute Assessment and plan: Patient remains On BiPAP at this time. Duobebs, Steroids, Suction PRN, and BiPAP per ICU team. (2) Pulmonary edema Current Visit: Yes Status: Acute Qualifiers: Chronicity: acute Qualified Code(s): J81.0 - Acute pulmonary edema (3) Goals of care, counseling/discussion Current Visit: Yes Status: Acute Assessment and plan: Met with patient. No family present at bedside. Confirmed CODE STATUS as FULL CODE. Patient reports she doesn't understand why she is at [facility]. She "always goes to [facility]" when she has dyspneic episodes. Patient reports a revolving door of Rehab to ER to [facility] then back to rehab. Reports she wants to go home and spend time with family, but acknowledges this is not possible at this time. Wants to go to rehab when she gets out of hospital. Discussed the scenario that the revolving door eventually ends and at that point difficult decisions has to be made. Explained it would be a benefit if she ensured her family knew her wish es should her heart stop and what she wants does, also to inform her family what is too much in her opinion. Verbalized understanding. Patient requested transfer to [facility], as she explains when she was admitted a few weeks ago there that she could have a form of surgery to "fix her.' Patient is unsure type of surgery. Notified patient would be difficult to get her transferred when we can care for her at this time. Patient requested to try. Patient explained that at [facility] she is always given further options for treatment, the option of not treating and making comfortable is never brought up to her. Patient expressed desire to be transferred as soon as possible. Explained to patient would notify ICU team. Informed would follow up tomorrow if still present, patient agreeable. Dr. Salcedo ICU team notified of results of conversation. 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 Qualifiers: Leukemia Active/Remission status: in remission Qualified Code(s): C93.11 - Chronic myelomonocytic leukemia, in remission - Time Spent With Patient Total time spent is greater than 50% in coordination of care (as documented) at patient's floor/unit and/or counseling patient: 25 - 35 minutes - Subjective Interval history: Patient awake, alert and oriented upon arrival for assessment. Patient successfully extubated to BiPAP, oxygen saturation 88-92%. Patient denies anxiety, dyspnea, nausea, vomiting, and pain. Patient reports she does not remember conversation yesterday; however, acknowledged that she knows she will need rehab at discharge. No family present at this time. - Constitutional Vitals: Abnormal lab results WBC 44.2 K/mcL (4.3-11.1) H* D 03/30/18 03:09 RBC 3.60 M/mcL (3.82-4.97) L 03/30/18 03:09 Hgb 9.2 g/dL (11.5-15.4) L D 03/30/18 03:09 Hct 29.1 % (35.3-44.9) L 03/30/18 03:09 MCV 80.8 fL (83.0-100.0) L 03/30/18 03:09 MCH 25.6 pg (28.0-33.3) L 03/30/18 03:09 RDW 17.0 % (11.5-14.5) H 03/30/18 03:09 Plt Count 82 K/mcL (140-400) L 03/30/18 03:09 MPV 12.6 fL (9.4-12.4) H 03/30/18 03:09 Immature Gran % 5.9 % (0-4) H 03/30/18 03:09 Band Neutrophils % 6.0 % (0-4) H 03/29/18 05:10 Metamyelocytes % 2.0 % (0) H 03/28/18 11:00 Promyelocytes % 1.0 % (0) H 03/28/18 11:00 Neutrophils # 22.0 K/mcL (1.6-8.9) H 03/30/18 03:09 Monocytes # 17.9 K/mcL (0.0-1.3) H 03/30/18 03:09 Platelet Estimate Decreased (Normal) L 03/30/18 03:09 Immature Plt Fraction 13.5 % (1.1-6.1) H 03/27/18 08:08 Anisocytosis 1+ (Not Present) A 03/30/18 03:09 Ovalocytes 1+ (Not Present) A 03/28/18 06:42 PT 16.7 Seconds (9.4-12.1) H 03/26/18 10:32 APTT 41.0 Seconds (26.0-36.0) H 03/26/18 10:32 ABG pH 7.49 pH Units (7.32-7.45) H 03/30/18 04:33 ABG HCO3 30 mEq/L (21-27) H 03/30/18 04:33 ABG Total CO2 31 mEq/L (20-26) H 03/30/18 04:33 ABG Base Excess 6 mEq/L (-2 to 3) H 03/30/18 04:33 VBG pH 7.29 pH Units (7.32-7.42) L 03/28/18 06:54 VBG pCO2 67 mmHg (41-51) H 03/28/18 06:54 VBG pO2 78 mmHg (25-50) H 03/28/18 06:54 VBG HCO3 32 mEq/L (21-27) H 03/28/18 06:54 Carbon Dioxide 30 mEq/L (23-29) H 03/30/18 03:09 BUN 26 mg/dL (8-23) H 03/30/18 03:09 BUN/Creatinine Ratio 35 (6-26) H 03/30/18 03:09 Glucose 132 mg/dL (70-105) H 03/30/18 03:09 POC Glucose 133 mg/dL (70-99) H 03/30/18 00:00 Calcium 8.5 mg/dL (8.6-10.3) L 03/30/18 03:09 Troponin I 0.07 ng/mL (< 0.04) H* 03/29/18 14:01 B-Natriuretic Peptide 312 pg/mL (Less than 100) H 03/26/18 10:32 Fluid Appearance Cloudy (Clear) A 03/28/18 17:25 General appearance: Present: cooperative, no acute distress - Head Head exam: Present: atraumatic, normal inspection - Eye Eye exam: Present: EOMI, PERRL. Absent: periorbital swelling, periorbital tenderness Pupils: Present: normal accommodation, PERRL - ENT ENT exam: Present: mucous membranes dry, normal external ear exam - Neck Neck exam: Present: full ROM, normal inspection - Respiratory Respiratory exam: Present: accessory muscle use, wheezes. Absent: respiratory distress - Cardiovascular Cardiovascular exam: Present: +S1, +S2 - GI/Abdominal GI/Abdominal exam: Present: normal bowel sounds, soft. Absent: tenderness - Rectal Rectal exam: Present: deferred - Extremities Exam Extremities exam: Present: full ROM, normal inspection. Absent: pedal edema - Back Exam Back exam: Present: normal inspection - Neurological Exam Neurological exam: Present: alert, oriented X3, strengths equal and symetr throughout. Absent: altered - Psychiatric Psychiatric exam: Present: normal affect, normal mood - Skin Skin exam: Present: intact, warm Palliative Quality Palliative Quality: Screen for Code Status: Yes, Screen for Goals of Care: Yes, Screen for Pain: Yes, If Pain Regimen Started, Initiate Bowel Regimen: NA, Screen for Nausea/Vomitting: Yes Code Status: 03/26/18 11:56 Resuscitation Status: Active [RES] Routine Comment: Resuscitation Status: Full Code - Labs CBC & Chem 7: 03/30/18 03:09 03/30/18 03:09 Labs: Laboratory Results - last 24 hr 03/29/18 03/29/18 03/29/18 05:10 11:45 14:01 WBC RBC Hgb Hct MCV MCH MCHC RDW Plt Count MPV Immature Gran % Seg Neutrophils % Lymphocytes % Monocytes % Eosinophils % Basophils % Neutrophils # Lymphocytes # Monocytes # Eosinophils # Basophils # Platelet Estimate Anisocytosis ABG pH ABG pCO2 ABG pO2 ABG HCO3 ABG Total CO2 ABG O2 Saturation ABG Base Excess Respiration Rate O2 Delivery Device Blood Gas Modality Inspired O2 Tidal Volume PEEP Sodium Potassium Chloride Carbon Dioxide BUN Creatinine Est GFR ( Amer) Est GFR (Non-Af Amer) BUN/Creatinine Ratio Glucose POC Glucose 124 H Calculated Osmolality Uric Acid 4.9 Calcium Lactate Dehydrogenase 210 Troponin I 0.07 H* 03/30/18 03/30/18 03/30/18 00:00 03:09 03:09 WBC 44.2 H* D RBC 3.60 L Hgb 9.2 L D Hct 29.1 L MCV 80.8 L MCH 25.6 L MCHC 31.6 RDW 17.0 H Plt Count 82 L MPV 12.6 H Immature Gran % 5.9 H Seg Neutrophils % 49.7 Lymphocytes % 3.6 Monocytes % 40.4 Eosinophils % 0.0 Basophils % 0.4 Neutrophils # 22.0 H Lymphocytes # 1.6 Monocytes # 17.9 H Eosinophils # 0.0 Basophils # 0.2 Platelet Estimate Decreased L Anisocytosis 1+ A ABG pH ABG pCO2 ABG pO2 ABG HCO3 ABG Total CO2 ABG O2 Saturation ABG Base Excess Respiration Rate O2 Delivery Device Blood Gas Modality Inspired O2 Tidal Volume PEEP Sodium 139 Potassium 3.6 Chloride 103 Carbon Dioxide 30 H BUN 26 H Creatinine 0.75 Est GFR ( Amer) > 60 Est GFR (Non-Af Amer) > 60 BUN/Creatinine Ratio 35 H Glucose 132 H POC Glucose 133 H Calculated Osmolality 295 Uric Acid Calcium 8.5 L Lactate Dehydrogenase Troponin I 03/30/18 04:33 WBC RBC Hgb Hct MCV MCH MCHC RDW Plt Count MPV Immature Gran % Seg Neutrophils % Lymphocytes % Monocytes % Eosinophils % Basophils % Neutrophils # Lymphocytes # Monocytes # Eosinophils # Basophils # Platelet Estimate Anisocytosis ABG pH 7.49 H ABG pCO2 39 ABG pO2 86 ABG HCO3 30 H ABG Total CO2 31 H ABG O2 Saturation 97 ABG Base Excess 6 H Respiration Rate 12 O2 Delivery Device ET Tube Blood Gas Modality ASSIST CONTROL Inspired O2 30.0 Tidal Volume 450 PEEP 5 Sodium Potassium Chloride Carbon Dioxide BUN Creatinine Est GFR ( Amer) Est GFR (Non-Af Amer) BUN/Creatinine Ratio Glucose POC Glucose Calculated Osmolality Uric Acid Calcium Lactate Dehydrogenase Troponin I - Impressions Impressions Abdomen/Pelvis CT 03/28/18 12:04 IMPRESSION: 1. Interval development of multifocal ground-glass and consolidative opacities bilaterally within the lungs with interlobular septal thickening and small bilateral pleural effusions. There is near complete left lower lobe atelectasis. Given acuity, findings favor pulmonary edema and may be in the setting of heart failure or ARDS. Multifocal pneumonia is also in the differential. Previously noted 3.5 cm right lower lobe mass is less conspicuous and obscured on today's study. 2. Mild mediastinal adenopathy, likely reactive. 3. Questionable trace ascites otherwise no acute findings in the abdomen or pelvis on this unenhanced study. 4. The endotracheal tube tip is within the right mainstem bronchus. Recommend retraction. D/ / 03/28/2018 15:40:33 Jeana Mcgregor MD / Coco Valdez Interpreting Provider: Jeana Mcgregor MD Chest CT 03/28/18 12:04 IMPRESSION: 1. Interval development of multifocal ground-glass and consolidative opacities bilaterally within the lungs with interlobular septal thickening and small bilateral pleural effusions. There is near complete left lower lobe atelectasis. Given acuity, findings favor pulmonary edema and may be in the setting of heart failure or ARDS. Multifocal pneumonia is also in the differential. Previously noted 3.5 cm right lower lobe mass is less conspicuous and obscured on today's study. 2. Mild mediastinal adenopathy, likely reactive. 3. Questionable trace ascites otherwise no acute findings in the abdomen or pelvis on this unenhanced study. 4. The endotracheal tube tip is within the right mainstem bronchus. Recommend retraction. D/ / 03/28/2018 15:40:33 Jeana Mcgregor MD / Coco [facility]dez Interpreting Provider: Jeana Mcgregor MD Chest X-Ray 03/30/18 06:00 IMPRESSION: 1. Improved pulmonary edema. 2. Tiny bilateral pleural effusions with associated bibasilar atelectasis. D/ / 03/30/2018 08:25:25 Lester Deleon MD / john Interpreting Provider: Lester Deleon MD - ABG Interpretation ABG results: ABG ABG pH 7.49 pH Units (7.32-7.45) H 03/30/18 04:33 ABG pCO2 39 mmHg (35-45) 03/30/18 04:33 ABG pO2 86 mmHg (85-104) 03/30/18 04:33 ABG O2 Saturation 97 % (95-98) 03/30/18 04:33 PT/INR, D-dimer PT 16.7 Seconds (9.4-12.1) H 03/26/18 10:32 D-Dimer 229 ng/mLFEU (0-500) 03/26/18 10:32 Palliative Scale - Palliative Performance Scale How ambulatory is this patient?: Totally bed bound What is patient's level of activity and evidence of disease?: Unable to do any work, Extensive disease How much self-care assistance does patient require?: Considerable assistance required How much oral intake does the patient have?: Mouth care only What is this patient's level of consciousness?: Full or drowsy with or without confusion Palliative Performance Score: 60 % (Only Bedbound at this time, as mechanically intubated. Will change PPS upon extubation.) Consult Discharge Plan - Plan Referrals: Duncan Tracy MD [Primary Care Provider] -
[2018-03-30] MEDS: FentaNYL (PF) 1,000 MCG in 0.9 % Sodium Chloride 80 ML IVC SCH (18:01)
[2018-03-30] MEDS: Mirtazapine 15 MG TABLET PO SCH (19:43)
[2018-03-31] MEDS: Piperacillin/Tazobactam 3.375 GM in 0.9 % Sodium Chloride Mini Bag 100 ML IVPB SCH ×3 (00:04→15:33)
[2018-03-31] MEDS: Ipratropium/Albuterol Neb 3 ML IH SCH ×7 (00:14→23:44)
[2018-03-31] MEDS: Artificial Tears SOLN 15 ML BOTTLE BOTH EYES SCH ×5 (03:31→22:00)
[2018-03-31 05:18] LABS: Basophils % 0.2 %; Eosinophils % 0.1 %
[2018-03-31 05:20] LABS: Basophils # 0.1 K/mcL (0.0-0.2); Hematocrit 29.8 % (35.3-44.9); Hemoglobin 9.2 g/dL (11.5-15.4); Lymphocytes # 1.3 K/mcL (0.6-4.6); Lymphocytes % 3.8 %; Mean Corpuscular HGB Conc 30.9 g/dL (31.6-35.5); Mean Corpuscular Hemoglobin 25.2 pg (28.0-33.3); Mean Corpuscular Volume 81.6 fL (83.0-100.0); Mean Platelet Volume 11.8 fL (9.4-12.4); Monocytes # 18.9 K/mcL (0.0-1.3); Monocytes % 54.9 %; Neutrophils # 12.7 K/mcL (1.6-8.9); Nucleated Red Blood Cells 0.1 /100 WBC (0); Red Blood Count 3.65 M/mcL (3.82-4.97); Red Cell Distribution Width 17.2 % (11.5-14.5)
[2018-03-31 05:23] LABS: Platelet Count 74 K/mcL (140-400)
[2018-03-31 05:35] LABS: Anisocytosis 1+ (Not Present); Platelet Estimate Decreased (Normal); Reactive Lymphocytes Present (Not Present)
[2018-03-31 05:36] LABS: BUN/Creatinine Ratio 38 (6-26); Blood Urea Nitrogen 24 mg/dL (8-23); Calcium 8.7 mg/dL (8.6-10.3); Carbon Dioxide 29 mEq/L (23-29); Chloride 106 mEq/L (98-107); Glucose 82 mg/dL (70-105); Osmolality,Calculated 297 (280-300); Potassium 3.1 mEq/L (3.5-5.1); Sodium 142 mEq/L (136-145); eGFR For Non-African Americans > 60 (> 60)
[2018-03-31 05:37] LABS: Hypochromasia Present (Not Present)
[2018-03-31] MEDS: Dexmedetomidine HCl 400 MCG/100 ML MLS IVC SCH (07:20)
[2018-03-31] MEDS: FentaNYL (PF) 1,000 MCG in 0.9 % Sodium Chloride 80 ML IVC SCH (07:21)
[2018-03-31] MEDS: Chlorhexidine Rinse 15 ML MOUTHWASH MM SCH ×2 (07:21→21:51)
[2018-03-31] MEDS: Magnesium Oxide 400 MG TABLET PO SCH (07:51)
[2018-03-31] MEDS: GuaiFENesin/Pseudophedrine TABLET PO SCH ×2 (07:52→21:49)
[2018-03-31] MEDS: Pantoprazole 40 MG VIAL IVP SCH (07:52)
[2018-03-31] MEDS: Cholecalciferol (D-3) 1,000 UNIT TABLET PO SCH (07:52)
[2018-03-31] MEDS ORDERED: Furosemide 20 MG/2 ML VIAL IVP ONE (09:45)
--- NOTE | 2018-03-31 09:54 | Pulmonology Progress Note ---
Date of Encounter: 03/31/18 Time of Encounter: 09:52 Assessment and Plan (1) Acute respiratory failure with hypoxia Current Visit: Yes Status: Acute Labs, radiology, chart personally reviewed. Management was reviewed during multidisciplinary critical care rounds. Below reflects my systems based assessment and plan [employer]: Patient is awake and alert no focal neurological deficits and no clear sequelae of neurological dysfunction postcardiac arrest Pulm: Acute hypoxic respiratory failure which is secondary to hydrostatic pulmonary edema and possibly pneumonia patient is on a nasal cannula O2 with acceptable oxygenation recommend use of positive airway pressure support at night for the next 48 hours as clinical course improves Cards: This postcardiac arrest likely mediated by hypoxia driven by hydrostatic pulmonary edema she does have some reduction in her ejection fraction is been followed with cardiology for this will continue diuresis today history of A. fib anticoagulation was being held because of pulmonary hemorrhage I suspect over the next 24-48 hours as could be restarted GI: Continue to monitor Nutrition: Diet as tolerated Renal: UOP Monitored, Cont to Trend sCr and monitor Electrolytes. ID: Would continue antibiotics for pneumonia this can likely be stopped or D escalated over the next 24 hours Heme/Onc: We will start heart DVT chemical prophylaxis nowI suspect anticoagulation could be reinstituted in the next 24-48 hours if no further clinical evidence of bleeding Endo: Glucose Monitored Integ/MSK: Skin Care per routine ICU Nursing Protocol to prevent ulcers. Lines: All lines examined without evidence of infection : [facility] CODE: There conversation for that with the patient regarding her goals of care she is adamant that she wants to live and have everything done with the chance of survival I expressed my concern that she has had multiple hospitalizations and overall trajectory has been poor over the last 6 months nevertheless I do not think this is a futile situation and that she will continue to receive aggressive measures per her request (2) Pulmonary edema Current Visit: Yes Status: Acute Qualifiers: Chronicity: acute Qualified Code(s): J81.0 - Acute pulmonary edema (3) Sepsis Current Visit: Yes Status: Resolved Qualifiers: Sepsis type: sepsis due to unspecified organism Qualified Code(s): A41.9 - Sepsis, unspecified organism (4) Goals of care, counseling/discussion Current Visit: Yes Status: Acute (5) Abnormal CT of the chest Current Visit: Yes Status: Acute (6) 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 Qualifiers: Leukemia Active/Remission status: in remission Qualified Code(s): C93.11 - Chronic myelomonocytic leukemia, in remission (7) NSTEMI (non-ST elevated myocardial infarction) Current Visit: No Status: Acute (8) Afib Current Visit: Yes Status: Chronic Qualifiers: Atrial fibrillation type: paroxysmal Qualified Code(s): I48.0 - Paroxysmal atrial fibrillation (9) Acute blood loss anemia Current Visit: No Status: Acute (10) Cardiac arrest with successful resuscitation Current Visit: Yes Status: Acute Subjective Principal diagnosis: Acute respiratory failure with hypoxia Interval history: Patient had a uneventful evening. She sitting up in bed eating her breakfast and so she is feeling much better she is complaining of some mild chest pain post to CPR (chest Compressions) Objective PUL Vital signs: Last Vital Signs Temp 97.8 F 03/31/18 07:53 Pulse 76 03/31/18 08:00 Resp 24 03/31/18 08:00 BP 142/70 03/31/18 08:00 Pulse Ox 94 03/31/18 08:00 General appearance: no acute distress, other (Frail elderly woman in no acute distress) Eyes: nonicteric ENT: oropharynx moist Neck: supple Auscultation: bilateral: rales Cardiovascular: regular rate and rhythm Gastrointestinal: normoactive bowel sounds, soft, non-tender Integumentary: normal Extremities: edema (Trace lower extremity edema) Musculoskeletal: no deformities normal mental status, non-focal exam mood appropriate Results - Laboratory Findings CBC and BMP: 03/31/18 04:54 03/31/18 04:54 ABG ABG pH 7.49 pH Units (7.32-7.45) H 03/30/18 04:33 ABG pCO2 39 mmHg (35-45) 03/30/18 04:33 ABG pO2 86 mmHg (85-104) 03/30/18 04:33 ABG O2 Saturation 97 % (95-98) 03/30/18 04:33 PT/INR, D-dimer PT 16.7 Seconds (9.4-12.1) H 03/26/18 10:32 D-Dimer 229 ng/mLFEU (0-500) 03/26/18 10:32 Abnormal lab findings: Abnormal lab results WBC 34.4 K/mcL (4.3-11.1) H* 03/31/18 04:54 RBC 3.65 M/mcL (3.82-4.97) L 03/31/18 04:54 Hgb 9.2 g/dL (11.5-15.4) L 03/31/18 04:54 Hct 29.8 % (35.3-44.9) L 03/31/18 04:54 MCV 81.6 fL (83.0-100.0) L 03/31/18 04:54 MCH 25.2 pg (28.0-33.3) L 03/31/18 04:54 MCHC 30.9 g/dL (31.6-35.5) L 03/31/18 04:54 RDW 17.2 % (11.5-14.5) H 03/31/18 04:54 Plt Count 74 K/mcL (140-400) L 03/31/18 04:54 Band Neutrophils % 6.0 % (0-4) H 03/29/18 05:10 Metamyelocytes % 2.0 % (0) H 03/28/18 11:00 Promyelocytes % 1.0 % (0) H 03/28/18 11:00 Neutrophils # 12.7 K/mcL (1.6-8.9) H 03/31/18 04:54 Monocytes # 18.9 K/mcL (0.0-1.3) H 03/31/18 04:54 Nucleated RBCs/100 WBC 0.1 /100 WBC (0) H 03/31/18 04:54 Reactive Lymphocytes Present (Not Present) A 03/31/18 04:54 Platelet Estimate Decreased (Normal) L 03/31/18 04:54 Immature Plt Fraction 13.5 % (1.1-6.1) H 03/27/18 08:08 Hypochromasia Present (Not Present) A 03/31/18 04:54 Anisocytosis 1+ (Not Present) A 03/31/18 04:54 Ovalocytes 1+ (Not Present) A 03/28/18 06:42 PT 16.7 Seconds (9.4-12.1) H 03/26/18 10:32 APTT 41.0 Seconds (26.0-36.0) H 03/26/18 10:32 ABG pH 7.49 pH Units (7.32-7.45) H 03/30/18 04:33 ABG HCO3 30 mEq/L (21-27) H 03/30/18 04:33 ABG Total CO2 31 mEq/L (20-26) H 03/30/18 04:33 ABG Base Excess 6 mEq/L (-2 to 3) H 03/30/18 04:33 VBG pH 7.29 pH Units (7.32-7.42) L 03/28/18 06:54 VBG pCO2 67 mmHg (41-51) H 03/28/18 06:54 VBG pO2 78 mmHg (25-50) H 03/28/18 06:54 VBG HCO3 32 mEq/L (21-27) H 03/28/18 06:54 Potassium 3.1 mEq/L (3.5-5.1) L 03/31/18 04:54 BUN 24 mg/dL (8-23) H 03/31/18 04:54 BUN/Creatinine Ratio 38 (6-26) H 03/31/18 04:54 POC Glucose 102 mg/dL (70-99) H 03/30/18 11:10 Troponin I 0.07 ng/mL (< 0.04) H* 03/29/18 14:01 B-Natriuretic Peptide 312 pg/mL (Less than 100) H 03/26/18 10:32 Fluid Appearance Cloudy (Clear) A 03/28/18 17:25 - Microbiology Findings Microbiology Findings: Microbiology, Last 48 Hours 03/28/18 17:25 Respiratory Culture - Final Left Lower Lobe Lung 03/28/18 17:25 Acid Fast Stain - Final Left Lower Lobe Lung - Clinical Findings Intake & Output: Intake & Output 03/30/18 03/31/18 03/31/18 23:59 07:59 15:59 Intake Total 1415 / 1415 100 / 100 Output Total 250 / 250 450 / 450 Balance 1165 / 1165 -350 / -350 Weight 49.6 kg Consult Discharge Plan - Plan Referrals: Duncan Tracy MD [Primary Care Provider] -
[2018-03-31] MEDS ORDERED: *HR* Heparin 5,000 UNIT/ML VIAL SQ SCH (10:00)
--- NOTE | 2018-03-31 11:43 | Palliative Progress Note ---
Date of Encounter: 03/31/18 Time of Encounter: 11:20 - Assessment and plan (1) Hypoxia Current Visit: Yes Status: Acute Assessment and plan: Patient On Nasal cannula at this time. Duobebs, Steroids, Suction PRN, and oxygen per ICU team. (2) Pulmonary edema Current Visit: Yes Status: Acute Qualifiers: Chronicity: acute Qualified Code(s): J81.0 - Acute pulmonary edema (3) Goals of care, counseling/discussion Current Visit: Yes Status: Acute Assessment and plan: Met with patient regarding goals of care. Patient explains her goals are to live as long as she can to continue to care for her son every weekend. Reports she doesn't mind any procedure that would be deemed necessary, as her son is DD and has the mentality of a child. Patient proceeded to share picture son had created for her. Patient desires to go to 1. [place] or 2. [facility] for rehab at discharge. Goals of care established, discharge plan in place. No symptoms to manage at this time. Palliative care will sign off at this time. Thank you for including in the care of your patient. Please re-consult as needed. 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 Qualifiers: Leukemia Active/Remission status: in remission Qualified Code(s): C93.11 - Chronic myelomonocytic leukemia, in remission (5) Weakness Current Visit: Yes Status: Acute Assessment and plan: Ordered PT/OT for discharge planning. - Time Spent With Patient Total time spent is greater than 50% in coordination of care (as documented) at patient's floor/unit and/or counseling patient: - Subjective Interval history: Patient awake, alert and oriented upon arrival for assessment. Per report of nursing, patient had been upset after yesterdays visit, as patient was convinced Renu wanted patient to give up. Met with patient and reviewed necessity of m gurinder is to have her goals documented, in order to successfully follow them. Patient improved mood. Patient now tolerating oxygen via NC. Patient sitting up at bedside during assessment. Patient denies anxiety, dyspnea, nausea, vomiting, and pain. No family present at this time. - Constitutional Vitals: Abnormal lab results WBC 34.4 K/mcL (4.3-11.1) H* 03/31/18 04:54 RBC 3.65 M/mcL (3.82-4.97) L 03/31/18 04:54 Hgb 9.2 g/dL (11.5-15.4) L 03/31/18 04:54 Hct 29.8 % (35.3-44.9) L 03/31/18 04:54 MCV 81.6 fL (83.0-100.0) L 03/31/18 04:54 MCH 25.2 pg (28.0-33.3) L 03/31/18 04:54 MCHC 30.9 g/dL (31.6-35.5) L 03/31/18 04:54 RDW 17.2 % (11.5-14.5) H 03/31/18 04:54 Plt Count 74 K/mcL (140-400) L 03/31/18 04:54 Band Neutrophils % 6.0 % (0-4) H 03/29/18 05:10 Metamyelocytes % 2.0 % (0) H 03/28/18 11:00 Promyelocytes % 1.0 % (0) H 03/28/18 11:00 Neutrophils # 12.7 K/mcL (1.6-8.9) H 03/31/18 04:54 Monocytes # 18.9 K/mcL (0.0-1.3) H 03/31/18 04:54 Nucleated RBCs/100 WBC 0.1 /100 WBC (0) H 03/31/18 04:54 Reactive Lymphocytes Present (Not Present) A 03/31/18 04:54 Platelet Estimate Decreased (Normal) L 03/31/18 04:54 Immature Plt Fraction 13.5 % (1.1-6.1) H 03/27/18 08:08 Hypochromasia Present (Not Present) A 03/31/18 04:54 Anisocytosis 1+ (Not Present) A 03/31/18 04:54 Ovalocytes 1+ (Not Present) A 03/28/18 06:42 PT 16.7 Seconds (9.4-12.1) H 03/26/18 10:32 APTT 41.0 Seconds (26.0-36.0) H 03/26/18 10:32 ABG pH 7.49 pH Units (7.32-7.45) H 03/30/18 04:33 ABG HCO3 30 mEq/L (21-27) H 03/30/18 04:33 ABG Total CO2 31 mEq/L (20-26) H 03/30/18 04:33 ABG Base Excess 6 mEq/L (-2 to 3) H 03/30/18 04:33 VBG pH 7.29 pH Units (7.32-7.42) L 03/28/18 06:54 VBG pCO2 67 mmHg (41-51) H 03/28/18 06:54 VBG pO2 78 mmHg (25-50) H 03/28/18 06:54 VBG HCO3 32 mEq/L (21-27) H 03/28/18 06:54 Potassium 3.1 mEq/L (3.5-5.1) L 03/31/18 04:54 BUN 24 mg/dL (8-23) H 03/31/18 04:54 BUN/Creatinine Ratio 38 (6-26) H 03/31/18 04:54 POC Glucose 102 mg/dL (70-99) H 03/30/18 11:10 Troponin I 0.07 ng/mL (< 0.04) H* 03/29/18 14:01 B-Natriuretic Peptide 312 pg/mL (Less than 100) H 03/26/18 10:32 Fluid Appearance Cloudy (Clear) A 03/28/18 17:25 General appearance: Present: cooperative, no acute distress - Head Head exam: Present: atraumatic, normal inspection - Eye Eye exam: Present: PERRL. Absent: periorbital swelling, periorbital tenderness Pupils: Present: normal accommodation, PERRL - ENT ENT exam: Present: mucous membranes moist, normal external ear exam - Neck Neck exam: Present: full ROM, normal inspection - Respiratory Respiratory exam: Present: CTAB. Absent: accessory muscle use, respiratory distress - Cardiovascular Cardiovascular exam: Present: +S1, +S2 - GI/Abdominal GI/Abdominal exam: Present: normal bowel sounds, soft. Absent: tenderness - Rectal Rectal exam: Present: deferred - Extremities Exam Extremities exam: Present: full ROM, normal inspection. Absent: calf tenderness, pedal edema - Back Exam Back exam: Present: normal inspection - Neurological Exam Neurological exam: Present: alert, oriented X3, strengths equal and symetr throughout. Absent: altered - Psychiatric Psychiatric exam: Present: normal affect, normal mood - Skin Skin exam: Present: intact, pallor, warm Palliative Quality Palliative Quality: Screen for Code Status: Yes, Screen for Goals of Care: Yes, Screen for Pain: Yes, If Pain Regimen Started, Initiate Bowel Regimen: NA, Screen for Nausea/Vomitting: Yes Code Status: 03/26/18 11:56 Resuscitation Status: Active [RES] Routine Comment: Resuscitation Status: Full Code - Labs CBC & Chem 7: 03/31/18 04:54 03/31/18 04:54 Labs: Laboratory Results - last 24 hr 03/30/18 03/31/18 03/31/18 11:10 04:54 04:54 WBC 34.4 H* RBC 3.65 L Hgb 9.2 L Hct 29.8 L MCV 81.6 L MCH 25.2 L MCHC 30.9 L RDW 17.2 H Plt Count 74 L MPV 11.8 Immature Gran % 4.0 Seg Neutrophils % 37.0 Lymphocytes % 3.8 Monocytes % 54.9 Eosinophils % 0.1 Basophils % 0.2 Neutrophils # 12.7 H Lymphocytes # 1.3 Monocytes # 18.9 H Eosinophils # 0.0 Basophils # 0.1 Nucleated RBCs/100 WBC 0.1 H Reactive Lymphocytes Present A Platelet Estimate Decreased L Hypochromasia Present A Anisocytosis 1+ A Sodium 142 Potassium 3.1 L Chloride 106 Carbon Dioxide 29 BUN 24 H Creatinine 0.63 Est GFR ( Amer) > 60 Est GFR (Non-Af Amer) > 60 BUN/Creatinine Ratio 38 H Glucose 82 POC Glucose 102 H Calculated Osmolality 297 Calcium 8.7 - Impressions Impressions Abdomen/Pelvis CT 03/28/18 12:04 IMPRESSION: 1. Interval development of multifocal ground-glass and consolidative opacities bilaterally within the lungs with interlobular septal thickening and small bilateral pleural effusions. There is near complete left lower lobe atelectasis. Given acuity, findings favor pulmonary edema and may be in the setting of heart failure or ARDS. Multifocal pneumonia is also in the differential. Previously noted 3.5 cm right lower lobe mass is less conspicuous and obscured on today's study. 2. Mild mediastinal adenopathy, likely reactive. 3. Questionable trace ascites otherwise no acute findings in the abdomen or pelvis on this unenhanced study. 4. The endotracheal tube tip is within the right mainstem bronchus. Recommend retraction. D/ / 03/28/2018 15:40:33 Jeana Mcgregor MD / Coco smyth Interpreting Provider: Jeana Mcgregor MD Chest CT 03/28/18 12:04 IMPRESSION: 1. Interval development of multifocal ground-glass and consolidative opacities bilaterally within the lungs with interlobular septal thickening and small bilateral pleural effusions. There is near complete left lower lobe atelectasis. Given acuity, findings favor pulmonary edema and may be in the setting of heart failure or ARDS. Multifocal pneumonia is also in the differential. Previously noted 3.5 cm right lower lobe mass is less conspicuous and obscured on today's study. 2. Mild mediastinal adenopathy, likely reactive. 3. Questionable trace ascites otherwise no acute findings in the abdomen or pelvis on this unenhanced study. 4. The endotracheal tube tip is within the right mainstem bronchus. Recommend retraction. D/ / 03/28/2018 15:40:33 Jeana Mcgregor MD / Coco Valdez Interpreting Provider: Jeana Mcgregor MD Chest X-Ray 03/31/18 06:21 IMPRESSION: Stable mild pulmonary vascular congestion. Stable mild patchy/hazy airspace opacities bilaterally which may be on the basis of atelectasis, infiltrates or pulmonary edema. Worsened dense opacity left lung base compatible with worsened left pleural effusion and associated atelectasis or infiltrate. Decreased blunting right costophrenic angle compatible with improved small right pleural effusion. D/ / 03/31/2018 08:33:30 Ruperto Ivy MD / john Interpreting Provider: Ruperto Ivy MD - ABG Interpretation ABG results: ABG ABG pH 7.49 pH Units (7.32-7.45) H 03/30/18 04:33 ABG pCO2 39 mmHg (35-45) 03/30/18 04:33 ABG pO2 86 mmHg (85-104) 03/30/18 04:33 ABG O2 Saturation 97 % (95-98) 03/30/18 04:33 PT/INR, D-dimer PT 16.7 Seconds (9.4-12.1) H 03/26/18 10:32 D-Dimer 229 ng/mLFEU (0-500) 03/26/18 10:32 Palliative Scale - Palliative Performance Scale How ambulatory is this patient?: Mainly sit / lie What is patient's level of activity and evidence of disease?: Unable to do any work, Extensive disease How much self-care assistance does patient require?: Considerable assistance required How much oral intake does the patient have?: Normal or reduced What is this patient's level of consciousness?: Full or confusion Palliative Performance Score: 70 % Consult Discharge Plan - Plan Referrals: Duncan Tracy MD [Primary Care Provider] -
[2018-03-31] MEDS ORDERED: Artificial Tears SOLN 15 ML BOTTLE BOTH EYES PRN (13:54)
[2018-03-31] MEDS ORDERED: Naloxone 0.4 MG/ML INJ IVP PRN (13:54)
[2018-03-31] MEDS: traMADol 50 MG TABLET PO PRN (15:32)
[2018-03-31] MEDS: Mirtazapine 15 MG TABLET PO SCH (21:50)
[2018-04-01] MEDS: traMADol 50 MG TABLET PO PRN ×4 (00:45→23:36)
[2018-04-01] MEDS: Piperacillin/Tazobactam 3.375 GM in 0.9 % Sodium Chloride Mini Bag 100 ML IVPB SCH ×2 (00:45→08:47)
[2018-04-01] MEDS: Artificial Tears SOLN 15 ML BOTTLE BOTH EYES SCH ×2 (00:46→06:01)
[2018-04-01] MEDS: Ipratropium/Albuterol Neb 3 ML IH SCH ×6 (03:26→23:22)
--- NOTE | 2018-04-01 08:10 | Event Note ---
Date of Encounter: 04/01/18 Time of Encounter: 08:06 - Cardiology Event Note Patient was s/p PEA arrest, possibly secondary to aspiration. Initial TTE post arrest with possibly mildly reduced LVEF, however poor windows. Repeat TTE with LVEF preserved, no wall motion abnormalities. Troponin mildly elevated post arrest. Has PAF on sotalol. Previously on eliquis for anticoagulation, however on hold due to pulmonary hemmorrhage, recommend restarting anticoagulation as soon as possible with [id number] score 6. Ok to continue sotalol as long as patient is in SR, however if patient would go into a.fib, would recommend stopping sotalol until able to be anticoagulated. Cardiology will sign off. Re- consult if needed.
[2018-04-01] MEDS: Magnesium Oxide 400 MG TABLET PO SCH (08:46)
[2018-04-01] MEDS: Cholecalciferol (D-3) 1,000 UNIT TABLET PO SCH (08:46)
[2018-04-01] MEDS: Chlorhexidine Rinse 15 ML MOUTHWASH MM SCH ×2 (08:46→21:05)
[2018-04-01] MEDS: GuaiFENesin/Pseudophedrine TABLET PO SCH (08:47)
[2018-04-01] MEDS ORDERED: Pantoprazole 40 MG VIAL IVP SCH (09:00)
[2018-04-01] MEDS ORDERED: GuaiFENesin/Pseudophedrine TABLET PO PRN (09:52)
--- NOTE | 2018-04-01 10:37 | Internal Med Progress Note ---
Hospitalist Progress Note - Encounter Date of Encounter: 04/01/18 Time of Encounter: 08:30 - Subjective Interval History: Interim events noted. Patient was transferred to the ICU post PEA arrest on 03/28. Developed hypoxic respiratory failure and shock, requiring intubation/vasopressors, with multifocal GGO and consolidative opacities on CT for which she was treated as pulmonary edema +/- HCAP. Bronchoscopy also revealed evidence of pulmonary hemorrhage and Eliquis had been on hold since then. Culture result have been negative to-date. Initial echo was also concerning for regional, hypokinetic wall motion abnormalities but repeat Echo done on 03/30 was unremarkable. Pt responded well to antibiotics and diuresis and was successfully extubated on 03/30. Repeat x-ray 03/31 shows mostly stable findings but possible worsening left pleural effusion. Nevertheless, patient reports improvement in her symptoms and O2 requirement came down to 2L on NC. No fever/chills. - Exam Vitals: Temp Pulse Resp BP Pulse Ox 99.0 F 76 16 126/61 96 04/01/18 07:21 04/01/18 07:21 04/01/18 07:29 04/01/18 07:21 04/01/18 07:29 Exam: Vitals: Reviewed. General: Alert and oriented 3, not in distress Cardiovascular: normal S1 & S2. Normal rate and rhythm. no rubs, murmurs or gallops. Lungs: mostly clear with bibasilar rales. Good air entry bilaterally Abdomen: Soft, non-tender, no rigidity. Neurological: No focal deficits - Assessment and Plan (1) Cardiac arrest with successful resuscitation Current Visit: Yes Status: Resolved Assessment and Plan: PEA arrest on 03/28, possibly due to hypoxia succesfully resuscitated, required ICU admission and transferred to floor yesterday mx for hypoxic respiratory failure as below (2) Acute respiratory failure with hypoxia Current Visit: Yes Status: Acute Assessment and Plan: Likely due to a combination of pulmonary edema and possible pneumonia ?aspiration ?seizure Improved with diuresis and broad spectrum abx, completed 7 days so far will switch to PO Augmentin to complete a total of 14 day course completed a course of steroids in ICU, continue bronchodilators given her ongoing L pleural effusion (does not want to get thoracentesis here), will continue PO lasix 20mg will get official speech eval for ?aspiration continue to wean off O2 (3) Pneumonia Current Visit: No Status: Suspected Assessment and Plan: abx as above (4) Pulmonary edema Current Visit: Yes Status: Acute Assessment and Plan: lasix as above initial echo was concerning for regional hypokinesis but appears to have normalized on repeat echo yesterday (5) COPD (chronic obstructive pulmonary disease) Current Visit: Yes Status: Resolved Assessment and Plan: PFT 2017 shows severe obstructive pattern RIP -ve completed a course of steroids in ICU abx and bronchodilators as above (6) Acute blood loss anemia Current Visit: Yes Status: Acute Assessment and Plan: likely related to pulmonary hemorrhage seen on bronchoscopy, eliquis had been held Hb 9.2 will resume Eliquis tomorrow (24-48 hours after transfer) per pulmonary recommendation, as long as Hb remains relatively stable (7) OLAF (acute kidney injury) Current Visit: Yes Status: Resolved Assessment and Plan: resolved (8) Afib Current Visit: Yes Status: Chronic Assessment and Plan: s/p ablation, now on sotalol. 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 Assessment and Plan: does not appear to be consistent with pulmonary leukostasis per oncology continue to monitor WBC Follow up with oncology as outpatient (10) Severe protein-calorie malnutrition Current Visit: Yes Status: Chronic Assessment and Plan: follows with nutrition (11) DVT prophylaxis Current Visit: No Status: Acute Assessment and Plan: EPCD - Time Spent with Patient Total time spent is greater than 50% in coordination of care (as documented) at patient's floor/unit and/or counseling patient: Greater than 35 minutes Plan of Care Discussed with: patient Internal Medicine: Result - Labs CBC & Chem 7: 03/31/18 04:54 03/31/18 04:54 - ABG Interpretation ABG results: ABG ABG pH 7.49 pH Units (7.32-7.45) H 03/30/18 04:33 ABG pCO2 39 mmHg (35-45) 03/30/18 04:33 ABG pO2 86 mmHg (85-104) 03/30/18 04:33 ABG O2 Saturation 97 % (95-98) 03/30/18 04:33 PT/INR, D-dimer PT 16.7 Seconds (9.4-12.1) H 03/26/18 10:32 D-Dimer 229 ng/mLFEU (0-500) 03/26/18 10:32 Consult Discharge Plan - Plan Referrals: Duncan Tracy MD [Primary Care Provider] - (3) Pneumonia Qualifiers: Pneumonia type: aspiration pneumonia Aspiration pneumonia type: unspecified Laterality: unspecified laterality Lung location: unspecified part of lung Qualified Code(s): J69.0 - Pneumonitis due to inhalation of food and vomit (4) Pulmonary edema Qualifiers: Chronicity: acute Qualified Code(s): J81.0 - Acute pulmonary edema (5) COPD (chronic obstructive pulmonary disease) Qualifiers: COPD type: COPD with acute exacerbation Qualified Code(s): J44.1 - Chronic obstructive pulmonary disease with (acute) exacerbation (8) Afib Qualifiers: Atrial fibrillation type: paroxysmal Qualified Code(s): I48.0 - Paroxysmal atrial fibrillation (9) CMML (chronic myelomonocytic leukemia) Qualifiers: Leukemia Active/Remission status: in remission Qualified Code(s): C93.11 - Chronic myelomonocytic leukemia, in remission
[2018-04-01] MEDS: Furosemide 20 MG TABLET PO SCH (11:03)
[2018-04-01] MEDS: *HR* Promethazine 25 MG/ML VIAL IVP PRN (12:21)
[2018-04-01 12:26] LABS: Red Cell Distribution Width 17.2 % (11.5-14.5)
[2018-04-01 12:28] LABS: Hematocrit 32.7 % (35.3-44.9); Hemoglobin 10.2 g/dL (11.5-15.4); Mean Corpuscular HGB Conc 31.2 g/dL (31.6-35.5); Mean Corpuscular Hemoglobin 25.5 pg (28.0-33.3); Mean Corpuscular Volume 81.8 fL (83.0-100.0); Mean Platelet Volume 13.1 fL (9.4-12.4); Platelet Count 92 K/mcL (140-400)
[2018-04-01 12:47] LABS: Alanine Aminotransferase 14 Units/L (7-52); Albumin 3.7 g/dL (3.5-5.7); Albumin/Globulin Ratio 1.7 (1.1-2.2); Alkaline Phosphatase 39 Units/L (34-104); Aspartate Amino Transferase 12 Units/L (13-39); BUN/Creatinine Ratio 26 (6-26); Bilirubin,Total 3.9 mg/dL (0.3-1.0); Blood Urea Nitrogen 16 mg/dL (8-23); Calcium 8.4 mg/dL (8.6-10.3); Carbon Dioxide 29 mEq/L (23-29); Chloride 102 mEq/L (98-107); Globulin 2.2 g/dL (2.4-3.5); Glucose 123 mg/dL (70-105); Osmolality,Calculated 291 (280-300); Potassium 3.2 mEq/L (3.5-5.1); Sodium 139 mEq/L (136-145); Total Protein 5.9 g/dL (6.4-8.9); eGFR For Non-African Americans > 60 (> 60)
[2018-04-01 13:14] LABS: Lymphocytes # 0.7 K/mcL (0.6-4.6); Monocytes # 9.2 K/mcL (0.0-1.3); Neutrophils # 24.6 K/mcL (1.6-8.9); Platelet Estimate Decreased (Normal)
--- NOTE | 2018-04-01 13:44 | Oncology Inp Progress Note ---
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 No blasts noted on peripheral CBC, 2% metamyelocytes and 1% promyelocytes noted on 03/28/2017 Patient has been afebrile since admission No electrolyte abnormality concerning for tumor lysis syndrome No splenomegaly noted on imaging Laboratory review and clinical correlation does not appear consistent with pulmonary leukostasis. Elevated WBC count is likely leukemoid reaction (2/2 infectious/inflammatory process, steroids) superimposed on already high WBC count secondary to underlying CMML, as expected, her WBC is trending down nicely Blood smear is still pending She does have some mild anemia (improving) and thrombocytopenia below her baseline, this will warrant further monitoring as outpatient for resolution Denies any B symptoms prior to events leading up to her presentation Recommend she continue to follow up as outpatient with symptom and laboratory monitoring for any future indication of treatment, we will otherwise plan to sign off at this time. Will arrange for outpatient follow up in a couple of weeks time, anticipate patient will need skilled short term rehabilitation vs. home health/PT/OT Qualifiers: Leukemia Active/Remission status: in remission Qualified Code(s): C93.11 - Chronic myelomonocytic leukemia, in remission (2) Abnormal CT of the chest Current Visit: Yes Status: Acute Assessment and plan: CT imaging of the chest without contrast revealed a 3.5 cm x 2.6 cm mass in the right lower lobe on admission Repeat CT of the chest 03/28/18 revealed Previously noted 3.5 cm right lower lobe mass is less conspicuous and obscured on today's study Patient is a never smoker according to record Plan: Recommend repeat chest imaging as outpatient in about 6-8 weeks time Oncology: Subj Interval history: Ms Martines is resting comfortably. No acute events noted over weekend. She has transferred out of ICU and doing well. She was up to the chair today. Denies pain. Currently reports some nausea, recently received phenergan. Denies any s/s bleeding. - Constitutional General appearance: cooperative, no acute distress, no febrile - Head Head exam: Present: atraumatic - ENT ENT exam: Present: mucous membranes moist, normal oropharynx - Respiratory Respiratory exam: Present: decreased breath sounds, rales. Absent: respiratory distress - Cardiovascular Cardiovascular exam: Present: RRR, +S1, +S2 - GI/Abdominal GI/Abdominal exam: Present: normal bowel sounds, soft. Absent: tenderness - Extremities Exam Extremities exam: Present: normal inspection. Absent: calf tenderness - Neurological Exam Neurological exam: Present: alert, oriented X3, no focal deficits, strengths equal and symetr throughout - Psychiatric Psychiatric exam: Present: normal affect, normal mood - Skin Skin exam: Present: dry, intact, normal color, warm Oncology: Obj Data - Labs CBC & Chem 7: 04/01/18 12:15 04/01/18 12:15 Consult Discharge Plan - Plan Referrals: Duncan Tracy MD [Primary Care Provider] - Inpatient Charges Provider: Dr. Souleymane Ewing <[email or web address] S - Last Filed: 04/01/18 21:12> Date of Encounter: 04/01/18 Oncology: Obj Data - Labs CBC & Chem 7: 04/01/18 12:15 04/01/18 12:15 Inpatient Charges Provider: Dr. Souleymane Ewing Follow up - Inpatient: [id number] - Attending Attestation I examined this patient and my medical decision-making was reviewed with the Advanced Practice Nurse. I agree with the documented findings, disposition and treatment plan as described except to the extent set forth below. Ms. puente continues to improve clinically. She is breathing easier. Proximal requirements have decreased. On exam, breath sounds store course but improved. Review of her CBC reveals improvement her white blood cell count back to her baseline. Thrombocytopenia and anemia are stable. We will arrange for further follow-up with Dr. Davidson. No need for intervention. We will otherwise sign off.
[2018-04-01] MEDS: Mirtazapine 15 MG TABLET PO SCH (21:06)
[2018-04-02 03:56] LABS: Hematocrit 31.1 % (35.3-44.9); Hemoglobin 9.6 g/dL (11.5-15.4); Mean Corpuscular HGB Conc 30.9 g/dL (31.6-35.5); Mean Corpuscular Hemoglobin 25.7 pg (28.0-33.3); Mean Corpuscular Volume 83.2 fL (83.0-100.0); Mean Platelet Volume 12.7 fL (9.4-12.4); Red Blood Count 3.74 M/mcL (3.82-4.97); Red Cell Distribution Width 17.3 % (11.5-14.5)
[2018-04-02 03:57] LABS: Platelet Count 79 K/mcL (140-400)
[2018-04-02 04:14] LABS: Lymphocytes # 4.3 K/mcL (0.6-4.6); Monocytes # 12.3 K/mcL (0.0-1.3); Neutrophils # 14.1 K/mcL (1.6-8.9); Platelet Estimate Decreased (Normal)
[2018-04-02 04:15] LABS: BUN/Creatinine Ratio 25 (6-26); Blood Urea Nitrogen 14 mg/dL (8-23); Calcium 8.7 mg/dL (8.6-10.3); Carbon Dioxide 31 mEq/L (23-29); Chloride 104 mEq/L (98-107); Glucose 89 mg/dL (70-105); Magnesium 1.4 mg/dL (1.6-2.6); Osmolality,Calculated 292 (280-300); Potassium 3.4 mEq/L (3.5-5.1); Sodium 141 mEq/L (136-145); eGFR For Non-African Americans > 60 (> 60)
[2018-04-02] MEDS: Ipratropium/Albuterol Neb 3 ML IH SCH ×6 (04:16→23:28)
[2018-04-02] MEDS: Furosemide 20 MG TABLET PO SCH (07:57)
[2018-04-02] MEDS: Apixaban 5 MG TABLET PO SCH ×2 (07:57→22:48)
[2018-04-02] MEDS: Cholecalciferol (D-3) 1,000 UNIT TABLET PO SCH (07:58)
[2018-04-02] MEDS: Magnesium Oxide 400 MG TABLET PO SCH (07:58)
[2018-04-02] MEDS: Chlorhexidine Rinse 15 ML MOUTHWASH MM SCH ×2 (07:59→22:50)
--- NOTE | 2018-04-02 10:47 | Internal Med Progress Note ---
Hospitalist Progress Note - Encounter Date of Encounter: 04/02/18 Time of Encounter: 08:00 - Subjective Interval History: No acute events overnight, felt a little nauseous yesterday and did not want to advance diet until MBS, which is scheduled today. Currently has no N/V. Denies chest pain, worsening shortness of breath, or cough. No hemoptysis. - Exam Vitals: Temp Pulse Resp BP Pulse Ox 99.0 F 84 16 117/61 100 04/02/18 07:21 04/02/18 07:21 04/02/18 07:21 04/02/18 07:21 04/02/18 07:21 Exam: Vitals: Reviewed. General: Alert and oriented 3, not in distress Cardiovascular: normal S1 & S2. Normal rate and rhythm. no rubs, murmurs or gallops. Lungs: mostly clear with bibasilar rales. Good air entry bilaterally Abdomen: Soft, non-tender, no rigidity. Neurological: No focal deficits - Assessment and Plan (1) Cardiac arrest with successful resuscitation Current Visit: Yes Status: Resolved Assessment and Plan: PEA arrest on 03/28, possibly due to hypoxia succesfully resuscitated, required ICU admission and transferred to floor on 03/31 mx for hypoxic respiratory failure as below (2) Acute respiratory failure with hypoxia Current Visit: Yes Status: Acute Assessment and Plan: Likely due to a combination of pulmonary edema and possible pneumonia ?aspiration ?seizure Improved with diuresis and broad spectrum abx, completed 7 days of zosyn switched to PO Augmentin today, complete through 04/04 for a total of 10 days completed a course of steroids in ICU continue bronchodilators continue PO lasix 20mg, replete electrolytes for MBS to rule out silent aspiration continue to wean off O2 (3) Pneumonia Current Visit: No Status: Suspected Assessment and Plan: abx as above (4) Pulmonary edema Current Visit: Yes Status: Acute Assessment and Plan: lasix as above initial echo was concerning for regional hypokinesis but appears to have normalized on repeat echo on 03/31 (5) COPD (chronic obstructive pulmonary disease) Current Visit: Yes Status: Resolved Assessment and Plan: PFT 2017 shows severe obstructive pattern RIP -ve completed a course of steroids in ICU abx and bronchodilators as above (6) Acute blood loss anemia Current Visit: Yes Status: Acute Assessment and Plan: likely related to pulmonary hemorrhage seen on bronchoscopy, eliquis had been held Hb stable around 9-10 resume Eliquis today per pulmonary recommendation monitor for hemoptysis (7) OLAF (acute kidney injury) Current Visit: Yes Status: Resolved Assessment and Plan: resolved (8) Afib Current Visit: Yes Status: Chronic Assessment and Plan: s/p ablation, now on sotalol. Eliquis resumed as above (9) 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 Assessment and Plan: does not appear to be consistent with pulmonary leukostasis per oncology continue to monitor WBC Follow up with oncology as outpatient (10) Severe protein-calorie malnutrition Current Visit: Yes Status: Chronic Assessment and Plan: follows with nutrition (11) DVT prophylaxis Current Visit: No Status: Acute Assessment and Plan: Eliquis resumed - Time Spent with Patient Total time spent is greater than 50% in coordination of care (as documented) at patient's floor/unit and/or counseling patient: Plan of Care Discussed with: patient Internal Medicine: Result - Labs CBC & Chem 7: 04/02/18 03:35 04/02/18 03:35 Labs: Short CBC 04/01/18 04/02/18 Range/Units 12:15 03:35 WBC 35.2 H* 30.7 H* (4.3-11.1) K/mcL Hgb 10.2 L 9.6 L (11.5-15.4) g/dL Hct 32.7 L 31.1 L (35.3-44.9) % Plt Count 92 L 79 L (140-400) K/mcL Neutrophils # 24.6 H 14.1 H (1.6-8.9) K/mcL BMP 04/01/18 04/02/18 12:15 03:35 Sodium 139 141 Potassium 3.2 L 3.4 L Chloride 102 104 Carbon Dioxide 29 31 H BUN 16 14 Creatinine 0.62 0.57 L Glucose 123 H 89 Calcium 8.4 L 8.7 Liver Function 04/01/18 Range/Units 12:15 Total Bilirubin 3.9 H (0.3-1.0) mg/dL AST 12 L (13-39) Units/L ALT 14 (7-52) Units/L Alkaline Phosphatase 39 (34-104) Units/L Albumin 3.7 (3.5-5.7) g/dL - ABG Interpretation ABG results: ABG ABG pH 7.49 pH Units (7.32-7.45) H 03/30/18 04:33 ABG pCO2 39 mmHg (35-45) 03/30/18 04:33 ABG pO2 86 mmHg (85-104) 03/30/18 04:33 ABG O2 Saturation 97 % (95-98) 03/30/18 04:33 PT/INR, D-dimer PT 16.7 Seconds (9.4-12.1) H 03/26/18 10:32 D-Dimer 229 ng/mLFEU (0-500) 03/26/18 10:32 - VTE Documentation of Mechanical Device: Intermittent pneumatic compression device Consult Discharge Plan - Plan Referrals: Duncan Tracy MD [Primary Care Provider] - (3) Pneumonia Qualifiers: Pneumonia type: aspiration pneumonia Aspiration pneumonia type: unspecified Laterality: unspecified laterality Lung location: unspecified part of lung Qu alified Code(s): J69.0 - Pneumonitis due to inhalation of food and vomit (4) Pulmonary edema Qualifiers: Chronicity: acute Qualified Code(s): J81.0 - Acute pulmonary edema (5) COPD (chronic obstructive pulmonary disease) Qualifiers: COPD type: COPD with acute exacerbation Qualified Code(s): J44.1 - Chronic obstructive pulmonary disease with (acute) exacerbation (8) Afib Qualifiers: Atrial fibrillation type: paroxysmal Qualified Code(s): I48.0 - Paroxysmal atrial fibrillation (9) CMML (chronic myelomonocytic leukemia) Qualifiers: Leukemia Active/Remission status: in remission Qualified Code(s): C93.11 - Chronic myelomonocytic leukemia, in remission
[2018-04-02] MEDS: traMADol 50 MG TABLET PO PRN ×2 (12:14→22:48)
[2018-04-02] MEDS: *HR* Promethazine 25 MG/ML VIAL IVP PRN (14:35)
[2018-04-02] MEDS: Mirtazapine 15 MG TABLET PO SCH (22:49)
[2018-04-03] MEDS: Ipratropium/Albuterol Neb 3 ML IH SCH ×6 (03:51→23:44)
[2018-04-03 04:43] LABS: Basophils % 0.2 %; Eosinophils % 0.3 %; Mean Platelet Volume 13.2 fL (9.4-12.4)
[2018-04-03 04:44] LABS: Basophils # 0.1 K/mcL (0.0-0.2); Eosinophils # 0.1 K/mcL (0.0-0.6); Hematocrit 29.8 % (35.3-44.9); Hemoglobin 9.3 g/dL (11.5-15.4); Immature Granulocytes % 2.9 % (0-4); Lymphocytes % 14.6 %; Mean Corpuscular HGB Conc 31.2 g/dL (31.6-35.5); Mean Corpuscular Hemoglobin 25.8 pg (28.0-33.3); Mean Corpuscular Volume 82.5 fL (83.0-100.0); Monocytes % 40.9 %; Neutrophils # 14.1 K/mcL (1.6-8.9); Red Blood Count 3.61 M/mcL (3.82-4.97); Red Cell Distribution Width 17.6 % (11.5-14.5); Segmented Neutrophils % 41.1 %
[2018-04-03 04:45] LABS: Platelet Count 88 K/mcL (140-400)
[2018-04-03 04:58] LABS: BUN/Creatinine Ratio 31 (6-26); Blood Urea Nitrogen 17 mg/dL (8-23); Calcium 8.4 mg/dL (8.6-10.3); Carbon Dioxide 29 mEq/L (23-29); Chloride 109 mEq/L (98-107); Glucose 112 mg/dL (70-105); Magnesium 1.7 mg/dL (1.6-2.6); Osmolality,Calculated 288 (280-300); Potassium 3.6 mEq/L (3.5-5.1); Sodium 138 mEq/L (136-145); eGFR For Non-African Americans > 60 (> 60)
[2018-04-03 05:30] LABS: Anisocytosis 1+ (Not Present); Hypochromasia Present (Not Present); Platelet Estimate Decreased (Normal)
[2018-04-03] MEDS: Cholecalciferol (D-3) 1,000 UNIT TABLET PO SCH (09:51)
[2018-04-03] MEDS: Apixaban 5 MG TABLET PO SCH ×2 (09:51→21:38)
[2018-04-03] MEDS: Furosemide 20 MG TABLET PO SCH (09:52)
[2018-04-03] MEDS: Magnesium Oxide 400 MG TABLET PO SCH (09:52)
[2018-04-03] MEDS: traMADol 50 MG TABLET PO PRN ×2 (09:53→21:38)
[2018-04-03] MEDS: Chlorhexidine Rinse 15 ML MOUTHWASH MM SCH ×2 (09:54→21:37)
--- NOTE | 2018-04-03 12:24 | Internal Med Progress Note ---
Hospitalist Progress Note - Encounter Date of Encounter: 04/03/18 Time of Encounter: 12:24 - Subjective Interval History: Pt today concerned about this happening repeatedly, does not want to have hypoxic arrest again understandably. Does not adhere to recommendation for thickened liquids. Today denies CP or palpitations, SOB or cough, abd pain or diarrhea. - Exam Vitals: Temp Pulse Resp BP Pulse Ox 99.1 F 88 18 108/70 97 04/03/18 11:05 04/03/18 11:05 04/03/18 11:20 04/03/18 11:05 04/03/18 11:20 Exam: General: awake, and oriented, not in distress Cardiovascular: normal S1 & S2. Normal rate and rhythm. no rubs, murmurs or gallops. Lungs: mostly clear with bibasilar rales. Good air entry bilaterally Abdomen: Soft, non-tender Neurological: No focal deficits - Summary of Assessment and Plan Summary of Assessment and Plan: Patient admitted 03/26 for COPD exacerbation, clinically improving until 03/28 at which time, a few minutes after getting breakfast tray, pt noted to have facial twitching and RUE twitching at time of hypoxia and bradycardia, and then coded in front of provider. Code blue called, pt achieved ROSC after 2 rounds ACLS for PEA arrest. Transferred to ICU. Developed hypoxic respiratory failure and shock, requiring intubation/vasopressors, with multifocal GGO and consolidative opacities on CT for which she was treated as pulmonary edema and HCAP. Bronchoscopy also revealed evidence of pulmonary hemorrhage and Eliquis was held. Cultures negative. TTE unremarkable. Pt responded well to antibiotics and diuresis and was successfully extubated on 03/30. Repeat CXR stable with peristent L pleural effusion but pt improving. S/p PEA Arrest: on 03/28, likely 2/2 hypoxia 2/2 aspiration but could be seizure per witnessed presentation - CT head unremarkable - additional eval as below Acute hypoxic respiratory failure: multifactorial, improving - wean as able - management as below with diuresis, abx, steroids - IS - walk test prior to d/c Aspiration PNA: MBS showing dysphagia - de-escalated to Augmentin 875 bid, last day 04/04 - thickened liquids Pleural effusion: hx chest tubes in the past, Pulmonary edema: resolved with diuresis, TTE unremarkable for CHF Acute blood loss anemia: Hb stabilized ~9-10, suspected 2/2 pulmonary hemorrhage which resolved, resumed eliquis OLAF: resolved COPD: acute exacerbation improved, completed course steroids and abx, continue nebs prn and inhalers A-Fib: s/p ablation, now on sotalol, AC on eliquis CMML: not leukostasis per oncology, monitor WBC Severe protein calorie malnutrition: nutrition following PPs: eliquis FEN: thickened food/liquid, no MIVF Lines: PIVx2 Consult: Onc, Cardio, previously Pulm and Palliative Code: full Dispo: likely to SNF for rehab - Time Spent with Patient Total time spent is greater than 50% in coordination of care (as documented) at patient's floor/unit and/or counseling patient: Internal Medicine: Result - Labs CBC & Chem 7: 04/03/18 04:17 04/03/18 04:17 Labs: Short CBC 04/03/18 Range/Units 04:17 WBC 34.2 H* (4.3-11.1) K/mcL Hgb 9.3 L (11.5-15.4) g/dL Hct 29.8 L (35.3-44.9) % Plt Count 88 L (140-400) K/mcL Neutrophils # 14.1 H (1.6-8.9) K/mcL BMP 04/03/18 04:17 Sodium 138 Potassium 3.6 Chloride 109 H Carbon Dioxide 29 BUN 17 Creatinine 0.54 L Glucose 112 H Calcium 8.4 L - ABG Interpretation ABG results: ABG ABG pH 7.49 pH Units (7.32-7.45) H 03/30/18 04:33 ABG pCO2 39 mmHg (35-45) 03/30/18 04:33 ABG pO2 86 mmHg (85-104) 03/30/18 04:33 ABG O2 Saturation 97 % (95-98) 03/30/18 04:33 PT/INR, D-dimer PT 16.7 Seconds (9.4-12.1) H 03/26/18 10:32 D-Dimer 229 ng/mLFEU (0-500) 03/26/18 10:32 - VTE Documentation of Mechanical Device: Intermittent pneumatic compression device Consult Discharge Plan - Plan Referrals: Duncan Tracy MD [Primary Care Provider] -
[2018-04-03] MEDS: Mirtazapine 15 MG TABLET PO SCH (21:37)
[2018-04-04] MEDS ORDERED: traMADol 50 MG TABLET PO ONE (00:02)
[2018-04-04] MEDS: Ipratropium/Albuterol Neb 3 ML IH SCH ×5 (03:49→19:39)
[2018-04-04 04:12] LABS: Red Cell Distribution Width 17.5 % (11.5-14.5)
[2018-04-04 04:14] LABS: Hemoglobin 9.3 g/dL (11.5-15.4); Mean Corpuscular Hemoglobin 25.6 pg (28.0-33.3); Mean Corpuscular Volume 82.6 fL (83.0-100.0); Mean Platelet Volume 13.5 fL (9.4-12.4); Platelet Count 107 K/mcL (140-400); Red Blood Count 3.63 M/mcL (3.82-4.97)
[2018-04-04 04:22] LABS: BUN/Creatinine Ratio 38 (6-26); Blood Urea Nitrogen 21 mg/dL (8-23); Calcium 8.8 mg/dL (8.6-10.3); Carbon Dioxide 29 mEq/L (23-29); Chloride 104 mEq/L (98-107); Glucose 121 mg/dL (70-105); Magnesium 1.5 mg/dL (1.6-2.6); Osmolality,Calculated 294 (280-300); Potassium 3.7 mEq/L (3.5-5.1); Sodium 140 mEq/L (136-145); eGFR For Non-African Americans > 60 (> 60)
[2018-04-04] MEDS: Chlorhexidine Rinse 15 ML MOUTHWASH MM SCH ×2 (08:57→20:11)
[2018-04-04] MEDS: Apixaban 5 MG TABLET PO SCH ×2 (08:57→20:11)
[2018-04-04] MEDS: Cholecalciferol (D-3) 1,000 UNIT TABLET PO SCH (08:57)
[2018-04-04] MEDS: Furosemide 20 MG TABLET PO SCH (08:57)
[2018-04-04] MEDS: Magnesium Oxide 400 MG TABLET PO SCH (08:57)
[2018-04-04] MEDS: traMADol 50 MG TABLET PO PRN (09:11)
[2018-04-04] MEDS: *HR* Promethazine 25 MG/ML VIAL IVP PRN (12:53)
--- NOTE | 2018-04-04 16:47 | Internal Med Progress Note ---
Hospitalist Progress Note - Encounter Date of Encounter: 04/04/18 Time of Encounter: 16:43 - Subjective Interval History: Pt today continues to be extremely concerned about her having repeated episodes of PEA arrest, and describes having been hospitalized for such several times. However, review of records shows that following her ablation last summer at [facility] during which she developed respiratory arrest post-procedurally, we have nothing to indicate other episodes needing intubation. She does state that she went to [place] and had an additional 2 chest tubes placed after the one placed here for pleural effusion in 10/2017 per her report did not fix the problem, however she was not transferred there from here as she states. Overall clinical picture this admission is one of pt who had COPD exacerbation/PNA and then subsequently had witnessed aspiration event leading to PEA arrest which was quickly responded to. Swallow study shows aspiration and pt's diet has been modified. Lengthy discussion with patient about all this today. - Exam Vitals: Temp Pulse Resp BP Pulse Ox 97.5 F L 79 20 124/68 100 04/04/18 15:22 04/04/18 15:22 04/04/18 15:58 04/04/18 15:22 04/04/18 15:58 Exam: General: awake, and oriented, not in distress Cardiovascular: normal S1 & S2. Normal rate and rhythm. no rubs, murmurs or gallops. Lungs: mostly clear with bibasilar blunting L>R but overall good air entry bilaterally Abdomen: Soft, non-tender Neurological: No focal deficits - Summary of Assessment and Plan Summary of Assessment and Plan: Patient admitted 03/26 for COPD exacerbation, clinically improving until 03/28 at which time, a few minutes after getting breakfast tray, pt noted to have facial twitching and RUE twitching at time of hypoxia and bradycardia, and then coded in front of provider. Code blue called, pt achieved ROSC after 2 rounds ACLS for PEA arrest. Transferred to ICU. Developed hypoxic respiratory failure and shock, requiring intubation/vasopressors, with multifocal GGO and consolidative opac ities on CT for which she was treated as pulmonary edema and HCAP. Bronchoscopy also revealed evidence of pulmonary hemorrhage and Eliquis was held. Cultures negative. TTE unremarkable. Pt responded well to antibiotics and diuresis and was successfully extubated on 03/30. Repeat CXR stable with peristent L pleural effusion but pt improving. S/p PEA Arrest: on 03/28, likely 2/2 hypoxia 2/2 aspiration but could be seizure per witnessed presentation - CT head unremarkable - additional eval as below Acute hypoxic respiratory failure: multifactorial, improving - wean as able - management as below with diuresis, abx, steroids - IS - walk test prior to d/c Aspiration PNA: MBS showing dysphagia - de-escalated to Augmentin 875 bid, last day 04/04 - thickened liquids Hypomagnesemia: replace and monitor Hypokalemia: replace and monitor Pleural effusion: hx chest tubes in the past, repeat CXR shows stable small L pleural effusion Pulmonary edema: resolved with diuresis, TTE unremarkable for CHF Acute blood loss anemia: Hb stabilized ~9-10, suspected 2/2 pulmonary hemorrhage which resolved, resumed eliquis OLAF: resolved COPD: acute exacerbation improved, completed course steroids and abx, continue nebs prn and inhalers A-Fib: s/p ablation, now on sotalol, AC on eliquis CMML: not leukostasis per oncology, monitor WBC Severe protein calorie malnutrition: nutrition following PPx: eliquis FEN: thickened food/liquid, no MIVF Lines: PIVx2 Consult: Onc, Cardio, previously Pulm and Palliative Code: full Dispo: likely to SNF for rehab, pending acceptance and authorization - Time Spent with Patient Total time spent is greater than 50% in coordination of care (as documented) at patient's floor/unit and/or counseling patient: Greater than 35 minutes Internal Medicine: Result - Labs CBC & Chem 7: 04/04/18 03:40 04/04/18 03:40 Labs: Short CBC 04/04/18 Range/Units 03:40 WBC 36.9 H* (4.3-11.1) K/mcL Hgb 9.3 L (11.5-15.4) g/dL Hct 30.0 L (35.3-44.9) % Plt Count 107 L (140-400) K/mcL BMP 04/04/18 03:40 Sodium 140 Potassium 3.7 Chloride 104 Carbon Dioxide 29 BUN 21 Creatinine 0.56 L Glucose 121 H Calcium 8.8 - ABG Interpretation ABG results: ABG ABG pH 7.49 pH Units (7.32-7.45) H 03/30/18 04:33 ABG pCO2 39 mmHg (35-45) 03/30/18 04:33 ABG pO2 86 mmHg (85-104) 03/30/18 04:33 ABG O2 Saturation 97 % (95-98) 03/30/18 04:33 PT/INR, D-dimer PT 16.7 Seconds (9.4-12.1) H 03/26/18 10:32 D-Dimer 229 ng/mLFEU (0-500) 03/26/18 10:32 - Impressions Impressions Chest X-Ray 04/04/18 07:00 IMPRESSION: 1. Stable small bilateral pleural effusions, left greater than right, and left lower lung airspace disease. 2. Improved edema. D/ / Farhat Boudreaux MD / Farhat Boudreaux MD Interpreting Provider: Farhat Boudreaux MD - VTE Documentation of Mechanical Device: Intermittent pneumatic compression device Consult Discharge Plan - Plan Referrals: Duncan Tracy MD [Primary Care Provider] - Reji Davidson MD [Partnered Physician] - 04/17/18 9:30 am
[2018-04-04] MEDS: Mirtazapine 15 MG TABLET PO SCH (20:11)
[2018-04-05] MEDS: Ipratropium/Albuterol Neb 3 ML IH SCH ×5 (00:06→15:56)
[2018-04-05] MEDS: traMADol 50 MG TABLET PO PRN ×2 (01:09→10:24)
[2018-04-05] MEDS: Apixaban 5 MG TABLET PO SCH (10:24)
[2018-04-05] MEDS: Cholecalciferol (D-3) 1,000 UNIT TABLET PO SCH (10:24)
[2018-04-05] MEDS: Magnesium Oxide 400 MG TABLET PO SCH (10:24)
[2018-04-05] MEDS: Furosemide 20 MG TABLET PO SCH (10:24)
[2018-04-05] MEDS: Chlorhexidine Rinse 15 ML MOUTHWASH MM SCH (10:25)
--- NOTE | 2018-04-05 15:51 | Discharge Summary ---
- NOTES TO OUTPATIENT PROVIDER Notes to Outpatient Provider: Ensure compliance with thickened liquids (pharyngeal dysphagia), which caused choking and PEA arrest Orders not resulted at time of discharge: Pending orders 03/28/18 17:25 AFB Culture, Respiratory [TB] Routine AFB Smear [TB] Routine Fungal Culture [MYC] Routine Date of Encounter: 04/05/18 Time of Encounter: 15:47 - Discharge Diagnosis (1) Acute respiratory failure with hypoxia Priority: Primary Status: Acute Hospital course: Dear Doctors, I recently had the opportunity to care for this patient during their hospital stay at [facility]. Cecilia Christopher is a 78 F w hx COPD, A-Fib on AC, CVA c/b dysphagia, CMML, who presented on 03/26 with SOB and hypoxia concerning for acute hypoxic respiratory failure from COPD exacerbation. She was clinically improving until 03/28 at which time, a few minutes after getting breakfast tray, pt noted to have facial twitching and RUE twitching at time of hypoxia and bradycardia, and then coded in front of provider. Rosalinda albrecht called, pt achieved ROSC after 2 rounds ACLS for PEA arrest. Transferred to ICU. Developed hypoxic respiratory failure and shock, requiring intubation/vasopressors, with multifocal GGO and consolidative opacities on CT for which she was treated as pulmonary edema and HCAP. Bronchoscopy also revealed evidence of pulmonary hemorrhage and Eliquis was held. Cultures negative. TTE unremarkable. Pt responded well to antibiotics and diuresis and was successfully extubated on 03/30. Eliquis was eventually resumed. Subsequently, patient did well in the hospital for several days while awaiting placement to swing bed for rehab due to weakness. Of note, she did undergo MBS due to concern of aspiration which showed dysphagia and she will need to maintain nectar thick liquids. Diagnoses: COPD exacerbation, acute hypoxic respiratory failure, aspiration, PEA arrest Follow up: PCP per SNF, dietary changes as noted above Tests pending: none Med changes: none Mental status: awake, fully oriented Code status: over the horizon targeting supervisor spent on discharge: 35 minutes It has been my pleasure participating in this patient's care. Please contact me with any questions or concerns regarding their hospital stay. Sincerely, Ruperto Sanches MD - Time Spent with Patient Total time spent providing and/or coordinating discharge services: - Discharge Medications Home Medications: Sotalol [Betapace] 40 mg PO QAM 10/01/14 [History] Sotalol [Betapace] 80 mg PO HS 06/04/16 [History] Acetaminophen [Tylenol] 650 mg PO Q4H PRN 02/28/18 [History] Apixaban [Eliquis] 5 mg PO 0800,1900 02/28/18 [History] Ascorbic Acid [Vitamin C] 250 mg PO DAILY 02/28/18 [History] Atorvastatin [Lipitor] 20 mg PO HS 02/28/18 [History] Calcium Carbonate/Vitamin D3 [Calcium 500-Vit D3 200 Tablet] 1 each PO BID 02/28/18 [History] Ferrous Sulfate [Iron] 325 mg PO DAILY 02/28/18 [History] Ipratropium/Albuterol Neb [Duoneb] 3 ml IH 0800,1200,1600,2000 02/28/18 [History] Loperamide HCl [Imodium A-D] 2 mg PO AD PRN 02/28/18 [History] Mag Hydrox/Aluminum Hyd/Simeth [Cvs Antacid Plus Anti-Gas Liq] 30 ml PO QID PRN 02/28/18 [History] Magnesium Oxide [Mag-Ox] 400 mg PO DAILY 02/28/18 [History] Mirtazapine 7.5 mg PO HS 02/28/18 [History] Ondansetron HCl [Zofran] 4 mg PO DAILY PRN 02/28/18 [History] Pantoprazole Sodium [Protonix] 40 mg PO DAILY 02/28/18 [History] Sennosides/Docusate Sodium [Senna-S Tablet] 1 each PO BID PRN 02/28/18 [History] Losartan Potassium 25 mg PO DAILY 03/26/18 [History] Allergies/Adverse Reactions: Allergy/AdvReac Type Severity Reaction Status Date / Time sulfamethoxazole AdvReac Unknown Nausea Verified 02/28/18 14:49 [From Bactrim] levofloxacin [From Levaquin] AdvReac See Verified 02/28/18 14:49 Comments nitrofurantoin AdvReac See Verified 02/28/18 14:49 [From Macrobid] Comments trimethoprim [From Bactrim] AdvReac Nausea Verified 02/28/18 14:49 Date of admission: 03/26/18 16:49 Primary care physician: Duncan Tracy MD Consults: 03/26/18 13:52 Consult to Nutrition [CONS] Routine Comment: Consulting Provider: NUTRITION Reason for Dietary Consult: MST Score Consult to Medical Equipment Sales [CONS] Routine Reason for SW Consult: wants to [facility] assisted living 03/27/18 10:08 Consult to Pulmonology [CONS] Routine Consulting Provider: Pulm [facility] [place] Reason for Consult: hypercarbic respiratory failure, R lower lobe mass ?rounded atelectasis Call Completed: Yes 03/28/18 10:41 Consult to Palliative Care [CONS] Routine Comment: Consulting Provider: Palliative Care [place] Reason for Consult: Goals of care Call Completed: Yes 03/29/18 08:39 Consult to Oncology Hematology [CONS] Routine Consulting Provider: Oncology [facility] [place] Reason for Consult: History of known CML, currently being treated for acute respiratory failure. WBC 92.6, pulmonary Leukostasis? Call Completed: Yes 03/29/18 11:20 Consult to Cardiology [CONS] Routine Comment: Consulting Provider: Cardiology [place] Reason for Consult: Cardiac arrest with acute respiratory failure, abnormal echo. Concern for cardiac etiology. Call Completed: Yes 04/01/18 07:39 Consult to Occupational Therapy [CONS] Routine Comment: Evaluate, develop and implement POC Reason for Consult: deconditioning Does patient have active BEDREST order?: No Is patient medically & hemodynamically stable?: Yes Consult to Physical Therapy [CONS] Routine Comment: Evaluate, develop and implement POC Reason for Consult: deconditioning Does patient have active BEDREST order?: No Is patient medically & hemodynamically stable?: Yes 04/01/18 10:50 Consult to Speech Therapy [CONS] Routine Comment: Evaluate, develop and implement POC Reason for Consult: post extubation ?aspiration Call Completed: No 04/01/18 14:39 Consult to Nurse Navigator [CONS] Routine Comment: pn, copd - Constitutional Vitals: Temp Pulse Resp BP Pulse Ox 97.8 F 76 20 112/69 99 04/05/18 11:43 04/05/18 11:43 04/05/18 11:43 04/05/18 11:43 04/05/18 11:43 Exam: General: awake, fully oriented, not in distress Cardiovascular: normal S1 & S2. Normal rate and rhythm. no rubs, murmurs or gallops. Lungs: mostly clear with bibasilar blunting L>R but overall good air entry bilaterally Abdomen: Soft, non-tender Neurological: No focal deficits - Patient Status Disposition: Transfer Other Condition: Fair Functional capacity at discharge: uses cane/walker Overall status at discharge: patient is progressing back to baseline - Discharge Instructions Follow Up With: Duncan Tracy MD [Primary Care Provider] - (Patient will follow up with F PCP) Reji Davidson MD [Partnered Physician] - 04/17/18 9:30 am - Diet and Activity Activity: as per physical therapy Diet: other (modified diet: nectar thick liquids) - VTE Documentation of Mechanical Device: Intermittent pneumatic compression device
[2018-04-05 15:55] VITALS: BP 103/66
--- NOTE | 2018-04-05 17:19 | Physician Discharge Referral ---
ExtendedCare Referral Info Transfer To: SNF/swing bed Provider in Charge after Transfer: PCP - Diagnosis (1) Acute respiratory failure with hypoxia Priority: Primary Status: Acute - Transfer Medications Home Medications: Sotalol [Betapace] 40 mg PO QAM 10/01/14 [History] Sotalol [Betapace] 80 mg PO HS 06/04/16 [History] Acetaminophen [Tylenol] 650 mg PO Q4H PRN 02/28/18 [History] Apixaban [Eliquis] 5 mg PO 0800,1900 02/28/18 [History] Ascorbic Acid [Vitamin C] 250 mg PO DAILY 02/28/18 [History] Atorvastatin [Lipitor] 20 mg PO HS 02/28/18 [History] Calcium Carbonate/Vitamin D3 [Calcium 500-Vit D3 200 Tablet] 1 each PO BID 02/28/18 [History] Ferrous Sulfate [Iron] 325 mg PO DAILY 02/28/18 [History] Ipratropium/Albuterol Neb [Duoneb] 3 ml IH 0800,1200,1600,2000 02/28/18 [History] Loperamide HCl [Imodium A-D] 2 mg PO AD PRN 02/28/18 [History] Mag Hydrox/Aluminum Hyd/Simeth [Cvs Antacid Plus Anti-Gas Liq] 30 ml PO QID PRN 02/28/18 [History] Magnesium Oxide [Mag-Ox] 400 mg PO DAILY 02/28/18 [History] Mirtazapine 7.5 mg PO HS 02/28/18 [History] Ondansetron HCl [Zofran] 4 mg PO DAILY PRN 02/28/18 [History] Pantoprazole Sodium [Protonix] 40 mg PO DAILY 02/28/18 [History] Sennosides/Docusate Sodium [Senna-S Tablet] 1 each PO BID PRN 02/28/18 [History] Losartan Potassium 25 mg PO DAILY 03/26/18 [History] Allergies/Adverse Reactions: Allergy/AdvReac Type Severity Reaction Status Date / Time sulfamethoxazole AdvReac Unknown Nausea Verified 02/28/18 14:49 [From Bactrim] levofloxacin [From Levaquin] AdvReac See Verified 02/28/18 14:49 Comments nitrofurantoin AdvReac See Verified 02/28/18 14:49 [From Macrobid] Comments trimethoprim [From Bactrim] AdvReac Nausea Verified 02/28/18 14:49 - Respiratory Orders Smoking Cessation: Smoking cessation has been advised. For more information, call the [place] Tobacco Quit Line at 0-589-UOUG-NOW. - Diet Orders Mechanical Soft (w nectar thick liquids) CERTIFICATION: I certify that the transfer of the above named patient to an Extended Care Facility is necessary for the continuing treatment of the diagnosis listed. The above information is true and accurate reflection of patient's current condition. Confidential - Redisclosure prohibited without a patient's written consent.
== END 2018-04-05 18:14 | disposition other institution (70) | DRG 871 ==
LOC: EMEROOARM 09:31 → 2NENU 12:04 → INTOOBSV 12:04 → 2NENU 13:05 → SUATTDRO 16:49 → ICNU 03-28 09:03 → 2ANU 03-31 12:22
PROVIDERS: ADMIT Internal Medicine; ATTEND Internal Medicine